=== PATIENT | female | born 1960 | race Caucasian/White ===

== ENCOUNTER 2017-08-12 00:26 | Inpatient (IN) ==
--- NOTE | 2017-08-12 01:15 | Emergency Department Note ---
Disposition Clinical Impression: ESRD (end stage renal disease) Altered mental status Qualifiers: Altered mental status type: unspecified Qualified Code(s): R41.82 - Altered mental status, unspecified Disposition: Admitted As Inpatient Condition: Good General Adult HPI - General Chief complaint: ED Urogenital-Female Stated complaint: uti Time Seen by Provider: 08/12/17 00:33 Source: EMS Mode of arrival: EMS Limitations: altered mental status Nursing Notes Reviewed: Yes Vital Signs Reviewed: Yes - History of Present Illness HPI Narrative: 56-year-old female history of end-stage renal disease dialysis dependent who presents to the ER as a transfer due to altered mental status. Patient is unable to give any history. Per documentation sheet been altered for roughly one day. No other history is obtainable. She had a workup there including a head CT, CT of the chest abdomen and pelvis as well as labs. She was given a dose of Rocephin and transferred here. She is alert to person and place. No other complaints. Pt Subjective Complaint: Altered mental status Onset (ago): day(s) Pain Scale: 0 Improves with: nothing Worsens with: nothing Associated symptoms: Reports: denies other symptoms Treatments Prior to Arrival: none - Related Data Home Medications Medication Instructions Recorded Confirmed Apixaban [Eliquis] 5 mg PO BID 03/24/17 03/24/17 Baclofen [Lioresal] 10 mg PO TID PRN 03/24/17 03/24/17 Carvedilol [Carvedilol] 12.5 mg PO BID 03/24/17 03/24/17 Citalopram Hydrobromide 20 mg PO DAILY 03/24/17 03/24/17 [Citalopram HBr] Docusate Sodium [Dok] 100 mg PO TID PRN 03/24/17 03/24/17 Folic Acid/Vit Bcomp,C [Renal-Diego 1 tab PO DAILY 03/24/17 03/24/17 Tablet] Insulin ASPART [Novolog Flexpen] 0 unit SQ TID PRN 03/24/17 03/24/17 Insulin Glargine,Hum.rec.anlog 0 unit SQ QPM PRN 03/24/17 03/24/17 [Lantus Solostar] Montelukast [Singulair] 10 mg PO DAILY 03/24/17 03/24/17 Omeprazole [PriLOSEC] 20 mg PO DAILY 03/24/17 03/24/17 OxyCODONE/APAP 10/325 [Percocet 0.5 tab PO Q3H PRN 03/24/17 03/24/17 10/325 MG] Sevelamer Carbonate [Renvela] 4.8 gm PO TID 03/24/17 03/24/17 Torsemide [Torsemide] 100 mg PO DAILY 03/24/17 03/24/17 amLODIPine [Norvasc] 5 mg PO BID 03/24/17 03/24/17 hydrALAZINE [HydrALAZINE] 10 mg PO TID 03/24/17 03/24/17 Oxycodone HCl/Acetaminophen 0.5 tab PO Q3H PRN 08/12/17 08/12/17 [Percocet 10-325 mg Tablet] Allergies Allergy/AdvReac Type Severity Reaction Status Date / Time pregabalin [From Lyrica] Allergy See Verified 03/24/17 14:02 Comments codeine AdvReac Nausea Verified 03/24/17 14:02 ivp dye Allergy See Uncoded 03/24/17 14:02 Comments Limitations: ROS unobtainable due to patients medical condition Past Medical History - Past Medical History Attestation: Yes The following information was validated with the patient. Source: old records reviewed Medical history: Reports: CVA, diabetes, dialysis, fibromyalgia, renal disease - Social History Smoking Status: Former smoker Alcohol use: Reports: none Drug use: Reports: none Physical Exam - General Limitations: altered mental status General appearance: alert, in no apparent distress - Head Head exam: atraumatic, normocephalic - Eye Eye exam: Present: normal appearance - ENT ENT exam: normal exam - Neck Neck exam: Present: normal inspection, full ROM - Chest Chest inspection: Present: normal inspection, symmetric chest wall rise - Respiratory Respiratory exam: Present: normal lung sounds bilaterally - Cardiovascular Cardiovascular exam: Present: regular rate, normal rhythm, normal heart sounds - Abdominal Exam Abdominal exam: Present: soft, Non-Tender. Absent: tenderness - Extremities Exam Extremities exam: Present: normal inspection, full ROM - Expanded Upper Extremity Exam Shoulder exam: Present: normal inspection, full ROM Arm exam: Present: normal inspection, full ROM Elbow exam: Present: normal inspection, full ROM Forearm/Wrist exam: Present: normal inspection, full ROM Hand exam: Present: normal inspection, full ROM - Expanded Lower Extremity Exam Hip/Pelvis exam: Present: normal inspection, full ROM Upper leg exam: Present: normal inspection, full ROM Knee exam: Present: normal inspection, full ROM Lower leg exam: Present: normal inspection, full ROM Ankle exam: Present: normal inspection, full ROM Foot/toe exam: Present: normal inspection, full ROM - Neurological Exam Neurological exam: Present: other (GCS 15. Nonfocal neurologic exam. Moves all extremities equally.) - Skin Skin exam: Present: warm, dry Course Course Narrative: Patient seen and examined. Vital signs reviewed. I reviewed her prior workup including a normal head CT as well as CT of the chest abdomen pelvis with a consolidation in the right middle and lower lobes likely atelectatic. There was also some bilateral perinephric stranding however her urinalysis did not demonstrate UTI. Electrolytic within normal limits. Creatinine of 2.7. Patient given Rocephin. Vital Signs Temperature 98 F 08/12/17 00:28 Pulse Rate 81 08/12/17 00:28 Respiratory Rate 20 08/12/17 00:28 Blood Pressure 179/82 08/12/17 00:28 O2 Sat by Pulse Oximetry 97 08/12/17 00:28 Temperature 98.5 F 08/12/17 04:01 Pulse Rate 75 08/12/17 04:01 Respiratory Rate 18 08/12/17 04:01 Blood Pressure 152/84 08/12/17 04:01 O2 Sat by Pulse Oximetry 96 08/12/17 04:01 Oxygen Delivery Oxygen Delivery Room Air Medical Decision Making - [facility] Narrative Medical decision making narrative: 56-year-old female presents to the ER due to altered mental status. She is a poor historian and unable to gather any history. History from documentation. She was imaged with a CT of her head as well as chest abdomen pelvis. Head with no acute abnormalities. Chest with atelectatic changes in the right middle and lower lobes versus pneumonia. Given the fact that she is dialysis dependent we will broaden antibiotic coverage with vancomycin and Zosyn for suspected healthcare associated pneumonia. Labs and urinalysis reviewed. She was given Rocephin prior to transfer. She is admitted to the hospitalist service for altered mental status. - Lab Data Lab results reviewed: Yes I reviewed the patient's lab results. Result diagrams: 08/12/17 04:54 08/12/17 04:54 - Radiology Data Radiology results reviewed: Yes I reviewed the patient's radiology results. Vasu - Vasu Situation: Demographics, MOA Background: Presenting Complaint, Relevant PMH, Meds, & Allergies Assessment: Course and respsone to treatment, Exam Concerns, Patient/Family Expectation, Pertinant Lab Results Recommendation: Barrier(s) to disposition, Recommendation based on pending studies, treatments, or consults SRed Report Given to: Dr. Gia Leone Repor Time: 01:42 Attestation Statement - Attestation Attestation: I, Cy Casiano MD, personally evaluated this patient and discussed their management with the resident physician. I reviewed the resident's note and agree with the documented findings, medical decision making, and plan of care. Patient is a 56-year-old female who was transferred from another facility after she presented there from an extended care facility with altered mental status. She had a complete workup at that facility and is being transferred here for admission with the hospitalist wanted her evaluated in the emergency department. Here in the department the patient is awake and alert and responds to verbal stimuli and answers questions appropriately. She is oriented 3. She has no specific complaints. On examination patient is a well-developed well-nourished female in no acute distress. She is alert and oriented. There is no cyanosis or diaphoresis. Breath sounds are equal bilaterally. Heart regular. Abdomen soft with normal bowel sounds. Records from transferring facility reviewed. The hospitalist, Dr. Nielsen, was consulted and accepted admission of the patient.
[2017-08-12] MEDS ORDERED: Piperacillin/Tazobactam 3.375 GM in 0.9 % Sodium Chloride Mini Bag 100 ML IVPB ONE (01:42)
--- NOTE | 2017-08-12 02:03 | Internal Med History&Physical ---
<Winston Contreras - Last Filed: 08/12/17 03:17> Date of Encounter: 08/12/17 Time of Encounter: 02:03 Assessment and Plan (1) Altered mental status Current visit: Yes Status: Acute Likely secondary to infection No focal neurologic defecits CT head normal Patient has elevated WBC Electrolytes within normal limits BUN normal Cr appears at baseline with her ESRD No evidence of extremes of glucose current 185 TSH wnl AST, ALT, Alk phos elevated but ammonia normal, no abd pain. Did not see urine drug screen in OSH records will check UDS, Acetomenophen, salicilates patient appears to be on perocet at home. BCX, UCx obtained at OSH results pending. Awaiting med rec and lab results before restarting all home meds, but will restart hydralazine which it appears she refilled recently and elipuis which was filled recently. Qualifiers: Altered mental status type: unspecified Qualified Code(s): R41.82 - Altered mental status, unspecified (2) HCAP (healthcare-associated pneumonia) Current visit: Yes Status: Suspected Dialysis Patient with possible PNA on CT chest. Broad spectrum abx (vanc and zosyn) started. Continue to monitor with plans to de-escalate abx as able. (3) ESRD (end stage renal disease) Current visit: Yes Status: Chronic Pt with ESRD on HD. Cr appears lower than prior admission to the facility, BUN normal. no urgent need for dialysis at this time. determine patient's HD schedule. (4) HTN (hypertension) Current visit: Yes Status: Acute Pt with Hx of HTN appears to be on hoem hydralazine based on records. SBPs 170s will restart home meds. continue to monitor. Qualifiers: Hypertension type: essential hypertension Qualified Code(s): I10 - Essential (primary) hypertension (5) Diabetes mellitus Current visit: Yes Status: Acute Hx of IDDM will start SSI, accuchecks Qualifiers: Diabetes mellitus type: type 2 Diabetes mellitus complication status: with neurologic complications Diabetes mellitus complication detail: with polyneuropathy Diabetes mellitus tank terminal gauger insulin use: with longterm use Qualified Code(s): E11.42 - Type 2 diabetes mellitus with diabetic polyneuropathy; Z79.4 - senior living (current) use of insulin; Z79.4 - ferry terminal supervisor ( current) use of insulin; Z79.4 - senior living (current) use of insulin; Z79.4 - senior living (current) use of insulin Internal Medicine - H&P: HPI Chief complaint: AMS Admitted From: Emergency Dept Plans for Post Hospital Care: Transfer Custodial Facility History of present illness: Ms. Simon is a 56 year old female c PMhx of DM, HTN, CVA, ESRD on dialysis, DVT reports tot [facility] ED as a transfer from [place] [facility] for AMS. Patient is altered not able to tell me why she was brought to the ED. Per records from OSH patient presented with gradual onset of AMS x 1 day of decreased alertness, change in behavior, and confusion. Patient denies current complaints. Patient was worked up at OSH with lab work, CT Head, CT chest, Abd, Pelvis. Patient's Labs showed: CBC: WBC 13.9, Hgb 13.8, Hct 43.2, plts 404, Seg % 87.8, lymph 8.2#neut 12.2; CMP:Na 136, K 4.3, Cl 97, Co2 30.8, BUN 18, Cr 2.72, Glucose, 185, Gap 8, Ca 8.2, albumin 3.4, total protein 7.3, total bili 0.21, Alk phos 371, AST 74, ALT 306; CPK 25; Influenza swab negative, Lactic Acid: 0.6 ; Lipase 113, PT 10.9, INR 0.99, PTT 33.3; Ammonia 11; Trop Negative; UA: pH 6.5, spec gravity 1.015, yellow, clear, glucose 250, ketone negative, bili negative, blood trace, urobili 0.2, nitrite negative, leuk est ngative, WBC 3-5 , RBC 3-5, epitelial 15-30, bacteria few, mucous few, no crystals, no casts; TSH 1.91; uric acid 2.4 CT head showed no acute intercranial abnormality; CT [id number] showed: "Focal collapse and consolidation within the right middle llobe, and right lower lobe. THis is probabl chronic atelectasis, but pna in that location could be present as well. Subacute fracture of the right 3rd through 7th ribs these are new when compared to previous exam from may 2017. Bilateral perinephric fat stranding. THis is probably age related, but correlate with any clinical evidence of pyelonephritis. Large amount of stool within the colon suggesting constipation. Main pulmonary arterial enlargement raising the possibility of pulmonary arterial hypertension. Patient was given 1 dose of ceftriaxone in the OSH ED and transferred to [facility] ED. Patient was started on broad spectrum abx in our ED. Past Med Surg Social Fam HX - Past Medical History Medical history: CVA, diabetes, dialysis, fibromyalgia, renal disease - Social History Smoking Status: Former smoker Alcohol use: none Drug use: none Internal Medicine - H&P: Meds Apixaban [Eliquis] 5 mg PO BID 03/24/17 [History] Baclofen [Lioresal] 10 mg PO TID PRN 03/24/17 [History] Carvedilol [Carvedilol] 12.5 mg PO BID 03/24/17 [History] Citalopram Hydrobromide [Citalopram HBr] 20 mg PO DAILY 03/24/17 [History] Docusate Sodium [Dok] 100 mg PO TID PRN 03/24/17 [History] Folic Acid/Vit Bcomp,C [Renal-Diego Tablet] 1 tab PO DAILY 03/24/17 [History] Insulin ASPART [Novolog Flexpen] 0 unit SQ TID PRN 03/24/17 [History] Insulin Glargine,Hum.rec.anlog [Lantus Solostar] 0 unit SQ QPM PRN 03/24/17 [ History] Montelukast [Singulair] 10 mg PO DAILY 03/24/17 [History] Omeprazole [PriLOSEC] 20 mg PO DAILY 03/24/17 [History] OxyCODONE/APAP 10/325 [Percocet 10/325 MG] 0.5 tab PO Q3H PRN 03/24/17 [History] Sevelamer Carbonate [Renvela] 4.8 gm PO TID 03/24/17 [History] Torsemide [Torsemide] 100 mg PO DAILY 03/24/17 [History] amLODIPine [Norvasc] 5 mg PO BID 03/24/17 [History] hydrALAZINE [HydrALAZINE] 10 mg PO TID 03/24/17 [History] Oxycodone HCl/Acetaminophen [Percocet 10-325 mg Tablet] 0.5 tab PO Q3H PRN 08/12 [History] 3 Allergy/AdvReac Type Severity Reaction Status Date / Time pregabalin [From Lyrica] Allergy See Verified 03/24/17 14:02 Comments codeine AdvReac Nausea Verified 03/24/17 14:02 ivp dye Allergy See Uncoded 03/24/17 14:02 Comments ROS unobtainable: due to mental status All Systems PM: A 10-system review of systems was performed and is negative for pertinent findings except as documented above in the HPI. - Constitutional Vitals: Temp Pulse Resp BP Pulse Ox 98 F 78 16 172/72 98 08/12/17 00:28 08/12/17 01:46 08/12/17 01:46 08/12/17 01:46 08/12/17 01:46 General appearance: Present: A&O X 2 (oriented to name and place(hospital), not oriented to year), no acute distress. Absent: answers questions appropriately ( answers most questions apporpriately but not all) - Head Head exam: Present: atraumatic, normocephalic - Eye Eye exam: Present: EOMI, PERRL, conjuntiva pink, sclera anicteric Pupils: Present: PERRL - Neck Neck exam general surgery: Present: supple, trachea midline. Absent: nuchal rigidity - Respiratory Respiratory exam: Present: CTAB. Absent: accessory muscle use, rales, rhonchi, wheezes - Cardiovascular Cardiovascular exam: Present: RRR, +S1, +S2. Absent: diastolic murmur, gallop, rubs, systolic murmur - GI/Abdominal GI/Abdominal exam: Present: normal bowel sounds, soft, no peritoneal signs. Absent: distended, tenderness - Extremities Exam Extremities exam: Present: warm, radial pulses palpable and symmetrical. Absent : calf tenderness, cyanotic, pedal edema - Neurological Exam Neurological exam: Present: alert, altered, CN II-XII intact, oriented X3, no focal deficits. Absent: facial droop, speech deficit - Skin Skin exam: Present: dry, intact <Gia,Sulaiman P - Last Filed: 08/12/17 04:31> Date of Encounter: 08/12/17 Internal Medicine - H&P: HPI History of present illness: Ms. Simon is a 56 year old female All Systems PM: A 10-system review of systems was performed and is negative for pertinent findings except as documented above in the HPI. - Constitutional Vitals: Temp Pulse Resp BP Pulse Ox 98.5 F 75 18 152/84 96 08/12/17 04:01 08/12/17 04:01 08/12/17 04:01 08/12/17 04:01 08/12/17 04:01 - Attending Attestation I examined this patient and my medical decision-making was reviewed with the Resident Physician. I agree with the documented findings, disposition and treatment plan as described except to the extent set forth below. I agree with assessment and plan drawn by resident.
[2017-08-12] MEDS ORDERED: Dextrose Gel 15 GM/37.5 ML TUBE PO PRN ×2 (03:10)
[2017-08-12] MEDS ORDERED: D5% in Water 1,000 ML IVC PRN (03:10)
[2017-08-12] MEDS ORDERED: *HR* Dextrose 50 % in Water (Syg) 50 ML SYRINGE IVP PRN (03:10)
[2017-08-12] MEDS: hydrALAZINE 10 MG TABLET PO SCH ×4 (04:47→22:07)
[2017-08-12 05:02] LABS: Basophils # 0.1 K/mcL (0.0-0.2); Eosinophils # 0.4 K/mcL (0.0-0.6); Eosinophils % 3.7 %; Hematocrit 42.6 % (35.3-44.9); Hemoglobin 12.5 g/dL (11.5-15.4); Immature Granulocytes % 0.6 % (0-4); Lymphocytes # 2.8 K/mcL (0.6-4.6); Lymphocytes % 28.5 %; Mean Corpuscular HGB Conc 29.3 g/dL (31.6-35.5); Mean Corpuscular Hemoglobin 26.4 pg (28.0-33.3); Mean Corpuscular Volume 90.1 fL (83.0-100.0); Mean Platelet Volume 9.9 fL (9.4-12.4); Monocytes # 0.9 K/mcL (0.0-1.3); Monocytes % 8.9 %; Neutrophils # 5.7 K/mcL (1.6-8.9); Platelet Count 352 K/mcL (140-400); Red Blood Count 4.73 M/mcL (3.82-4.97); Red Cell Distribution Width 16.6 % (11.5-14.5); Segmented Neutrophils % 57.3 %
[2017-08-12 05:22] LABS: Acetaminophen < 1.0 mcg/mL (10-30); Alanine Aminotransferase 191 Units/L (7-52); Albumin 3.4 g/dL (3.5-5.7); Albumin/Globulin Ratio 1.3 (1.1-2.2); Alkaline Phosphatase 270 Units/L (34-104); Aspartate Amino Transferase 114 Units/L (13-39); BUN/Creatinine Ratio 7 (6-26); Bilirubin,Total 0.3 mg/dL (0.3-1.0); Blood Urea Nitrogen 22 mg/dL (6-20); Calcium 8.5 mg/dL (8.6-10.3); Carbon Dioxide 27 mEq/L (23-29); Chloride 100 mEq/L (98-107); Globulin 2.6 g/dL (2.4-3.5); Glucose 144 mg/dL (70-105); Osmolality,Calculated 288 (280-300); Potassium 4.2 mEq/L (3.5-5.1); Salicylate < 5.0 mg/dL (15.0-30.0); Sodium 136 mEq/L (136-145); eGFR For African Americans 17 (> 60); eGFR For Non-African Americans 14 (> 60)
[2017-08-12] MEDS: Insulin LISPRO 300 UNITS/3 ML VIAL SQ SCH ×4 (08:15→22:07)
[2017-08-12] MEDS ORDERED: Apixaban 5 MG TABLET PO SCH (09:00)
--- NOTE | 2017-08-12 13:23 | Internal Med Progress Note ---
Date of Encounter: 08/12/17 Time of Encounter: 13:20 - Assessment and plan (1) Altered mental status Current Visit: Yes Status: Acute Assessment and plan: - Transferred from outside hospital because of acute onset confusion. Workup ruled out infection, metabolic derangement, or endocrine abnormalities. - Patient reported she was recently started on gabapentin, and the confusion started after the new medication. - Gabapentin on hold. Mental status improved. Pending urine drug screen. Qualifiers: Altered mental status type: unspecified Qualified Code(s): R41.82 - Altered mental status, unspecified (2) Acute pain of right lower extremity Current Visit: Yes Status: Acute Assessment and plan: - History of PVD and DVT. was on Eliquis. was held by PCP for week for suspected intra-abdominal bleeding. resume about a week ago. - started had right leg pain a week ago and right foot toe discoloration. - Vascular Doppler pending. Continue Eliquis and aspirin. - May consult vascular surgery if needed (3) Elevated liver function tests Current Visit: Yes Status: Acute Assessment and plan: -Labs revealed elevated AST/LT/ALP, suggests biliary obstruction. - Right upper quadrant ultrasound pending. Trend liver function test. (4) ESRD (end stage renal disease) Current Visit: No Status: Chronic (5) HTN (hypertension) Current Visit: No Status: Chronic Assessment and plan: Resume home medications, monitor blood pressure. Qualifiers: Hypertension type: essential hypertension Qualified Code(s): I10 - Essential (primary) hypertension (6) Diabetes mellitus Current Visit: No Status: Chronic Assessment and plan: Resume home insulin. insulin SS. Qualifiers: Diabetes mellitus type: type 2 Diabetes mellitus complication status: with neurologic complications Diabetes mellitus complication detail: with polyneuropathy Diabetes mellitus alf insulin use: with truck terminal manager use Qualified Code(s): E11.42 - Type 2 diabetes mellitus with diabetic polyneuropathy; Z79.4 - intermodal customer service (current) use of insulin; Z79.4 - intermodal customer service ( current) use of insulin; Z79.4 - intermodal customer service (current) use of insulin; Z79.4 - care home (current) use of insulin (7) CAD (coronary artery disease) Current Visit: No Status: Acute Assessment and plan: - no chest pain, continue home meds including asa, BB, ACEI/ ARB. Qualifiers: Coronary Disease-Associated Artery/Lesion type: [place] artery [place] vs. transplanted heart: [place] heart Associated angina: without angina Qualified Code(s): I25.10 - Atherosclerotic heart disease of [place] coronary artery without angina pectoris (8) PVD (peripheral vascular disease) Current Visit: No Status: Chronic Assessment and plan: - as above. pending lipid panel. pt not on statins currently. - Time Spent With Patient Greater than 35 minutes - Subjective Interval history: She resting in bed with family at bedside. She is in more coherent today. She denies fever, chills, or night sweats. She has no cough, shortness of breath, or chest pain. She denies abdominal pain, nausea/vomiting, or diarrhea. - Constitutional Vitals: Temp Pulse Resp BP Pulse Ox 97.5 F L 80 17 149/77 96 08/12/17 12:23 08/12/17 12:23 08/12/17 12:23 08/12/17 12:23 08/12/17 12:23 General appearance: Present: A&O X 2 (oriented to name and place(hospital), not oriented to year), no acute distress. Absent: answers questions appropriately ( answers most questions apporpriately but not all) Exam: PHYSICAL EXAMINATION: GENERAL APPEARANCE: The patient is alert, oriented and in no acute distress. HEENT: Head is normocephalic. The sinuses are nontender. Pupils are equal and reactive. The nares are patent. Oropharynx clear without lesions. NECK: Supple without lymphadenopathy. HEART: Regular rate and rhythm. LUNGS: No crackles or wheezes are heard. ABDOMEN: Soft, nontender, nondistended with good bowel sounds heard. Inguinal area is normal. EXTREMITIES: Without cyanosis, clubbing or edema. NEUROLOGICAL: Gross nonfocal. SKIN: Warm and dry without any rash. Internal Medicine: Result - Labs CBC & Chem 7: 08/12/17 04:54 08/12/17 04:54 Labs: Short CBC 08/12/17 Range/Units 04:54 WBC 10.0 (4.3-11.1) K/mcL Hgb 12.5 (11.5-15.4) g/dL Hct 42.6 (35.3-44.9) % Plt Count 352 (140-400) K/mcL Neutrophils # 5.7 (1.6-8.9) K/mcL BMP 08/12/17 04:54 Sodium 136 Potassium 4.2 Chloride 100 Carbon Dioxide 27 BUN 22 H Creatinine 3.30 H Glucose 144 H Calcium 8.5 L Liver Function 08/12/17 Range/Units 04:54 Total Bilirubin 0.3 (0.3-1.0) mg/dL AST 114 H (13-39) Units/L ALT 191 H (7-52) Units/L Alkaline Phosphatase 270 H (34-104) Units/L Albumin 3.4 L (3.5-5.7) g/dL Consult Discharge Plan - Plan Referrals: Juan J Pal, LAMAR [Primary Care Provider] - Servando Hewitt [Family Provider] -
[2017-08-12] MEDS: *HR* OxyCODONE/APAP 5/325 TABLET PO PRN ×3 (13:30→22:06)
[2017-08-12] MEDS: amLODIPine 5 MG TABLET PO SCH ×2 (13:30→22:07)
[2017-08-12] MEDS: Aspirin 81 MG TAB.CHEW PO SCH (13:30)
--- NOTE | 2017-08-12 14:07 | Nephrology Consult Note ---
Date of Encounter: 08/12/17 Time of Encounter: 14:00 Assessment and Plan (1) ESRD (end stage renal disease) Current Visit: No Status: Inactive Lytes WNL, no acute indication for SERVICE AIDE today Will plan next HD for monday if still hospitalized Renal diet advised Hgb stable above 10 [place] with meals only (2) Altered mental status Current Visit: Yes Status: Acute Per primary team Qualifiers: Altered mental status type: unspecified Qualified Code(s): R41.82 - Altered mental status, unspecified (3) HTN (hypertension) Current Visit: Yes Status: Chronic BP redaings elevated, resume home regimen and will adjust as needed Qualifiers: Hypertension type: essential hypertension Qualified Code(s): I10 - Essential (primary) hypertension History of Present Illness - Reason for Consult Consult date: 08/12/17 end stage renal disease Requesting physician: Karoline Vargas - History of Present Illness 56 y o female with PMH of ESRD on HD admitted overnight for altered mental status after starting gabapentin. Renal consulted for management of ESRD. Last HD was yesterday. She typically receives HD at [facility] in [place] with a different inspector firearms. She denies any other complaints at present and feels like she is back to her baseline mental status but worries about her painful feet which she attributes to diabetic neuropathy Past Med Surg Social Fam HX - Past Medical History Medical history: CVA, diabetes, dialysis, fibromyalgia, renal disease - Social History Smoking Status: Former smoker Alcohol use: none Drug use: none Medications and Allergies Apixaban [Eliquis] 2.5 mg PO BID 03/24/17 [History] Carvedilol [Carvedilol] 12.5 mg PO BID 03/24/17 [History] Citalopram Hydrobromide [Citalopram HBr] 20 mg PO DAILY 03/24/17 [History] Docusate Sodium [Dok] 100 mg PO BID PRN 03/24/17 [History] Folic Acid/Vit Bcomp,C [Renal-Diego Tablet] 1 tab PO DAILY 03/24/17 [History] Omeprazole [PriLOSEC] 20 mg PO DAILY 03/24/17 [History] Torsemide [Torsemide] 100 mg PO DAILY 03/24/17 [History] hydrALAZINE [HydrALAZINE] 10 mg PO TID 03/24/17 [History] Acetaminophen [Tylenol Arthritis] 650 mg PO Q4H PRN 08/12/17 [History] Aspirin Enteric Coated [Aspirin EC] 81 mg PO DAILY 08/12/17 [History] Calcium Acetate [Phos-LO] 1,334 cap PO QID 08/12/17 [History] Cetirizine HCl [24Hour Allergy] 10 mg PO DAILY 08/12/17 [History] Cyclopentolate HCl [Cyclogyl] 1 drop RIGHT EYE AD 08/12/17 [History] Doxycycline 100 mg PO BID 08/12/17 [History] Ergocalciferol (VITAMIN D2) [Vitamin D2] 50,000 unit PO GUERRA 08/12/17 [History] Gabapentin [Neurontin] 200 mg PO TID 08/12/17 [History] Insulin LISPRO [Humalog] 2 - 12 unit SQ TIDWM 08/12/17 [History] Ondansetron HCl [Zofran] 4 mg PO Q6H PRN 08/12/17 [History] OxyCODONE/APAP 5/325 [Percocet 5/325 MG] 1 tab PO Q4H PRN 08/12/17 [History] rOPINIRole [Requip] 1 mg PO HS 08/12/17 [History] 3 Allergy/AdvReac Type Severity Reaction Status Date / Time pregabalin [From Lyrica] Allergy See Verified 03/24/17 14:02 Comments codeine AdvReac Nausea Verified 03/24/17 14:02 ivp dye Allergy See Uncoded 03/24/17 14:02 Comments Review of Systems All Systems: reviewed and no additional remarkable complaints except as stated ( 10 systems reviewed and noted) Exam - Vital Signs Vital signs: Initial Vital Signs Temp Pulse Resp BP Pulse Ox 98 F 81 20 179/82 97 08/12/17 00:28 08/12/17 00:28 08/12/17 00:28 08/12/17 00:28 08/12/17 00:28 Vital Signs - Last 8 Hours Temp Pulse Resp BP Pulse Ox 08/12/17 12:23 97.5 F L 80 17 149/77 96 08/12/17 07:17 98.0 F 72 16 158/60 98 Intake and Output 08/11/17 08/12/17 08/12/17 23:59 07:59 15:59 Intake Total 500 / 500 0 / 0 Output Total 0 / 0 Balance 500 / 500 0 / 0 Intake: Oral 500 / 500 0 / 0 Output: Urine 0 / 0 Other: Meal Breakfast Percent of Meal Consumed 0% Blood Glucose* 127 147 - General Appearance General appearance: well-developed, well-nourished EENT: ATNC, mucous membranes moist Neck: no JVD, supple Respiratory: clear Cardiology: no edema, normal S1, normal S2 - Dialysis Access Dialysis Vascular Access: Arteriovenous Fistula thrill: Yes bruit: Yes Gastrointestinal: no tenderness, no guarding Integumentary: warm and dry Neurologic: no focal deficit Musculoskeletal: no deformities Psychiatric: mood/affect appropriate, cooperative Results - Lab Results 08/13/17 05:51 08/13/17 05:51 Most recent lab results Calcium 8.5 mg/dL (8.6-10.3) L 08/12/17 04:54 Consult Discharge Plan - Plan Referrals: Juan J Pal CNP [Primary Care Provider] - Servando Hewitt [Family Provider] -
[2017-08-12] MEDS ORDERED: Heparin 25,000 UNIT/500 ML D5W 25,000 UNIT/500 ML BAG IVC SCH (17:30)
[2017-08-12] MEDS: Calcium Acetate 667 MG CAPSULE PO SCH ×3 (18:16→22:06)
[2017-08-12] MEDS: rOPINIRole 1 MG TABLET PO SCH (18:16)
[2017-08-12] MEDS: Loratadine 10 MG TABLET PO SCH (18:17)
[2017-08-12] MEDS: Carbidopa/Levodopa 25/250 TABLET PO SCH ×2 (18:17→22:07)
[2017-08-12] MEDS: Insulin DETEMIR 100 UNIT/ML X5UNITS SQ SCH ×2 (18:18→22:07)
[2017-08-12] MEDS: Torsemide 20 MG TABLET PO SCH (18:19)
--- NOTE | 2017-08-12 18:38 | Event Note ---
<Karoline Vargas - Last Filed: 08/12/17 18:29> Date of Encounter: 08/12/17 Time of Encounter: 18:38 Vascular study report of right LE was noted. Vascular surgery was called. Per vascular surgery, peroneal artery is not a very vital vessel. Heparin gtt is not indicated. Asa and Eliquis should be continued. GENNY was also advised and ordered. <Krzysztof La - Last Filed: 08/12/17 19:28> Date of Encounter: 08/12/17 I have personally performed a face to face evaluation on this patient. I have reviewed and agree with the care plan. History and Exam by me shows: patient reports right foot pain. On exam the right foot is cyanotic and colder to touch compared to the left foot especially in the toes. Dorsalis pedis pulse is thready. Plan: Subacute ischemia of the right lower extremity secondary to occlusion of right peroneal artery. Vascular surgery was consulted. They recommended continuing with Eliquis. She will be formally evaluated tomorrow.
[2017-08-12] MEDS: Apixaban 2.5 MG TABLET PO SCH (22:06)
[2017-08-12] MEDS ORDERED: *HR* Promethazine 25 MG/ML VIAL IM PRN (22:13)
[2017-08-12] MEDS: *HR* Promethazine 25 MG/ML VIAL IVP PRN (22:42)
[2017-08-13] MEDS: *HR* OxyCODONE/APAP 5/325 TABLET PO PRN ×4 (05:38→21:27)
[2017-08-13 06:20] LABS: Basophils # 0.1 K/mcL (0.0-0.2); Eosinophils # 0.6 K/mcL (0.0-0.6); Eosinophils % 5.2 %; Hematocrit 42.3 % (35.3-44.9); Hemoglobin 12.5 g/dL (11.5-15.4); Immature Granulocytes % 0.5 % (0-4); Lymphocytes # 2.8 K/mcL (0.6-4.6); Lymphocytes % 25.8 %; Mean Corpuscular HGB Conc 29.6 g/dL (31.6-35.5); Mean Corpuscular Hemoglobin 26.7 pg (28.0-33.3); Mean Corpuscular Volume 90.4 fL (83.0-100.0); Mean Platelet Volume 10.2 fL (9.4-12.4); Monocytes % 9.1 %; Neutrophils # 6.3 K/mcL (1.6-8.9); Platelet Count 416 K/mcL (140-400); Red Blood Count 4.68 M/mcL (3.82-4.97); Red Cell Distribution Width 16.9 % (11.5-14.5); Segmented Neutrophils % 58.4 %
[2017-08-13 06:38] LABS: Albumin 3.5 g/dL (3.5-5.7); Albumin/Globulin Ratio 1.3 (1.1-2.2); Bilirubin,Total 0.2 mg/dL (0.3-1.0); Calcium 8.8 mg/dL (8.6-10.3); Chol/HDL Ratio 4.3 (0-4.9); Globulin 2.6 g/dL (2.4-3.5); Potassium 4.4 mEq/L (3.5-5.1); Total Protein 6.1 g/dL (6.4-8.9)
[2017-08-13] MEDS: Insulin LISPRO 300 UNITS/3 ML VIAL SQ SCH ×4 (08:26→21:28)
[2017-08-13] MEDS: Insulin DETEMIR 100 UNIT/ML X5UNITS SQ SCH ×2 (08:58→21:28)
[2017-08-13] MEDS: Calcium Acetate 667 MG CAPSULE PO SCH ×4 (08:58→21:27)
[2017-08-13] MEDS: amLODIPine 5 MG TABLET PO SCH ×2 (08:58→21:28)
[2017-08-13] MEDS: Carbidopa/Levodopa 25/250 TABLET PO SCH ×3 (08:58→21:27)
[2017-08-13] MEDS: rOPINIRole 1 MG TABLET PO SCH (08:59)
[2017-08-13] MEDS: Renal Vitamin 1 MG CAPSULE PO SCH (08:59)
[2017-08-13] MEDS: Aspirin 81 MG TAB.CHEW PO SCH (08:59)
[2017-08-13] MEDS: hydrALAZINE 10 MG TABLET PO SCH ×3 (08:59→21:28)
[2017-08-13] MEDS: Apixaban 2.5 MG TABLET PO SCH ×2 (08:59→21:27)
[2017-08-13] MEDS: Torsemide 20 MG TABLET PO SCH (08:59)
--- NOTE | 2017-08-13 09:58 | Vascular/Endovasc Consult Note ---
Date of Encounter: 08/13/17 Time of Encounter: 08:20 Assessment and Plan (1) PVD (peripheral vascular disease) Current Visit: Yes Status: Chronic The pathophysiology and natural history of peripheral vascular disease was discussed with the patient and all questions were answered. The patient denies disabling claudication, rest pain, ulceration or gangrene. She has polyphasic pedal signals bilaterally. Her duplex reveals patent anterior and posterior tibial arteries. Her mid peroneal artery is occluded. No indication for intervention is indicated at this time. Recommend atherosclerotic risk factor reduction. Continue with Eliquis. Consider Aspirin 81mg daily. Await ankle brachial index results. (2) Hypercoagulable state Current Visit: Yes Status: Chronic (3) HTN (hypertension) Current Visit: Yes Status: Chronic Qualifiers: Hypertension type: essential hypertension Qualified Code(s): I10 - Essential (primary) hypertension (4) Diabetes mellitus Current Visit: Yes Status: Chronic Qualifiers: Diabetes mellitus type: type 2 Diabetes mellitus complication status: with neurologic complications Diabetes mellitus complication detail: with polyneuropathy Diabetes mellitus snf insulin use: with intermediate designer use Qualified Code(s): E11.42 - Type 2 diabetes mellitus with diabetic polyneuropathy; Z79.4 - extermination inspector (current) use of insulin; Z79.4 - extermination inspector ( current) use of insulin; Z79.4 - skilled nursing (current) use of insulin; Z79.4 - extermination inspector (current) use of insulin (5) CAD (coronary artery disease) Current Visit: No Status: Chronic Qualifiers: Coronary Disease-Associated Artery/Lesion type: [place] artery [place] vs. transplanted heart: [place] heart Associated angina: without angina Qualified Code(s): I25.10 - Atherosclerotic heart disease of [place] coronary artery without angina pectoris (6) ESRD (end stage renal disease) on dialysis Current Visit: Yes Status: Chronic - History of Present Illness Consult date: 08/13/17 Requesting physician: Karoline Vargas Consult reason: Peripheral vscular disease Chief complaint: Peripheral vascular disease History of present illness: Ms. Simon is a 56 year old female with a history of hypertension, diabetes and end stage renal disease on hemodialysis who was admitted to [facility] for mental status changes. The patient recently began taking gabapentin. During her evaluation she reported right foot pain. An arterial duplex was ordered which revealed a right peroneal artery occlusion. Vascular surgery was consulted for further evaluation. She denies disabling claudication, rest pain, ulceration or gangrene. She reports that her pain has been chronic in nature and is not related to position of her foot. She describes the pain as burning in nature. She denies chest pain or shortness of breath. Past Med Surg Social Fam HX - Past Medical History Medical history: CVA, diabetes, dialysis, fibromyalgia, renal disease - Social History Smoking Status: Former smoker Alcohol use: none Drug use: none Medications and Allergies Apixaban [Eliquis] 2.5 mg PO BID 03/24/17 [History] Carvedilol [Carvedilol] 12.5 mg PO BID 03/24/17 [History] Citalopram Hydrobromide [Citalopram HBr] 20 mg PO DAILY 03/24/17 [History] Docusate Sodium [Dok] 100 mg PO BID PRN 03/24/17 [History] Folic Acid/Vit Bcomp,C [Renal-Diego Tablet] 1 tab PO DAILY 03/24/17 [History] Omeprazole [PriLOSEC] 20 mg PO DAILY 03/24/17 [History] Torsemide [Torsemide] 100 mg PO DAILY 03/24/17 [History] hydrALAZINE [HydrALAZINE] 10 mg PO TID 03/24/17 [History] Acetaminophen [Tylenol Arthritis] 650 mg PO Q4H PRN 08/12/17 [History] Aspirin Enteric Coated [Aspirin EC] 81 mg PO DAILY 08/12/17 [History] Calcium Acetate [Phos-LO] 1,334 cap PO QID 08/12/17 [History] Cetirizine HCl [24Hour Allergy] 10 mg PO DAILY 08/12/17 [History] Cyclopentolate HCl [Cyclogyl] 1 drop RIGHT EYE AD 08/12/17 [History] Doxycycline 100 mg PO BID 08/12/17 [History] Ergocalciferol (VITAMIN D2) [Vitamin D2] 50,000 unit PO GUERRA 08/12/17 [History] Gabapentin [Neurontin] 200 mg PO TID 08/12/17 [History] Insulin LISPRO [Humalog] 2 - 12 unit SQ TIDWM 08/12/17 [History] Ondansetron HCl [Zofran] 4 mg PO Q6H PRN 08/12/17 [History] OxyCODONE/APAP 5/325 [Percocet 5/325 MG] 1 tab PO Q4H PRN 08/12/17 [History] rOPINIRole [Requip] 1 mg PO HS 08/12/17 [History] 3 Allergy/AdvReac Type Severity Reaction Status Date / Time pregabalin [From Lyrica] Allergy See Verified 03/24/17 14:02 Comments codeine AdvReac Nausea Verified 03/24/17 14:02 ivp dye Allergy See Uncoded 03/24/17 14:02 Comments All Systems Review: A 10-system review of systems was performed and is negative for pertinent findings except as documented above in the HPI. - Cardiovascular Cardiovascular: no chest pain at rest, no chest pain with exertion, no dyspnea at rest, no dyspnea on exertion - Vascular Vascular: no leg pain with exertion, no lower extremity swelling - Gastrointestinal Gastrointestinal: no abdominal pain - Neurological Neurological: no focal weakness, no numbness Exam Vital Signs, Last 4 Hours Temp Pulse Resp BP Pulse Ox 08/13/17 07:05 98.2 F 70 16 133/76 95 General: Present: Conversant, No Apparent Distress HEENT: Present: Normocephaly, Trachea midline, Pupils equal Neck: Absent: JVD, Lymphadenopathy, Left Carotid bruit, Right Carotid bruit Cardiac: Present: Reg Rate and Rhythm, Normal S1 and S2 Lungs: Present: Normal Breath Sounds, No Wheeze, Rales, Rhonchi Neuro: Present: Alert and responsive, No focal deficits noted, Motor nerves grossly intact, Sensory nerves grossly intact Abdomen: Present: Soft, Non-tender. Absent: Masses Vascular: Present: Normal capillary refill, Pulse, normal. Absent: Cyanosis, Edema Skin: Present: No rashes noted on visualized skin. Absent: Wound/ulcer(s) Musculoskeletal: Present: No Chest Wall Tenderness Consult Discharge Plan - Plan Referrals: Juan J Pal CNP [Primary Care Provider] - Servando Hewitt [Family Provider] -
[2017-08-13] MEDS: *HR* Promethazine 25 MG/ML VIAL IVP PRN (10:51)
--- NOTE | 2017-08-13 11:20 | Internal Med Progress Note ---
Date of Encounter: 08/13/17 Time of Encounter: 11:18 - Assessment and plan (1) Acute encephalopathy Current Visit: Yes Status: Acute Assessment and plan: CT head was negative. Possibly metabolic versus infectious versus CVA. We will check an MRI brain. Continue treat other causes as below. Continue to monitor. (2) UTI (urinary tract infection) Current Visit: Yes Status: Acute Assessment and plan: Continue Zosyn for now. Follow up on cultures. Qualifiers: Urinary tract infection type: site unspecified Hematuria presence: without hematuria Qualified Code(s): N39.0 - Urinary tract infection, site not specified (3) Elevated liver function tests Current Visit: Yes Status: Acute Assessment and plan: -Labs revealed elevated AST/LT/ALP, suggests biliary obstruction. - Right upper quadrant ultrasound pending. Trend liver function test. (4) Diabetes mellitus Current Visit: Yes Status: Chronic Assessment and plan: Resume home insulin. insulin SS. Qualifiers: Diabetes mellitus type: type 2 Diabetes mellitus complication status: with neurologic complications Diabetes mellitus complication detail: with polyneuropathy Diabetes mellitus usp insulin use: with terminal makeup operator use Qualified Code(s): E11.42 - Type 2 diabetes mellitus with diabetic polyneuropathy; Z79.4 - adjunct faculty for medical terminology (current) use of insulin; Z79.4 - [facility] ( current) use of insulin; Z79.4 - adjunct faculty for medical terminology (current) use of insulin; Z79.4 - adjunct faculty for medical terminology (current) use of insulin (5) ESRD (end stage renal disease) on dialysis Current Visit: Yes Status: Chronic Assessment and plan: Nephrology is following. HD as scheduled. (6) HTN (hypertension) Current Visit: Yes Status: Chronic Assessment and plan: Resume home medications, monitor blood pressure. Qualifiers: Hypertension type: essential hypertension Qualified Code(s): I10 - Essential (primary) hypertension (7) PVD (peripheral vascular disease) Current Visit: Yes Status: Chronic Assessment and plan: Found to have an occluded right peroneal artery. Vascular is following. Continue aspirin and eliquis. (8) HCAP (healthcare-associated pneumonia) Current Visit: Yes Status: Suspected Assessment and plan: Not sure if she really has pneumonia. She does not have any signs of that. We will keep antibiotics of vancomycin and Zosyn going for today. Cultures are negative. (9) CAD (coronary artery disease) Current Visit: No Status: Chronic Assessment and plan: no chest pain, continue home meds including asa, BB, ACEI/ ARB. Qualifiers: Coronary Disease-Associated Artery/Lesion type: [place] artery [place] vs. transplanted heart: [place] heart Associated angina: without angina Qualified Code(s): I25.10 - Atherosclerotic heart disease of [place] coronary artery without angina pectoris - Subjective Interval history: Patient was seen and examined. Afebrile. No acute events. Family is at bedside. Patient was admitted with an acute encephalopathy suspected to be secondary to either gabapentin versus infectious etiology due to itch Versus UTI. Also found to have peripheral vascular disease with an occluded right peroneal artery for which vascular is consulted and they dont plan on doing an intervention. - Constitutional Vitals: Temp Pulse Resp BP Pulse Ox 98.2 F 70 17 139/77 95 08/13/17 11:03 08/13/17 11:03 08/13/17 11:03 08/13/17 11:03 08/13/17 11:03 General appearance: Present: A&O X 2 (oriented to name and place(hospital), not oriented to year), no acute distress, answers questions appropriately (answers most questions apporpriately but not all) Exam: GEN: NAD. Alert and oriented 2. Speech is slurred. CVS: RRR. S1, S2, No m/r/g RESP: CTAB ABD: Soft, NT, ND, +BS EXT: No edema. 2+ DP, No rashes NEURO: Slurred speech. She has no other focal deficits. No sensory deficits. Internal Medicine: Result - Labs CBC & Chem 7: 08/13/17 05:51 08/13/17 05:51 Labs: Short CBC 08/13/17 Range/Units 05:51 WBC 10.8 (4.3-11.1) K/mcL Hgb 12.5 (11.5-15.4) g/dL Hct 42.3 (35.3-44.9) % Plt Count 416 H (140-400) K/mcL Neutrophils # 6.3 (1.6-8.9) K/mcL BMP 08/13/17 05:51 Sodium 135 L Potassium 4.4 Chloride 99 Carbon Dioxide 28 BUN 36 H Creatinine 4.36 H Glucose 78 Calcium 8.8 Liver Function 02/18/18 Range/Units 05:51 Total Bilirubin 0.2 L (0.3-1.0) mg/dL AST 45 H (13-39) Units/L ALT 15 (7-52) Units/L Alkaline Phosphatase 249 H (34-104) Units/L Albumin 3.5 (3.5-5.7) g/dL Consult Discharge Plan - Plan Referrals: Juan J Pal CNP [Primary Care Provider] - Servando Hewitt [Family Provider] -
[2017-08-13] MEDS ORDERED: Cyclopentolate 2 ML BOTTLE RIGHT EYE SCH (11:45)
--- NOTE | 2017-08-13 13:36 | Nephrology Progress Note ---
Date of Encounter: 08/13/17 Time of Encounter: 13:00 - Assessment and Plan (1) ESRD (end stage renal disease) Current Visit: No Status: Inactive Next HD planned for tomorrow if still hospitalized (2) Altered mental status Current Visit: Yes Status: Acute Resolved Qualifiers: Altered mental status type: unspecified Qualified Code(s): R41.82 - Altered mental status, unspecified (3) HTN (hypertension) Current Visit: Yes Status: Chronic BP readings fluctuating from 130-150s systolic, stable Qualifiers: Hypertension type: essential hypertension Qualified Code(s): I10 - Essential (primary) hypertension Subjective Interval history: Interim events noted, pt seen and examined Objective - Vital Signs Vital signs: Vital Signs Temp Pulse Resp BP Pulse Ox 08/13/17 11:03 98.2 F 70 17 139/77 95 08/13/17 07:05 98.2 F 70 16 133/76 95 08/13/17 04:45 98.1 F 76 16 152/76 96 08/12/17 23:38 98.0 F 74 16 147/78 97 08/12/17 19:59 98.1 F 72 16 158/80 94 08/12/17 16:41 98.2 F 75 16 156/76 98 Intake and Output 08/12/17 08/13/17 08/13/17 23:59 07:59 15:59 Intake Total 0 / 0 480 / 480 Output Total 200 / 200 Balance -200 / -200 480 / 480 Intake: Oral 0 / 0 480 / 480 Output: Urine 200 / 200 Other: Meal Breakfast Percent of Meal Consumed 10% Weight 74.3 kg Blood Glucose* 178 62 138 Patient Weight 08/13/17 23:59 Weight 74.3 kg - General Appearance General appearance: Present: well-developed, well-nourished EENT: Present: ATNC, mucous membranes moist Neck: Present: no JVD, supple Respiratory: Present: clear Cardiology: Present: no edema, normal S1, normal S2 Dialysis Vascular Access: Arteriovenous Fistula thrill: Yes bruit: Yes Gastrointestinal: Present: no tenderness, no guarding Integumentary: Present: warm and dry Neurologic: Present: no focal deficit Musculoskeletal: Present: no deformities Psychiatric: Present: mood/affect appropriate, cooperative - Lab 08/13/17 05:51 08/13/17 05:51 Most recent lab results Calcium 8.8 mg/dL (8.6-10.3) 08/13/17 05:51 Consult Discharge Plan - Plan Referrals: Juan J Pal, LAMAR [Primary Care Provider] - Servando Hewitt [Family Provider] -
[2017-08-13] MEDS ORDERED: hydrALAZINE 10 MG TABLET PO SCH (15:00)
[2017-08-13] MEDS ORDERED: NON-FORMULARY MEDICATION 1 EACH EACH (Carvedilol [Carvedilol] 12.5 MG) PO SCH (21:00)
[2017-08-14] MEDS: *HR* OxyCODONE/APAP 5/325 TABLET PO PRN ×5 (01:02→20:25)
[2017-08-14 07:03] LABS: Basophils # 0.1 K/mcL (0.0-0.2); Eosinophils # 0.6 K/mcL (0.0-0.6); Eosinophils % 5.6 %; Hematocrit 41.8 % (35.3-44.9); Hemoglobin 12.7 g/dL (11.5-15.4); Immature Granulocytes % 0.6 % (0-4); Lymphocytes # 3.2 K/mcL (0.6-4.6); Lymphocytes % 30.2 %; Mean Corpuscular HGB Conc 30.4 g/dL (31.6-35.5); Mean Corpuscular Volume 88.9 fL (83.0-100.0); Mean Platelet Volume 10.6 fL (9.4-12.4); Neutrophils # 5.7 K/mcL (1.6-8.9); Nucleated Red Blood Cells 0.3 /100 WBC (0); Platelet Count 420 K/mcL (140-400); Red Cell Distribution Width 16.9 % (11.5-14.5); Segmented Neutrophils % 53.6 %
[2017-08-14 07:09] LABS: Hemoglobin A1C 6.4 %
[2017-08-14] MEDS: Insulin LISPRO 300 UNITS/3 ML VIAL SQ SCH ×4 (07:47→20:23)
[2017-08-14 07:51] LABS: Albumin 3.5 g/dL (3.5-5.7); Albumin/Globulin Ratio 1.4 (1.1-2.2); Bilirubin,Total 0.3 mg/dL (0.3-1.0); Calcium 8.7 mg/dL (8.6-10.3); Globulin 2.5 g/dL (2.4-3.5); Potassium 5.6 mEq/L (3.5-5.1)
[2017-08-14] MEDS ORDERED: 0.9 % Sodium Chloride 250 ML IVC PRN (08:23)
[2017-08-14] MEDS ORDERED: VIT BCOMP C PO SCH (09:00)
[2017-08-14] MEDS ORDERED: FOLIC ACID PO SCH (09:00)
[2017-08-14] MEDS ORDERED: TORSEMIDE 100 MG PO SCH (09:00)
--- NOTE | 2017-08-14 09:46 | Internal Med Progress Note ---
Date of Encounter: 08/14/17 Time of Encounter: 09:43 - Assessment and plan (1) Acute encephalopathy Current Visit: Yes Status: Acute Assessment and plan: CT head was negative. MRI brain shows subacute CVA in the right CMM INSPECTOR territory. I believe this explains her symptoms more than anything although other causes could be contributing. Her subacute stroke could have happen anywhere. The last couple weeks up to 48 hours ago prior to admission. Other contributing factors could be Possibly due to metabolic versus infectious. Was taking more than recommended dose of gabapentin for ESRD as well. Continue treat other causes as below. Continue to monitor. (2) CVA (cerebral vascular accident) Current Visit: Yes Status: Acute Assessment and plan: We will check an echocardiogram with bubble study, carotid ultrasound. The patient is already on an aspirin baby dose. would recommend switching to plavix once it is definitive that vascular is not planning any intervention. No use for statin given her end-stage renal disease and elevated LFTs. The patient is also on Eliquis renally dosed for vascular disease purposes. Continue neuro checks Qualifiers: CVA mechanism: unspecified Qualified Code(s): I63.9 - Cerebral infarction, unspecified (3) UTI (urinary tract infection) Current Visit: Yes Status: Acute Assessment and plan: Continue any biotics. Switched to ceftriaxone. Start Zosyn and vancomycin. Follow up on cultures. Qualifiers: Urinary tract infection type: site unspecified Hematuria presence: without hematuria Qualified Code(s): N39.0 - Urinary tract infection, site not specified (4) Elevated liver function tests Current Visit: Yes Status: Acute Assessment and plan: -Labs revealed elevated AST/LT/ALP, those are improving. Ultrasound unremarkable. Continue to monitor. (5) Diabetes mellitus Current Visit: Yes Status: Chronic Assessment and plan: Continue insulin sliding scale. Continue Levemir 10 units twice a day. Continue with Accu-Cheks.. Qualifiers: Diabetes mellitus type: type 2 Diabetes mellitus complication status: with neurologic complications Diabetes mellitus complication detail: with polyneuropathy Diabetes mellitus prison insulin use: with exterminator helper use Qualified Code(s): E11.42 - Type 2 diabetes mellitus with diabetic polyneuropathy; Z79.4 - marine oil terminal superintendent (current) use of insulin; Z79.4 - marine oil terminal superintendent ( current) use of insulin; Z79.4 - marine oil terminal superintendent (current) use of insulin; Z79.4 - assisted (current) use of insulin (6) ESRD (end stage renal disease) on dialysis Current Visit: Yes Status: Chronic Assessment and plan: Nephrology is following. HD as scheduled. (7) HTN (hypertension) Current Visit: Yes Status: Chronic Assessment and plan: Resume home medications, monitor blood pressure. Qualifiers: Hypertension type: essential hypertension Qualified Code(s): I10 - Essential (primary) hypertension (8) PVD (peripheral vascular disease) Current Visit: Yes Status: Chronic Assessment and plan: Found to have an occluded right peroneal artery. Vascular is following. Vascular workup is pending. Continue aspirin and eliquis. (9) HCAP (healthcare-associated pneumonia) Current Visit: Yes Status: Suspected Assessment and plan: Not convinced she has pneumonia. Stop vancomycin and Zosyn. We will just treat UTI. Cultures are negative. (10) CAD (coronary artery disease) Current Visit: No Status: Chronic Assessment and plan: no chest pain, continue home meds including asa, BB, ACEI/ ARB. Qualifiers: Coronary Disease-Associated Artery/Lesion type: [place] artery [place] vs. transplanted heart: [place] heart Associated angina: without angina Qualified Code(s): I25.10 - Atherosclerotic heart disease of [place] coronary artery without angina pectoris - Subjective Interval history: Patient was seen and examined. Afebrile. No acute events. Yesterday we found that she has had a subacute CVA. Patient was admitted with an acute encephalopathy suspected to be secondary to either gabapentin versus infectious etiology due to HCAP Versus UTI. Also found to have peripheral vascular disease with an occluded right peroneal artery for which vascular is consulted and they dont plan on doing an intervention. - Constitutional Vitals: Temp Pulse Resp BP Pulse Ox 97.8 F 65 16 126/72 96 08/14/17 07:33 08/14/17 07:33 08/14/17 07:33 08/14/17 07:33 08/14/17 07:33 General appearance: Present: A&O X 2 (oriented to name and place(hospital), not oriented to year), no acute distress, answers questions appropriately (answers most questions apporpriately but not all) Exam: EN: NAD. Alert and oriented 2. Speech is slurred. CVS: RRR. S1, S2, No m/r/g RESP: CTAB ABD: Soft, NT, ND, +BS EXT: No edema. 2+ DP, No rashes NEURO: Slurred speech. She has no other focal deficits. No sensory deficits. Internal Medicine: Result - Labs CBC & Chem 7: 08/14/17 06:27 08/14/17 10:57 Labs: Short CBC 08/14/17 Range/Units 06:27 WBC 10.7 (4.3-11.1) K/mcL Hgb 12.7 (11.5-15.4) g/dL Hct 41.8 (35.3-44.9) % Plt Count 420 H (140-400) K/mcL Neutrophils # 5.7 (1.6-8.9) K/mcL BMP 08/14/17 06:27 Sodium 133 L Potassium 5.6 H Chloride 98 Carbon Dioxide 25 BUN 50 H Creatinine 4.88 H Glucose 76 Calcium 8.7 Liver Function 08/14/17 Range/Units 06:27 Total Bilirubin 0.3 (0.3-1.0) mg/dL AST 28 (13-39) Units/L ALT 13 (7-52) Units/L Alkaline Phosphatase 229 H (34-104) Units/L Albumin 3.5 (3.5-5.7) g/dL - Impressions Impressions Brain MRI 08/13/17 11:46 IMPRESSION: 1.7 cm area of mildly restricted diffusion in the right occipital lobe, likely related to a subacute infarction in the right CMM INSPECTOR territory. Scattered tiny old lacunar infarcts. Mild parenchymal volume loss. Mild chronic microvascular disease. Moderate bilateral mastoid effusions. The results were called by Dr. James Smith MD to nurse Ms. Little on 08/13/2017 at 14:08. D/ / James Smith MD / James Smith MD Interpreting Provider: James Smith MD Abdomen Ultrasound 08/14/17 08:00 IMPRESSION: Essentially unremarkable right upper quadrant ultrasound. Incidental right renal cyst. D/ / Greg Bae MD / Greg Bae MD Interpreting Provider: Greg Bae MD Consult Discharge Plan - Plan Referrals: Juan J Pal CNP [Primary Care Provider] - Servando Hewitt [Family Provider] -
[2017-08-14] MEDS: Torsemide 20 MG TABLET PO SCH (10:56)
[2017-08-14] MEDS: Carbidopa/Levodopa 25/250 TABLET PO SCH ×3 (10:56→20:25)
[2017-08-14] MEDS: Renal Vitamin 1 MG CAPSULE PO SCH (10:56)
[2017-08-14] MEDS: Insulin DETEMIR 100 UNIT/ML X5UNITS SQ SCH ×2 (10:57→20:25)
[2017-08-14] MEDS: Aspirin 81 MG TAB.CHEW PO SCH (10:57)
[2017-08-14] MEDS: Calcium Acetate 667 MG CAPSULE PO SCH ×3 (11:26→17:59)
[2017-08-14] MEDS: rOPINIRole 1 MG TABLET PO SCH ×2 (11:27→20:25)
[2017-08-14 11:43] LABS: Albumin 3.3 g/dL (3.5-5.7); Albumin/Globulin Ratio 1.4 (1.1-2.2); Bilirubin,Total 0.3 mg/dL (0.3-1.0); Calcium 8.2 mg/dL (8.6-10.3); Globulin 2.3 g/dL (2.4-3.5); Potassium 4.5 mEq/L (3.5-5.1); Total Protein 5.6 g/dL (6.4-8.9)
[2017-08-14 12:13] LABS: Hepatitis B Surface Antibody 0.92 mIU/mL; Hepatitis B Surface Antigen Nonreactive (Nonreactive)
[2017-08-14] MEDS: Loratadine 10 MG TABLET PO SCH (16:37)
[2017-08-14] MEDS: cefTRIAXone 1,000 MG in Water for inj. (sterile) 20 ML 10 ML IVP SCH (16:38)
[2017-08-14] MEDS: hydrALAZINE 10 MG TABLET PO SCH ×3 (16:40→20:25)
[2017-08-14] MEDS: Apixaban 2.5 MG TABLET PO SCH ×2 (16:40→20:25)
[2017-08-14] MEDS: amLODIPine 5 MG TABLET PO SCH ×2 (16:41→20:25)
--- NOTE | 2017-08-14 17:24 | Nephrology Progress Note ---
Date of Encounter: 08/14/17 Time of Encounter: 11:30 - Assessment and Plan (1) ESRD (end stage renal disease) Status: Inactive Continue HD with UF as tolerated Potassium noted elevated at 5.6, should improve after HD today Continue renal diet (2) Altered mental status Status: Acute Resolved Qualifiers: Altered mental status type: unspecified Qualified Code(s): R41.82 - Altered mental status, unspecified (3) HTN (hypertension) Status: Chronic BP readings fluctuating from 130-150s systolic, stable Qualifiers: Hypertension type: essential hypertension Qualified Code(s): I10 - Essential (primary) hypertension Subjective Interval history: Pt seen and examined on HD with complaint of continued left foot pain Objective - Vital Signs Vital signs: Vital Signs Temp Pulse Resp BP Pulse Ox 08/14/17 16:02 98.1 F 85 16 140/70 96 08/14/17 14:27 97.7 F 18 127/51 08/14/17 14:15 124/59 08/14/17 14:00 138/55 08/14/17 13:45 155/78 08/14/17 13:30 139/78 08/14/17 13:15 144/62 08/14/17 13:00 141/62 08/14/17 12:45 140/78 08/14/17 12:30 123/69 08/14/17 12:15 142/75 08/14/17 12:00 165/76 08/14/17 11:45 143/74 08/14/17 11:30 161/75 08/14/17 11:15 152/87 08/14/17 11:00 190/77 08/14/17 10:45 97.7 F 18 196/73 08/14/17 09:15 97.8 F 65 16 126/72 08/14/17 07:33 97.8 F 65 16 126/72 96 08/14/17 05:48 97.2 F L 70 16 136/73 95 08/14/17 01:08 98.1 F 76 16 158/70 96 08/13/17 20:13 98.3 F 73 16 113/68 95 Intake and Output 08/14/17 08/14/17 08/14/17 07:59 15:59 23:59 Intake Total 600 / 600 Output Total 400 / 400 3600 / 3600 Balance -400 / -400 -3000 / -3000 Intake: Oral 0 / 0 Intake, Rinseback and Flushes 600 / 600 Output: Urine 400 / 400 0 / 0 Total Dialysis (HD) Output 3600 / 3600 Other: Meal Breakfast Percent of Meal Consumed 0% Blood Glucose* 71 88 147 Hemodialysis Net Fluid Removed 3000 (mL) - General Appearance General appearance: Present: well-developed, well-nourished EENT: Present: ATNC, mucous membranes moist Neck: Present: no JVD, supple Respiratory: Present: clear Cardiology: Present: no edema, normal S1, normal S2 Dialysis Vascular Access: Arteriovenous Fistula thrill: Yes bruit: Yes Gastrointestinal: Present: no tenderness, no guarding Integumentary: Present: warm and dry Neurologic: Present: no focal deficit Musculoskeletal: Present: no deformities Psychiatric: Present: mood/affect appropriate - Lab 08/16/17 03:51 08/16/17 03:51 Most recent lab results Calcium 8.2 mg/dL (8.6-10.3) L 08/14/17 10:57 Consult Discharge Plan - Plan Instructions: How to Stop Smoking (DC), Urinary Tract Infection in Women (DC), Heart Healthy Diet (GEN), Diabetes Mellitus Type 2 in Adults (DC), Peripheral Vascular Disorders (DC), Chronic Hypertension (DC) Additional Instructions: 1. Please follow up with your primary care physician within one week. 2. Continue all you home medications as prescribed, except for Asprin. Do not take your asprin until you follow up with your vascular surgeon and primary care physician and follow their recommendations. 3. Take the new medications as prescribed. Take 75mg Plavix by mouth once daily. 4. Please follow up with your vascular surgeon within one week. 5. Please return to the hospital for new or worsening symptoms. Referrals: Juan J Pal CNP [Primary Care Provider] - 08/24/17 4:00 pm (Follow up with PCP 08/24/17 at 4pm) Servando Hewitt [Family Provider] - Prescriptions: Clopidogrel Bisulfate [Plavix] 75 mg PO DAILY #30 tablet
--- NOTE | 2017-08-14 20:07 | Vascular/[facility] Progress Note ---
Date of Encounter: 08/14/17 Time of Encounter: 17:45 - Assessment and plan (1) PVD (peripheral vascular disease) Current Visit: Yes Status: Chronic The patient has a history of peripheral vascular disease. She denies disabling claudication, rest pain, ulceration or gangrene. Her dorsalis pedis signal remains present. Her duplex reveals patent anterior and posterior tibial arteries. Her mid peroneal artery is occluded by duplex. Her tibial vessels are noncompressible. Findings are consistent with vessel calcinosis. Her motor and senosry function are intact. She has no signs of acute limb ischemia. The patient will need angiography to further evaluate her tibial vessels. She declines further evaluation or intervention at this time. She states that she already has a vascular surgeon and will follow-up wih him upon discharge. At this time, continue with Richard and BRO. (2) Carotid stenosis, bilateral Current Visit: Yes Status: Chronic The patient has bilateral internal carotid artery velocities consistent with a 60-79% internal carotid artery stenosis. Her MRI reveals a 1.7cm right occipital lobe subacute infarct. She also has tiny old lacunar infarcts. Her left internal carotid artery velocities are at the upper end of the range. Recommend a CTA of the head and neck for further evaluation. (3) Hypercoagulable state Current Visit: Yes Status: Chronic (4) HTN (hypertension) Current Visit: Yes Status: Chronic Qualifiers: Hypertension type: essential hypertension Qualified Code(s): I10 - Essential (primary) hypertension (5) Diabetes mellitus Current Visit: Yes Status: Chronic Qualifiers: Diabetes mellitus type: type 2 Diabetes mellitus complication status: with neurologic complications Diabetes mellitus complication detail: with polyneuropathy Diabetes mellitus exterminator termite insulin use: with long-term use Qualified Code(s): E11.42 - Type 2 diabetes mellitus with diabetic polyneuropathy; Z79.4 - watermaster (current) use of insulin; Z79.4 - watermaster ( current) use of insulin; Z79.4 - skilled nursing (current) use of insulin; Z79.4 - watermaster (current) use of insulin (6) CAD (coronary artery disease) Current Visit: No Status: Chronic Qualifiers: Coronary Disease-Associated Artery/Lesion type: [place] artery [place] vs. transplanted heart: [place] heart Associated angina: without angina Qualified Code(s): I25.10 - Atherosclerotic heart disease of [place] coronary artery without angina pectoris (7) ESRD (end stage renal disease) on dialysis Current Visit: Yes Status: Chronic - Subjective Interval history: The patient states that she would like to go home. She reports intermittent right foot pain. She denies chest pain or shortness of breath. - Physical Examination General: Present: Conversant, No Apparent Distress Neck: Absent: JVD Cardiac: Present: Reg Rate and Rhythm Lungs: Present: Normal Breath Sounds Neuro: Present: Alert and responsive, No focal deficits noted, Motor nerves grossly intact, Sensory nerves grossly intact Vascular: Present: Normal capillary refill, Pulse, diminished. Absent: Edema Abdomen: Present: Soft, Non-tender Skin: Absent: Wound/ulcer(s) Results 08/14/17 06:27 08/14/17 10:57 Lab Results, Last 24 hours 08/14/17 08/14/17 08/14/17 06:27 06:27 10:57 WBC 10.7 Hgb 12.7 Hct 41.8 Plt Count 420 H Sodium 133 L 133 L Potassium 5.6 H 4.5 Chloride 98 98 Carbon Dioxide 25 27 BUN 50 H 45 H Creatinine 4.88 H 4.61 H Glucose 76 92 Calcium 8.7 8.2 L Total Bilirubin 0.3 0.3 AST 28 22 ALT 13 14 Alkaline Phosphatase 229 H 211 H - Imaging / Other Tests Echo: report reviewed (LVEF 60-65%. Mild left ventricular hypertrophy with moderate basal septal hypertrophy. Normal right ventricular structure and function. Mild mitral regurgitation. Mild tricuspid regurgitation. Mild- moderate pulmonic regurgitation. No pulmonary hypertension. No evidence of PFO with agitated saline contrast.) Non Invasive Vascular Testing: report reviewed, image reviewed (GENNY: Right ankle waveforms severely diminished and vesels are noncompressible. Left ankle waveforms are moderately diminished and the GENNY demonstrates moderate disease. Digital waveforms are flat. Carotid Duplex: The right internal carotid artery has a 60-79% stenosis. The left internal carotid artery has a 60- 79% stenosis.) Consult Discharge Plan - Plan Referrals: Juan J Pal CNP [Primary Care Provider] - Servando Hewitt [Family Provider] -
[2017-08-14] MEDS: *HR* Promethazine 25 MG/ML VIAL IVP PRN (22:34)
[2017-08-15] MEDS: *HR* OxyCODONE/APAP 5/325 TABLET PO PRN ×4 (04:37→20:41)
[2017-08-15 04:42] LABS: Basophils # 0.1 K/mcL (0.0-0.2); Basophils % 0.8 %; Eosinophils # 0.3 K/mcL (0.0-0.6); Eosinophils % 2.6 %; Hematocrit 44.5 % (35.3-44.9); Hemoglobin 13.3 g/dL (11.5-15.4); Lymphocytes # 2.8 K/mcL (0.6-4.6); Lymphocytes % 25.7 %; Mean Corpuscular HGB Conc 29.9 g/dL (31.6-35.5); Mean Corpuscular Hemoglobin 26.3 pg (28.0-33.3); Mean Corpuscular Volume 87.9 fL (83.0-100.0); Mean Platelet Volume 10.2 fL (9.4-12.4); Monocytes # 0.9 K/mcL (0.0-1.3); Monocytes % 8.5 %; Neutrophils # 6.6 K/mcL (1.6-8.9); Platelet Count 433 K/mcL (140-400); Red Blood Count 5.06 M/mcL (3.82-4.97); Red Cell Distribution Width 16.9 % (11.5-14.5); Segmented Neutrophils % 61.4 %
[2017-08-15] MEDS: Calcium Acetate 667 MG CAPSULE PO SCH ×3 (08:09→17:18)
[2017-08-15] MEDS: Aspirin 81 MG TAB.CHEW PO SCH (08:09)
[2017-08-15] MEDS: Torsemide 20 MG TABLET PO SCH (08:09)
[2017-08-15] MEDS: cefTRIAXone 1,000 MG in Water for inj. (sterile) 20 ML 10 ML IVP SCH (08:10)
[2017-08-15] MEDS: amLODIPine 5 MG TABLET PO SCH ×2 (08:10→20:41)
[2017-08-15] MEDS: Apixaban 2.5 MG TABLET PO SCH ×2 (08:10→20:41)
[2017-08-15] MEDS: hydrALAZINE 10 MG TABLET PO SCH ×3 (08:10→20:41)
[2017-08-15] MEDS: Insulin DETEMIR 100 UNIT/ML X5UNITS SQ SCH (08:11)
[2017-08-15] MEDS: Renal Vitamin 1 MG CAPSULE PO SCH (08:11)
[2017-08-15] MEDS: Carbidopa/Levodopa 25/250 TABLET PO SCH ×3 (08:13→20:41)
[2017-08-15] MEDS: Insulin LISPRO 300 UNITS/3 ML VIAL SQ SCH ×4 (08:13→20:43)
--- NOTE | 2017-08-15 12:17 | Nephrology Progress Note ---
<KenDestini A - Last Filed: 08/15/17 12:17> Date of Encounter: 08/15/17 Time of Encounter: 12:14 - Assessment and Plan (1) ESRD (end stage renal disease) on dialysis Status: Chronic Plan for HD tomorrow No swelling or redness seen over access area Offered ice pack for arm, patient declines States she has a stent in fistula and sometimes they have to move needle around to place it Continue renal diet Avoid nephrotoxins if possible (2) HTN (hypertension) Status: Chronic per primary team Qualifiers: Hypertension type: essential hypertension Qualified Code(s): I10 - Essential (primary) hypertension Subjective Principal diagnosis: ESRD on dialysis, HTN Interval history: Patient seen and examined. States her access arm is painful and swollen after HD yesterday. Objective - Vital Signs Vital signs: Vital Signs Temp Pulse Resp BP Pulse Ox 08/15/17 11:31 98.0 F 75 16 139/66 96 08/15/17 06:58 98.3 F 78 16 183/85 94 08/15/17 04:52 97.3 F L 78 19 124/89 97 08/15/17 00:42 98.2 F 81 18 144/73 98 08/14/17 20:01 98.3 F 75 18 164/74 98 08/14/17 16:02 98.1 F 85 16 140/70 96 08/14/17 14:27 97.7 F 18 127/51 08/14/17 14:15 124/59 08/14/17 14:00 138/55 08/14/17 13:45 155/78 08/14/17 13:30 139/78 08/14/17 13:15 144/62 08/14/17 13:00 141/62 08/14/17 12:45 140/78 08/14/17 12:30 123/69 08/14/17 12:15 142/75 Intake and Output 08/14/17 08/15/17 08/15/17 23:59 07:59 15:59 Intake Total 800 / 800 240 / 240 Balance 800 / 800 240 / 240 Intake: IV Fluids Rocephin 1,000 MG In Water for inj. (sterile) 10 ML @ 300 mls/ hr IVP DAILY [facility] Rx#:[id number] Oral 800 / 800 240 / 240 Other: Meal Breakfast Percent of Meal Consumed 50% Weight 73.539 kg Blood Glucose* 184 59 145 Patient Weight 08/15/17 23:59 Weight 73.539 kg - General Appearance General appearance: Present: obese EENT: Present: ATNC, mucous membranes moist, hearing intact, vision intact Neck: Present: supple Respiratory: Present: clear Cardiology: Present: no edema, normal S1, normal S2 Dialysis Vascular Access: Arteriovenous Fistula Gastrointestinal: Present: no tenderness, no guarding Integumentary: Present: warm and dry Neurologic: Present: alert and oriented x3 Psychiatric: Present: mood/affect appropriate, cooperative - Lab 08/15/17 04:28 08/14/17 10:57 Most recent lab results Calcium 8.2 mg/dL (8.6-10.3) L 08/14/17 10:57 Consult Discharge Plan - Plan Instructions: How to Stop Smoking (DC), Urinary Tract Infection in Women (DC), Heart Healthy Diet (GEN), Diabetes Mellitus Type 2 in Adults (DC), Peripheral Vascular Disorders (DC), Chronic Hypertension (DC) Additional Instructions: 1. Please follow up with your primary care physician within one week. 2. Continue all you home medications as prescribed, except for Asprin. Do not take your asprin until you follow up with your vascular surgeon and primary care physician and follow their recommendations. 3. Take the new medications as prescribed. Take 75mg Plavix by mouth once daily. 4. Please follow up with your vascular surgeon within one week. 5. Please return to the hospital for new or worsening symptoms. Referrals: Juan J Pal CNP [Primary Care Provider] - 08/24/17 4:00 pm (Follow up with PCP 08/24/17 at 4pm) Servando Hewitt [Family Provider] - Prescriptions: Clopidogrel Bisulfate [Plavix] 75 mg PO DAILY #30 tablet <Paul Carrillo - Last Filed: 08/28/17 16:17> Date of Encounter: 08/15/17 - Assessment and Plan (1) ESRD (end stage renal disease) Status: Inactive (2) Altered mental status Status: Acute Qualifiers: Altered mental status type: unspecified Qualified Code(s): R41.82 - Altered mental status, unspecified (3) HTN (hypertension) Status: Chronic Qualifiers: Hypertension type: essential hypertension Qualified Code(s): I10 - Essential (primary) hypertension Objective - Lab 08/16/17 03:51 08/16/17 03:51 Most recent lab results Calcium 8.6 mg/dL (8.6-10.3) 08/16/17 03:51 - Attending Attestation I examined this patient and my medical decision-making was reviewed with the Resident Physician/LIABILITY CLAIMS MANAGER. I agree with the documented findings, disposition and treatment plan as described except to the extent set forth below. Pt seen and examined with no new issues except for soreness on AVF site after HD yesterday. AVF access did not show any erythema, edema and with good thril and bruit. Lytes stable. Next HD tomorrow if still hospitalized.
--- NOTE | 2017-08-15 14:25 | Internal Med Progress Note ---
<Hola Lopez - Last Filed: 08/15/17 15:09> Date of Encounter: 08/15/17 Time of Encounter: 10:30 - Assessment and plan (1) CVA (cerebral vascular accident) Current Visit: Yes Status: Acute Assessment and plan: CT head was negative. MRI brain shows subacute CVA in the right LOSS PREVENTION SPECIALIST territory. Echocardiogram shows left ventricular ejection fraction at 60-65%. Carotid duplex shows bilateral stenosis at 60-79%. 1. MRA of the head and neck pending. 2. Continue neuro checks every 4 hours. 3. PT/OT is consulted. 4. Continue patient on baby aspirin. 5. No use for statin given her end-stage renal disease. The patient is also on Eliquis renally dosed for vascular disease purposes. Qualifiers: CVA mechanism: unspecified Qualified Code(s): I63.9 - Cerebral infarction, unspecified (2) Acute encephalopathy Current Visit: Yes Status: Acute Assessment and plan: Acute encephalopathy most likely secondary to possible CVA. CT head was negative. MRI brain shows subacute CVA in the right LOSS PREVENTION SPECIALIST territory. Per documentation, her subacute stroke could have happen anywhere. The last couple weeks up to 48 hours ago prior to admission. Other contributing factors could be possibly due to metabolic versus infectious. Per documentation, the patient was taking more than recommended dose of gabapentin for ESRD as well. Continue treat other causes as below. Continue to monitor. (3) Carotid stenosis, bilateral Current Visit: Yes Status: Chronic Assessment and plan: Carotid duplex shows bilateral internal carotid artery stenosis of 60-79%. MRI reveals a 1.7 cm right occipital lobe subacute infarct. She also has tiny old lacunar infarcts. Per documentation, vascular surgery recommend a CTA of the head and neck for further evaluation. Due to dye allergy, MRA of the head and neck is ordered. MRA of the head and neck is pending. (4) UTI (urinary tract infection) Current Visit: Yes Status: Acute Assessment and plan: Continue antibiotics. Day 2 of Rocephin. Follow up on cultures. Qualifiers: Urinary tract infection type: site unspecified Hematuria presence: without hematuria Qualified Code(s): N39.0 - Urinary tract infection, site not specified (5) Diabetes mellitus Current Visit: Yes Status: Chronic Assessment and plan: Continue insulin sliding scale. Discontinue Levemir 10 units twice a day. Will give Levemir 10units once daily. Continue with Accu-Cheks. Avoid hypoglycemia. Maintain patient's glucose level at 140-180. Qualifiers: Diabetes mellitus type: type 2 Diabetes mellitus complication status: with neurologic complications Diabetes mellitus complication detail: with polyneuropathy Diabetes mellitus termite exterminator insulin use: with detention use Qualified Code(s): E11.42 - Type 2 diabetes mellitus with diabetic polyneuropathy; Z79.4 - penitentiary (current) use of insulin; Z79.4 - superintendent terminal ( current) use of insulin; Z79.4 - penitentiary (current) use of insulin; Z79.4 - superintendent terminal (current) use of insulin (6) ESRD (end stage renal disease) on dialysis Current Visit: Yes Status: Chronic Assessment and plan: Nephrology is following. Hemodialysis (MWF) as scheduled. (7) Elevated liver function tests Current Visit: Yes Status: Acute Assessment and plan: Labs revealed elevated AST/LT/ALP admission. LFTs are trending down. Ultrasound unremarkable. Continue to monitor. (8) PVD (peripheral vascular disease) Current Visit: Yes Status: Chronic Assessment and plan: Found to have an occluded right peroneal artery. Vascular is following. Vascular workup is pending. Continue aspirin and eliquis. (9) HTN (hypertension) Current Visit: Yes Status: Chronic Assessment and plan: Resume home medications and monitor blood pressure. Qualifiers: Hypertension type: essential hypertension Qualified Code(s): I10 - Essential (primary) hypertension (10) CAD (coronary artery disease) Current Visit: No Status: Chronic Assessment and plan: She denies any chest pain at this time. Continue home meds including asa, BB, ACEI/ ARB. Qualifiers: Coronary Disease-Associated Artery/Lesion type: [place] artery [place] vs. transplanted heart: [place] heart Associated angina: without angina Qualified Code(s): I25.10 - Atherosclerotic heart disease of [place] coronary artery without angina pectoris - Time Spent With Patient Greater than 35 minutes - Subjective Interval history: The patient was seen and evaluated at bedside this morning. Patient is awake, alert, afebrile and appears in no acute distress. There is no overnight events. Patient states that she feels okay today and that she "seen better days ". She complains that her right upper arm where her fistula is located is mildly sore today from the hemodialysis she had yesterday. The patient denies any fever or active bleeding. Patient is oriented 3. Patient admits she had a stroke in the past before that left her left side of her body mildly weak. She denies any headaches, vision changes, dizziness, lightheadedness, nausea vomiting, chest pain, shortness of breath, difficulty breathing, abdominal pain , diarrhea, numbness and tingling, difficulty urinating, and any new weaknesses. He has no other concerns at this time. Patient states that her daughter should be coming in later today to visit her. - Constitutional Vitals: Temp Pulse Resp BP Pulse Ox 98.0 F 75 16 139/66 96 08/15/17 11:31 08/15/17 11:31 08/15/17 11:31 08/15/17 11:31 08/15/17 11:31 General appearance: Present: A&O X 2 (oriented to name and place(hospital), not oriented to year), no acute distress, answers questions appropriately (answers most questions apporpriately but not all) Exam: She appears to have a flat affect on exam. - Head Head exam: Present: atraumatic, normocephalic - Eye Eye exam: Present: EOMI, PERRL, conjuntiva pink, sclera anicteric - ENT ENT exam: Present: mucous membranes moist - Neck Neck exam general surgery: Present: supple, trachea midline. Absent: lymphadenopathy - Respiratory Respiratory exam: Present: CTAB. Absent: accessory muscle use, rales, respiratory distress, rhonchi, wheezes - Cardiovascular Cardiovascular exam: Present: RRR, +S1, +S2. Absent: diastolic murmur, gallop, rubs, systolic murmur - GI/Abdominal GI/Abdominal exam: Present: soft, no peritoneal signs. Absent: distended, firm , guarding, tenderness - Extremities Exam Extremities exam: Present: warm, radial pulses palpable and symmetrical. Absent : calf tenderness, cyanotic, pedal edema Additional comments: Right heel of her foot is tender to palpation. Right upper arm near her fistula does not appear erythematous, swollen, infectious, open. There is no drainage. It is intact and dry. - Neurological Exam Neurological exam: Present: CN II-XII intact, no focal deficits. Absent: oriented X3 (She is oriented to person and place.), pronater drift, facial droop , speech deficit - Expanded Neurological Exam Neurological exam expanded: Present: protecting the airway. Absent: ataxia, expressive aphasia, total aphasia, tremor Patient oriented to: Present: person, place. Absent: time Speech: Absent: slurred, stutter Neuro motor strength exam: LUE: 4, RUE: 4, LLE: 4, RLE: 4 Coma Scale Eye Opening: Spontaneous Coma Scale Motor Response: Obeys Commands Coma Scale Verbal Response: Oriented Coma Scale Total: 15 - Skin Skin exam: Present: dry, intact, warm Internal Medicine: Result - Labs CBC & Chem 7: 08/15/17 04:28 08/14/17 10:57 Labs: Short CBC 08/15/17 Range/Units 04:28 WBC 10.8 (4.3-11.1) K/mcL Hgb 13.3 (11.5-15.4) g/dL Hct 44.5 (35.3-44.9) % Plt Count 433 H (140-400) K/mcL Neutrophils # 6.6 (1.6-8.9) K/mcL Consult Discharge Plan - Plan Referrals: Juan J Pal CNP [Primary Care Provider] - 08/24/17 4:00 pm (Follow up with PCP 08/24/17 at 4pm) Servando Hewitt [Family Provider] - <Mehul Gonzalez - Last Filed: 08/15/17 18:15> Date of Encounter: 08/15/17 - Assessment and plan (1) CVA (cerebral vascular accident) Current Visit: Yes Status: Acute Qualifiers: CVA mechanism: thrombosis Precerebral and cerebral artery: posterior cerebral artery Laterality of affected vessel: right Qualified Code(s): I63.331 - 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 (2) Carotid stenosis, bilateral Current Visit: Yes Status: Chronic (3) Diabetes mellitus Current Visit: Yes Status: Chronic Qualifiers: Diabetes mellitus type: type 2 Diabetes mellitus complication status: with neurologic complications Diabetes mellitus complication detail: with polyneuropathy Diabetes mellitus termite exterminator insulin use: with termite exterminator use Qualified Code(s): E11.42 - Type 2 diabetes mellitus with diabetic polyneuropathy; Z79.4 - superintendent terminal (current) use of insulin; Z79.4 - superintendent terminal ( current) use of insulin; Z79.4 - superintendent terminal (current) use of insulin; Z79.4 - penitentiary (current) use of insulin (4) PVD (peripheral vascular disease) Current Visit: Yes Status: Chronic (5) CAD (coronary artery disease) Current Visit: No Status: Chronic Qualifiers: Coronary Disease-Associated Artery/Lesion type: [place] artery [place] vs. transplanted heart: [place] heart Associated angina: without angina Qualified Code(s): I25.10 - Atherosclerotic heart disease of [place] coronary artery without angina pectoris (6) HTN (hypertension) Current Visit: Yes Status: Chronic Qualifiers: Hypertension type: essential hypertension Qualified Code(s): I10 - Essential (primary) hypertension - Constitutional Vitals: Temp Pulse Resp BP Pulse Ox 98.2 F 80 16 170/72 97 08/15/17 16:10 08/15/17 16:10 08/15/17 16:10 08/15/17 16:10 08/15/17 16:10 Internal Medicine: Result - Labs CBC & Chem 7: 08/15/17 04:28 08/15/17 14:58 Labs: Short CBC 08/15/17 Range/Units 04:28 WBC 10.8 (4.3-11.1) K/mcL Hgb 13.3 (11.5-15.4) g/dL Hct 44.5 (35.3-44.9) % Plt Count 433 H (140-400) K/mcL Neutrophils # 6.6 (1.6-8.9) K/mcL BMP 08/15/17 14:58 Sodium 131 L Potassium 4.8 Chloride 95 L Carbon Dioxide 29 BUN 33 H Creatinine 4.14 H Glucose 193 H Calcium 8.7 - Attending Attestation I examined this patient and my medical decision-making was reviewed with the Resident Physician on 08/15/17. I agree with the documented findings, disposition and treatment plan as described except to the extent set forth below. Ms Simon is currently admitted for acute CVA and encephalopathy. She remains moderate to high risk due to potential for worsening clinical and neuro status. Ms Simon is feeling OK. She is to have MRA of her carotids. No new symptoms overnight. Feels her mental status is better. Exam alert. Comfortable Mucus membranes dry Heart reg Lungs clear at this time Abd soft I/P 1. CVA 2. Bilateral carotid stenosis - MRA pending Further diagnoses and plan as above
[2017-08-15 15:24] LABS: Calcium 8.7 mg/dL (8.6-10.3); Potassium 4.8 mEq/L (3.5-5.1)
[2017-08-16] MEDS: *HR* OxyCODONE/APAP 5/325 TABLET PO PRN ×4 (00:13→14:13)
[2017-08-16] MEDS: rOPINIRole 1 MG TABLET PO SCH (00:14)
[2017-08-16 04:10] LABS: Basophils # 0.1 K/mcL (0.0-0.2); Basophils % 0.9 %; Eosinophils # 0.4 K/mcL (0.0-0.6); Hematocrit 42.5 % (35.3-44.9); Hemoglobin 12.6 g/dL (11.5-15.4); Immature Granulocytes % 0.3 % (0-4); Lymphocytes # 3.1 K/mcL (0.6-4.6); Lymphocytes % 32.1 %; Mean Corpuscular HGB Conc 29.6 g/dL (31.6-35.5); Mean Corpuscular Hemoglobin 26.3 pg (28.0-33.3); Mean Corpuscular Volume 88.5 fL (83.0-100.0); Mean Platelet Volume 10.3 fL (9.4-12.4); Monocytes # 0.9 K/mcL (0.0-1.3); Neutrophils # 5.3 K/mcL (1.6-8.9); Nucleated Red Blood Cells 0.2 /100 WBC (0); Platelet Count 399 K/mcL (140-400); Red Cell Distribution Width 16.6 % (11.5-14.5); Segmented Neutrophils % 53.7 %
[2017-08-16 04:39] LABS: Albumin 3.4 g/dL (3.5-5.7); Albumin/Globulin Ratio 1.3 (1.1-2.2); Bilirubin,Total 0.3 mg/dL (0.3-1.0); Calcium 8.6 mg/dL (8.6-10.3); Globulin 2.6 g/dL (2.4-3.5); Potassium 4.8 mEq/L (3.5-5.1)
[2017-08-16] MEDS ORDERED: 0.9 % Sodium Chloride 1,000 ML ONE (07:37)
[2017-08-16] MEDS ORDERED: 0.9 % Sodium Chloride 250 ML IVC PRN (08:34)
[2017-08-16] MEDS: Aspirin 81 MG TAB.CHEW PO SCH (08:38)
[2017-08-16] MEDS: Renal Vitamin 1 MG CAPSULE PO SCH (08:39)
[2017-08-16] MEDS: Calcium Acetate 667 MG CAPSULE PO SCH ×2 (08:39→14:12)
[2017-08-16] MEDS: Apixaban 2.5 MG TABLET PO SCH (08:39)
[2017-08-16] MEDS: Carbidopa/Levodopa 25/250 TABLET PO SCH (08:39)
[2017-08-16] MEDS: Insulin LISPRO 300 UNITS/3 ML VIAL SQ SCH ×2 (08:39→14:13)
[2017-08-16] MEDS ORDERED: 0.9 % Sodium Chloride 1,000 ML PRIME SCH (08:45)
[2017-08-16] MEDS ORDERED: Insulin DETEMIR 100 UNIT/ML X5UNITS SQ SCH (09:00)
--- NOTE | 2017-08-16 10:15 | Nephrology Progress Note ---
Date of Encounter: 08/16/17 Time of Encounter: 10:14 - Assessment and Plan (1) Acute encephalopathy Current Visit: Yes Status: Acute (2) Carotid stenosis, bilateral Current Visit: Yes Status: Chronic (3) ESRD (end stage renal disease) on dialysis Current Visit: Yes Status: Chronic (4) HTN (hypertension) Current Visit: Yes Status: Chronic Qualifiers: Hypertension type: essential hypertension Qualified Code(s): I10 - Essential (primary) hypertension Subjective Principal diagnosis: ESRD on dialysis, HTN Interval history: Patient seen on dialysis. She has no new complaint. Objective - Vital Signs Vital signs: Vital Signs Temp Pulse Resp BP Pulse Ox 08/16/17 08:50 96 08/16/17 07:27 98 F 75 16 163/72 96 08/16/17 03:11 97.7 F 73 17 141/77 96 08/16/17 00:09 97.5 F L 75 18 167/76 97 08/15/17 20:30 98.3 F 74 18 142/76 98 08/15/17 16:10 98.2 F 80 16 170/72 97 08/15/17 11:31 98.0 F 75 16 139/66 96 Intake and Output 08/15/17 08/16/17 08/16/17 23:59 07:59 15:59 Intake Total 800 / 800 0 / 0 Output Total 0 / 0 Balance 800 / 800 0 / 0 Intake: Oral 800 / 800 0 / 0 Output: Urine 0 / 0 Other: Meal Dinner Percent of Meal Consumed 30% Weight 74.2 kg Blood Glucose* 121 118 Patient Weight 08/16/17 23:59 Weight 74.2 kg - General Appearance General appearance: Present: well-developed, well-nourished EENT: Present: ATNC Cardiology: Present: no edema, regular rate Integumentary: Present: warm and dry Neurologic: Present: alert and oriented x3 Psychiatric: Present: mood/affect appropriate - Lab 08/16/17 03:51 08/16/17 03:51 Most recent lab results Calcium 8.6 mg/dL (8.6-10.3) 08/16/17 03:51 Consult Discharge Plan - Plan Referrals: Juan J Pal WATER TRAINER [Primary Care Provider] - 08/24/17 4:00 pm (Follow up with PCP 03/01/18 at 4pm) Servando Hewitt [Family Provider] -
[2017-08-16] MEDS: *HR* Promethazine 25 MG/ML VIAL IVP PRN (10:25)
--- NOTE | 2017-08-16 10:35 | Discharge Summary ---
<Hola Lopez - Last Filed: 08/16/17 11:35> Date of Encounter: 08/16/17 Time of Encounter: 09:45 - Discharge Diagnosis (1) CVA (cerebral vascular accident) Priority: Primary Status: Acute Comments: CT head was negative. MRI brain shows subacute CVA in the right CLOTH MERCERIZER OPERATOR territory. Echocardiogram shows left ventricular ejection fraction at 60-65%. Carotid duplex shows bilateral stenosis at 60-79%. MRA of the neck report reads bilateral proximal internal carotid artery stenosis, severe on the left and mild on the right. Spoke with Dr. Perdomo at 9:48 AM this morning. He stated that the patient declines further evaluation or intervention at this time and that the patient states that she already has a vascular surgeon and will follow-up with him upon discharge. Dr. Perdomo recommended that she follows up with her vascular surgeon as soon as possible. Qualifiers: CVA mechanism: thrombosis Precerebral and cerebral artery: posterior cerebral artery Laterality of affected vessel: right Qualified Code(s): I63.331 - 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 (2) Acute encephalopathy Priority: Primary Status: Acute (3) Carotid stenosis, bilateral Priority: Secondary Status: Chronic (4) UTI (urinary tract infection) Priority: Secondary Status: Acute Qualifiers: Urinary tract infection type: site unspecified Hematuria presence: without hematuria Qualified Code(s): N39.0 - Urinary tract infection, site not specified (5) Diabetes mellitus Priority: Secondary Status: Chronic Qualifiers: Diabetes mellitus type: type 2 Diabetes mellitus complication status: with neurologic complications Diabetes mellitus complication detail: with polyneuropathy Diabetes mellitus intermediate project manager insulin use: with intermediate project manager use Qualified Code(s): E11.42 - Type 2 diabetes mellitus with diabetic polyneuropathy; Z79.4 - director long term care (current) use of insulin; Z79.4 - group home ( current) use of insulin; Z79.4 - group home (current) use of insulin; Z79.4 - group home (current) use of insulin (6) ESRD (end stage renal disease) on dialysis Priority: Secondary Status: Chronic (7) Elevated liver function tests Priority: Secondary Status: Acute (8) PVD (peripheral vascular disease) Priority: Secondary Status: Chronic (9) HTN (hypertension) Priority: Secondary Status: Chronic Qualifiers: Hypertension type: essential hypertension Qualified Code(s): I10 - Essential (primary) hypertension (10) CAD (coronary artery disease) Priority: Secondary Status: Chronic Qualifiers: Coronary Disease-Associated Artery/Lesion type: [place] artery [place] vs. transplanted heart: [place] heart Associated angina: without angina Qualified Code(s): I25.10 - Atherosclerotic heart disease of [place] coronary artery without angina pectoris Hospital course: Ms. Simon is a 56 year old female admitted on 08/12/17 for acute encephalopathy possibly secondary to CVA versus HCAP versus UTI. Patient has a past medical history of end-stage renal disease dialysis dependent, HTN, and diabtes who presented to the ER as a transfer due to altered mental status. Patient was unable to give any history. Per documentation, the patient been altered for roughly one day. No other history is obtainable. She had a workup there including a head CT, CT of the chest abdomen and pelvis as well as labs. She was given a dose of Rocephin and transferred here. She is alert and oriented to person and place. Per ER documentation, workup before transfer showed normal head CT as well as CT of the chest abdomen pelvis with a consolidation in the right middle and lower lobes likely atelectatic. There was also some bilateral perinephric stranding however her urinalysis did not demonstrate UTI. Electrolytic within normal limits. Creatinine of 2.7 prior to admission. Since the patient is dialysis dependent, broaden antibiotic coverage with vancomycin and Zosyn for suspected healthcare associated pneumonia was started in the ED. Echocardiogram shows left ventricle ejection fraction as 60 to 65%. Brain MRI reads subacute infarction in the right CLOTH MERCERIZER OPERATOR. Carotid duplex report reads bilateral internal carotid artery stenosis at 60 to 79%. Vascular surgery and nephrology were consulted. D2 IV dye allergy, mRNA at the neck was recommended. MR A of the neck report reads bilateral proximal internal carotid artery stenosis, severe on the left and mild on the right. Vascular surgery stated that the patient declines further evaluation or intervention at this time and that the patient states that she already has a vascular surgeon and will follow-up with him upon discharge. Dr. Perdomo recommended that she follows up with her vascular surgeon as soon as possible. Patient is clinically improving on admission. Plan to discharge patient on Plavix 75 mg once daily. Will discontinue to patient's aspirin. Recommended the patient to follow with primary care physician within one week and her vascular surgeon as well. The patient Has no other concerns at this time. - Time Spent with Patient Total time spent providing and/or coordinating discharge services: Greater than 30 minutes - Discharge Medications Prescriptions: Clopidogrel Bisulfate [Plavix] 75 mg PO DAILY #30 tablet Home Medications: Apixaban [Eliquis] 2.5 mg PO BID 03/24/17 [History] Carvedilol 12.5 mg PO BID 03/24/17 [History] Citalopram Hydrobromide [Citalopram HBr] 20 mg PO DAILY 03/24/17 [History] Docusate Sodium [Dok] 100 mg PO BID PRN 03/24/17 [History] Folic Acid/Vit Bcomp,C [Renal-Diego Tablet] 1 tab PO DAILY 03/24/17 [History] Omeprazole [PriLOSEC] 20 mg PO DAILY 03/24/17 [History] Torsemide 100 mg PO DAILY 03/24/17 [History] hydrALAZINE [HydrALAZINE] 10 mg PO TID 03/24/17 [History] Acetaminophen [Tylenol Arthritis] 650 mg PO Q4H PRN 08/12/17 [History] Calcium Acetate [Phos-LO] 1,334 cap PO QID 08/12/17 [History] Cetirizine HCl [24Hour Allergy] 10 mg PO DAILY 08/12/17 [History] Cyclopentolate HCl [Cyclogyl] 1 drop RIGHT EYE AD 08/12/17 [History] Doxycycline 100 mg PO BID 08/12/17 [History] Ergocalciferol (VITAMIN D2) [Vitamin D2] 50,000 unit PO GUERRA 08/12/17 [History] Gabapentin [Neurontin] 200 mg PO TID 08/12/17 [History] Insulin LISPRO [Humalog] 2 - 12 unit SQ TIDWM 08/12/17 [History] Ondansetron HCl [Zofran] 4 mg PO Q6H PRN 08/12/17 [History] OxyCODONE/APAP 5/325 [Percocet 5/325 MG] 1 tab PO Q4H PRN 08/12/17 [History] rOPINIRole [Requip] 1 mg PO HS 08/12/17 [History] Clopidogrel Bisulfate [Plavix] 75 mg PO DAILY #30 tablet 08/16/17 [Rx] Allergies/Adverse Reactions: 3 Allergy/AdvReac Type Severity Reaction Status Date / Time pregabalin [From Lyrica] Allergy See Verified 03/24/17 14:02 Comments codeine AdvReac Nausea Verified 03/24/17 14:02 ivp dye Allergy See Uncoded 03/24/17 14:02 Comments Date of admission: 08/12/17 04:29 Primary care physician: Juan J Pal CNP Consults: 08/12/17 13:08 Consult to Nephrology [CONS] Routine Consulting Provider: Kidney Maria E/FLAVIO/CHI/ANNA Reason for Consult: HD Call Completed: No 08/12/17 17:41 Consult to Vascular Surgery [CONS] Routine Consulting Provider: Vascular Surgery [place] Reason for Consult: occluded peroneal artery. Call Completed: Yes 08/14/17 08:30 Consult to Dialysis [CONS] ONCE 08/14/17 09:54 Consult to Occupational Therapy [CONS] Routine Comment: Evaluate, develop and implement POC Reason for Consult: therapy/placement needs Consult to Physical Therapy [CONS] Routine Comment: Evaluate, develop and implement POC Reason for Consult: PT eval 08/15/17 11:07 Consult to Lead Simulation Modeling Engineer [CONS] Routine Reason for SW Consult: discharge planning and family wants to discuss POA 08/16/17 08:45 Consult to Dialysis [CONS] ONCE Discharging clinician: Hola Lopez Anticipated date of discharge: 08/16/17 - Constitutional Vitals: Temp Pulse Resp BP Pulse Ox 98 F 75 16 163/72 96 08/16/17 07:27 08/16/17 07:27 08/16/17 07:27 08/16/17 07:27 08/16/17 08:50 General appearance: Present: A&O X 2 (oriented to name and place(hospital), not oriented to year), no acute distress, answers questions appropriately (answers most questions apporpriately but not all) - Head Head exam: Present: atraumatic, normocephalic - Eye Eye exam: Present: EOMI, PERRL, conjuntiva pink, sclera anicteric - ENT ENT exam: Present: mucous membranes moist - Neck Neck exam general surgery: Present: supple, trachea midline. Absent: lymphadenopathy - Respiratory Respiratory exam: Present: CTAB. Absent: accessory muscle use, rales, rhonchi, wheezes - Cardiovascular Cardiovascular exam: Present: RRR, +S1, +S2. Absent: diastolic murmur, gallop, rubs, systolic murmur - GI/Abdominal GI/Abdominal exam: Present: normal bowel sounds, soft, no peritoneal signs. Absent: distended, tenderness - Extremities Exam Extremities exam: Present: tenderness (Right upper arm near her fistula is tender to palpation. Right upper arm near her fistula does not appear erythematous, swollen, infectious, open. There is no drainage. It is intact and dry.), warm, radial pulses palpable and symmetrical. Absent: calf tenderness, cyanotic, pedal edema - Neurological Exam Neurological exam: Present: alert, CN II-XII intact, oriented X3, no focal deficits. Absent: altered, pronater drift, facial droop, speech deficit - Skin Skin exam: Present: dry, intact, rash (Rash present on the right buttock. Erythematous. No itching or drainage) - Patient Status Disposition: Home, Self-Care Condition: Good Functional capacity at discharge: uses cane/walker Overall status at discharge: patient is progressing back to baseline - Discharge Instructions Instructions: How to Stop Smoking (DC), Urinary Tract Infection in Women (DC), Heart Healthy Diet (GEN), Diabetes Mellitus Type 2 in Adults (DC), Peripheral Vascular Disorders (DC), Chronic Hypertension (DC) Follow Up With: Juan J Pal CNP [Primary Care Provider] - 08/24/17 4:00 pm (Follow up with PCP 08/24/17 at 4pm) Servando Hewitt [Family Provider] - Additional Instructions: 1. Please follow up with your primary care physician within one week. 2. Continue all you home medications as prescribed, except for Asprin. Do not take your asprin until you follow up with your vascular surgeon and primary care physician and follow their recommendations. 3. Take the new medications as prescribed. Take 75mg Plavix by mouth once daily. 4. Please follow up with your vascular surgeon within one week. 5. Please return to the hospital for new or worsening symptoms. - Diet and Activity Activity: increase activity as tolerated Diet: advance to your usual diet <Mehul Gonzalez - Last Filed: 08/16/17 14:35> - NOTES TO OUTPATIENT PROVIDER Notes to Outpatient Provider: Needs follow up with her vascular surgeon regarding L carotid stenosis and recent CVA. Date of Encounter: 08/16/17 - Discharge Diagnosis (1) CVA (cerebral vascular accident) Status: Acute Qualifiers: CVA mechanism: thrombosis Precerebral and cerebral artery: posterior cerebral artery Laterality of affected vessel: right Qualified Code(s): I63.331 - 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 (2) Carotid stenosis, bilateral Status: Chronic (3) Diabetes mellitus Status: Chronic Qualifiers: Diabetes mellitus type: type 2 Diabetes mellitus complication status: with neurologic complications Diabetes mellitus complication detail: with polyneuropathy Diabetes mellitus intermediate project manager insulin use: with retirement use Qualified Code(s): E11.42 - Type 2 diabetes mellitus with diabetic polyneuropathy; Z79.4 - director long term care (current) use of insulin; Z79.4 - director long term care ( current) use of insulin; Z79.4 - group home (current) use of insulin; Z79.4 - director long term care (current) use of insulin (4) PVD (peripheral vascular disease) Status: Chronic (5) CAD (coronary artery disease) Status: Chronic Qualifiers: Coronary Disease-Associated Artery/Lesion type: [place] artery [place] vs. transplanted heart: [place] heart Associated angina: without angina Qualified Code(s): I25.10 - Atherosclerotic heart disease of [place] coronary artery without angina pectoris (6) HTN (hypertension) Status: Chronic Qualifiers: Hypertension type: essential hypertension Qualified Code(s): I10 - Essential (primary) hypertension (7) ESRD (end stage renal disease) on dialysis Status: Chronic Hospital course: Ms. Simon is a 56 year old female - Time Spent with Patient Total time spent providing and/or coordinating discharge services: 40min Date of admission: 08/12/17 04:29 Primary care physician: Juan J Pal CNP Consults: 08/12/17 13:08 Consult to Nephrology [CONS] Routine Consulting Provider: Kidney Maria E/FLAVIO/CHI/ANNA Reason for Consult: HD Call Completed: No 08/12/17 17:41 Consult to Vascular Surgery [CONS] Routine Consulting Provider: Vascular Surgery Maria E Reason for Consult: occluded peroneal artery. Call Completed: Yes 08/14/17 08:30 Consult to Dialysis [CONS] ONCE 08/14/17 09:54 Consult to Occupational Therapy [CONS] Routine Comment: Evaluate, develop and implement POC Reason for Consult: therapy/placement needs Consult to Physical Therapy [CONS] Routine Comment: Evaluate, develop and implement POC Reason for Consult: PT eval 08/15/17 11:07 Consult to Lead Simulation Modeling Engineer [CONS] Routine Reason for SW Consult: discharge planning and family wants to discuss POA 08/16/17 08:45 Consult to Dialysis [CONS] ONCE - Constitutional Vitals: Temp Pulse Resp BP Pulse Ox 98.2 F 75 14 143/69 97 08/16/17 13:26 08/16/17 13:26 08/16/17 13:26 08/16/17 13:26 08/16/17 13:26 - Attending Attestation I examined this patient and my medical decision-making was reviewed with the Resident Physician on 08/16/17. I agree with the documented findings, disposition and treatment plan as described except to the extent set forth below. Ms Simon has been admitted for acute encephalopathy. She was found to have an acute R occipital CVA. There was also concern for too high dose of Neurontin especially with the hx ESRD. She also was found to have occluded R peroneal artery which was managed conservatively. She also was found to have severe L carotid stenosis. She will need further follow up with vascular surgeon (she relates that she has one). She is now afebrile and ready for discharge. She has been switched to Plavix. Exam alert. Comfortable Mucus membranes dry Heart reg No wheeze Plan D/C today Follow up with vascular surgeon.
--- NOTE | 2017-08-16 11:49 | Physician Discharge Referral ---
Home Health/Hosp Referral Info Provider in Charge Post Discharge: PCP - Diagnosis (1) CVA (cerebral vascular accident) Priority: Primary Status: Acute (2) Acute encephalopathy Priority: Primary Status: Acute (3) Carotid stenosis, bilateral Priority: Secondary Status: Chronic (4) UTI (urinary tract infection) Priority: Secondary Status: Acute (5) Diabetes mellitus Priority: Secondary Status: Chronic (6) ESRD (end stage renal disease) on dialysis Priority: Secondary Status: Chronic (7) Elevated liver function tests Priority: Secondary Status: Acute (8) PVD (peripheral vascular disease) Priority: Secondary Status: Chronic (9) HTN (hypertension) Priority: Secondary Status: Chronic (10) CAD (coronary artery disease) Priority: Secondary Status: Chronic - Respiratory Orders Smoking Cessation: Smoking cessation has been advised. For more information, call the [employer] Tobacco Quit Line at 3-602-BGNY-NOW. - Activity Activity Orders: Up ad christin - Services Needed Following services are medically necessary services: Home Health Aide, Physical Therapy, Occupational Therapy - Transfer Medications Prescriptions: Clopidogrel Bisulfate [Plavix] 75 mg PO DAILY #30 tablet Home Medications: Apixaban [Eliquis] 2.5 mg PO BID 03/24/17 [History] Carvedilol 12.5 mg PO BID 03/24/17 [History] Citalopram Hydrobromide [Citalopram HBr] 20 mg PO DAILY 03/24/17 [History] Docusate Sodium [Dok] 100 mg PO BID PRN 03/24/17 [History] Folic Acid/Vit Bcomp,C [Renal-Diego Tablet] 1 tab PO DAILY 03/24/17 [History] Omeprazole [PriLOSEC] 20 mg PO DAILY 03/24/17 [History] Torsemide 100 mg PO DAILY 03/24/17 [History] hydrALAZINE [HydrALAZINE] 10 mg PO TID 03/24/17 [History] Acetaminophen [Tylenol Arthritis] 650 mg PO Q4H PRN 08/12/17 [History] Calcium Acetate [Phos-LO] 1,334 cap PO QID 08/12/17 [History] Cetirizine HCl [24Hour Allergy] 10 mg PO DAILY 08/12/17 [History] Cyclopentolate HCl [Cyclogyl] 1 drop RIGHT EYE AD 08/12/17 [History] Doxycycline 100 mg PO BID 08/12/17 [History] Ergocalciferol (VITAMIN D2) [Vitamin D2] 50,000 unit PO GUERRA 08/12/17 [History] Gabapentin [Neurontin] 200 mg PO TID 08/12/17 [History] Insulin LISPRO [Humalog] 2 - 12 unit SQ TIDWM 08/12/17 [History] Ondansetron HCl [Zofran] 4 mg PO Q6H PRN 08/12/17 [History] OxyCODONE/APAP 5/325 [Percocet 5/325 MG] 1 tab PO Q4H PRN 08/12/17 [History] rOPINIRole [Requip] 1 mg PO HS 08/12/17 [History] Clopidogrel Bisulfate [Plavix] 75 mg PO DAILY #30 tablet 08/16/17 [Rx] Allergies/Adverse Reactions: 3 Allergy/AdvReac Type Severity Reaction Status Date / Time pregabalin [From Lyrica] Allergy See Verified 03/24/17 14:02 Comments codeine AdvReac Nausea Verified 03/24/17 14:02 ivp dye Allergy See Uncoded 03/24/17 14:02 Comments Certification: Further, I certify that my clinical findings support that this patient is homebound (i.e. absences from home require considerable and taxing effort and are for medical reasons or uatsdin services or infrequently or short duration when for other reasons) because: Homebound Reason: Patient requires assistance of a person or device to safely leave home Attestation: My signature below is to certify that this patient is under my care and that I, or nurse practitioner, or a physician's refinery operator assistant working with me, has a face-to -face encounter with this patient.
--- NOTE | 2017-08-16 13:26 | Physician Discharge Referral ---
ExtendedCare Referral Info Provider in Charge after Transfer: PCP Institutional Level of Care: Intermediate - Diagnosis (1) CVA (cerebral vascular accident) Priority: Primary Status: Acute (2) Carotid stenosis, bilateral Priority: Secondary Status: Chronic (3) Diabetes mellitus Priority: Secondary Status: Chronic (4) PVD (peripheral vascular disease) Priority: Secondary Status: Chronic (5) CAD (coronary artery disease) Priority: Secondary Status: Chronic (6) HTN (hypertension) Priority: Secondary Status: Chronic Prognosis: Fair Aware of Diagnosis: Patient Aware of Prognosis: Patient - Transfer Medications Prescriptions: Clopidogrel Bisulfate [Plavix] 75 mg PO DAILY #30 tablet Home Medications: Apixaban [Eliquis] 2.5 mg PO BID 03/24/17 [History] Carvedilol 12.5 mg PO BID 03/24/17 [History] Citalopram Hydrobromide [Citalopram HBr] 20 mg PO DAILY 03/24/17 [History] Docusate Sodium [Dok] 100 mg PO BID PRN 03/24/17 [History] Folic Acid/Vit Bcomp,C [Renal-Diego Tablet] 1 tab PO DAILY 03/24/17 [History] Omeprazole [PriLOSEC] 20 mg PO DAILY 03/24/17 [History] Torsemide 100 mg PO DAILY 03/24/17 [History] hydrALAZINE [HydrALAZINE] 10 mg PO TID 03/24/17 [History] Acetaminophen [Tylenol Arthritis] 650 mg PO Q4H PRN 08/12/17 [History] Calcium Acetate [Phos-LO] 1,334 cap PO QID 08/12/17 [History] Cetirizine HCl [24Hour Allergy] 10 mg PO DAILY 08/12/17 [History] Cyclopentolate HCl [Cyclogyl] 1 drop RIGHT EYE AD 08/12/17 [History] Doxycycline 100 mg PO BID 08/12/17 [History] Ergocalciferol (VITAMIN D2) [Vitamin D2] 50,000 unit PO GUERRA 08/12/17 [History] Gabapentin [Neurontin] 200 mg PO TID 08/12/17 [History] Insulin LISPRO [Humalog] 2 - 12 unit SQ TIDWM 08/12/17 [History] Ondansetron HCl [Zofran] 4 mg PO Q6H PRN 08/12/17 [History] OxyCODONE/APAP 5/325 [Percocet 5/325 MG] 1 tab PO Q4H PRN 08/12/17 [History] rOPINIRole [Requip] 1 mg PO HS 08/12/17 [History] Clopidogrel Bisulfate [Plavix] 75 mg PO DAILY #30 tablet 08/16/17 [Rx] Allergies/Adverse Reactions: 3 Allergy/AdvReac Type Severity Reaction Status Date / Time pregabalin [From Lyrica] Allergy See Verified 03/24/17 14:02 Comments codeine AdvReac Nausea Verified 03/24/17 14:02 ivp dye Allergy See Uncoded 03/24/17 14:02 Comments - Respiratory Orders Smoking Cessation: Smoking cessation has been advised. For more information, call the [employer] Tobacco Quit Line at 8-445-CMZK-NOW. - Ancillary Orders May use pressure relief devices daily prn, May consult with Dentist, Financial Manager, Oil Plant Operator PRN - Advance Directives Code Status: Full Code - Mobility Orders Ambulate - Rehabiliation Orders Rehab Potential: Fair - Treatments Skin tear care topically daily PRN per policy, May check for fecal impaction rectally daily PRN, Fleet enema rectally every other day PRN cleansing purposes - Diet Orders Renal CERTIFICATION: I certify that the transfer of the above named patient to an Extended Care Facility is necessary for the continuing treatment of the diagnosis listed. The above information is true and accurate reflection of patient's current condition. Confidential - Redisclosure prohibited without a patient's written consent.
[2017-08-16 13:27] VITALS: BP 143/69
[2017-08-16] MEDS: cefTRIAXone 1,000 MG in Water for inj. (sterile) 20 ML 10 ML IVP SCH (14:11)
[2017-08-16] MEDS: Torsemide 20 MG TABLET PO SCH (14:12)
[2017-08-16] MEDS: hydrALAZINE 10 MG TABLET PO SCH (14:12)
[2017-08-16] MEDS: amLODIPine 5 MG TABLET PO SCH (14:12)
[2017-08-16] MEDS: Loratadine 10 MG TABLET PO SCH (14:13)
== END 2017-08-16 15:49 | disposition home or self-care (01) | DRG 64 ==
LOC: EMEROO 00:26 → 2ANU 00:26 → SUATTDRO 04:29
PROVIDERS: ADMIT Internal Medicine; ATTEND Internal Medicine

== ENCOUNTER 2018-12-02 18:43 | Inpatient (IN) ==
[2018-12-02] MEDS ORDERED: Naloxone 0.4 MG/ML INJ IVP PRN (23:48)
[2018-12-02] MEDS ORDERED: D5% in Water 1,000 ML IVC PRN (23:49)
[2018-12-02] MEDS ORDERED: *HR* Dextrose 50 % in Water (Syg) 50 ML SYRINGE IVP PRN (23:49)
[2018-12-02] MEDS ORDERED: Dextrose Gel 15 GM/37.5 ML TUBE PO PRN ×2 (23:49)
--- NOTE | 2018-12-03 00:40 | Internal Med History&Physical ---
Date of Encounter: 12/03/18 Time of Encounter: 00:38 Internal Medicine - H&P: HPI Chief complaint: SOB History of present illness: Ms. Simon is a 58 year old female with history of COPD on 2 L nasal cannula at home, CHF, end-stage renal disease on hemodialysis (M,W,F) and recent hospitalization here at [facility], discharged on the , with pneumonia , COPD exacerbation and acute respiratory failure. She was treated with broad-spectrum antibiotics in addition to bronchodilators and steroids and discharged home on a course of antibiotics in stable condition. Patient states that Monday night began having difficulty breathing at rest, stating that she felt as though she could not get any air in. Over the past several days she has also noted difficulty breathing when she lays down flat on her back and has been having to sleep at an incline. Last night she continued to wake up in the middle the night because of difficulty breathing. She states she slept slumped forward many hours of the night. This progressed into Monday morning. At one point she checked her oxygen saturation which were at 82% on 2 L. She increased her oxygen to 3 L to no avail. No reports of fever, chills or chest pain. Patient states that she spent a lot of time outside on Monday and was concerned that may have developed dyspnea due to pollen as she noted her eyes were watering. She did note some wheezing. Also endorses approximately 5 pound weight gain. Patient currently on dialysis on Monday, Monday, Monday. She states she still does produce urine. Patient was discharged on the from [facility] with a steroid taper and to complete a short course of antibiotics with Omnicef and azithromycin. Patient states that she picked up her scripts yesterday and took the first doses then. She initially presented to [facility]. Patient was given a DuoNeb's and one-time dose of Zosyn. Blood work showed a white blood cell count of 25.4, hemoglobin 12.6 hematocrit 39.7, platelets 537, sodium 131 potassium 5.4, bicarbonate 26.8,. Chest x-ray was obtained which showed bilateral airspace disease which could represent pulmonary edema or multifocal pneumonia. EKG showed normal sinus rhythm. There was [address] elevations in V2 and V1. On my assessment, patient was sitting up in bed leaning forward. She was not dyspneic. Will be admitted for possible fluid overload. Patient wishes to be full code. Past Med Surg Social Fam HX - Past Medical History Medical history: CVA, diabetes, dialysis, fibromyalgia, renal disease Psychiatric history: anxiety - Past Surgical History Surgical History: , hysterectomy Additional surgical history: shoulder surgery, torn cuff. right hand carpel tunnel. abdominal hernia with mesh implant - Social History Smoking Status: Former smoker Smokeless Tobacco Status: No Alcohol use: none Drug use: none Internal Medicine - H&P: Meds Carvedilol 12.5 mg PO BID 03/24/17 [History] Citalopram Hydrobromide [Citalopram HBr] 20 mg PO DAILY 03/24/17 [History] Folic Acid/Vit Bcomp,C [Renal-Diego Tablet] 1 tab PO DAILY 03/24/17 [History] Calcium Acetate [Phos-LO] 2 cap PO TIDWM 08/12/17 [History] Cetirizine HCl [24Hour Allergy] 10 mg PO DAILY 08/12/17 [History] Ergocalciferol (VITAMIN D2) [Vitamin D2] 50,000 unit PO GUERRA 08/12/17 [History] Insulin LISPRO [Humalog] 0 - 12 unit SQ TIDWM 08/12/17 [History] Ondansetron HCl [Zofran] 4 mg PO Q6H PRN 08/12/17 [History] rOPINIRole [Requip] 1 mg PO HS 08/12/17 [History] Amitriptyline [Elavil] 50 mg PO HS 11/25/18 [History] Amlodipine Besylate 10 mg PO DAILY 11/25/18 [History] Apixaban [Eliquis] 2.5 mg PO BID 11/25/18 [History] Insulin Glargine [Lantus] 0 unit SQ HS 11/25/18 [History] Montelukast [Singulair] 10 mg PO DAILY 11/25/18 [History] NIFEdipine [Nifedipine ER] 90 mg PO DAILY 11/25/18 [History] Pantoprazole Sodium 40 mg PO DAILY 11/25/18 [History] Patiromer Calcium Sorbitex [Veltassa] 1 each PO DAILY 11/25/18 [History] Azithromycin [Zithromax] 500 mg PO DAILY #4 tablet 11/27/18 [Rx] Cefdinir [Omnicef] 300 mg PO BID #10 capsule 11/27/18 [Rx] predniSONE [PredniSONE] 10 mg PO DAILY 8 Days #20 tablet 11/27/18 [Rx] Allergy/AdvReac Type Severity Reaction Status Date / Time pregabalin [From Lyrica] Allergy See Verified 03/24/17 14:02 Comments codeine AdvReac Nausea Verified 03/24/17 14:02 ivp dye Allergy See Uncoded 03/24/17 14:02 Comments All Systems PM: A 10-system review of systems was performed and is negative for pertinent findings except as documented above in the HPI. - Constitutional Constitutional: no chills, no fever(s), no night sweats - EENT Eyes: no change in vision, no discharge, no pain, no photophobia Ears: no ear discharge, no ear pain, no tinnitus Nose, mouth and throat: no dysphagia, no nasal discharge, no neck pain, no sore throat - Cardiovascular Cardiovascular ROS IM: no chest pain, no diaphoresis, no dyspnea, no lightheadedness, no palpitations, no syncope - Respiratory Respiratory: no cough, no dyspnea, no wheezing, no excessive phlegm production - Gastrointestinal Gastrointestinal: no abdominal pain, no diarrhea, no hematemesis, no hematochezia, no melena, no nausea, no vomiting - Genitourinary Genitourinary: no change in urinary stream, no dysuria, no flank pain, no hematuria - Musculoskeletal Musculoskeletal ROS IM: no numbness, no tingling - Integumentary Integumentary IM: no rash, no unusual bruising - Neurological Neurological ROS: no confusion, no convulsions, no focal weakness, no numbness, no tingling, no tremor(s) - Hematologic/Lymphatic Hematologic/Lymphatic: no easy bruising - Constitutional Vitals: Temp Pulse Resp BP Pulse Ox 98.1 F 91 16 186/71 93 12/02/18 22:59 12/02/18 22:59 12/02/18 22:59 12/02/18 22:59 12/02/18 22:59 Exam: General: Alert and oriented 3 Skin:Normal color, no rash, no lesions. HEENT:EOM, pupils equal, round and reactive. Cardiovascular:Normal S1 & S2, no rubs, murmurs or gallops. No JVD. Pulse regular. Lungs: Rales noted up to the mid posterior thorax on the left. Bronchial breath sounds at the right mid posterior thorax Abdomen:Soft, non-tender, no rigidity. Extremities: Bilateral [id number] amputations. No evidence of edema in the lower extremities. Neurological:Normal cognition and motor skills. Pulses:Carotid and radial pulses normal +2. Rest of the physical exam is non contributory - Assessment and Plan (1) Acute respiratory failure with hypoxia Current Visit: No Status: Acute Assessment and plan: Patient presenting with acute hypoxic respiratory failure. Etiology may be multifactorial given recent history of pneumonia, COPD and failure to continue antibiotics course and steroid taper after discharge. She did have a bump in her white count as well. However strong suspicion of a fluid overload component, possible CHF, given patient's orthopnea and paroxysmal nocturnal dyspnea. Patient also noting 5 pound weight gain. Chest x-ray obtained at [facility] showed bilateral airspace disease which could represent pulmonary edema or multifocal pneumonia. Patient currently stable from a respiratory standpoint on 3 L nasal cannula. -We will continue O2 support. -We will obtain a CT of the chest to further evaluate etiology of patient's dyspnea -We will start patient on duo nebs -Strict I's and O's; daily weights. -We will consider diuresis and consult nephrology in the event patient needs fluid removed via dialysis. (2) ESRD (end stage renal disease) on dialysis Current Visit: No Status: Chronic Assessment and plan: History of end-stage renal disease on dialysis Monday, Monday, Monday. -We will consult nephrology in the event patient will need removal of fluid and further management of dialysis. (3) Heart failure with preserved ejection fraction Current Visit: Yes Status: Acute Assessment and plan: Patient presenting with symptoms orthopnea/PND suggestive of volume overload and weight gain concerning for possible CHF exacerbation. Last echocardiogram was obtained in July 2017: LVEF 60-65%. Mild left ventricular hypertrophy with moderate basal septal hypertrophy. Normal right ventricular structure and function. Mild mitral regurgitation. Mild tricuspid regurgitation. Mild-moderate pulmonic regurgitation. No pulmonary hypertension. -Continue strict I's and O's; daily weights -We will give patient one-time dose of Lasix 40 mg IV push -We will obtain echocardiogram in the morning -Consult to nephrology in the event patient will need diuresis. -Consider cardiology consult if patient does not improve. Qualifiers: Heart failure chronicity: unspecified Qualified Code(s): I50.30 - U nspecified diastolic (congestive) heart failure (4) COPD (chronic obstructive pulmonary disease) Current Visit: Yes Status: Acute Assessment and plan: History of COPD on 2 L nasal cannula. Recently treated for exacerbation. Patient reports she did not continue her steroid taper until yesterday at which time she obtain the prescription sent took her first dose. On examination the did not appreciate any wheezing. I suspect current presentation more likely secondary to volume overload though given her noncompliance, cannot fully discount a mild COPD flare. -We will start patient on duo nebs every 6 hours. -We will hold any further steroids for now due to concern that it may be exacerbating fluid retention and monitor. -Continue azithromycin as previously prescribed during last discharge. -Follow-up CT scan findings Qualifiers: Emphysema type: unspecified Qualified Code(s): J43.9 - Emphysema, unspecified (5) History of recent pneumonia Current Visit: Yes Status: Acute Assessment and plan: Recent history of healthcare associated pneumonia. Patient reporting mild nonproductive cough but no fever or chills. Last WBC upon discharge was 23.3. Currently 25 obtained at [facility]. Patient does not look septic. -We will obtain CT scan for further elucidation of any pneumonic process -We will give azithromycin for now and reevaluate antibiotic coverage after CAT scan. (6) Hypercoagulable state Current Visit: No Status: Chronic Assessment and plan: Continue Eliquis (7) DVT prophylaxis Current Visit: No Status: Acute Assessment and plan: On Eliquis - Time Spent With Patient Total time spent is greater than 50% in coordination of care (as documented) at patient's floor/unit and/or counseling patient:
[2018-12-03] MEDS: OXYCODONE Oral CONC 10 MG/0.5 ML ORAL.SYG SL PRN ×3 (00:58→15:26)
[2018-12-03] MEDS ORDERED: Furosemide 40 MG/4 ML VIAL IVP ONE (02:07)
[2018-12-03] MEDS: Insulin LISPRO 300 UNITS/3 ML VIAL SQ SCH ×6 (02:28→21:32)
[2018-12-03] MEDS: Insulin DETEMIR 100 UNIT/ML X5UNITS SQ SCH ×2 (02:28→21:32)
[2018-12-03] MEDS: Ipratropium/Albuterol Neb 3 ML IH SCH ×5 (03:29→22:29)
[2018-12-03 06:57] LABS: Hematocrit 35.2 % (35.3-44.9); Immature Granulocytes % 1.3 % (0-4); Lymphocytes % 4.7 %; Mean Corpuscular HGB Conc 31.3 g/dL (31.6-35.5); Mean Corpuscular Hemoglobin 28.7 pg (28.0-33.3); Mean Corpuscular Volume 91.9 fL (83.0-100.0); Mean Platelet Volume 11.1 fL (9.4-12.4); Monocytes % 2.5 %; Platelet Count 398 K/mcL (140-400); Red Blood Count 3.83 M/mcL (3.82-4.97); Red Cell Distribution Width 16.6 % (11.5-14.5); Segmented Neutrophils % 91.4 %; White Blood Count 15.2 K/mcL (4.3-11.1)
[2018-12-03 06:58] LABS: Basophils % 0.1 %; Lymphocytes # 0.7 K/mcL (0.6-4.6); Monocytes # 0.4 K/mcL (0.0-1.3); Neutrophils # 13.9 K/mcL (1.6-8.9)
[2018-12-03 07:17] LABS: Troponin I 0.03 ng/mL (< 0.04)
[2018-12-03 07:33] LABS: Albumin 3.7 g/dL (3.5-5.7); Albumin/Globulin Ratio 1.5 (1.1-2.2); Bilirubin,Total 0.3 mg/dL (0.3-1.0); Calcium 8.9 mg/dL (8.6-10.3); Globulin 2.5 g/dL (2.4-3.5); Magnesium 1.8 mg/dL (1.6-2.6); Potassium 5.9 mEq/L (3.5-5.1); Total Protein 6.2 g/dL (6.4-8.9)
[2018-12-03] MEDS ORDERED: Insulin LISPRO 300 UNITS/3 ML VIAL SQ SCH (07:47)
[2018-12-03 08:30] LABS: Prothrombin Time 11.5 Seconds (9.4-12.1)
[2018-12-03 08:32] LABS: Activated Partial Thrombo Time 30.9 Seconds (26.0-36.0)
[2018-12-03] MEDS ORDERED: *HR* Heparin 10,000 UNIT/10 ML VIAL IV PRN (08:40)
[2018-12-03] MEDS ORDERED: 0.9 % Sodium Chloride 250 ML IVC PRN (08:40)
[2018-12-03] MEDS ORDERED: 0.9 % Sodium Chloride 1,000 ML PRIME SCH (08:45)
[2018-12-03] MEDS ORDERED: Azithromycin 250 MG TABLET PO SCH (09:00)
[2018-12-03] MEDS ORDERED: 0.9 % Sodium Chloride 1,000 ML ONE (10:19)
--- NOTE | 2018-12-03 11:47 | Nephrology Consult Note ---
Date of Encounter: 12/03/18 Time of Encounter: 12:00 History of Present Illness - Reason for Consult Consult date: 12/03/18 end stage renal disease, hyperkalemia - History of Present Illness 58 y o female with PMH of DM, Bilat BKA, COPD s/p PNA on recently admission a week ago and ESRD on HD at [facility] admitted with SOB. Past Med Surg Social Fam HX - Past Medical History Medical history: CVA, diabetes, dialysis, fibromyalgia, renal disease Psychiatric history: anxiety - Past Surgical History Surgical History: , hysterectomy Additional surgical history: shoulder surgery, torn cuff. right hand carpel tunnel. abdominal hernia with mesh implant - Social History Smoking Status: Former smoker Smokeless Tobacco Status: No Alcohol use: none Drug use: none Medications and Allergies Carvedilol 12.5 mg PO BID 03/24/17 [History] Citalopram Hydrobromide [Citalopram HBr] 20 mg PO DAILY 03/24/17 [History] Folic Acid/Vit Bcomp,C [Renal-Diego Tablet] 1 tab PO DAILY 03/24/17 [History] Calcium Acetate [Phos-LO] 2 cap PO TIDWM 08/12/17 [History] Cetirizine HCl [24Hour Allergy] 10 mg PO DAILY 08/12/17 [History] Ergocalciferol (VITAMIN D2) [Vitamin D2] 50,000 unit PO GUERRA 08/12/17 [History] Insulin LISPRO [Humalog] 0 - 12 unit SQ TIDWM 08/12/17 [History] Ondansetron HCl [Zofran] 4 mg PO Q6H PRN 08/12/17 [History] rOPINIRole [Requip] 1 mg PO HS 08/12/17 [History] Amitriptyline [Elavil] 50 mg PO HS 11/25/18 [History] Amlodipine Besylate 10 mg PO DAILY 11/25/18 [History] Apixaban [Eliquis] 2.5 mg PO BID 11/25/18 [History] Insulin Glargine [Lantus] 0 unit SQ HS 11/25/18 [History] Montelukast [Singulair] 10 mg PO DAILY 11/25/18 [History] NIFEdipine [Nifedipine ER] 90 mg PO DAILY 11/25/18 [History] Pantoprazole Sodium 40 mg PO DAILY 11/25/18 [History] Patiromer Calcium Sorbitex [Veltassa] 1 each PO DAILY 11/25/18 [History] predniSONE [PredniSONE] 10 mg PO DAILY 8 Days #20 tablet 11/27/18 [Rx] Aspirin [Lo-Dose Aspirin EC] 81 mg PO DAILY 12/03/18 [History] Allergy/AdvReac Type Severity Reaction Status Date / Time pregabalin [From Lyrica] Allergy See Verified 03/24/17 14:02 Comments codeine AdvReac Nausea Verified 03/24/17 14:02 ivp dye Allergy See Uncoded 03/24/17 14:02 Comments Exam - Vital Signs Vital signs: Initial Vital Signs Temp Pulse Resp BP Pulse Ox 98.1 F 91 16 186/71 93 12/02/18 22:59 12/02/18 22:59 12/02/18 22:59 12/02/18 22:59 12/02/18 22:59 Vital Signs - Last 8 Hours Temp Pulse Resp BP Pulse Ox 12/03/18 07:57 98.5 F 97 18 169/77 96 12/03/18 04:18 97.5 F L 94 20 146/74 92 Intake and Output 12/02/18 12/03/18 12/03/18 23:59 07:59 15:59 Intake Total 0 / 0 Output Total 300 / 300 Balance -300 / -300 0 / -300 Intake: Oral 0 / 0 Output: Urine 300 / 300 Other: Meal NPO Percent of Meal Consumed 0% Stool Size Small Stool Consistency formed Stool Color Brown # Voids 1 # Bowel Movements 1 Weight 75.4 kg Blood Glucose* 409 265 Results - Lab Results 12/03/18 06:40 12/03/18 06:40 Most recent lab results 12/03/18 06:40 Calcium 8.9 Magnesium 1.8 Consult Discharge Plan - Plan Referrals: NONE,PCP [Primary Care Provider] -
[2018-12-03 11:50] LABS: Calcium 8.6 mg/dL (8.6-10.3); Potassium 3.4 mEq/L (3.5-5.1)
[2018-12-03] MEDS ORDERED: predniSONE 10 MG TABLET PO SCH (12:15)
[2018-12-03] MEDS ORDERED: Piperacillin/Tazobactam 3.375 GM in 0.9 % Sodium Chloride Mini Bag 100 ML IVPB SCH (14:00)
--- NOTE | 2018-12-03 14:04 | Internal Med Progress Note ---
Hospitalist Progress Note - Encounter Date of Encounter: 12/03/18 Time of Encounter: 14:01 - Subjective Interval History: Patient was seen and examined earlier today in dialysis. Patient resting in bed and saturating well on nasal cannula. States she feels better compared to previous day. Patient states she was discharged from the hospital on 11/27/18 with prescription for abx and prednisone, pt states these medications were not picked up from the pharmacy until 12/02/18 and yesterday she couldn't breath due to which she came to the hospital. She states she is breathing comfortably at this time (on 3L NC-home oxygen). Denies any cough, chest pain, fever, or chills. Ten point ROS is negative except as listed above - Exam Vitals: Temp Pulse Resp BP Pulse Ox 97.8 F 97 18 140/71 96 12/03/18 10:10 12/03/18 07:57 12/03/18 10:10 12/03/18 12:25 12/03/18 07:57 Exam: General: No acute distress, AAO x 3, morbidly obese HEENT: EOMI, PERRLA, NC/AT, no scleral icterus Respiratory: Decreased breath sounds, no wheezing Cardiovascular: Regular, Rate, Rhythm, No murmurs GI: Soft, Non tender, non distended, normal bowel sounds Ext: bilateral BKA Neuro: AAO x 3, no focal deficits Rest of the clinical exam is noncontributory - Assessment and Plan (1) Acute respiratory failure with hypoxia Current Visit: No Status: Acute Assessment and Plan: Acute on chronic respiratory failure likely secondary to Multifocal Pneumonia and volume overload CT chest noted will start Zosyn IV at this time continue ENVIRONMENTAL HEALTH TECHNOLOGIST as per nephrology continue fluid restriction diet continue home meds f/u blood cultures continue prednisone taper Pt educated about the need to be compliant with home meds bipap support at bedtime continue O2 support closely monitor respiratory status bronchodilator support as needed (2) Multifocal pneumonia Current Visit: Yes Status: Acute Assessment and Plan: as listed above (3) ESRD (end stage renal disease) on dialysis Current Visit: No Status: Chronic Assessment and Plan: nephrology input appreciated continue ENVIRONMENTAL HEALTH TECHNOLOGIST as per nephrology (4) Heart failure with preserved ejection fraction Current Visit: Yes Status: Acute Assessment and Plan: Patient presenting with symptoms orthopnea/PND suggestive of volume overload and weight gain concerning for possible CHF exacerbation. Last echocardiogram was obtained in July 2017: LVEF 60-65%. Mild left ventricular hypertrophy with moderate basal septal hypertrophy. Normal right ventricular structure and function. Mild mitral regurgitation. Mild tricuspid regurgitation. Mild-moderate pulmonic regurgitation. No pulmonary hypertension. -Continue strict I's and O's; daily weights -f/u 2D echo -Fluid restriction diet (5) DVT prophylaxis Current Visit: No Status: Acute (6) COPD (chronic obstructive pulmonary disease) Current Visit: Yes Status: Acute Assessment and Plan: continue Prednisone taper bronchodilator support (7) Hypercoagulable state Current Visit: No Status: Chronic Assessment and Plan: hx of clots, on Eliquis will continue home dose of Eliquis - Time Spent with Patient Total time spent is greater than 50% in coordination of care (as documented) at patient's floor/unit and/or counseling patient:40 minutes Greater than 35 minutes Plan of Care Discussed with: patient (patient/RN/family/pharmacist/consulting provider/case management) Internal Medicine: Result - Labs CBC & Chem 7: 12/03/18 06:40 12/03/18 11:05 Labs: Short CBC 12/03/18 Range/Units 06:40 WBC 15.2 H (4.3-11.1) K/mcL Hgb 11.0 L (11.5-15.4) g/dL Hct 35.2 L (35.3-44.9) % Plt Count 398 (140-400) K/mcL Neutrophils # 13.9 H (1.6-8.9) K/mcL BMP 12/03/18 12/03/18 06:40 11:05 Sodium 129 L 134 L Potassium 5.9 H 3.4 L D Chloride 93 L 97 L Carbon Dioxide 20 L 29 BUN 67 H 40 H Creatinine 6.37 H 3.96 H Glucose 568 H* 106 H Calcium 8.9 8.6 Cardiac Enzymes 12/03/18 Range/Units 06:40 Troponin I 0.03 (< 0.04) ng/mL Liver Function 12/03/18 Range/Units 06:40 Total Bilirubin 0.3 (0.3-1.0) mg/dL AST 12 L (13-39) Units/L ALT 23 (7-52) Units/L Alkaline Phosphatase 255 H (34-104) Units/L Albumin 3.7 (3.5-5.7) g/dL - ABG Interpretation ABG results: PT/INR, D-dimer PT 11.5 Seconds (9.4-12.1) 12/03/18 07:50 - Impressions Impressions Chest CT 12/03/18 01:33 IMPRESSION: 1. Complete atelectasis of the right middle lobe with dense consolidation in the lingula and bilateral lower lobes. The overall pattern is stable from recent prior CT. Findings suspected to represent multifocal pneumonia or developing ARDS. 2. Small bilateral pleural effusions. 3. Atherosclerotic changes of the heart and coronary arteries. D/ / Carlos Leroy MD / Carlos Leroy MD Interpreting Provider: Calros Leroy MD Consult Discharge Plan - Plan Referrals: NONE,PCP [Primary Care Provider] - (4) Heart failure with preserved ejection fraction Qualifiers: Heart failure chronicity: unspecified Qualified Code(s): I50.30 - Unspecified diastolic (congestive) heart failure (6) COPD (chronic obstructive pulmonary disease) Qualifiers: Emphysema type: unspecified Qualified Code(s): J43.9 - Emphysema, unspecified
[2018-12-03] MEDS: Aspirin Enteric Coated 81 MG Tablet PO SCH (15:08)
[2018-12-03] MEDS: Renal Vitamin 1 CAP CAPSULE PO SCH (15:08)
[2018-12-03] MEDS: predniSONE 20 MG TABLET PO SCH (15:08)
[2018-12-03] MEDS: Piperacillin/Tazobactam 3.375 GM in 0.9 % Sodium Chloride Mini Bag 100 ML IVPB SCH (15:09)
[2018-12-03] MEDS ORDERED: Calcium Acetate 667 MG CAPSULE PO SCH (17:00)
[2018-12-03] MEDS: Calcium Acetate 667 MG CAPSULE PO SCH (17:07)
[2018-12-03] MEDS: rOPINIRole 1 MG TABLET PO SCH (21:31)
[2018-12-03] MEDS: Apixaban 2.5 MG TABLET PO SCH (21:32)
[2018-12-03] MEDS: Budesonide/Formoterol 160/4.5 1 PUFF INH IH SCH (22:29)
[2018-12-04] MEDS: Insulin LISPRO 300 UNITS/3 ML VIAL SQ SCH ×5 (01:41→16:38)
[2018-12-04] MEDS: Ipratropium/Albuterol Neb 3 ML IH SCH ×4 (03:51→22:02)
[2018-12-04] MEDS: Piperacillin/Tazobactam 3.375 GM in 0.9 % Sodium Chloride Mini Bag 100 ML IVPB SCH ×2 (06:23→16:43)
[2018-12-04 07:43] LABS: Basophils % 0.1 %; Hematocrit 34.7 % (35.3-44.9); Hemoglobin 10.9 g/dL (11.5-15.4); Immature Granulocytes % 1.1 % (0-4); Lymphocytes # 1.4 K/mcL (0.6-4.6); Lymphocytes % 8.6 %; Mean Corpuscular HGB Conc 31.4 g/dL (31.6-35.5); Mean Corpuscular Hemoglobin 28.8 pg (28.0-33.3); Mean Corpuscular Volume 91.6 fL (83.0-100.0); Monocytes % 6.2 %; Neutrophils # 13.2 K/mcL (1.6-8.9); Platelet Count 356 K/mcL (140-400); Red Blood Count 3.79 M/mcL (3.82-4.97); Red Cell Distribution Width 16.8 % (11.5-14.5); White Blood Count 15.7 K/mcL (4.3-11.1)
[2018-12-04] MEDS ORDERED: NON-FORMULARY MEDICATION 1 EACH EACH (Nifedipine [Nifedipine Er] 90 MG) PO SCH (09:00)
[2018-12-04] MEDS: amLODIPine 5 MG TABLET PO SCH (09:29)
[2018-12-04] MEDS: Loratadine 10 MG TABLET PO SCH (09:30)
[2018-12-04] MEDS: predniSONE 20 MG TABLET PO SCH (09:30)
[2018-12-04] MEDS: Renal Vitamin 1 CAP CAPSULE PO SCH (09:30)
[2018-12-04] MEDS: OXYCODONE Oral CONC 10 MG/0.5 ML ORAL.SYG SL PRN ×3 (09:30→20:41)
[2018-12-04] MEDS: Apixaban 2.5 MG TABLET PO SCH ×2 (09:30→20:23)
[2018-12-04] MEDS: Aspirin Enteric Coated 81 MG Tablet PO SCH (09:30)
[2018-12-04] MEDS: Calcium Acetate 667 MG CAPSULE PO SCH ×3 (09:36→16:38)
[2018-12-04 09:37] LABS: Calcium 8.6 mg/dL (8.6-10.3); Magnesium 1.8 mg/dL (1.6-2.6); Phosphorous 4.5 mg/dL (2.7-4.5); Potassium 4.5 mEq/L (3.5-5.1)
[2018-12-04] MEDS: Budesonide/Formoterol 160/4.5 1 PUFF INH IH SCH ×2 (10:05→22:02)
[2018-12-04 10:37] LABS: Adenovirus Not Detected (Not Detect); Bordetella Pertussis Not Detected (Not Detect); Chlamydophila pneumoniae Not Detected (Not Detect); Coronavirus 229E Not Detected (Not Detect); Coronavirus HKU1 Not Detected (Not Detect); Coronavirus NL63 Not Detected (Not Detect); Coronavirus OC43 Not Detected (Not Detect); Human Metapneumovirus Not Detected (Not Detect); Human Rhinovirus/Enterovirus Not Detected (Not Detect); Influenza A Subtype 2009 H1 Not Detected (Not Detect); Influenza A Untypeable Not Detected (Not Detect); Influenza B Not Detected (Not Detect); Mycoplasma pneumoniae Not Detected (Not Detect); Parainfluenza Virus 1 Not Detected (Not Detect); Parainfluenza Virus 2 Not Detected (Not Detect); Parainfluenza Virus 3 Not Detected (Not Detect); Parainfluenza Virus 4 Not Detected (Not Detect); Respiratory Syncytial Virus Not Detected (Not Detect)
--- NOTE | 2018-12-04 12:04 | Internal Med Progress Note ---
Hospitalist Progress Note - Encounter Date of Encounter: 12/04/18 Time of Encounter: 12:02 - Subjective Interval History: Patient seen and examined at bedside. Resting in bed and saturating well on 2L NC. States at home she is on 2-3L of NC. Reports of significant improvement in her breathing since hospitalization. No fever or chills reported. She does report of left nipple tenderness to palpation and states she feels that she has sharp pain in her left nipple, no discharge or erythema noted on examination. Ten point ROS is negative except as listed above No overnight events reported. - Exam Vitals: Temp Pulse Resp BP Pulse Ox 98.7 F 86 18 173/81 96 12/04/18 11:31 12/04/18 11:31 12/04/18 11:31 12/04/18 11:31 12/04/18 11:31 Exam: General: No acute distress, AAO x 3, morbidly obese HEENT: EOMI, PERRLA, NC/AT, no scleral icterus Respiratory: Decreased breath sounds, no wheezing, no rales Breast: left nipple tenderness to palpation, no erythema, no discharge noted Cardiovascular: Regular, Rate, Rhythm, No murmurs GI: Soft, Non tender, non distended, normal bowel sounds Ext: bilateral BKA Neuro: AAO x 3, no focal deficits Rest of the clinical exam is noncontributory - Assessment and Plan (1) Acute respiratory failure with hypoxia Current Visit: No Status: Acute Assessment and Plan: Acute on chronic respiratory failure likely secondary to Multifocal Pneumonia and volume overload CT chest noted continue Zosyn IV at this time continue WINDOW SHADE RING SEWER as per nephrology continue fluid restriction diet continue home meds f/u blood cultures, prelim reporting no growth thus far continue prednisone taper bipap support at bedtime continue O2 support closely monitor respiratory status bronchodilator support as needed (2) Multifocal pneumonia Current Visit: Yes Status: Acute Assessment and Plan: as listed above (3) ESRD (end stage renal disease) on dialysis Current Visit: No Status: Chronic Assessment and Plan: nephrology input appreciated continue WINDOW SHADE RING SEWER as per nephrology (4) Heart failure with preserved ejection fraction Current Visit: Yes Status: Acute Assessment and Plan: Patient presenting with symptoms orthopnea/PND suggestive of volume overload and weight gain concerning for possible CHF exacerbation. 2D echo reviewed, cardiology evaluation requested Continue strict I's and O's; daily weights Fluid restriction diet (5) DVT prophylaxis Current Visit: No Status: Acute Assessment and Plan: On Eliquis (6) COPD (chronic obstructive pulmonary disease) Current Visit: Yes Status: Chronic Assessment and Plan: continue Prednisone taper bronchodilator support (7) Hypercoagulable state Current Visit: No Status: Chronic Assessment and Plan: hx of clots, on Eliquis will continue home dose of Eliquis (8) Breast pain, left Current Visit: Yes Status: Acute Assessment and Plan: of unclear etiology f/u left Breast US - Time Spent with Patient Total time spent is greater than 50% in coordination of care (as documented) at patient's floor/unit and/or counseling patient: Plan of Care Discussed with: patient (patient/RN/pharmacist/case management) Internal Medicine: Result - Labs CBC & Chem 7: 12/04/18 06:54 12/04/18 09:08 Labs: Short CBC 12/04/18 Range/Units 06:54 WBC 15.7 H (4.3-11.1) K/mcL Hgb 10.9 L (11.5-15.4) g/dL Hct 34.7 L (35.3-44.9) % Plt Count 356 (140-400) K/mcL Neutrophils # 13.2 H (1.6-8.9) K/mcL BMP 12/04/18 09:08 Sodium 140 Potassium 4.5 D Chloride 99 Carbon Dioxide 30 H BUN 46 H Creatinine 4.24 H Glucose 143 H Calcium 8.6 - ABG Interpretation ABG results: PT/INR, D-dimer PT 11.5 Seconds (9.4-12.1) 12/03/18 07:50 - Impressions Impressions Echocardiogram 12/03/18 02:22 Impressions: LVEF 60-65% Mild to moderate concentric left ventricular hypertrophy. LV diastolic dysfunction with elevated filling pressures. Normal right ventricular structure and function. Severely dilated left atrium. Mild-moderate mitral regurgitation. Mild tricuspid regurgitation. Mild pulmonic regurgitation. Severe pulmonary hypertension. There is a small pericardial effusion present. There is no echocardiographic evidence of tamponade. Left Ventricular Wall Motion: Rest Echo Findings All wall segments showed normal motion. Findings: Study Quality * Technically adequate exam. ECG Findings * Normal sinus rhythm. Left Ventricle * LVEF 60-65% * Mild to moderate concentric left ventricular hypertrophy. * LV diastolic dysfunction with elevated filling pressures. Right Ventricle * Normal right ventricular structure and function. Left Atrium * Severely dilated left atrium. Right Atrium * Normal right atrial size. Mitral Valve * Moderate mitral annular calcification * Mildly thickened mitral valve leaflets. * No mitral stenosis. * Mild-moderate mitral regurgitation. Tricuspid Valve * Normal tricuspid valve structure. * Mild tricuspid regurgitation. * Estimated RA pressure is 3 mmHg. * Estimated RVSP is 68 mmHg. * Severe pulmonary hypertension. Pulmonic Valve * Pulmonic valve is not well visualized. * No pulmonic stenosis. * Mild pulmonic regurgitation. Pulmonary Artery * Pulmonary artery not well visualized. Aorta * Normally sized aortic root. Pericardium * There is a small pericardial effusion present. * There is no echocardiographic evidence of tamponade. Aortic Valve * No aortic regurgitation. * Trileaflet aortic valve. * No aortic stenosis. Interatrial Septum * No evidence of PFO by color Doppler. IVC * Normal IVC dimensions and inspiratory collapse. Consult Discharge Plan - Plan Referrals: NONE,PCP [Primary Care Provider] - (4) Heart failure with preserved ejection fraction Qualifiers: Heart failure chronicity: unspecified Qualified Code(s): I50.30 - Unspecified diastolic (congestive) heart failure (6) COPD (chronic obstructive pulmonary disease) Qualifiers: Emphysema type: unspecified Qualified Code(s): J43.9 - Emphysema, unspecified
--- NOTE | 2018-12-04 13:33 | Cardiology Consult Note ---
<Uyen Ramsey N - Last Filed: 12/04/18 15:53> Date of Encounter: 12/04/18 Time of Encounter: 13:33 Assessment and Plan (1) Pulmonary hypertension Current Visit: Yes Status: Acute Unclear, and possibly multifactorial etiology; suspect WHO group 3 or group 4 Though previous studies did not demonstrate pulmonary hypertension, repeat ech ocardiogram performed on 12/04/2018 demonstrated severe pulmonary hypertension. Patient was ntoed to have LVEF 60-65% with the following abnormalities: [id number] concentric LVH, severely dilated left atrium, ypjs-[id number]-wtdjeipw mitral regurgitation, mild tricuspid and pulmonic regurgitation, and small pericardial effusion without evidence of tamponade. Patient has a history of COPD, as well as a history of hypercoagulability with multiple clots in the past. She is currently anticoagulated with Eliquis 2.5mg BID. Recommendations: - Increase Eliquis to 5mg BID in consideration of multiple clots and history of hypercoagulability. - Transfer to tertiary care center such as [facility] for pulmonary hypertension workup, as this is not available here at [facility]. She will require a follow-up echocardiogram in several weeks, and will need to be followed long-term for appropriate management of this condition, as treatment will depend on etiology as determined by extensive workup. (2) Acute respiratory failure with hypoxia Current Visit: Yes Status: Acute Secondary to COPD/CHF exacerbation in the setting of multifactorial pneumonia. Management per primary team. (3) Uncontrolled hypertension Current Visit: Yes Status: Acute History of uncontrolled hypertension, with home medications of amlodipine and carvedilol. Patient reports widely fluctuating blood pressure readings as high as 200 mmHg on a regular basis. Management per nephrology recommendations. (4) (HFpEF) heart failure with preserved ejection fraction Current Visit: Yes Status: Acute Qualifiers: Heart failure chronicity: unspecified Qualified Code(s): I50.30 - Unspecified diastolic (congestive) heart failure (5) CAD (coronary artery disease) Current Visit: Yes Status: Chronic Qualifiers: Coronary Disease-Associated Artery/Lesion type: [place] artery [place] vs. transplanted heart: [place] heart Associated angina: without angina Qualified Code(s): I25.10 - Atherosclerotic heart disease of [place] coronary artery without angina pectoris (6) PVD (peripheral vascular disease) Current Visit: Yes Status: Chronic (7) Hypercoagulable state Current Visit: Yes Status: Chronic Discussion w patient/family: The assessment and plan as outlined above was discussed with the patient and/or family members who expressed understanding and agreement. All questions were answered. Thank you for involving us in the care of your patient. Please call with any questions. History of Present Illness Consult date: 12/04/18 Requesting physician: Brandi Briones Consult reason: CHF, pulmonary hypertension Chief complaint: Dyspnea History of present illness: Ms. Simon is a 58 year old female with an extensive medical history including COPD on 2L NC, CHF, ESRD on dialysis (MWF), CVA, diabetes, uncontrolled hypertension, hyperlipidemia, peripheral vascular disease, hypercoagulable state with multiple prior clots, bilateral carotid stenosis, fibromyalgia and anxiety. Patient was discharged from [facility] on 11/29/2018 after admission for acute respiratory failure secondary to COPD exacerbation and pneumonia. Patient was discharged home with oral antibiotics and steroid taper; however, she was unable to get these medications for several days, resulting in return of symptoms. Patient reports that she became severely short of breath the night before last, which she described as feeling like she could not get enough air in. She endorses worsening in her symptoms when lying flat, as well as multiple overnight awakenings due to being unable to breathe. Patient initially presented to [facility]; CXR performed at that facility demonstrated bilateral airspace disease consistent with pulmonary edema or multifocal pneumonia. Laboratory studies were significant for leukocytosis of 15.7, procalcitonin of 1.31, and elevated BNP of 1706. Patient was started on broad-spectrum antibiotic therapy and steroids, as well as nebulized breathing treatments, which improved her symptoms. Prior echocardiogram on 08/12/2017 demonstrated LVEF 60-65%, with mild left ventricular hypertrophy and moderate basal septal hypertrophy. Mild mitral and tricuspid regurgitation was noted, as was [id number]-vs-[id number] pulmonic regurgitation. No pulmonary hypertension was found. Patient was admitted to the hospitalist service for management of acute respiratory failure, with symptomatic improvement after breathing treatments, antibiotics, systemic steroids, and fluid restriction. Repeat echocardiogram was obtained, which demonstrated elevated filling pressures and severe pulmonary hypertension. Cardiology consult was placed for recommendations regarding patient's CHF and new pulmonary hypertension. Past Med Surg Social Fam HX - Past Medical History Medical history: CHF, COPD, coronary artery disease, CVA, DVT, diabetes, dialysis, fibromyalgia, hyperlipidemia, hypertension, peripheral artery disease, renal disease Psychiatric history: anxiety - Past Surgical History Surgical History: , hysterectomy Additional surgical history: shoulder surgery, torn cuff. right hand carpel tunnel. abdominal hernia with mesh implant - Social History Smoking Status: Former smoker Smokeless Tobacco Status: No Alcohol use: none Drug use: none Medications and Allergies Carvedilol 12.5 mg PO BID 03/24/17 [History] Citalopram Hydrobromide [Citalopram HBr] 20 mg PO DAILY 03/24/17 [History] Folic Acid/Vit Bcomp,C [Renal-Diego Tablet] 1 tab PO DAILY 03/24/17 [History] Calcium Acetate [Phos-LO] 2 cap PO TIDWM 08/12/17 [History] Cetirizine HCl [24Hour Allergy] 10 mg PO DAILY 08/12/17 [History] Ergocalciferol (VITAMIN D2) [Vitamin D2] 50,000 unit PO GUERRA 08/12/17 [History] Insulin LISPRO [Humalog] 0 - 12 unit SQ TIDWM 08/12/17 [History] Ondansetron HCl [Zofran] 4 mg PO Q6H PRN 08/12/17 [History] rOPINIRole [Requip] 1 mg PO HS 08/12/17 [History] Amitriptyline [Elavil] 50 mg PO HS 11/25/18 [History] Amlodipine Besylate 10 mg PO DAILY 11/25/18 [History] Apixaban [Eliquis] 2.5 mg PO BID 11/25/18 [History] Insulin Glargine [Lantus] 0 unit SQ HS 11/25/18 [History] Montelukast [Singulair] 10 mg PO DAILY 11/25/18 [History] Pantoprazole Sodium 40 mg PO DAILY 11/25/18 [History] Patiromer Calcium Sorbitex [Veltassa] 1 each PO DAILY 11/25/18 [History] predniSONE [PredniSONE] 10 mg PO DAILY 8 Days #20 tablet 11/27/18 [Rx] Aspirin [Lo-Dose Aspirin EC] 81 mg PO DAILY 12/03/18 [History] Allergy/AdvReac Type Severity Reaction Status Date / Time pregabalin [From Lyrica] Allergy See Verified 03/24/17 14:02 Comments codeine AdvReac Nausea Verified 03/24/17 14:02 ivp dye Allergy See Uncoded 03/24/17 14:02 Comments All Systems Review: The remainder of the systems were reviewed and are negative - Constitutional Constitutional: fatigue, snoring, weakness, no headache(s) - EENT Eyes: blurred vision - Cardiovascular Cardiovascular: dyspnea on exertion, leg edema, orthopnea, paroxysmal nocturnal dyspnea, no chest pain with exertion, no dyspnea at rest, no irregular heart rhythm, no palpitations, no syncope - Respiratory Respiratory: dyspnea, wheezing - Gastrointestinal Gastrointestinal: no abdominal pain - Musculoskeletal Musculoskeletal: muscle cramps Physical Examination Vital Signs, Last 4 Hours Temp Pulse Resp BP Pulse Ox 12/04/18 11:31 98.7 F 86 18 173/81 96 12/04/18 10:08 18 97 Other: GENERAL: Well-developed, well-nourished, ill-appearing adult female in no acute distress. She appears uncomfortable when reclined in bed secondary to worsening shortness of breath. HEENT: Atraumatic and normocephalic. Nasal canula in place. CARDIOVASCULAR: Regular rate and rhythm. S1 and S2 present. 3/6 systolic murmur present. RESPIRATORY: Diffusely decreased breath sounds bilaterally, with greater decrease on left. Wheezes present along left posterior lung eaton. GASTROINTESTINAL: Abdomen is soft, nontender, nondistended. EXTREMITIES: No clubbing, cyanosis, or edema. Patient has bilateral avzna-tff-rwwy amputations. SKIN: Warm, dry, and intact. No rashes or discoloration visualized. NEUROLOGIC: Alert and oriented x3. Patient is cooperative with exam and answers questions appropriately. No apparent focal deficits present. Results 12/04/18 06:54 12/04/18 09:08 Lab Results 12/04/18 12/04/18 06:54 09:08 WBC 15.7 H Hgb 10.9 L Hct 34.7 L Plt Count 356 Sodium 140 Potassium 4.5 D Chloride 99 Carbon Dioxide 30 H BUN 46 H Creatinine 4.24 H Glucose 143 H Calcium 8.6 Magnesium 1.8 Consult Discharge Plan - Plan Referrals: NONE,PCP [Primary Care Provider] - <Srikanth Gar - Last Filed: 12/04/18 17:22> Date of Encounter: 12/04/18 - Attending Attestation Patient was seen and evaluated independently by me. Findings, assessment and plan were discussed at length with patient, questions answered. Agree with nurse practitioner's/resident's documentation. Addition as follows, 58 yoCF ho ESRD on HD, CVA, PAD s/p B/L BKA, B/L carotid stenosis, multiple recurrent LE/UE thrombosis on eliquis 2.5 bid (f/u [place]), COPD on O2, IDDM, HTN. P/w recurrent dyspnea with interrupted treatment of recent HCAP due to logistic issues. Consulted for severe pul HTN on echo. No prior pulmonary hypertension workup ( V/Q scan, RHC etc) in tertiary center. last ECG 2017 NSR, tele SR no events, TTE EF 60-65%, mod cLVH, diastolic dysfunction, RV nl, severe LAE, mild-mod MR, mild TR, mild W[place], severe pul HTN RVSP 68 (c/w normal RVSP on 07/2017 TTE), trace- small pericardial effusion w/o tamponade. Trop negative, BNP 1.7k, leukocytosis BP fluctuating, RR, CTA B/L, B/L BKA mild knee edema, RUE AVF thrills+. 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 All questions were answered. Thank you for involving us in the care of your patient. Please call with any questions. History of Present Illness History of present illness: Ms. Simon is a 58 year old female All Systems Review: The remainder of the systems were reviewed and are negative Physical Examination Vital Signs, Last 4 Hours Temp Pulse Resp BP Pulse Ox 12/04/18 16:31 98.3 F 92 18 185/83 97 12/04/18 15:51 18 99 12/04/18 13:57 158/77 Results 12/04/18 06:54 12/04/18 09:08 Lab Results 12/04/18 12/04/18 06:54 09:08 WBC 15.7 H Hgb 10.9 L Hct 34.7 L Plt Count 356 Sodium 140 Potassium 4.5 D Chloride 99 Carbon Dioxide 30 H BUN 46 H Creatinine 4.24 H Glucose 143 H Calcium 8.6 Magnesium 1.8
[2018-12-04] MEDS: rOPINIRole 1 MG TABLET PO SCH (20:23)
[2018-12-04] MEDS: Insulin DETEMIR 100 UNIT/ML X5UNITS SQ SCH (20:23)
[2018-12-04] MEDS ORDERED: Insulin LISPRO 300 UNITS/3 ML VIAL SQ SCH (21:00)
--- NOTE | 2018-12-05 00:48 | Nephrology Progress Note ---
Date of Encounter: 12/04/18 Time of Encounter: 12:00 - Assessment and Plan (1) ESRD (end stage renal disease) on dialysis Current Visit: No Status: Chronic s/p HD yesterday with 3kg UF, next HD planned tomorrow Lytes stable Pt does not appaar visibly fluid overloaded at this time and HD is not really help with pericardial effusion (2) Acute respiratory failure Current Visit: Yes Status: Acute Improved after HD, abx and steroids Per primary team (3) (HFpEF) heart failure with preserved ejection fraction Current Visit: Yes Status: Acute Qualifiers: Heart failure chronicity: unspecified Qualified Code(s): I50.30 - Unspecified diastolic (congestive) heart failure (4) Multifocal pneumonia Current Visit: Yes Status: Acute Subjective Interval history: Pt seen and examined feels better overall with less SO. s/p HD yesterday with 3kg UF. Pt is worried about "fluid in heart" that she might need "more fluid removed in dialysis". Objective - Vital Signs Vital signs: Vital Signs Temp Pulse Resp BP Pulse Ox 12/04/18 23:25 97.8 F 90 16 103/59 96 12/04/18 22:02 16 92 12/04/18 19:20 98.7 F 98 17 153/74 91 12/04/18 18:53 102 167/78 12/04/18 16:31 98.3 F 92 18 185/83 97 12/04/18 15:51 18 99 12/04/18 13:57 158/77 12/04/18 11:31 98.7 F 86 18 173/81 96 12/04/18 10:08 18 97 12/04/18 07:37 98.2 F 99 16 164/75 95 12/04/18 03:53 17 98 12/04/18 03:34 98.3 F 98 16 163/75 98 Intake and Output 12/04/18 12/04/18 12/05/18 15:59 23:59 07:59 Intake Total 460 / 650 190 / 650 Output Total 250 / 250 0 / 250 Balance 210 / 400 190 / 400 Intake: IV Fluids 100 / 100 Zosyn 3.375 GM In 0.9 % Sodium 100 / 100 Chloride (Mini-Bag +) 100 ML @ 25 mls/hr IVPB Q12HR [facility] Rx#: [id number] Oral 360 / 550 190 / 550 Output: Urine 250 / 250 0 / 250 Other: Meal Lunch Percent of Meal Consumed 95% Blood Glucose* 161 367 - Lab 12/04/18 06:54 12/04/18 09:08 Consult Discharge Plan - Plan Referrals: NONE,PCP [Primary Care Provider] -
[2018-12-05] MEDS: OXYCODONE Oral CONC 10 MG/0.5 ML ORAL.SYG SL PRN ×3 (01:01→13:35)
[2018-12-05] MEDS: Ipratropium/Albuterol Neb 3 ML IH SCH ×3 (03:27→15:21)
[2018-12-05 04:33] LABS: Basophils % 0.1 %; Eosinophils % 0.1 %; Hematocrit 34.3 % (35.3-44.9); Hemoglobin 10.5 g/dL (11.5-15.4); Immature Granulocytes % 0.7 % (0-4); Lymphocytes # 2.1 K/mcL (0.6-4.6); Lymphocytes % 11.7 %; Mean Corpuscular HGB Conc 30.6 g/dL (31.6-35.5); Mean Corpuscular Hemoglobin 29.1 pg (28.0-33.3); Mean Platelet Volume 10.4 fL (9.4-12.4); Monocytes # 1.2 K/mcL (0.0-1.3); Monocytes % 6.6 %; Neutrophils # 14.6 K/mcL (1.6-8.9); Platelet Count 369 K/mcL (140-400); Red Blood Count 3.61 M/mcL (3.82-4.97); Red Cell Distribution Width 16.8 % (11.5-14.5); Segmented Neutrophils % 80.8 %; White Blood Count 18.1 K/mcL (4.3-11.1)
[2018-12-05 04:53] LABS: Calcium 8.3 mg/dL (8.6-10.3); Magnesium 1.9 mg/dL (1.6-2.6); Phosphorous 4.7 mg/dL (2.7-4.5); Potassium 4.7 mEq/L (3.5-5.1)
[2018-12-05] MEDS: Piperacillin/Tazobactam 3.375 GM in 0.9 % Sodium Chloride Mini Bag 100 ML IVPB SCH ×2 (06:33→17:01)
[2018-12-05] MEDS ORDERED: 0.9 % Sodium Chloride 250 ML IVC PRN (07:33)
[2018-12-05] MEDS ORDERED: *HR* Heparin 10,000 UNIT/10 ML VIAL IV PRN (07:33)
[2018-12-05] MEDS ORDERED: 0.9 % Sodium Chloride 1,000 ML PRIME SCH (07:45)
[2018-12-05] MEDS: Insulin LISPRO 300 UNITS/3 ML VIAL SQ SCH ×3 (08:00→17:01)
[2018-12-05] MEDS: Aspirin Enteric Coated 81 MG Tablet PO SCH (08:07)
[2018-12-05] MEDS: Renal Vitamin 1 CAP CAPSULE PO SCH (08:07)
[2018-12-05] MEDS: Apixaban 2.5 MG TABLET PO SCH (08:07)
[2018-12-05] MEDS: amLODIPine 5 MG TABLET PO SCH (08:07)
[2018-12-05] MEDS: Calcium Acetate 667 MG CAPSULE PO SCH ×3 (08:07→17:01)
[2018-12-05] MEDS: Loratadine 10 MG TABLET PO SCH (08:07)
[2018-12-05] MEDS: predniSONE 20 MG TABLET PO SCH (08:07)
[2018-12-05] MEDS: Budesonide/Formoterol 160/4.5 1 PUFF INH IH SCH (11:14)
[2018-12-05] MEDS ORDERED: 0.9 % Sodium Chloride 1,000 ML ONE (11:36)
[2018-12-05] MEDS ORDERED: Apixaban 5 MG TABLET PO ONE (13:26)
--- NOTE | 2018-12-05 13:31 | Discharge Summary ---
- NOTES TO OUTPATIENT PROVIDER Notes to Outpatient Provider: Admitted for acute on chronic respiratory failure with hypoxia secondary to volume overload and PNA. Found to have severe pulmonary hypertension on 2D echo, transfer to [facility] recommended by Cardiology. Pt also reported of left nipple pain and breast US was done, which was negative for acute abscess or infection, outpatient mamogram is recommended. Orders not resulted at time of discharge: Pending orders 12/03/18 07:40 Culture,Blood [BC] Stat Date of Encounter: 12/05/18 Time of Encounter: 13:27 - Discharge Diagnosis (1) Acute respiratory failure with hypoxia Priority: Primary Status: Acute (2) Multifocal pneumonia Priority: Primary Status: Acute (3) ESRD (end stage renal disease) on dialysis Priority: Secondary Status: Chronic (4) Heart failure with preserved ejection fraction Priority: Secondary Status: Acute Qualifiers: Heart failure chronicity: unspecified Qualified Code(s): I50.30 - Unspecified diastolic (congestive) heart failure (5) DVT prophylaxis Priority: Secondary Status: Acute (6) COPD (chronic obstructive pulmonary disease) Priority: Secondary Status: Chronic Qualifiers: Emphysema type: unspecified Qualified Code(s): J43.9 - Emphysema, unspecified (7) Hypercoagulable state Priority: Secondary Status: Chronic (8) Breast pain, left Priority: Secondary Status: Acute (9) Pulmonary hypertension Priority: Secondary Status: Acute Hospital course: Ms. Simon is a 58 year old female with PMH of COPD on home oxygen, ESRD on HD, CHF, DM, on anticoagulation admitted for acute on chronic respiratory failure with hypoxia secondary to volume overload and PNA. Pt was recently discharged fr om the hospital after being treated for COPD exacerbation and PNA, however patient did not pick her prescription medications after discharge and was noted to have worsening of shortness of breath due to which she returned to the hospital. Patient was continued on home dose of prednisone taper, started on IV abx, and underwent HD for volume overload. Pt responded well to therapy. 2D echo was done to further evaluate CHF status and patient was found to have severe pulmonary hypertension. Patient was evaluated by cardiology and transfer to a tertiary center was recommended for higher level of care. Patient was seen and examined earlier today in dialysis. She is in agreement with the transfer plan. [facility] and [facility] were contacted, patient has been accepted at both facilities, pending bed availability. Transfer pending bed availability Discharge discussed with: patient, nurse, social work, case management, garden consultant - Time Spent with Patient Total time spent providing and/or coordinating discharge services: 40 minutes Time spent: Greater than 30 minutes - Discharge Medications Prescriptions: Continued Folic Acid/Vit Bcomp,C [Renal-Diego Tablet] 1 tab PO DAILY Citalopram Hydrobromide [Citalopram HBr] 20 mg PO DAILY Carvedilol 12.5 mg PO BID rOPINIRole [Requip] 1 mg PO HS Calcium Acetate [Phos-LO] 2 cap PO TIDWM Ondansetron HCl [Zofran] 4 mg PO Q6H PRN PRN Reason: Nausea Insulin LISPRO [Humalog] 0 - 12 unit SQ TIDWM Ergocalciferol (VITAMIN D2) [Vitamin D2] 50,000 unit PO GUERRA Cetirizine HCl [24Hour Allergy] 10 mg PO DAILY Patiromer Calcium Sorbitex [Veltassa] 1 each PO DAILY Montelukast [Singulair] 10 mg PO DAILY Amitriptyline [Elavil] 50 mg PO HS Amlodipine Besylate 10 mg PO DAILY Apixaban [Eliquis] 2.5 mg PO BID Pantoprazole Sodium 40 mg PO DAILY Insulin Glargine [Lantus] 0 unit SQ HS Aspirin [Lo-Dose Aspirin EC] 81 mg PO DAILY Home Medications: Carvedilol 12.5 mg PO BID 03/24/17 [History] Citalopram Hydrobromide [Citalopram HBr] 20 mg PO DAILY 03/24/17 [History] Folic Acid/Vit Bcomp,C [Renal-Diego Tablet] 1 tab PO DAILY 03/24/17 [History] Calcium Acetate [Phos-LO] 2 cap PO TIDWM 08/12/17 [History] Cetirizine HCl [24Hour Allergy] 10 mg PO DAILY 08/12/17 [History] Ergocalciferol (VITAMIN D2) [Vitamin D2] 50,000 unit PO GUERRA 08/12/17 [History] Insulin LISPRO [Humalog] 0 - 12 unit SQ TIDWM 08/12/17 [History] Ondansetron HCl [Zofran] 4 mg PO Q6H PRN 08/12/17 [History] rOPINIRole [Requip] 1 mg PO HS 08/12/17 [History] Amitriptyline [Elavil] 50 mg PO HS 11/25/18 [History] Amlodipine Besylate 10 mg PO DAILY 11/25/18 [History] Apixaban [Eliquis] 2.5 mg PO BID 11/25/18 [History] Insulin Glargine [Lantus] 0 unit SQ HS 11/25/18 [History] Montelukast [Singulair] 10 mg PO DAILY 11/25/18 [History] Pantoprazole Sodium 40 mg PO DAILY 11/25/18 [History] Patiromer Calcium Sorbitex [Veltassa] 1 each PO DAILY 11/25/18 [History] Aspirin [Lo-Dose Aspirin EC] 81 mg PO DAILY 12/03/18 [History] Allergies/Adverse Reactions: Allergy/AdvReac Type Severity Reaction Status Date / Time pregabalin [From Lyrica] Allergy See Verified 03/24/17 14:02 Comments codeine AdvReac Nausea Verified 03/24/17 14:02 ivp dye Allergy See Uncoded 03/24/17 14:02 Comments Date of admission: 12/04/18 13:52 Primary care physician: PCP NONE Consults: 12/02/18 23:45 Consult to Nurse Navigator [CONS] Routine Comment: 12/03/18 00:55 Consult to Nephrology [CONS] Routine Consulting Provider: Kidney Maria E/FLAVIO/CHI/ANNA Reason for Consult: End-stage renal disease; suspect volume overload. Call Completed: No 12/03/18 05:16 Consult to Nurse Navigator [CONS] Routine Comment: 12/03/18 08:45 Consult to Dialysis [CONS] ONCE 12/04/18 12:05 Consult to Cardiology [CONS] Routine Comment: Consulting Provider: Cardiology Maria E Reason for Consult: CHF, pulm hypertension Call Completed: Yes 12/04/18 12:16 Consult to Invasive Line Access Team [CONS] Routine Reason for Consult: need EPIV Line Type: EPIV 12/04/18 14:42 Consult to Physical Therapy [CONS] Routine Comment: Evaluate, develop and implement POC Reason for Consult: pt bilateral BKA, weakness with transfers Does patient have active BEDREST order?: No Is patient medically & hemodynamically stable?: Yes Patient assessed for mobility or mobilized this visit?: Yes 12/05/18 07:45 Consult to Dialysis [CONS] ONCE Discharging clinician: Brandi Briones Anticipated date of discharge: 12/05/18 - Constitutional Vitals: Temp Pulse Resp BP Pulse Ox 97.6 F 83 18 177/76 95 12/05/18 07:43 12/05/18 07:43 12/05/18 07:43 12/05/18 07:43 12/05/18 07:43 Exam: General: No acute distress, AAO x 3, morbidly obese HEENT: EOMI, PERRLA, NC/AT, no scleral icterus Respiratory: Decreased breath sounds, no wheezing, no rales Breast: no left nipple tenderness, no erythema, no discharge noted Cardiovascular: Regular, Rate, Rhythm, No murmurs GI: Soft, Non tender, non distended, normal bowel sounds Ext: bilateral BKA Neuro: AAO x 3, no focal deficits Rest of the clinical exam is noncontributory - Patient Status Disposition: Transfer Critical Access Hosp - Discharge Instructions Follow Up With: NONE,PCP [Primary Care Provider] - - Diet and Activity Activity: wear oxygen at all times, wear oxygen at night
[2018-12-05 16:28] VITALS: BP 172/88
[2018-12-05] MEDS ORDERED: Apixaban 5 MG TABLET PO SCH (22:00)
--- NOTE | 2018-12-05 23:59 | Nephrology Progress Note ---
Date of Encounter: 12/05/18 - Assessment and Plan (1) ESRD (end stage renal disease) on dialysis Status: Chronic (2) Acute respiratory failure Status: Acute (3) (HFpEF) heart failure with preserved ejection fraction Status: Acute Qualifiers: Heart failure chronicity: unspecified Qualified Code(s): I50.30 - Unspecified diastolic (congestive) heart failure (4) Multifocal pneumonia Status: Acute Subjective Interval history: Pt seen and examined feels better overall with less SO. s/p HD yesterday with 3kg UF. Pt is worried about "fluid in heart" that she might need "more fluid r emoved in dialysis". Objective - Vital Signs Vital signs: Vital Signs Temp Pulse Resp BP Pulse Ox 12/05/18 16:27 98.6 F 90 18 172/88 97 12/05/18 15:21 18 96 12/05/18 13:18 98.1 F 18 187/89 12/05/18 13:00 155/93 12/05/18 12:45 159/79 12/05/18 12:30 158/89 12/05/18 12:15 160/80 12/05/18 12:00 162/82 12/05/18 11:45 154/75 12/05/18 11:30 161/63 12/05/18 11:15 151/86 12/05/18 11:00 156/83 12/05/18 10:45 163/80 12/05/18 10:30 151/86 12/05/18 10:15 152/92 12/05/18 10:00 160/86 12/05/18 09:45 173/91 12/05/18 09:30 98 F 18 167/98 12/05/18 07:43 97.6 F 83 18 177/76 95 12/05/18 04:33 97.9 F 85 18 185/80 95 12/05/18 03:28 16 95 Intake and Output 12/05/18 12/05/18 12/05/18 07:59 15:59 23:59 Intake Total 100 / 1315 1180 / 1315 35 / 1315 Output Total 4750 / 4750 Balance 100 / -3435 -3570 / -3435 35 / -3435 Intake: IV Fluids 100 / 235 100 / 235 35 / 235 Zosyn 3.375 GM In 0.9 % Sodium 100 / 235 100 / 235 35 / 235 Chloride (Mini-Bag +) 100 ML @ 25 mls/hr IVPB Q12HR [facility] Rx#: [id number] Oral 480 / 480 Intake, Rinseback and Flushes 600 / 600 Output: Urine 150 / 150 Total Dialysis (HD) Output 4600 / 4600 Other: Meal Lunch Percent of Meal Consumed 95% Weight 74.5 kg Blood Glucose* 140 188 320 Hemodialysis Net Fluid Removed 4000 (mL) Patient Weight 12/05/18 23:59 Weight 74.5 kg - Lab 12/05/18 04:02 12/05/18 04:02 Consult Discharge Plan - Plan Referrals: NONE,PCP [Primary Care Provider] -
== END 2018-12-05 18:35 | disposition critical access hospital (66) | DRG 291 ==
LOC: 2ANU → SUATTDRO 22:44
PROVIDERS: ADMIT Internal Medicine Nephrology; ATTEND Internal Medicine

== ENCOUNTER 2018-12-17 12:35 | Inpatient (IN) ==
[2018-12-17] MEDS ORDERED: Aminoglycoside Consult 1 EACH MC ONE (16:34)
[2018-12-17] MEDS ORDERED: Naloxone 0.4 MG/ML INJ IVP PRN (17:22)
[2018-12-17 17:51] LABS: Hematocrit 32.8 % (35.3-44.9); Hemoglobin 10.2 g/dL (11.5-15.4); Mean Corpuscular HGB Conc 31.1 g/dL (31.6-35.5); Mean Corpuscular Hemoglobin 28.1 pg (28.0-33.3); Mean Corpuscular Volume 90.4 fL (83.0-100.0); Mean Platelet Volume 10.4 fL (9.4-12.4); Platelet Count 369 K/mcL (140-400); Red Blood Count 3.63 M/mcL (3.82-4.97); Red Cell Distribution Width 15.3 % (11.5-14.5)
[2018-12-17] MEDS ORDERED: Vancomycin 1 EACH in 0.9 % Sodium Chloride 250 ML IVPB SCH (18:00)
[2018-12-17] MEDS ORDERED: D5% in Water 1,000 ML IVC PRN (18:03)
[2018-12-17] MEDS ORDERED: *HR* Dextrose 50 % in Water (Syg) 50 ML SYRINGE IVP PRN (18:03)
[2018-12-17] MEDS ORDERED: Dextrose Gel 15 GM/37.5 ML TUBE PO PRN ×2 (18:03)
[2018-12-17 18:04] LABS: Prothrombin Time 11.8 Seconds (9.4-12.1)
[2018-12-17 18:07] LABS: Activated Partial Thrombo Time 34.6 Seconds (26.0-36.0)
[2018-12-17 18:17] LABS: ABG Base Excess -2 mEq/L (-2 to 3); ABG HCO3 24 mEq/L (21-27); ABG Oxygen Saturation 95 % (95-98); ABG PCO2 45 mmHg (35-45); ABG PH 7.34 pH Units (7.32-7.45); ABG PO2 81 mmHg (85-104); ABG TCO2 25 mEq/L (20-26)
--- NOTE | 2018-12-17 18:17 | Internal Med History&Physical ---
Date of Encounter: 12/17/18 Time of Encounter: 17:00 Internal Medicine - H&P: HPI Chief complaint: SOB Admitted From: Hospital to Hospital Transfer Plans for Post Hospital Care: Home History of present illness: Ms. Simon is a 58 year old female with history of severe pulmonary HTN recently admitted and transferred to tertiary center for further work up, COPD on home oxygen never intubated, ESRD on HD MWF recently treated for COPD exacerbation and multifocal PNA presented to the ED from other hospital with chief complaint of SOB. as per patient her SOB started suddenly yesterday and she tried to use her nebulizers and initially had some relief so she went to bed. she woke up on the day of admission with worsening SOB, she again tried her nebulizers and she could not find relief so she decided to go to the ED for further management. in addition to above she complains of minimal productive cough with white sputum denies hemoptysis. she reports that she was [place] [facility] the name of the hospital and reports that she was hospitalized for a week and was discharged home. she reports that she has been compliant with her medications. reports that she is on eliquis for hypercoagulable state nd as her family has history of blood clots. she does report chest tightness in the middle of her chest adn is unable to fully take a deep breath secondary to chest tightness. she does have PND and orthopnea since yesterday. she denies fever or chills, palpitations, N/v/D, recent falls, LOC, chest trauma, swelling of her extremities, abdominal pain, N/v/D. her symptoms are alleviated with bipap and oxygen. she cannot specify if she is compliant with fluid restriction. she is complaining of hunger andd requesting food Past Med Surg Social Fam HX - Past Medical History Medical history: CHF, COPD, coronary artery disease, CVA, DVT, diabetes, dialysis, fibromyalgia, hyperlipidemia, hypertension, peripheral artery disease, renal disease Psychiatric history: anxiety - Past Surgical History Surgical History: , hysterectomy Additional surgical history: shoulder surgery, torn cuff. right hand carpel tunnel. abdominal hernia with mesh implant - Social History Smoking Status: Former smoker Smokeless Tobacco Status: No Alcohol use: none Drug use: none Internal Medicine - H&P: Meds Carvedilol 12.5 mg PO BID 03/24/17 [History] Citalopram Hydrobromide [Citalopram HBr] 20 mg PO DAILY 03/24/17 [History] Folic Acid/Vit Bcomp,C [Renal-Diego Tablet] 1 tab PO DAILY 03/24/17 [History] Calcium Acetate [Phos-LO] 2 cap PO TIDWM 08/12/17 [History] Cetirizine HCl [24Hour Allergy] 10 mg PO DAILY 08/12/17 [History] Ergocalciferol (VITAMIN D2) [Vitamin D2] 50,000 unit PO GUERRA 08/12/17 [History] Insulin LISPRO [Humalog] 0 - 12 unit SQ TIDWM 08/12/17 [History] Ondansetron HCl [Zofran] 4 mg PO Q6H PRN 08/12/17 [History] rOPINIRole [Requip] 1 mg PO HS 08/12/17 [History] Amitriptyline [Elavil] 50 mg PO HS 11/25/18 [History] Amlodipine Besylate 10 mg PO DAILY 11/25/18 [History] Apixaban [Eliquis] 2.5 mg PO BID 11/25/18 [History] Insulin Glargine [Lantus] 0 unit SQ HS 11/25/18 [History] Montelukast [Singulair] 10 mg PO DAILY 11/25/18 [History] Pantoprazole Sodium 40 mg PO DAILY 11/25/18 [History] Patiromer Calcium Sorbitex [Veltassa] 1 each PO DAILY 11/25/18 [History] Aspirin [Lo-Dose Aspirin EC] 81 mg PO DAILY 12/03/18 [History] Allergy/AdvReac Type Severity Reaction Status Date / Time pregabalin [From Lyrica] Allergy See Verified 03/24/17 14:02 Comments codeine AdvReac Nausea Verified 03/24/17 14:02 ivp dye Allergy See Uncoded 03/24/17 14:02 Comments All Systems PM: A 10-system review of systems was performed and is negative for pertinent findings except as documented above in the HPI. - Constitutional Vitals: Temp Pulse Resp BP Pulse Ox 97.9 F 81 16 154/65 95 12/17/18 16:47 12/17/18 16:47 12/17/18 16:47 12/17/18 16:47 12/17/18 16:47 Exam: General: Patient is alert, oriented, no acute distress, speaks in full sentences Head: atraumatic, normocephalic, Eye: normal appearance, PERRL, no scleral icterus, no conjunctival injection ENT: mucous membranes moist, normal external ear exam Neck: normal inspection, trachea midline, full ROM, Chest: normal inspection, symmetric chest rise Respiratory: Decreased breath sounds bilaterally, crackles in the posterior lung field right greater than left, wheezing in the anterior chest. Cardiovascular: Regular rate and rhythm. s1 and s2 No clicks, rubs, gallops, or murmors. Abdomen: Bowel sounds present normoactive x-4 quadrants. Abdomen is soft, nondistended. no Epigastric tenderness. No guarding or rebound. No organomegaly noted, obese musculoskeletal: Spontaneously moving all extremities.bilateral AKA, could not appreciate significant edema. Skin: warm, dry, intact. Neuro: Alert and oriented x 3 , moves all extremities Psych: Patient's affect is normal Internal Med - H&P Results - Labs CBC & Chem 7: 12/17/18 17:37 12/17/18 17:37 Labs: Short CBC 12/17/18 Range/Units 17:37 WBC 14.0 H (4.3-11.1) K/mcL Hgb 10.2 L (11.5-15.4) g/dL Hct 32.8 L (35.3-44.9) % Plt Count 369 (140-400) K/mcL - EKG Data -: EKG Interpreted by Myself (admission EKG pending ) - Impressions ITS Impressions Chest X-Ray 12/17/18 17:26 IMPRESSION: 1. Congestive heart failure 2. Possible atelectasis or pneumonia in the right lower lobe D/ / Elmer Holly MD / Elmer Holly MD Interpreting Provider: Elmer Holly MD - Assessment and Plan (1) (HFpEF) heart failure with preserved ejection fraction Current Visit: No Status: Acute Assessment and plan: acute on chronic HFpEF most likely secondary to volume overload from not being compliant with fluid restriction received lasix 80 mg once at other facility still makes urine follow urine out put nephrology consulted for dialysis continue home medications if not CI admission EKG stat TTE: Impressions: LVEF 60-65% Mild to moderate concentric left ventricular hypertrophy. LV diastolic dysfunction with elevated filling pressures. Normal right ventricular structure and function. Severely dilated left atrium. Mild-moderate mitral regurgitation. Mild tricuspid regurgitation. Mild pulmonic regurgitation. Severe pulmonary hypertension. There is a small pericardial effusion present. There is no echocardiographic evidence of tamponade. Qualifiers: Heart failure chronicity: acute on chronic Qualified Code(s): I50.33 - Acute on chronic diastolic (congestive) heart failure (2) ESRD on dialysis Current Visit: Yes Status: Acute Assessment and plan: CMP, phosphorus pending nephrology consulted ( discussed with Dr. Red- waiting for labs) will follow recommendations as she has missed HD today. EKG stat (3) Pulmonary edema Current Visit: Yes Status: Acute Assessment and plan: most likely secondary to fluid over load needs dialysis- nephrology on board received lasix at other facility strict i/O daily weight fluid restriction Qualifiers: Chronicity: acute Qualified Code(s): J81.0 - Acute pulmonary edema (4) Acute respiratory failure with hypoxia Current Visit: No Status: Acute Assessment and plan: secondary to above management as above low threshold for intubation (5) COPD exacerbation Current Visit: Yes Status: Acute Assessment and plan: started on solumedrol continue with vancomycin, zosyn, and doxycyline makes urine- urine antigens ordered sputum cx MRSA swab ABG stat Bipap for respiratory distress pulmonology consulted will follow recommendations continues pulse ox symbicort Duo-nebs Q4H (6) Pulmonary hypertension Current Visit: No Status: Acute Assessment and plan: was transferred to [facility] on last admission as cause of pulm. HTN is unknown all admission labs are pending TTE as below nursing staff aware to request records from [facility] that she was transferred to continue with oxygen supplementation and bipap continue with inhalers pulmonology consulted (7) HCAP (healthcare-associated pneumonia) Current Visit: No Status: Suspected Assessment and plan: continue with Abx as above follow cx and procalcitonin (8) DVT prophylaxis Current Visit: No Status: Acute Assessment and plan: on eliquis - Time Spent With Patient Total time spent is greater than 50% in coordination of care (as documented) at patient's floor/unit and/or counseling patient:
[2018-12-17] MEDS ORDERED: Insulin Regular, Human 100 UNIT/ML IV ONE ×2 (18:34→20:30)
[2018-12-17] MEDS ORDERED: Calcium Gluconate 1gm/50mL 1 GM/50 ML BAG IVPB ONE (18:35)
[2018-12-17 18:39] LABS: Albumin 4.2 g/dL (3.5-5.7); Albumin/Globulin Ratio 1.6 (1.1-2.2); Bilirubin,Total 0.4 mg/dL (0.3-1.0); Calcium 9.4 mg/dL (8.6-10.3); Globulin 2.7 g/dL (2.4-3.5); Magnesium 2.8 mg/dL (1.6-2.6); Phosphorous 7.5 mg/dL (2.7-4.5); Total Protein 6.9 g/dL (6.4-8.9); Troponin I 0.03 ng/mL (< 0.04)
[2018-12-17] MEDS: Doxycycline 100 MG in 0.9 % Sodium Chloride Mini Bag 100 ML IVPB SCH (19:15)
[2018-12-17] MEDS: Ipratropium/Albuterol Neb 3 ML IH SCH (20:17)
[2018-12-17] MEDS: Budesonide/Formoterol 80/4.5 MDI IH SCH (20:17)
[2018-12-17] MEDS ORDERED: 0.9 % Sodium Chloride 2,000 ML ONE (20:17)
[2018-12-17] MEDS ORDERED: Acetaminophen 325 MG TABLET PO PRN (20:21)
--- NOTE | 2018-12-17 20:26 | Event Note ---
Date of Encounter: 12/17/18 Time of Encounter: 20:23 I was called to the patient's room by the nurse because family wanted to know plan of care and had other concerns. I did describe to the patient and her daughter that the patient was admitted for COPD and CHF exacerbations with concurrent hyperkalemia and that the plan of care was to proceed to dialysis shortly. I told them we will also be doing breathing treatments and steroids. The daughter has several concerns regarding patient's home care and logistics. Apparently the patient lives with her 90-year-old mother and has short-term memory loss and has difficulty taking care of herself. The daughter is requesting that prior to discharge a plan of care for home is established in conjunction with her so that she can help manage the patient's well-being at home. She also stated that in the last several hospitalizations the patient has not been sent home with breathing treatments and is requesting that she not leave the hospital again without breathing treatments this admission. I informed her that I would place an event note so that the day team is aware of these concerns.
[2018-12-17] MEDS: rOPINIRole 1 MG TABLET PO SCH (20:47)
[2018-12-17] MEDS: Apixaban 2.5 MG TABLET PO SCH (20:47)
[2018-12-17] MEDS ORDERED: 0.9 % Sodium Chloride 250 ML IVC PRN (20:56)
[2018-12-17] MEDS ORDERED: *HR* Heparin 10,000 UNIT/10 ML VIAL IV PRN (20:56)
[2018-12-17] MEDS ORDERED: 0.9 % Sodium Chloride 1,000 ML PRIME SCH (21:00)
[2018-12-17] MEDS: Piperacillin/Tazobactam 3.375 GM in 0.9 % Sodium Chloride Mini Bag 100 ML IVPB SCH (22:44)
[2018-12-17] MEDS: Insulin LISPRO 300 UNITS/3 ML VIAL SQ SCH (22:45)
[2018-12-18] MEDS: traMADol 50 MG TABLET PO PRN ×2 (02:33→12:53)
[2018-12-18] MEDS: MethylPREDNISolone 40 MG/ML VIAL IVP SCH ×2 (02:36→08:20)
[2018-12-18] MEDS: Ipratropium/Albuterol Neb 3 ML IH SCH ×7 (03:10→23:18)
[2018-12-18] MEDS ORDERED: *HR* OxyCODONE/APAP 7.5/325 TABLET PO ONE (03:17)
[2018-12-18] MEDS: Doxycycline 100 MG in 0.9 % Sodium Chloride Mini Bag 100 ML IVPB SCH (05:06)
[2018-12-18 06:24] LABS: Basophils % 0.1 %; Hematocrit 30.1 % (35.3-44.9); Hemoglobin 9.6 g/dL (11.5-15.4); Immature Granulocytes % 0.7 % (0-4); Lymphocytes # 0.4 K/mcL (0.6-4.6); Lymphocytes % 3.1 %; Mean Corpuscular HGB Conc 31.9 g/dL (31.6-35.5); Mean Corpuscular Hemoglobin 28.7 pg (28.0-33.3); Mean Corpuscular Volume 89.9 fL (83.0-100.0); Mean Platelet Volume 10.6 fL (9.4-12.4); Monocytes # 0.3 K/mcL (0.0-1.3); Monocytes % 2.4 %; Neutrophils # 12.9 K/mcL (1.6-8.9); Platelet Count 367 K/mcL (140-400); Red Blood Count 3.35 M/mcL (3.82-4.97); Red Cell Distribution Width 15.4 % (11.5-14.5); Segmented Neutrophils % 93.7 %; White Blood Count 13.7 K/mcL (4.3-11.1)
[2018-12-18 06:45] LABS: Calcium 8.9 mg/dL (8.6-10.3)
[2018-12-18] MEDS: Budesonide/Formoterol 80/4.5 MDI IH SCH ×2 (07:40→19:29)
[2018-12-18] MEDS: Calcium Acetate 667 MG CAPSULE PO SCH ×3 (08:19→17:16)
[2018-12-18] MEDS: Renal Vitamin 1 CAP CAPSULE PO SCH (08:19)
[2018-12-18] MEDS: Apixaban 2.5 MG TABLET PO SCH ×2 (08:19→21:07)
[2018-12-18] MEDS: Aspirin Enteric Coated 81 MG Tablet PO SCH (08:19)
[2018-12-18] MEDS: Insulin LISPRO 300 UNITS/3 ML VIAL SQ SCH ×4 (08:19→21:09)
[2018-12-18] MEDS: Piperacillin/Tazobactam 3.375 GM in 0.9 % Sodium Chloride Mini Bag 100 ML IVPB SCH ×2 (08:20→21:07)
[2018-12-18] MEDS ORDERED: Insulin DETEMIR 100 UNIT/ML X5UNITS SQ SCH (09:30)
--- NOTE | 2018-12-18 10:09 | Internal Med Progress Note ---
Hospitalist Progress Note - Encounter Date of Encounter: 12/18/18 Time of Encounter: 08:07 - Subjective Interval History: Patient was seen and examined at bedside. Reports that her breathing has improved significantly since admission. Chest tightness has nearly resolved. Continues to have minimal productive cough denies hemoptysis. No fever or chills. Received dialysis last night without any acute events. Denies chest pain or palpitations and is tolerating by mouth diet. - Exam Vitals: Temp Pulse Resp BP Pulse Ox 98.6 F 106 18 182/80 94 12/18/18 07:51 12/18/18 08:39 12/18/18 07:51 12/18/18 07:51 12/18/18 08:33 Exam: General: Patient is alert, oriented, no acute distress, speaks in full sentences, obese Head: atraumatic, normocephalic, Eye: normal appearance, PERRL, no scleral icterus, no conjunctival injection ENT: mucous membranes moist, normal external ear exam Neck: normal inspection, trachea midline, full ROM, Chest: normal inspection, symmetric chest rise Respiratory: Decreased breath sounds bilaterally, crackles in the posterior lung field right greater than left 9 improved) ,wheezing has resolved in the anterior chest Cardiovascular:tachycardic, s1 and s2 No clicks, rubs, gallops, or murmors. Abdomen: Bowel sounds present normoactive x-4 quadrants. Abdomen is soft, nondistended. no Epigastric tenderness. No guarding or rebound. No organomegaly noted, obese musculoskeletal: Spontaneously moving all extremities.bilateral AKA, could not appreciate significant edema of the stump . Skin: warm, dry, intact. Neuro: Alert and oriented x 3 , moves all extremities Psych: Patient's affect is normal - Assessment and Plan (1) (HFpEF) heart failure with preserved ejection fraction Current Visit: No Status: Acute Assessment and Plan: acute on chronic HFpEF most likely secondary to volume overload from not being compliant with fluid restriction received lasix 80 mg once at other facility still makes urine follow urine out put S/p dialysis with improvement in her respiratory status continue home medications if not CI admission EKG stat fluid restriction to 1200 ml- discussed with patient at length TTE: Impressions: LVEF 60-65% Mild to moderate concentric left ventricular hypertrophy. LV diastolic dysfunction with elevated filling pressures. Normal right ventricular structure and function. Severely dilated left atrium. Mild-moderate mitral regurgitation. Mild tricuspid regurgitation. Mild pulmonic regurgitation. Severe pulmonary hypertension. There is a small pericardial effusion present. There is no echocardiographic evidence of tamponade. (2) ESRD on dialysis Current Visit: Yes Status: Acute Assessment and Plan: nephrology on board recieved dialysis on 12/17 continue with dialysis MWF Po4- 7.5 (3) Pulmonary edema Current Visit: Yes Status: Acute Assessment and Plan: most likely secondary to fluid over load and fluid non-compliance along with acute on chronci HFPEF s/p dialysis with improvement received lasix at other facility strict i/O daily weight fluid restriction rest of tenzin management as above (4) Acute respiratory failure with hypoxia Current Visit: No Status: Acute Assessment and Plan: secondary to above management as above bipap at nights and PRN for respiratory distress (5) COPD exacerbation Current Visit: Yes Status: Acute Assessment and Plan: started on solumedrol Q8H will taper off vancomycina dn doxycyclien discontinued ( negative urine antigens and MRSA swab) continue with zosyn sputum cx - pending Bipap for respiratory distress pulmonology consulted will follow recommendations continues pulse ox symbicort Duo-nebs Q4H (6) Pulmonary hypertension Current Visit: No Status: Acute Assessment and Plan: was transferred to tertiary center on last admission as etiology isunknown ( likely multifactorial from COPD, CHF, fluid overload ) TTE as below nursing staff aware to request records from tertiary center that she was transferred to continue with oxygen supplementation and bipap continue with inhalers pulmonology consulted will consider starting her on lasix since she still makes some urine TTE: Impressions: LVEF 60-65% Mild to moderate concentric left ventricular hypertrophy. LV diastolic dysfunction with elevated filling pressures. Normal right ventricular structure and function. Severely dilated left atrium. Mild-moderate mitral regurgitation. Mild tricuspid regurgitation. Mild pulmonic regurgitation. Severe pulmonary hypertension. There is a small pericardial effusion present. There is no echocardiographic evidence of tamponade. (7) HCAP (healthcare-associated pneumonia) Current Visit: No Status: Suspected Assessment and Plan: continue with Abx as above cx in process procalcitonin is 1.16 (8) Morbidly obese Current Visit: Yes Status: Acute Assessment and Plan: was counseled on det and nutrition BMI 40.4 most likely has BRANDY Bipap at nights needs sleep study as OP (9) Hyperkalemia Current Visit: Yes Status: Resolved Assessment and Plan: resolved - post stat dialysis (10) Hyponatremia Current Visit: Yes Status: Resolved Assessment and Plan: hypervolemic hyponatremia resolved post dialysis continue fluid restriction (11) DVT prophylaxis Current Visit: No Status: Acute Assessment and Plan: on eliquis - Time Spent with Patient Total time spent is greater than 50% in coordination of care (as documented) at patient's floor/unit and/or counseling patient: Internal Medicine: Result - Labs CBC & Chem 7: 12/18/18 05:18 12/18/18 05:18 Labs: Short CBC 12/17/18 12/18/18 Range/Units 17:37 05:18 WBC 14.0 H 13.7 H (4.3-11.1) K/mcL Hgb 10.2 L 9.6 L (11.5-15.4) g/dL Hct 32.8 L 30.1 L (35.3-44.9) % Plt Count 369 367 (140-400) K/mcL Neutrophils # 12.9 H (1.6-8.9) K/mcL BMP 12/17/18 12/18/18 17:37 05:18 Sodium 127 L 136 D Potassium 7.0 H* 4.0 D Chloride 87 L 89 L Carbon Dioxide 24 32 H BUN 78 H 33 H Creatinine 6.82 H 3.68 H Glucose 301 H 451 H Calcium 9.4 8.9 Cardiac Enzymes 12/17/18 Range/Units 17:37 Troponin I 0.03 (< 0.04) ng/mL Liver Function 12/17/18 Range/Units 17:37 Total Bilirubin 0.4 (0.3-1.0) mg/dL AST 18 (13-39) Units/L ALT 100 H (7-52) Units/L Alkaline Phosphatase 235 H (34-104) Units/L Albumin 4.2 (3.5-5.7) g/dL - ABG Interpretation ABG results: ABG ABG pH 7.34 pH Units (7.32-7.45) 12/17/18 18:10 ABG pCO2 45 mmHg (35-45) 12/17/18 18:10 ABG pO2 81 mmHg (85-104) L 12/17/18 18:10 ABG O2 Saturation 95 % (95-98) 12/17/18 18:10 PT/INR, D-dimer PT 11.8 Seconds (9.4-12.1) 12/17/18 17:37 - Impressions Impressions Chest X-Ray 12/17/18 17:26 IMPRESSION: 1. Congestive heart failure 2. Possible atelectasis or pneumonia in the right lower lobe D/ / Elmer Holly MD / Elmer Holly MD Interpreting Provider: Elmer Holly MD Consult Discharge Plan - Plan Referrals: Juan J Pal, [facility] [Primary Care Provider] - (1) (HFpEF) heart failure with preserved ejection fraction Qualifiers: Heart failure chronicity: acute on chronic Qualified Code(s): I50.33 - Acute on chronic diastolic (congestive) heart failure (3) Pulmonary edema Qualifiers: Chronicity: acute Qualified Code(s): J81.0 - Acute pulmonary edema
--- NOTE | 2018-12-18 14:51 | Pulmonology Consult Note ---
Date of Encounter: 12/18/18 Time of Encounter: 15:00 Assessment and Plan (1) Acute and chronic respiratory failure Current Visit: Yes Status: Acute Multifactorial complicated by CHF, end-stage renal disease complicated by class to class III pulmonary hypertension COPD. Possible complication by pneumonia Qualifiers: Respiratory failure complication: hypoxia Qualified Code(s): J96.21 - Acute and chronic respiratory failure with hypoxia (2) Multifocal pneumonia Current Visit: No Status: Acute Patient had a previous pneumonia and COPD exacerbation subtle changes from previous imaging will get a pro calcitonin if it is negative below will de- escalate antibiotics quickly and if it is high will need prolonged therapy based on clinical response. (3) (HFpEF) heart failure with preserved ejection fraction Current Visit: No Status: Acute Patient with acute on chronic diastolic heart failure complicated by fluid overload due to end-stage renal disease.. Fluid management with the fluid restriction and salt restriction and also dialysis Qualifiers: Heart failure chronicity: acute on chronic Qualified Code(s): I50.33 - Acute on chronic diastolic (congestive) heart failure (4) ESRD on dialysis Current Visit: Yes Status: Acute Continue with Monday dialysis according to nephrology (5) Pulmonary edema Current Visit: Yes Status: Acute Complicated by CHF and end-stage renal disease and also severe pulmonary hypertension Qualifiers: Chronicity: acute Qualified Code(s): J81.0 - Acute pulmonary edema (6) Morbidly obese Current Visit: Yes Status: Acute Counseled about the importance of weight loss in the long-term management of her comorbid medical disorders. History of Present Illness Consult date: 12/18/18 Requesting physician: Nani Vincent Chief complaint: Shortness of breath History of present illness: 58-year-old female with severe peripheral vascular disease, severe COPD on ch ronic oxygen therapy, recently treated for COPD exacerbation and pneumonia, end- stage renal disease on Monday dialysis patient has severe pulmonary hypertension class II and class III patient has significant diastolic heart failure complicating with fluid overload causing this worsening acute on chronic hypoxic respiratory failure pulmonary was consult that for evaluation of this pulmonary hypertension. Patient has previous history of blood clots patient is on Apixaban. Patient currently denies any chest pain chest tightness patient says her shortness of breath is lot better when compared before her hospital stay. Dialysis metabolically patient is stable pulmonary was consulted for this evaluation of pulmonary hypertension. Past Med Surg Social Fam HX - Past Medical History Medical history: CHF, COPD, coronary artery disease, CVA, DVT, diabetes, dialysis, fibromyalgia, hyperlipidemia, hypertension, peripheral artery disease, renal disease Psychiatric history: anxiety - Past Surgical History Surgical History: , hysterectomy Additional surgical history: shoulder surgery, torn cuff. right hand carpel tunnel. abdominal hernia with mesh implant - Social History Smoking Status: Former smoker Smokeless Tobacco Status: No Alcohol use: none Drug use: none Medications and Allergies Carvedilol 12.5 mg PO BID 03/24/17 [History] Citalopram Hydrobromide [Citalopram HBr] 20 mg PO DAILY 03/24/17 [History] Folic Acid/Vit Bcomp,C [Renal-Diego Tablet] 1 tab PO DAILY 03/24/17 [History] Calcium Acetate [Phos-LO] 2 cap PO TIDWM 08/12/17 [History] Cetirizine HCl [24Hour Allergy] 10 mg PO DAILY 08/12/17 [History] Ergocalciferol (VITAMIN D2) [Vitamin D2] 50,000 unit PO GUERRA 08/12/17 [History] Insulin LISPRO [Humalog] 0 - 12 unit SQ TIDWM 08/12/17 [History] Ondansetron HCl [Zofran] 4 mg PO Q6H PRN 08/12/17 [History] rOPINIRole [Requip] 1 mg PO HS 08/12/17 [History] Amitriptyline [Elavil] 50 mg PO HS 11/25/18 [History] Amlodipine Besylate 10 mg PO DAILY 11/25/18 [History] Apixaban [Eliquis] 2.5 mg PO BID 11/25/18 [History] Insulin Glargine [Lantus] 0 unit SQ HS 11/25/18 [History] Montelukast [Singulair] 10 mg PO DAILY 11/25/18 [History] Pantoprazole Sodium 40 mg PO DAILY 11/25/18 [History] Patiromer Calcium Sorbitex [Veltassa] 1 each PO DAILY 11/25/18 [History] Aspirin [Lo-Dose Aspirin EC] 81 mg PO DAILY 12/03/18 [History] Allergy/AdvReac Type Severity Reaction Status Date / Time pregabalin [From Lyrica] Allergy See Verified 03/24/17 14:02 Comments codeine AdvReac Nausea Verified 03/24/17 14:02 ivp dye Allergy See Uncoded 03/24/17 14:02 Comments All Systems: The remainder of the systems were reviewed and are negative Physical Examination Vital Signs: Vital Signs, Last 4 Hours Pulse Resp BP Pulse Ox 12/18/18 12:18 100 12/18/18 11:27 16 96 12/18/18 11:11 104 18 160/87 100 General appearance: no acute distress Eyes: nonicteric ENT: oropharynx moist Effort: mildly labored Auscultation: bilateral: diminished breath sounds (basilar diminished breadth sounds) Cardiovascular: regular rate and rhythm Gastrointestinal: normoactive bowel sounds Extremities: no edema, other ( Bilateral stump after BKA ) normal mental status, non-focal exam mood appropriate Results - Laboratory Findings CBC and BMP: 12/18/18 05:18 12/18/18 05:18 ABG ABG pH 7.34 pH Units (7.32-7.45) 12/17/18 18:10 ABG pCO2 45 mmHg (35-45) 12/17/18 18:10 ABG pO2 81 mmHg (85-104) L 12/17/18 18:10 ABG O2 Saturation 95 % (95-98) 12/17/18 18:10 PT/INR, D-dimer PT 11.8 Seconds (9.4-12.1) 12/17/18 17:37 Abnormal lab findings: Abnormal lab results WBC 13.7 K/mcL (4.3-11.1) H 12/18/18 05:18 RBC 3.35 M/mcL (3.82-4.97) L 12/18/18 05:18 Hgb 9.6 g/dL (11.5-15.4) L 12/18/18 05:18 Hct 30.1 % (35.3-44.9) L 12/18/18 05:18 MCHC 31.1 g/dL (31.6-35.5) L 12/17/18 17:37 RDW 15.4 % (11.5-14.5) H 12/18/18 05:18 12.9 K/mcL (1.6-8.9) H 12/18/18 05:18 0.4 K/mcL (0.6-4.6) L 12/18/18 05:18 ABG pO2 81 mmHg (85-104) L 12/17/18 18:10 Sodium 127 mEq/L (136-145) L 12/17/18 17:37 Potassium 7.0 mEq/L (3.5-5.1) H* 12/17/18 17:37 Chloride 89 mEq/L (98-107) L 12/18/18 05:18 Carbon Dioxide 32 mEq/L (23-29) H 12/18/18 05:18 BUN 33 mg/dL (8-23) H 12/18/18 05:18 3.68 mg/dL (0.60-1.20) H 12/18/18 05:18 Est GFR ( Amer) 15 (> 60) L 12/18/18 05:18 Est GFR (Non-Af Amer) 13 (> 60) L 12/18/18 05:18 Glucose 451 mg/dL (70-105) H 12/18/18 05:18 POC Glucose 423 mg/dL (70-99) H* 12/18/18 11:07 309 (280-300) H 12/18/18 05:18 Phosphorus 7.5 mg/dL (2.7-4.5) H 12/17/18 17:37 Magnesium 2.8 mg/dL (1.6-2.6) H 12/17/18 17:37 ALT 100 Units/L (7-52) H 12/17/18 17:37 235 Units/L (34-104) H 12/17/18 17:37 1.16 ng/mL (0.00-0.15) H 12/17/18 17:37 Vancomycin Trough < 2 mcg/mL (5-10) L 12/18/18 05:18 - Microbiology Findings Microbiology Findings: Microbiology, Last 48 Hours 12/17/18 23:10 Legionella Antigen - Final Urine,Clean Catch Streptococcus pneumoniae Antigen (M - Final 12/17/18 18:28 Blood Culture - Preliminary Peripheral Venipuncture Culture is incubating and being continuously monitored for growth. Final report to follow. - Clinical Findings Intake & Output: Intake & Output 12/17/18 12/18/18 12/18/18 23:59 07:59 15:59 Intake Total 700 / 700 600 / 1180 580 / 1180 Output Total 150 / 150 3600 / 3600 Balance 550 / 550 -3000 / -2420 580 / -2420 Weight 73.2 kg Consult Discharge Plan - Plan Referrals: Juan J Pal, SE[facility]IE[facility] [Primary Care Provider] -
--- NOTE | 2018-12-18 15:51 | Nephrology Consult Note ---
Date of Encounter: 12/18/18 Time of Encounter: 15:00 Assessment and Plan (1) Hyperkalemia Current Visit: Yes Status: Resolved s/p urgent HD last night with potassium now down to 4 renal diet advised if and when able to eat (2) Acute and chronic respiratory failure Current Visit: Yes Status: Acute s/p 3liter UF, plan for more tomorrow Per primary, pulm consulted (3) ESRD on dialysis Current Visit: Yes Status: Acute s/p urgent HD last night Lytes stabilized HD planned again tomorrow Fluid restriction advised Past Med Surg Social Fam HX - Past Medical History Medical history: CHF, COPD, coronary artery disease, CVA, DVT, diabetes, dialysis, fibromyalgia, hyperlipidemia, hypertension, peripheral artery disease, renal disease Psychiatric history: anxiety - Past Surgical History Surgical History: , hysterectomy Additional surgical history: shoulder surgery, torn cuff. right hand carpel tunnel. abdominal hernia with mesh implant - Social History Smoking Status: Former smoker Smokeless Tobacco Status: No Alcohol use: none Drug use: none Medications and Allergies Carvedilol 12.5 mg PO BID 03/24/17 [History] Citalopram Hydrobromide [Citalopram HBr] 20 mg PO DAILY 03/24/17 [History] Folic Acid/Vit Bcomp,C [Renal-Diego Tablet] 1 tab PO DAILY 03/24/17 [History] Calcium Acetate [Phos-LO] 2 cap PO TIDWM 08/12/17 [History] Cetirizine HCl [24Hour Allergy] 10 mg PO DAILY 08/12/17 [History] Ergocalciferol (VITAMIN D2) [Vitamin D2] 50,000 unit PO GUERRA 08/12/17 [History] Insulin LISPRO [Humalog] 0 - 12 unit SQ TIDWM 08/12/17 [History] Ondansetron HCl [Zofran] 4 mg PO Q6H PRN 08/12/17 [History] rOPINIRole [Requip] 1 mg PO HS 08/12/17 [History] Amitriptyline [Elavil] 50 mg PO HS 11/25/18 [History] Amlodipine Besylate 10 mg PO DAILY 11/25/18 [History] Apixaban [Eliquis] 2.5 mg PO BID 11/25/18 [History] Insulin Glargine [Lantus] 0 unit SQ HS 11/25/18 [History] Montelukast [Singulair] 10 mg PO DAILY 11/25/18 [History] Pantoprazole Sodium 40 mg PO DAILY 11/25/18 [History] Patiromer Calcium Sorbitex [Veltassa] 1 each PO DAILY 11/25/18 [History] Aspirin [Lo-Dose Aspirin EC] 81 mg PO DAILY 12/03/18 [History] Allergy/AdvReac Type Severity Reaction Status Date / Time pregabalin [From Lyrica] Allergy See Verified 03/24/17 14:02 Comments codeine AdvReac Nausea Verified 03/24/17 14:02 ivp dye Allergy See Uncoded 03/24/17 14:02 Comments Exam - Vital Signs Vital signs: Initial Vital Signs Resp Pulse Ox 23 92 12/17/18 16:40 12/17/18 16:40 Vital Signs - Last 8 Hours Temp Pulse Resp BP Pulse Ox 12/18/18 15:20 95 12/18/18 12:18 100 12/18/18 11:27 16 96 12/18/18 11:11 104 18 160/87 100 12/18/18 08:39 106 12/18/18 08:33 94 12/18/18 07:51 98.6 F 107 18 182/80 94 Intake and Output 12/17/18 12/18/18 12/18/18 23:59 07:59 15:59 Intake Total 700 / 700 600 / 1180 580 / 1180 Output Total 150 / 150 3600 / 3600 Balance 550 / 550 -3000 / -2420 580 / -2420 Intake: IV Fluids 100 / 100 100 / 200 100 / 200 Doxycycline 100 MG In 0.9 % 100 / 100 100 / 100 Sodium Chloride (Mini-Bag +) 100 ML @ 100 mls/hr IVPB Q12HR [facility] Rx#:[id number] Zosyn 3.375 GM In 0.9 % Sodium 100 / 100 Chloride (Mini-Bag +) 100 ML @ 25 mls/hr IVPB Q12H [facility] Rx#: [id number] Oral 0 / 0 500 / 980 480 / 980 Intake, Rinseback and Flushes 600 / 600 Output: Urine 150 / 150 0 / 0 Total Dialysis (HD) Output 3600 / 3600 Other: Meal Lunch Percent of Meal Consumed 100% Weight 73.2 kg Blood Glucose* 297 451 411 Hemodialysis Net Fluid Removed 2705 3000 (mL) Results - Lab Results 12/18/18 05:18 12/18/18 05:18 Most recent lab results 12/18/18 05:18 Calcium 8.9 Consult Discharge Plan - Plan Referrals: Juan J Pal, B[facility]STER [Primary Care Provider] -
[2018-12-18] MEDS ORDERED: MethylPREDNISolone 40 MG/ML VIAL IVP SCH (21:00)
[2018-12-18] MEDS ORDERED: NIFEdipine 10 MG CAPSULE PO SCH (21:00)
[2018-12-18] MEDS: Insulin DETEMIR 100 UNIT/ML X5UNITS SQ SCH (21:05)
[2018-12-18] MEDS: *HR* OxyCODONE Immed Rel 5 MG TABLET PO PRN (21:06)
[2018-12-18] MEDS: *HR* Metoprolol 5 MG/5 ML VIAL IVP PRN (21:06)
[2018-12-18] MEDS: rOPINIRole 1 MG TABLET PO SCH (21:07)
[2018-12-19] MEDS: Ipratropium/Albuterol Neb 3 ML IH SCH ×6 (03:26→23:58)
[2018-12-19] MEDS: *HR* OxyCODONE Immed Rel 5 MG TABLET PO PRN ×2 (06:23→16:51)
[2018-12-19 07:10] LABS: Hematocrit 32.2 % (35.3-44.9); Mean Corpuscular HGB Conc 31.1 g/dL (31.6-35.5); Mean Corpuscular Hemoglobin 28.8 pg (28.0-33.3); Mean Corpuscular Volume 92.8 fL (83.0-100.0); Mean Platelet Volume 10.1 fL (9.4-12.4); Platelet Count 374 K/mcL (140-400); Red Blood Count 3.47 M/mcL (3.82-4.97); Red Cell Distribution Width 15.8 % (11.5-14.5); White Blood Count 16.4 K/mcL (4.3-11.1)
[2018-12-19 07:31] LABS: Calcium 9.3 mg/dL (8.6-10.3); Potassium 4.9 mEq/L (3.5-5.1)
[2018-12-19] MEDS: Budesonide/Formoterol 80/4.5 MDI IH SCH ×2 (07:47→20:12)
[2018-12-19] MEDS ORDERED: Nitroglycerin 0.4 MG TAB.SUBL SL PRN (08:06)
[2018-12-19] MEDS ORDERED: 0.9 % Sodium Chloride 250 ML IVC PRN (08:11)
[2018-12-19] MEDS ORDERED: *HR* Heparin 10,000 UNIT/10 ML VIAL IV PRN (08:11)
[2018-12-19] MEDS: Renal Vitamin 1 CAP CAPSULE PO SCH (08:44)
[2018-12-19] MEDS: Calcium Acetate 667 MG CAPSULE PO SCH ×3 (08:44→16:46)
[2018-12-19] MEDS: Insulin LISPRO 300 UNITS/3 ML VIAL SQ SCH ×4 (08:44→20:39)
[2018-12-19] MEDS: Apixaban 2.5 MG TABLET PO SCH ×2 (08:45→20:38)
[2018-12-19] MEDS: Insulin DETEMIR 100 UNIT/ML X5UNITS SQ SCH ×2 (08:45→20:39)
[2018-12-19] MEDS: Piperacillin/Tazobactam 3.375 GM in 0.9 % Sodium Chloride Mini Bag 100 ML IVPB SCH ×2 (08:45→20:38)
[2018-12-19] MEDS: Loratadine 10 MG TABLET PO SCH (08:45)
[2018-12-19] MEDS: Aspirin Enteric Coated 81 MG Tablet PO SCH (08:45)
[2018-12-19] MEDS: Furosemide 20 MG TABLET PO SCH (10:23)
[2018-12-19] MEDS: NIFEdipine XL (24 HR) 30 MG TAB.ER.24 PO SCH (10:23)
[2018-12-19] MEDS: Vitamin B Complex/Vit C/Vit E 1 EACH TABLET PO SCH (10:23)
[2018-12-19] MEDS: predniSONE 20 MG TABLET PO SCH (10:23)
--- NOTE | 2018-12-19 11:36 | Internal Med Progress Note ---
Hospitalist Progress Note - Encounter Date of Encounter: 12/19/18 Time of Encounter: 08:33 - Subjective Interval History: She was seen and examined at bedside. Reports that her breathing has improved significantly since admission. Denies nausea, vomiting or diarrhea. Tolerating by mouth diet. No difficulties with dialysis. - Exam Vitals: Temp Pulse Resp BP Pulse Ox 98.1 F 91 19 158/76 86 12/19/18 11:12 12/19/18 11:12 12/19/18 11:12 12/19/18 11:12 12/19/18 11:12 Exam: General: Patient is alert, oriented, no acute distress, speaks in full sentence s, obese Head: atraumatic, normocephalic, Eye: normal appearance, PERRL, no scleral icterus, no conjunctival injection ENT: mucous membranes moist, normal external ear exam Neck: normal inspection, trachea midline, full ROM, Chest: normal inspection, symmetric chest rise Respiratory: Decreased breath sounds bilaterally, crackles in the posterior lung field right greater than left ( improved) ,wheezing has resolved in the anterior chest Cardiovascular:tachycardic, s1 and s2 No clicks, rubs, gallops, or murmors. Abdomen: Bowel sounds present normoactive x-4 quadrants. Abdomen is soft, nondistended. no Epigastric tenderness. No guarding or rebound. No organomegaly noted, obese musculoskeletal: Spontaneously moving all extremities.bilateral AKA, could not appreciate significant edema of the stump . Skin: warm, dry, intact. Neuro: Alert and oriented x 3 , moves all extremities Psych: Patient's affect is normal - Assessment and Plan (1) (HFpEF) heart failure with preserved ejection fraction Current Visit: No Status: Acute Assessment and Plan: acute on chronic HFpEF most likely secondary to volume overload from not being compliant with fluid restriction received lasix 80 mg once at other facility still makes urine follow urine out put S/p dialysis with improvement in her respiratory status continue home medications if not CI fluid restriction to 1200 ml- discussed with patient at length continue BB, lasix 4KG weight loss since admission. TTE: Impressions: LVEF 60-65% Mild to moderate concentric left ventricular hypertrophy. LV diastolic dysfunction with elevated filling pressures. Normal right ventricular structure and function. Severely dilated left atrium. Mild-moderate mitral regurgitation. Mild tricuspid regurgitation. Mild pulmonic regurgitation. Severe pulmonary hypertension. There is a small pericardial effusion present. There is no echocardiographic evidence of tamponade. (2) ESRD on dialysis Current Visit: Yes Status: Acute Assessment and Plan: nephrology on board recieved dialysis on 12/17 continue with dialysis MWF Po4- 7.5 (3) Pulmonary edema Current Visit: Yes Status: Acute Assessment and Plan: most likely secondary to fluid over load and fluid non-compliance along with acute on chronci HFPEF s/p dialysis with improvement received lasix at other facility- will continue with 20 mg daily strict i/O daily weight fluid restriction rest of the management as above (4) Acute respiratory failure with hypoxia Current Visit: No Status: Acute Assessment and Plan: secondary to above management as above bipap at nights and PRN for respiratory distress (5) COPD exacerbation Current Visit: Yes Status: Acute Assessment and Plan: solumedrol tapered of to prednisone ( total steroids for 5 days) vancomycin and doxycyclien discontinued ( negative urine antigens and MRSA swab) continue with zosyn sputum cx - pending Bipap for respiratory distress pulmonology recs appreciated continues pulse ox symbicort Duo-nebs Q4H (6) Pulmonary hypertension Current Visit: No Status: Acute Assessment and Plan: was transferred to tertiary center on last admission as etiology isunknown ( likely multifactorial from COPD, CHF, fluid overload ) TTE as below nursing staff aware to request records from [facility] that she was transferred to continue with oxygen supplementation and bipap continue with inhalers pulmonology on board as per new medication list she was started on aldactone 100 mg and lasix 20 mg- will discuss with nephrology if O.k to resume aldactone ( was hyperkalemic on arrival) TTE: Impressions: LVEF 60-65% Mild to moderate concentric left ventricular hypertrophy. LV diastolic dysfunction with elevated filling pressures. Normal right ventricular structure and function. Severely dilated left atrium. Mild-moderate mitral regurgitation. Mild tricuspid regurgitation. Mild pulmonic regurgitation. Severe pulmonary hypertension. There is a small pericardial effusion present. There is no echocardiographic evidence of tamponade. (7) HCAP (healthcare-associated pneumonia) Current Visit: No Status: Suspected Assessment and Plan: continue with Abx as above cx in process procalcitonin is 1.16 urine antigens negative (8) Morbidly obese Current Visit: Yes Status: Acute Assessment and Plan: was counseled on diet and nutrition BMI 40.4 most likely has BRANDY Bipap at nights needs sleep study as OP (9) Hyperkalemia Current Visit: Yes Status: Resolved Assessment and Plan: resolved - post stat dialysis (10) Hyponatremia Current Visit: Yes Status: Resolved Assessment and Plan: hypervolemic hyponatremia resolved post dialysis continue fluid restriction (11) DVT prophylaxis Current Visit: No Status: Acute Assessment and Plan: on eliquis - Time Spent with Patient Total time spent is greater than 50% in coordination of care (as documented) at patient's floor/unit and/or counseling patient: Internal Medicine: Result - Labs CBC & Chem 7: 12/19/18 06:46 12/19/18 06:46 Labs: Short CBC 12/19/18 Range/Units 06:46 WBC 16.4 H (4.3-11.1) K/mcL Hgb 10.0 L (11.5-15.4) g/dL Hct 32.2 L (35.3-44.9) % Plt Count 374 (140-400) K/mcL BMP 12/19/18 06:46 Sodium 138 Potassium 4.9 Chloride 94 L Carbon Dioxide 28 BUN 72 H Creatinine 5.62 H Glucose 272 H Calcium 9.3 - ABG Interpretation ABG results: ABG ABG pH 7.34 pH Units (7.32-7.45) 12/17/18 18:10 ABG pCO2 45 mmHg (35-45) 12/17/18 18:10 ABG pO2 81 mmHg (85-104) L 12/17/18 18:10 ABG O2 Saturation 95 % (95-98) 12/17/18 18:10 PT/INR, D-dimer PT 11.8 Seconds (9.4-12.1) 12/17/18 17:37 Consult Discharge Plan - Plan Referrals: Juan J Pal, [employer] [Primary Care Provider] - (1) (HFpEF) heart failure with preserved ejection fraction Qualifiers: Heart failure chronicity: acute on chronic Qualified Code(s): I50.33 - Acute on chronic diastolic (congestive) heart failure (3) Pulmonary edema Qualifiers: Chronicity: acute Qualified Code(s): J81.0 - Acute pulmonary edema
[2018-12-19] MEDS: rOPINIRole 1 MG TABLET PO SCH (20:38)
[2018-12-19] MEDS: *HR* LORazepam 0.5 MG TABLET PO PRN (21:49)
[2018-12-19] MEDS ORDERED: Insulin LISPRO 300 UNITS/3 ML VIAL SQ SCH (22:10)
--- NOTE | 2018-12-19 23:36 | Nephrology Progress Note ---
Date of Encounter: 12/19/18 Time of Encounter: 12:00 - Assessment and Plan (1) ESRD on dialysis Current Visit: Yes Status: Acute Continue HD with UF as tolerated Lytes stabilized Continue fluid restriction Continue binder with meals (2) Hyperkalemia Current Visit: Yes Status: Resolved Resolved at 4.9, off aldactone and lisinopril Continue renal diet Can continue veltessa outpatient for prevention (3) Acute and chronic respiratory failure Current Visit: Yes Status: Acute Resolving, per primary Qualifiers: Respiratory failure complication: hypoxia Qualified Code(s): J96.21 - Acute and chronic respiratory failure with hypoxia Subjective Interval history: Pt seen and examined on HD doing well with no new complaints. No SOB, feels back to baseline Objective - Vital Signs Vital signs: Vital Signs Temp Pulse Resp BP Pulse Ox 12/19/18 23:10 98.4 F 93 17 172/73 96 12/19/18 20:16 16 100 12/19/18 19:21 98.7 F 95 17 158/69 94 12/19/18 16:17 97.7 F 91 17 151/60 95 12/19/18 15:35 98.6 F 17 141/61 12/19/18 15:10 135/63 12/19/18 14:55 138/61 12/19/18 14:40 130/55 12/19/18 14:25 134/59 12/19/18 14:10 133/62 12/19/18 13:55 128/62 12/19/18 13:40 133/70 12/19/18 13:25 135/74 12/19/18 13:10 142/70 12/19/18 12:55 141/65 12/19/18 12:40 135/58 12/19/18 12:25 119/52 12/19/18 12:10 132/60 12/19/18 11:55 124/62 12/19/18 11:40 97.6 F 18 133/60 12/19/18 11:12 98.1 F 91 19 158/76 86 12/19/18 07:47 18 89 12/19/18 07:29 97.9 F 93 20 192/107 93 12/19/18 03:47 98.1 F 96 16 179/98 94 12/19/18 03:26 16 96 12/19/18 00:03 98.6 F 95 18 180/75 99 Intake and Output 12/19/18 12/19/18 12/19/18 07:59 15:59 23:59 Intake Total 840 / 1330 490 / 1330 Output Total 3500 / 3500 Balance -2660 / -2170 490 / -2170 Intake: IV Fluids 100 / 100 Zosyn 3.375 GM In 0.9 % Sodium 100 / 100 Chloride (Mini-Bag +) 100 ML @ 25 mls/hr IVPB Q12H [facility] Rx#: [id number] Oral 240 / 730 490 / 730 Intake, Rinseback and Flushes 500 / 500 Output: Urine 0 / 0 Total Dialysis (HD) Output 3500 / 3500 Other: Meal Breakfast Dinner Percent of Meal Consumed 95% 95% # Voids 1 Weight 69.7 kg Blood Glucose* 260 335 509 Hemodialysis Net Fluid Removed 3000 (mL) Patient Weight 12/19/18 23:59 Weight 69.7 kg - General Appearance General appearance: Present: chronically ill (NAD) EENT: Present: ATNC, mucous membranes moist Neck: Present: no JVD, supple Additional Comments: good areation ant bilat Cardiology: Present: no edema (B BKA), normal S1, normal S2 Dialysis Vascular Access: Arteriovenous Fistula thrill: Yes bruit: Yes Gastrointestinal: Present: no tenderness, no guarding, obese Integumentary: Present: warm and dry Neurologic: Present: no focal deficit Musculoskeletal: Present: no deformities Psychiatric: Present: mood/affect appropriate - Lab 12/19/18 06:46 12/19/18 06:46 Consult Discharge Plan - Plan Referrals: Juan J Pal, [employer] [Primary Care Provider] - (Per the office we can not make a follow up appointment until we have a discharge order)
[2018-12-20] MEDS: *HR* Metoprolol 5 MG/5 ML VIAL IVP PRN (00:22)
[2018-12-20 01:50] LABS: Hematocrit 29.8 % (35.3-44.9); Hemoglobin 9.2 g/dL (11.5-15.4); Mean Corpuscular HGB Conc 30.9 g/dL (31.6-35.5); Mean Corpuscular Hemoglobin 28.8 pg (28.0-33.3); Mean Corpuscular Volume 93.4 fL (83.0-100.0); Mean Platelet Volume 10.1 fL (9.4-12.4); Platelet Count 358 K/mcL (140-400); Red Blood Count 3.19 M/mcL (3.82-4.97); Red Cell Distribution Width 15.7 % (11.5-14.5); White Blood Count 16.5 K/mcL (4.3-11.1)
[2018-12-20 02:09] LABS: Calcium 8.4 mg/dL (8.6-10.3); Potassium 4.1 mEq/L (3.5-5.1)
[2018-12-20] MEDS: Ipratropium/Albuterol Neb 3 ML IH SCH ×4 (04:38→15:40)
[2018-12-20] MEDS ORDERED: amLODIPine 5 MG TABLET PO ONE (04:47)
[2018-12-20] MEDS: Budesonide/Formoterol 80/4.5 MDI IH SCH (07:34)
[2018-12-20] MEDS: *HR* OxyCODONE Immed Rel 5 MG TABLET PO PRN (08:42)
[2018-12-20] MEDS: Vitamin B Complex/Vit C/Vit E 1 EACH TABLET PO SCH (08:42)
[2018-12-20] MEDS: predniSONE 20 MG TABLET PO SCH (08:42)
[2018-12-20] MEDS: NIFEdipine XL (24 HR) 30 MG TAB.ER.24 PO SCH (08:42)
[2018-12-20] MEDS: Calcium Acetate 667 MG CAPSULE PO SCH ×2 (08:42→12:37)
[2018-12-20] MEDS: Aspirin Enteric Coated 81 MG Tablet PO SCH (08:42)
[2018-12-20] MEDS: *HR* LORazepam 0.5 MG TABLET PO PRN (08:42)
[2018-12-20] MEDS: Apixaban 2.5 MG TABLET PO SCH (08:42)
[2018-12-20] MEDS: Renal Vitamin 1 CAP CAPSULE PO SCH (08:42)
[2018-12-20] MEDS: Loratadine 10 MG TABLET PO SCH (08:42)
[2018-12-20] MEDS: Furosemide 20 MG TABLET PO SCH (08:43)
[2018-12-20] MEDS: Piperacillin/Tazobactam 3.375 GM in 0.9 % Sodium Chloride Mini Bag 100 ML IVPB SCH (08:44)
[2018-12-20] MEDS: Insulin LISPRO 300 UNITS/3 ML VIAL SQ SCH ×2 (08:45→11:45)
[2018-12-20] MEDS ORDERED: Insulin DETEMIR 100 UNIT/ML X5UNITS SQ SCH (09:00)
--- NOTE | 2018-12-20 09:08 | Consult Note ---
Date of Encounter: 12/20/18 Time of Encounter: 09:00 Assessment & Recommendation (1) Depression Current visit: Yes Status: Acute Assessment & Recommendation: Patient is endorsing some symptoms of depression and is willing to try being back on an antidepressant. She felt Celexa was helpful in the past however this is contraindicated with dialysis. A good choice with her renal dysfunction and dialysis would be fluoxetine. I would recommend starting 20 mg by mouth every morning. We did discuss this and she was open to this. We also discussed the possibility of getting palliative care involved in her treatment depending on where she is at this point prognostically. We also discussed the possibility of some home health and if this would be helpful both with managing her medications, bathing, as well as just having some social contact. She said she felt this would be very hopeful however her mother, whose house she lives in an who is 90, has always been reluctant to having people in the home. Qualifiers: Depression Type: major depressive disorder Major depression recurrence: recurrent Active/Remission status: currently active Major depression episode severity: moderate Qualified Code(s): F33.1 - Major depressive disorder, recurrent, moderate History of Present Illness Requesting Physician: Dani Arevalo Reason for consult: depression History of present illness: Ms. Simon is a 58 year old female Ms. Simon is a 58 year old female with history of severe pulmonary HTN recently admitted and transferred to tertiary center for further work up, COPD on home oxygen never intubated, ESRD on HD MWF recently treated for COPD exacerbation and multifocal PNA presented to the ED from other hospital with chief complaint of SOB. She told a nurse that she was feeling depressed and "it is not easy no near dying". She had previously been on antidepressants and psychiatry was consulted to consider restarting an antidepressant. This morning she reports sad mood, decreased interest, feelings of hopelessness. She said these feelings are not like her and even though she has had numerous medical problems she is usually able to keep a positive attitude and enjoy the day she has left. She denies any suicidal thoughts, ideations, or plans. She has no manic symptoms or psychosis. CC: Dani Arevalo Past Med Surg Social Fam HX - Past Medical History Medical history: CHF, COPD, coronary artery disease, CVA, DVT, diabetes, dialysis, fibromyalgia, hyperlipidemia, hypertension, peripheral artery disease, renal disease - Past Psychiatric History Psychiatric history: Reports: depression Past psychiatric history details: She has previously been treated with Celexa for depression. She has no prior psychiatric admissions. She has no prior suicide attempts. Family psychiatric history: No Family History of Suicide: None - Past Surgical History Surgical History: , hysterectomy - Social History Smoking Status: Former smoker Smokeless Tobacco Status: No Alcohol use: none Drug use: none Occupational status: retired Current living situation: With Family Activity Level: Wheelchair bound Recent Out of Country Travel Within the Last 8 Weeks: No Exposure or Possible Exposure to Illness During Travel: No Additional social history: She lives with her 90-year-old mother. Medications & Allergies Carvedilol 12.5 mg PO BID 03/24/17 [History] Folic Acid/Vit Bcomp,C [Renal-Diego Tablet] 0.8 mg PO DAILY 03/24/17 [History] Calcium Acetate [Phos-LO] 2 cap PO TIDWM 08/12/17 [History] Cetirizine HCl [24Hour Allergy] 10 mg PO DAILY 08/12/17 [History] Ergocalciferol (VITAMIN D2) [Vitamin D2] 50,000 unit PO GUERRA 08/12/17 [History] Insulin LISPRO [Humalog] 36 unit SQ DAILY PRN 08/12/17 [History] Ondansetron HCl [Zofran] 4 mg PO Q6H PRN 08/12/17 [History] rOPINIRole [Requip] 1 mg PO HS 08/12/17 [History] Amitriptyline [Elavil] 50 mg PO HS 11/25/18 [History] Apixaban [Eliquis] 2.5 mg PO BID 11/25/18 [History] Insulin Glargine [Lantus] 12 unit SQ Q12H MDD PLUS SLIDING SCALE 11/25/18 [History] Montelukast [Singulair] 10 mg PO DAILY 11/25/18 [History] Pantoprazole Sodium 40 mg PO DAILY 11/25/18 [History] Patiromer Calcium Sorbitex [Veltassa] 8.4 gm PO DAILY 11/25/18 [History] Aspirin [Lo-Dose Aspirin EC] 81 mg PO DAILY 12/03/18 [History] Albuterol Sulfate [Ventolin Hfa] 2 puff PO Q6H PRN 12/18/18 [History] Amlodipine Besylate 10 mg PO DAILY 12/18/18 [History] B-Complex with Vitamin C [Vitamin B-Complex with Vit C] 1 tab PO DAILY 12/18/18 [History] Cetirizine HCl [Allergy Relief] 10 mg PO DAILY 12/18/18 [History] Furosemide [Lasix] 20 mg PO DAILY PRN 12/18/18 [History] HYDROcodone/Acet 7.5/325 mg [[place] 7.5-325 mg] 1 tab PO Q6H PRN 12/18/18 [History] LORazepam [Ativan] 0.5 mg PO Q6H PRN 12/18/18 [History] Lisinopril [Zestril] 40 mg PO DAILY 12/18/18 [History] Metoprolol [Lopressor] 25 mg PO Q12H 12/18/18 [History] NIFEdipine [Nifedipine ER] 90 mg PO DAILY 12/18/18 [History] Nitroglycerin [Nitrostat] 0.4 mg SL Q5MIN PRN MDD X3 DOSES CALL 911 12/18/18 [History] Spironolactone 100 mg PO DAILY 12/18/18 [History] Tiotropium [Spiriva] 18 mcg IH DAILY 12/18/18 [History] Allergy/AdvReac Type Severity Reaction Status Date / Time pregabalin [From Lyrica] Allergy See Verified 03/24/17 14:02 Comments codeine AdvReac Nausea Verified 03/24/17 14:02 ivp dye Allergy See Uncoded 03/24/17 14:02 Comments Review of Systems Constitutional: Reports: weakness. Denies: fever Eyes: Denies: eye pain Ears, Nose, Throat: Denies: ear pain Cardiovascular: Reports: dyspnea on exertion Respiratory: Reports: dyspnea Gastrointestinal: Denies: abdominal pain Genitourinary female: Denies: urgency Musculoskeletal: Reports: joint pain, myalgia Integumentary: Denies: rash Neurological: Reports: weakness Psychiatric: Reports: depression, anhedonia. Denies: suicidal ideation, change in appetite, homicidal ideation, auditory hallucinations Endocrine: Reports: fatigue Hematologic/Lymphatic: Denies: easy bleeding Allergic/Immunologic: Denies: facial swelling Psychiatry Exam - Constitutional Vitals: Temp Pulse Resp BP Pulse Ox 98.4 F 84 16 172/76 96 12/20/18 07:25 12/20/18 07:25 12/20/18 07:41 12/20/18 07:25 12/20/18 07:41 General appearance: age & developmentally appropriate, disheveled - Musculoskeletal Gait: other (Bed) Station: relaxed Strength & Tone: mild weakness - Psychiatric Patient Orientation: Yes Person, Yes Time, Yes Place, Yes Circumstance Behavior: calm, cooperative Psychomotor activity: Slowed Eye Contact: Maintains Eye Contact Mood Description: Depressed Patient description of mood: Sad Affect description: dysphoric Speech Volume: Normal Speech pattern: normal rate, normal rhythm, normal tone, fluent, spontaneous Language & Vocabulary: consistent with education Thought Process: Linear, Goal Oriented Thought Content: No Suicidal ideation, No Homicidal ideation, No Overt delusions Perceptual Disturbances: No Auditory hallucinations, No Visual hallucinations Attention Span Ability: Capable of Focused Attention Memory Description: Grossly Intact Patient Reliability: Reliable Historian Fund of knowledge: Yes abstraction ability, Yes aware of current events Intelligence Estimate: Average Judgment: Good Insight: Full Results - Labs Labs: Laboratory Last Values WBC 16.5 K/mcL (4.3-11.1) H 12/20/18 01:11 RBC 3.19 M/mcL (3.82-4.97) L 12/20/18 01:11 Hgb 9.2 g/dL (11.5-15.4) L 12/20/18 01:11 Hct 29.8 % (35.3-44.9) L 12/20/18 01:11 MCV 93.4 fL (83.0-100.0) 12/20/18 01:11 MCH 28.8 pg (28.0-33.3) 12/20/18 01:11 MCHC 30.9 g/dL (31.6-35.5) L 12/20/18 01:11 RDW 15.7 % (11.5-14.5) H 12/20/18 01:11 Plt Count 358 K/mcL (140-400) 12/20/18 01:11 MPV 10.1 fL (9.4-12.4) 12/20/18 01:11 Immature Gran % 0.7 % (0-4) 12/18/18 05:18 Seg Neutrophils % 93.7 % 12/18/18 05:18 3.1 % 12/18/18 05:18 2.4 % 12/18/18 05:18 0.0 % 12/18/18 05:18 0.1 % 12/18/18 05:18 12.9 K/mcL (1.6-8.9) H 12/18/18 05:18 0.4 K/mcL (0.6-4.6) L 12/18/18 05:18 0.3 K/mcL (0.0-1.3) 12/18/18 05:18 0.0 K/mcL (0.0-0.6) 12/18/18 05:18 0.0 K/mcL (0.0-0.2) 12/18/18 05:18 PT 11.8 Seconds (9.4-12.1) 12/17/18 17:37 INR 1.0 12/17/18 17:37 APTT 34.6 Seconds (26.0-36.0) 12/17/18 17:37 Sample Site L Radial 12/17/18 18:10 ABG pH 7.34 pH Units (7.32-7.45) 12/17/18 18:10 ABG pCO2 45 mmHg (35-45) 12/17/18 18:10 ABG pO2 81 mmHg (85-104) L 12/17/18 18:10 ABG HCO3 24 mEq/L (21-27) 12/17/18 18:10 ABG Total CO2 25 mEq/L (20-26) 12/17/18 18:10 ABG O2 Saturation 95 % (95-98) 12/17/18 18:10 ABG Base Excess -2 mEq/L (-2 to 3) 12/17/18 18:10 O2 Delivery Device BiPAP 12/17/18 18:10 Inspired O2 45.0 (1-15=lpm [id number]=%) 12/17/18 18:10 Sodium 135 mEq/L (136-145) L 12/20/18 01:11 Potassium 4.1 mEq/L (3.5-5.1) 12/20/18 01:11 Chloride 96 mEq/L (98-107) L 12/20/18 01:11 Carbon Dioxide 27 mEq/L (23-29) 12/20/18 01:11 BUN 43 mg/dL (8-23) H 12/20/18 01:11 3.34 mg/dL (0.60-1.20) H 12/20/18 01:11 Est GFR ( Amer) 17 (> 60) L 12/20/18 01:11 Est GFR (Non-Af Amer) 14 (> 60) L 12/20/18 01:11 13 (6-26) 12/20/18 01:11 Glucose 435 mg/dL (70-105) H 12/20/18 01:11 POC Glucose 145 mg/dL (70-99) H 12/20/18 07:27 310 (280-300) H 12/20/18 01:11 Calcium 8.4 mg/dL (8.6-10.3) L 12/20/18 01:11 Phosphorus 7.5 mg/dL (2.7-4.5) H 12/17/18 17:37 Magnesium 2.8 mg/dL (1.6-2.6) H 12/17/18 17:37 0.4 mg/dL (0.3-1.0) 12/17/18 17:37 AST 18 Units/L (13-39) 12/17/18 17:37 ALT 100 Units/L (7-52) H 12/17/18 17:37 235 Units/L (34-104) H 12/17/18 17:37 0.03 ng/mL (< 0.04) 12/17/18 17:37 6.9 g/dL (6.4-8.9) 12/17/18 17:37 4.2 g/dL (3.5-5.7) 12/17/18 17:37 2.7 g/dL (2.4-3.5) 12/17/18 17:37 1.6 (1.1-2.2) 12/17/18 17:37 1.70 ng/mL (0.00-0.15) H 12/19/18 06:46 Negative (Negative) 12/18/18 07:08 Vancomycin Trough < 2 mcg/mL (5-10) L 12/18/18 05:18 Consult Discharge Plan - Plan Referrals: Juan J Pal, [employer]PECT[employer] [Primary Care Provider] - (Per the office we can not make a follow up appointment until we have a discharge order)
[2018-12-20 11:38] VITALS: BP 134/55
[2018-12-20] MEDS ORDERED: FLUoxetine 20 MG CAPSULE PO SCH (12:00)
[2018-12-20] MEDS ORDERED: levoFLOXacin 500 MG TABLET PO SCH (12:00)
--- NOTE | 2018-12-20 12:04 | Discharge Summary ---
- NOTES TO OUTPATIENT PROVIDER Notes to Outpatient Provider: follow up with pulmonology as OP. take glucose log to PCP for further adjustment of medications. folow up CBC and CMP in 5 days. follow CXR in one week Orders not resulted at time of discharge: Pending orders 12/17/18 18:28 Culture,Blood [BC] Stat 12/17/18 18:35 EKG [ECG 12 lead ECG] [ECG] Stat 12/21/18 04:00 Basic Metabolic Panel AM 0400 CBC no Diff [Complete Blood Count w/o Diff] [HEME] AM 04012/22/18 04:00 Basic Metabolic Panel AM 0400 CBC no Diff [Complete Blood Count w/o Diff] [HEME] AM 04012/23/18 04:00 Basic Metabolic Panel AM 0400 CBC no Diff [Complete Blood Count w/o Diff] [HEME] AM 04012/24/18 04:00 Basic Metabolic Panel AM 0400 CBC no Diff [Complete Blood Count w/o Diff] [HEME] AM 040 Date of Encounter: 12/20/18 Time of Encounter: 11:51 - Discharge Diagnosis (1) (HFpEF) heart failure with preserved ejection fraction Priority: Primary Status: Acute Qualifiers: Heart failure chronicity: acute on chronic Qualified Code(s): I50.33 - Acute on chronic diastolic (congestive) heart failure (2) ESRD on dialysis Priority: Secondary Status: Acute (3) Pulmonary edema Priority: Secondary Status: Acute Qualifiers: Chronicity: acute Qualified Code(s): J81.0 - Acute pulmonary edema (4) Acute respiratory failure with hypoxia Priority: Secondary Status: Acute (5) COPD exacerbation Priority: Secondary Status: Acute (6) Pulmonary hypertension Priority: Secondary Status: Acute (7) HCAP (healthcare-associated pneumonia) Priority: Secondary Status: Suspected (8) Morbidly obese Priority: Secondary Status: Acute (9) Hyperkalemia Priority: Secondary Status: Resolved (10) Hyponatremia Priority: Secondary Status: Resolved (11) DVT prophylaxis Priority: Secondary Status: Acute Hospital course: "Ms. Simon is a 58 year old female with history of severe pulmonary HTN recently admitted and transferred to tertiary center for further work up, COPD on home oxygen never intubated, ESRD on HD MWF recently treated for COPD exacerbation and multifocal PNA presented to the ED from other hospital with chief complaint of SOB. as per patient her SOB started suddenly yesterday and she tried to use her nebulizers and initially had some relief so she went to bed. she woke up on the day of admission with worsening SOB, she again tried her nebulizers and she could not find relief so she decided to go to the ED for further management. in addition to above she complains of minimal productive cough with white sputum denies hemoptysis. she reports that she was transferred to [facility] [facility] cannot recall the name of the hospital and reports that she was hospitalized for a week and was discharged home. she reports that she has been compliant with her medications. reports that she is on eliquis for hypercoagulable state nd as her family has history of blood clots. she does report chest tightness in the middle of her chest adn is unable to fully take a deep breath secondary to chest tightness. she does have PND and orthopnea since yesterday. she denies fever or chills, palpitations, N/v/D, recent falls, LOC, chest trauma, swelling of her extremities, abdominal pain, N/v/D. her symptoms are alleviated with bipap and oxygen. she cannot specify if she is compliant with fluid restriction. she is complaining of hunger andd requesting food " Patient presented with above presentation. She was placed on BiPAP and nephrology was consulted and she had an emergent dialysis performed ( pulmonary edema and hyperkalemia) . Post dialysis her respiratory status improved. She was also started on steroids and broad-spectrum IV antibiotics to cover hospital-acquired pneumonia. Pulmonology was consulted and recommendations followed. She was transitioned to by mouth steroids and is to finish a five-day course. Antibiotics were transitioned to oral and per renally adjusted by the pharmacist. To continue a 7 day course. She is to follow-up with pulmonology as outpatient for pulmonary hypertension and COPD. She was tapered down to her home oxygen of 2 L. Pressure medications were adjusted with control of her blood pressure. Lisinopril and spironolactone was discontinued due to hyperkalemia. 4 pulmonology and PCP to follow BMP closely if these medications were to be restarted- i discussed this with our network infrastructure architect who is in agreement as she was severely hyperkalemic on admission. Blood glucose remained elevated at times during admission which is most likely secondary to steroids. She is to continue with her long-acting insulin and her sliding scale was adjusted. Diabetic teaching was performed by the nursing staff. Social work and case management were consulted as daughter was concerned with her needing help at home. She was counseled extensively on importance of fluid restriction and compliance to medications she understands. follow up CMP and CBC in 5 days and follow with CXR in 7 days to ensure resolution of ? RLL PNA she hadendosrsed symptoms of depression and psych was consuletd and she was started on fluoxetine. CXR:IMPRESSION: 1. Congestive heart failure 2. Possible atelectasis or pneumonia in the right lower lobe Discharge discussed with: patient, nurse, social work, case management, data communications software consultant - Time Spent with Patient Total time spent providing and/or coordinating discharge services: Time spent: Greater than 30 minutes (45) - Discharge Medications Prescriptions: New Ipratropium/Albuterol Neb [Duoneb] 3 ml IH Q6H PRN #30 inhsol PRN Reason: Dyspnea levoFLOXacin [Levaquin] 500 mg PO Q48H #1 tablet predniSONE [PredniSONE] 40 mg PO DAILY 1 Days #2 tablet FLUoxetine HCl [Prozac] 20 mg PO DAILY #30 udc Budesonide/Formoterol 80/4.5 [Symbicort 80/4.5] 1 puff IH BIDR #1 inhaler Syringe and Needle,Insulin,1Ml [Advocate Syringes] 1 each [facility] ACHS #100 disp.syrin Pen Needle, Diabetic, Safety [Assure Id Pen Needle] 1 each [facility] BID #100 dis.needle Insulin LISPRO [Humalog] 0 unit SQ ACHS #1 cartridge Nebulizer and Compressor [Ombra Compressor System] 1 each MC Q6H PRN #1 each PRN Reason: Dyspnea Continued Folic Acid/Vit Bcomp,C [Renal-Diego Tablet] 0.8 mg PO DAILY rOPINIRole [Requip] 1 mg PO HS Calcium Acetate [Phos-LO] 2 cap PO TIDWM Ergocalciferol (VITAMIN D2) [Vitamin D2] 50,000 unit PO GUERRA Cetirizine HCl [24Hour Allergy] 10 mg PO DAILY Patiromer Calcium Sorbitex [Veltassa] 8.4 gm PO DAILY Montelukast [Singulair] 10 mg PO DAILY Amitriptyline [Elavil] 50 mg PO HS Apixaban [Eliquis] 2.5 mg PO BID Pantoprazole Sodium 40 mg PO DAILY Insulin Glargine [Lantus] 12 unit SQ Q12H MDD PLUS SLIDING SCALE Aspirin [Lo-Dose Aspirin EC] 81 mg PO DAILY B-Complex with Vitamin C [Vitamin B-Complex with Vit C] 1 tab PO DAILY Furosemide [Lasix] 20 mg PO DAILY PRN PRN Reason: SWELLING HYDROcodone/Acet 7.5/325 mg [Reader 7.5-325 mg] 1 tab PO Q6H PRN PRN Reason: Pain LORazepam [Ativan] 0.5 mg PO Q6H PRN PRN Reason: Anxiety NIFEdipine [Nifedipine ER] 90 mg PO DAILY Nitroglycerin [Nitrostat] 0.4 mg SL Q5MIN PRN MDD X3 DOSES CALL 911 PRN Reason: Chest Pain Tiotropium [Spiriva] 18 mcg IH DAILY Carvedilol 12.5 mg PO BID #60 tablet Discontinued Ondansetron HCl [Zofran] 4 mg PO Q6H PRN PRN Reason: Nausea Insulin LISPRO [Humalog] 36 unit SQ DAILY PRN PRN Reason: Blood Sugar - High Albuterol Sulfate [Ventolin Hfa] 2 puff PO Q6H PRN PRN Reason: Shortness Of Breath Amlodipine Besylate 10 mg PO DAILY Cetirizine HCl [Allergy Relief] 10 mg PO DAILY Lisinopril [Zestril] 40 mg PO DAILY Metoprolol [Lopressor] 25 mg PO Q12H Spironolactone 100 mg PO DAILY Home Medications: Folic Acid/Vit Bcomp,C [Renal-Diego Tablet] 0.8 mg PO DAILY 03/24/17 [History] Calcium Acetate [Phos-LO] 2 cap PO TIDWM 08/12/17 [History] Cetirizine HCl [24Hour Allergy] 10 mg PO DAILY 08/12/17 [History] Ergocalciferol (VITAMIN D2) [Vitamin D2] 50,000 unit PO GUERRA 08/12/17 [History] rOPINIRole [Requip] 1 mg PO HS 08/12/17 [History] Amitriptyline [Elavil] 50 mg PO HS 11/25/18 [History] Apixaban [Eliquis] 2.5 mg PO BID 11/25/18 [History] Insulin Glargine [Lantus] 12 unit SQ Q12H MDD PLUS SLIDING SCALE 11/25/18 [History] Montelukast [Singulair] 10 mg PO DAILY 11/25/18 [History] Pantoprazole Sodium 40 mg PO DAILY 11/25/18 [History] Patiromer Calcium Sorbitex [Veltassa] 8.4 gm PO DAILY 11/25/18 [History] Aspirin [Lo-Dose Aspirin EC] 81 mg PO DAILY 12/03/18 [History] B-Complex with Vitamin C [Vitamin B-Complex with Vit C] 1 tab PO DAILY 12/18/18 [History] Furosemide [Lasix] 20 mg PO DAILY PRN 12/18/18 [History] HYDROcodone/Acet 7.5/325 mg [Reader 7.5-325 mg] 1 tab PO Q6H PRN 12/18/18 [History] LORazepam [Ativan] 0.5 mg PO Q6H PRN 12/18/18 [History] NIFEdipine [Nifedipine ER] 90 mg PO DAILY 12/18/18 [History] Nitroglycerin [Nitrostat] 0.4 mg SL Q5MIN PRN MDD X3 DOSES CALL 911 12/18/18 [History] Tiotropium [Spiriva] 18 mcg IH DAILY 12/18/18 [History] Budesonide/Formoterol 80/4.5 [Symbicort 80/4.5] 1 puff IH BIDR #1 inhaler 12/20/18 [Rx] Carvedilol 12.5 mg PO BID #60 tablet 12/20/18 [Rx] FLUoxetine HCl [Prozac] 20 mg PO DAILY #30 udc 12/20/18 [Rx] Insulin LISPRO [Humalog] 0 unit SQ ACHS #1 cartridge 12/20/18 [Rx] Ipratropium/Albuterol Neb [Duoneb] 3 ml IH Q6H PRN #30 inhsol 12/20/18 [Rx] Nebulizer and Compressor [Ombra Compressor System] 1 each MC Q6H PRN #1 each 12/20/18 [Rx] Pen Needle, Diabetic, Safety [Assure Id Pen Needle] 1 each MC BID #100 dis.needle 12/20/18 [Rx] Syringe and Needle,Insulin,1Ml [Advocate Syringes] 1 each [facility] #100 disp.syrin 12/20/18 [Rx] levoFLOXacin [Levaquin] 500 mg PO Q48H #1 tablet 12/20/18 [Rx] predniSONE [PredniSONE] 40 mg PO DAILY 1 Days #2 tablet 12/20/18 [Rx] Allergies/Adverse Reactions: Allergy/AdvReac Type Severity Reaction Status Date / Time pregabalin [From Lyrica] Allergy See Verified 03/24/17 14:02 Comments codeine AdvReac Nausea Verified 03/24/17 14:02 ivp dye Allergy See Uncoded 03/24/17 14:02 Comments Date of admission: 12/19/18 18:06 Primary care physician: Juan J Pal CNP Consults: 12/17/18 17:29 Consult to Nephrology [CONS] Routine Consulting Provider: Kidney Maria E/FLAVIO/CHI/ANNA Reason for Consult: ESRd on HD missed dialysis in hypoxic respiratory failure Call Completed: Yes 12/17/18 17:31 Consult to Pulmonology [CONS] Routine Consulting Provider: Pulm Crit Care & Sleep Maria E Reason for Consult: acute hypoxic respiratory failure Call Completed: No 12/17/18 21:00 Consult to Dialysis [CONS] ONCE 12/18/18 12:55 Consult to Nurse Navigator [CONS] Routine Comment: ESRD, CHF, COPD 12/19/18 08:15 Consult to Dialysis [CONS] ONCE 12/19/18 17:00 Consult to Psychiatry [CONS] Routine Consulting Provider: Psychiatry [place] Reason consult: Other Other reason and/or additional details: depression, for medication reconciliation used to be on SSRI but was discontinued - Constitutional Vitals: Temp Pulse Resp BP Pulse Ox 98.4 F 78 18 134/55 91 12/20/18 11:36 12/20/18 11:36 12/20/18 11:36 12/20/18 11:36 12/20/18 11:36 Exam: General: Patient is alert, oriented, no acute distress, speaks in full sentences, obese Head: atraumatic, normocephalic, Eye: normal appearance, PERRL, no scleral icterus, no conjunctival injection ENT: mucous membranes moist, normal external ear exam Neck: normal inspection, trachea midline, full ROM, Chest: normal inspection, symmetric chest rise Respiratory: Decreased breath sounds bilaterally, crackles in the posterior lung field right greater than left ( improved) ,wheezing has resolved in the anterior chest Cardiovascular:tachycardic, s1 and s2 No clicks, rubs, gallops, or murmors. Abdomen: Bowel sounds present normoactive x-4 quadrants. Abdomen is soft, nondistended. no Epigastric tenderness. No guarding or rebound. No organomegaly noted, obese musculoskeletal: Spontaneously moving all extremities.bilateral AKA, could not appreciate significant edema of the stump . Skin: warm, dry, intact. Neuro: Alert and oriented x 3 , moves all extremities Psych: Patient's affect is normal - Patient Status Disposition: Home Health Service Condition: Fair Functional capacity at discharge: wheelchair bound Overall status at discharge: patient is progressing back to baseline - Discharge Instructions Instructions: Fluoxetine (By mouth), Prednisone (By mouth), Carvedilol (By mouth), Ipratropium/Albuterol (By breathing), Budesonide/Formoterol (By breathing), Insulin Lispro (Injection), Hemodialysis (DC), Hypertension (DC), COPD Exacerbation, Graphic Design Manager (GEN) Follow Up With: Job Salinas MD [Partnered Physician] - 01/09/19 9:30 am (This appointment is in [place]) Juan J Pal CNP [Primary Care Provider] - 12/31/18 1:20 pm () - Diet and Activity Activity: increase activity as tolerated Diet: diabetic diet (low salt, renal, fluid restricted )
--- NOTE | 2018-12-20 14:20 | Physician Discharge Referral ---
Home Health/Hosp Referral Info Transfer to: Home Health Provider in Charge Post Discharge: PCP - Diagnosis (1) (HFpEF) heart failure with preserved ejection fraction Status: Acute (2) ESRD on dialysis Status: Acute (3) Pulmonary edema Status: Acute (4) Acute respiratory failure with hypoxia Status: Acute (5) COPD exacerbation Status: Acute (6) Pulmonary hypertension Status: Acute (7) HCAP (healthcare-associated pneumonia) Status: Suspected (8) Morbidly obese Status: Acute (9) Hyperkalemia Status: Resolved (10) Hyponatremia Status: Resolved (11) DVT prophylaxis Status: Acute - Respiratory Orders Oxygen / L per min (2) Smoking Cessation: Smoking cessation has been advised. For more information, call the [place] Tobacco Quit Line at 6-167-HQYO-NOW. - Services Needed Following services are medically necessary services: Nursing - Transfer Medications Prescriptions: Syringe and Needle,Insulin,1Ml [Advocate Syringes] 1 each [facility] ACHS #100 disp.syrin Pen Needle, Diabetic, Safety [Assure Id Pen Needle] 1 each MC BID #100 dis.needle Carvedilol 12.5 mg PO BID #60 tablet Ipratropium/Albuterol Neb [Duoneb] 3 ml IH Q6H PRN #30 inhsol PRN Reason: Dyspnea Insulin LISPRO [Humalog] 0 unit SQ ACHS #1 cartridge levoFLOXacin [Levaquin] 500 mg PO Q48H #1 tablet Nebulizer and Compressor [Ombra Compressor System] 1 each MC Q6H PRN #1 each PRN Reason: Dyspnea predniSONE [PredniSONE] 40 mg PO DAILY 1 Days #2 tablet FLUoxetine HCl [Prozac] 20 mg PO DAILY #30 udc Budesonide/Formoterol 80/4.5 [Symbicort 80/4.5] 1 puff IH BIDR #1 inhaler Home Medications: Folic Acid/Vit Bcomp,C [Renal-Diego Tablet] 0.8 mg PO DAILY 03/24/17 [History] Calcium Acetate [Phos-LO] 2 cap PO TIDWM 08/12/17 [History] Cetirizine HCl [24Hour Allergy] 10 mg PO DAILY 08/12/17 [History] Ergocalciferol (VITAMIN D2) [Vitamin D2] 50,000 unit PO GUERRA 08/12/17 [History] rOPINIRole [Requip] 1 mg PO HS 08/12/17 [History] Amitriptyline [Elavil] 50 mg PO HS 11/25/18 [History] Apixaban [Eliquis] 2.5 mg PO BID 11/25/18 [History] Insulin Glargine [Lantus] 12 unit SQ Q12H MDD PLUS SLIDING SCALE 11/25/18 [History] Montelukast [Singulair] 10 mg PO DAILY 11/25/18 [History] Pantoprazole Sodium 40 mg PO DAILY 11/25/18 [History] Patiromer Calcium Sorbitex [Veltassa] 8.4 gm PO DAILY 11/25/18 [History] Aspirin [Lo-Dose Aspirin EC] 81 mg PO DAILY 12/03/18 [History] B-Complex with Vitamin C [Vitamin B-Complex with Vit C] 1 tab PO DAILY 12/18/18 [History] Furosemide [Lasix] 20 mg PO DAILY PRN 12/18/18 [History] HYDROcodone/Acet 7.5/325 mg [[place] 7.5-325 mg] 1 tab PO Q6H PRN 12/18/18 [History] LORazepam [Ativan] 0.5 mg PO Q6H PRN 12/18/18 [History] NIFEdipine [Nifedipine ER] 90 mg PO DAILY 12/18/18 [History] Nitroglycerin [Nitrostat] 0.4 mg SL Q5MIN PRN MDD X3 DOSES CALL 911 12/18/18 [History] Tiotropium [Spiriva] 18 mcg IH DAILY 12/18/18 [History] Budesonide/Formoterol 80/4.5 [Symbicort 80/4.5] 1 puff IH BIDR #1 inhaler 0 12/20/18 [Rx] Carvedilol 12.5 mg PO BID #60 tablet 12/20/18 [Rx] FLUoxetine HCl [Prozac] 20 mg PO DAILY #30 udc 12/20/18 [Rx] Insulin LISPRO [Humalog] 0 unit SQ ACHS #1 cartridge 12/20/18 [Rx] Ipratropium/Albuterol Neb [Duoneb] 3 ml IH Q6H PRN #30 inhsol 12/20/18 [Rx] Nebulizer and Compressor [Ombra Compressor System] 1 each MC Q6H PRN #1 each 12/20/18 [Rx] Pen Needle, Diabetic, Safety [Assure Id Pen Needle] 1 each MC BID #100 dis.needle 12/20/18 [Rx] Syringe and Needle,Insulin,1Ml [Advocate Syringes] 1 each MC ACHS #100 disp.syrin 12/20/18 [Rx] levoFLOXacin [Levaquin] 500 mg PO Q48H #1 tablet 12/20/18 [Rx] predniSONE [PredniSONE] 40 mg PO DAILY 1 Days #2 tablet 12/20/18 [Rx] Allergies/Adverse Reactions: Allergy/AdvReac Type Severity Reaction Status Date / Time pregabalin [From Lyrica] Allergy See Verified 03/24/17 14:02 Comments codeine AdvReac Nausea Verified 03/24/17 14:02 ivp dye Allergy See Uncoded 03/24/17 14:02 Comments Certification: Further, I certify that my clinical findings support that this patient is homebound (i.e. absences from home require considerable and taxing effort and are for medical reasons or voodoo services or infrequently or short duration when for other reasons) because: Homebound Reason: Patient requires assistance of a person or device to safely leave home Attestation: My signature below is to certify that this patient is under my care and that I, or nurse practitioner, or a physician's pediatric physical therapy assistant working with me, has a [id number] encounter with this patient.
[2018-12-20] MEDS ORDERED: Insulin LISPRO 300 UNITS/3 ML VIAL SQ ONE (22:24)
[2018-12-21] MEDS ORDERED: amLODIPine 5 MG TABLET PO SCH (09:00)
== END 2018-12-20 15:56 | disposition home health service (06) | DRG 291 ==
LOC: 2NNU
PROVIDERS: ADMIT Internal Medicine; ATTEND Internal Medicine

== ENCOUNTER 2019-01-03 23:15 | Observation (INO) ==
[2019-01-04] MEDS ORDERED: Naloxone 0.4 MG/ML INJ IVP PRN (07:36)
[2019-01-04] MEDS ORDERED: *HR* Dextrose 50 % in Water (Syg) 50 ML SYRINGE IVP PRN (07:41)
[2019-01-04] MEDS ORDERED: Dextrose Gel 15 GM/37.5 ML TUBE PO PRN ×2 (07:41)
[2019-01-04] MEDS ORDERED: D5% in Water 1,000 ML IVC PRN (07:41)
[2019-01-04] MEDS: Insulin LISPRO 300 UNITS/3 ML VIAL SQ SCH ×3 (08:44→17:17)
[2019-01-04] MEDS: Apixaban 5 MG TABLET PO SCH ×2 (08:45→20:52)
[2019-01-04] MEDS: Aspirin Enteric Coated 81 MG Tablet PO SCH (08:45)
[2019-01-04] MEDS: FLUoxetine 20 MG CAPSULE PO SCH (08:56)
[2019-01-04] MEDS: Torsemide 20 MG TABLET PO SCH (08:56)
--- NOTE | 2019-01-04 09:11 | Internal Med History&Physical ---
Date of Encounter: 01/04/19 Time of Encounter: 09:02 Internal Medicine - H&P: HPI Chief complaint: shortness of breath Admitted From: Home Plans for Post Hospital Care: Home History of present illness: Ms. Simon is a 58 year old female PMH of HFpEF, chronic respiratory failure on 2 litters of home O2, DM, b/l BKA, HTN and hypercoagulable state, HLD and depression. Patient presented to the hospital due to 1 day history of shortness of breath. Patient with recent admission for similar complain. Patient reported for about 1 day she has been feeling short of breath, stated yesterday morning while she was in bed she felt short of breath and used her inhalers and nebs treatment but she did not have much improvement of her symptoms and decided to call the EMS and was taken to the hospital. Reports she has not been able to sleep flat for the past couple of days due to shortness of breath. Denies chest pain, productive cough or fever, but reports chill. Reports being compliant with her diet and HD but reports on Monday she could not complete he HD session due to neck pain, but reports completing he session on Monday. Stated that yesterday she had very little urinary output. Patient was admitted to the hospitalist service as patient was found to have signs of pulmonary edema on chest x-rays. and increased O2 requirement. Past Med Surg Social Fam HX - Past Medical History Medical history: CHF, COPD, coronary artery disease, CVA, DVT, diabetes, dialysis, fibromyalgia, hyperlipidemia, hypertension, peripheral artery disease, renal disease Psychiatric history: anxiety, depression - Past Surgical History Surgical History: , hysterectomy Additional surgical history: shoulder surgery, torn cuff. right hand carpel tunnel. abdominal hernia with mesh implant. Bilateral below the knee amp - Social History Smoking Status: Former smoker Smokeless Tobacco Status: No Alcohol use: none Drug use: none - Family History Sister Hx Family Cardiac Disorders: Yes (Cardiac bypass) Father Family Member Ethnicity: Non- Hx Family Cancer: Yes (Colon cancer) Mother Family Member Ethnicity: Non- Internal Medicine - H&P: Meds Folic Acid/Vit Bcomp,C [Renal-Diego Tablet] 0.8 mg PO DAILY 03/24/17 [History] Calcium Acetate [Phos-LO] 2 cap PO TIDWM 08/12/17 [History] Cetirizine HCl [24Hour Allergy] 10 mg PO DAILY 08/12/17 [History] Ergocalciferol (VITAMIN D2) [Vitamin D2] 50,000 unit PO GUERRA 08/12/17 [History] rOPINIRole [Requip] 1 mg PO HS 08/12/17 [History] Amitriptyline [Elavil] 50 mg PO HS 11/25/18 [History] Apixaban [Eliquis] 2.5 mg PO BID 11/25/18 [History] Insulin Glargine [Lantus] 12 unit SQ Q12H MDD PLUS SLIDING SCALE 11/25/18 [History] Montelukast [Singulair] 10 mg PO DAILY 11/25/18 [History] Pantoprazole Sodium 40 mg PO DAILY 11/25/18 [History] Patiromer Calcium Sorbitex [Veltassa] 8.4 gm PO DAILY 11/25/18 [History] Aspirin [Lo-Dose Aspirin EC] 81 mg PO DAILY 12/03/18 [History] B-Complex with Vitamin C [Vitamin B-Complex with Vit C] 1 tab PO DAILY 12/18/18 [History] HYDROcodone/Acet 7.5/325 mg [[place] 7.5-325 mg] 1 tab PO Q6H PRN 12/18/18 [History] LORazepam [Ativan] 0.5 mg PO Q6H PRN 12/18/18 [History] NIFEdipine [Nifedipine ER] 90 mg PO DAILY 12/18/18 [History] Nitroglycerin [Nitrostat] 0.4 mg SL Q5MIN PRN MDD X3 DOSES CALL 911 12/18/18 [History] Tiotropium [Spiriva] 18 mcg IH DAILY 12/18/18 [History] Budesonide/Formoterol 80/4.5 [Symbicort 80/4.5] 1 puff IH BIDR #1 inhaler 12/20/18 [Rx] Insulin LISPRO [Humalog] 0 unit SQ ACHS #1 cartridge 12/20/18 [Rx] Ipratropium/Albuterol Neb [Duoneb] 3 ml IH Q6H PRN #30 inhsol 12/20/18 [Rx] FLUoxetine HCl [Prozac] 20 mg PO DAILY 12/24/18 [History] Amoxicillin/Clavulanate [Augmentin] 500 mg PO Q24H #14 tablet 12/29/18 [Rx] Carvedilol 37.5 mg PO BID #60 tablet 12/29/18 [Rx] Losartan [Cozaar] 50 mg PO DAILY #30 tablet 12/29/18 [Rx] Torsemide [Demadex] 60 mg PO BIDDIURETIC #60 tablet 12/29/18 [Rx] Allergy/AdvReac Type Severity Reaction Status Date / Time pregabalin [From Lyrica] Allergy See Verified 12/24/18 17:22 Comments codeine AdvReac Nausea Verified 12/24/18 17:22 ivp dye Allergy See Uncoded 12/24/18 17:22 Comments All Systems PM: A 10-system review of systems was performed and is negative for pertinent findings except as documented above in the HPI. - Constitutional Constitutional: chills, weakness, no fever(s) - EENT Eyes: no photophobia Nose, mouth and throat: no dysphagia - Cardiovascular Cardiovascular ROS IM: no chest pain, no edema, no lightheadedness, no palpitations, no paroxysmal nocturnal dyspnea - Respiratory Respiratory: dyspnea, no cough, no dyspnea on exertion - Gastrointestinal Gastrointestinal: no abdominal pain, no nausea, no tenesmus - Genitourinary Genitourinary: no dysuria, no urinary frequency, no urinary incontinence, no urinary urgency - Musculoskeletal Musculoskeletal ROS IM: no arthralgias, no muscle weakness - Integumentary Integumentary IM: no erythema - Neurological Neurological ROS: no frequent falls, no lack of coordination - Psychiatric Psychiatric: no anxiety, no hopelessness, no irritability - Endocrine Endocrine IM: no cold intolerance, no excessive sweating - Hematologic/Lymphatic Hematologic/Lymphatic: no lymphadenopathy - Allergic/Immunologic Allergic/Immunologic: no wheezing, no GI upset with certain foods - Constitutional Vitals: Temp Pulse Resp BP Pulse Ox 97.6 F 84 16 159/75 95 01/04/19 08:01 01/04/19 08:01 01/04/19 08:01 01/04/19 08:01 01/04/19 08:01 Exam: Vitals: Reviewed General: Alert and oriented x4. In mild distress due to shortness of breath Cardiovascular: RRR, normal S1 & S2, no rubs, murmurs or gallops. Lungs: CTA b/l, no wheezes or crackles. Abdomen:Obese, soft, non-tender, no rigidity. Extremities: B/L BKA Neurological: Normal cognition Rest of the physical exam is non contributory Internal Med - H&P Results - Impressions ITS Impressions Chest X-Ray 01/04/19 07:39 IMPRESSION: Findings are suggestive of new pulmonary edema with increasing small to moderate bilateral pleural effusions with adjacent airspace opacities. D/ / 01/04/2019 08:39:14 Karen Ladd MD / Tessa Mills Interpreting Provider: Karen Ladd MD - Diagnostic Studies Chest x-ray Status: image reviewed by me (Pulmonary vascular congestion ) - Assessment and Plan (1) (HFpEF) heart failure with preserved ejection fraction Current Visit: No Status: Acute Assessment and plan: Patient presenting with shortness of breath, orthopnea. and x-ray findings of pulmonary vascular congestion. and decrease urinary output for the past 24 hours. Plan strict intake and out put. Plus fluids restriction to 1.5 litters a day will resume tosemide 60mg/PO daily Nephrology consulted for assistance with volume management. patient on HD M,W,F. daily weight Qualifiers: Heart failure chronicity: acute on chronic Qualified Code(s): I50.33 - Acute on chronic diastolic (congestive) heart failure (2) Acute and chronic respiratory failure Current Visit: No Status: Acute Assessment and plan: Possible due to acute HFpEF exacerbation. chest is clear on auscultation. patient with increase O2 requirement. On 2 litters of O2 at home and requiring 5 litters of O2 on this admission. Plan started on bronchodilators Q4RT scheduled incentive spirometry will resume singular and symbicort continue O2 by nasal cannula, titrate for O2sat >90% ABG ordered Qualifiers: Respiratory failure complication: hypoxia Qualified Code(s): J96.21 - Acute and chronic respiratory failure with hypoxia (3) DVT prophylaxis Current Visit: No Status: Chronic Assessment and plan: patient with b/l BKA. on Apixaban (4) Depression Current Visit: No Status: Chronic Assessment and plan: Patient is on fluoxetine 20 mg by mouth daily. Qualifiers: Depression Type: major depressive disorder Major depression recurrence: recurrent Active/Remission status: currently active Major depression episode severity: moderate Qualified Code(s): F33.1 - Major depressive disorder, recurrent, moderate (5) CAD (coronary artery disease) Current Visit: No Status: Chronic Assessment and plan: Continue aspirin 81 mg by mouth daily. Qualifiers: Coronary Disease-Associated Artery/Lesion type: [place] artery [place] vs. transplanted heart: [place] heart Associated angina: without angina Qualified Code(s): I25.10 - Atherosclerotic heart disease of [place] coronary artery without angina pectoris (6) Diabetes mellitus Current Visit: No Status: Chronic Assessment and plan: Cardiac controlled diet. started on short and long acting insulin coverage. Qualifiers: Diabetes mellitus type: type 2 Diabetes mellitus long term care phlebotomist insulin use: with long term care phlebotomist use Diabetes mellitus complication status: with neurologic complications Diabetes mellitus complication detail: with polyneuropathy Qualified Code(s): E11.42 - Type 2 diabetes mellitus with diabetic polyneuropathy; Z79.4 - detention (current) use of insulin; Z79.4 - detention (current) use of insulin; Z79.4 - detention (current) use of insulin; Z79.4 - oil heaterman (current) use of insulin (7) ESRD (end stage renal disease) on dialysis Current Visit: No Status: Chronic Assessment and plan: Patient on HD M,W,F. reported not completing HD on Monday due to neck pain. avoid nephrotoxic medications renal replacement therapy as scheduled nephrology recommendations appreciated (8) HTN (hypertension) Current Visit: No Status: Chronic Assessment and plan: will resume patient's home medications. Qualifiers: Hypertension type: essential hypertension Qualified Code(s): I10 - Essential (primary) hypertension (9) Hypercoagulable state Current Visit: No Status: Chronic Assessment and plan: On apixaban 2.5mg/PO BID. (10) Pulmonary hypertension Current Visit: No Status: Chronic (11) Multifocal pneumonia Current Visit: No Status: Resolved Assessment and plan: Patient recently discharged on Augmentin to complete a 10 days treatment course. will resume medication. - Time Spent With Patient Total time spent is greater than 50% in coordination of care (as documented) at patient's floor/unit and/or counseling patient: Greater than 35 minutes (40)
[2019-01-04 09:41] LABS: Hematocrit 27.9 % (35.3-44.9); Hemoglobin 8.7 g/dL (11.5-15.4); Mean Corpuscular HGB Conc 31.2 g/dL (31.6-35.5); Mean Corpuscular Hemoglobin 28.7 pg (28.0-33.3); Mean Corpuscular Volume 92.1 fL (83.0-100.0); Mean Platelet Volume 10.1 fL (9.4-12.4); Platelet Count 325 K/mcL (140-400); Red Blood Count 3.03 M/mcL (3.82-4.97); Red Cell Distribution Width 15.8 % (11.5-14.5); White Blood Count 9.3 K/mcL (4.3-11.1)
[2019-01-04 09:46] LABS: INR 1.1; Prothrombin Time 12.4 Seconds (9.4-12.1)
[2019-01-04 09:48] LABS: Activated Partial Thrombo Time 34.5 Seconds (26.0-36.0); Potassium 5.7 mEq/L (3.5-5.1)
[2019-01-04 09:49] LABS: Albumin 3.5 g/dL (3.5-5.7); Albumin/Globulin Ratio 1.2 (1.1-2.2); Bilirubin,Total 0.4 mg/dL (0.3-1.0); Calcium 9.1 mg/dL (8.6-10.3); Magnesium 2.1 mg/dL (1.6-2.6); Total Protein 6.5 g/dL (6.4-8.9)
[2019-01-04] MEDS ORDERED: 0.9 % Sodium Chloride 250 ML IVC PRN (10:08)
[2019-01-04] MEDS ORDERED: 0.9 % Sodium Chloride 1,000 ML PRIME SCH (10:15)
[2019-01-04 10:22] LABS: Lymphocytes # 0.8 K/mcL (0.6-4.6); Neutrophils # 8.5 K/mcL (1.6-8.9); Platelet Estimate Normal (Normal)
--- NOTE | 2019-01-04 10:24 | Nephrology Consult Note ---
Date of Encounter: 01/04/19 Time of Encounter: 10:21 Assessment and Plan (1) ESRD (end stage renal disease) on dialysis Current Visit: Yes Status: Acute Current regimen is MW in [place]. Plan for HD today. Renal diet Renal vitamins Strict I/O Avoid nephrotoxins and renal dose all medications. (2) (HFpEF) heart failure with preserved ejection fraction Current Visit: No Status: Acute Per primary. Qualifiers: Heart failure chronicity: acute on chronic Qualified Code(s): I50.33 - Acute on chronic diastolic (congestive) heart failure (3) Acute respiratory failure with hypoxia Current Visit: No Status: Acute Per primary. History of Present Illness - Reason for Consult Consult date: 01/04/19 end stage renal disease Requesting physician: Napoleon Edwards - Chief Complaint difficulty in breathing - History of Present Illness Ms. Simon is a 58 year old female who presented with shortness of breath that started yesterday. Denies fever, chills, sputum production. Denies nausea, vomi ting, diarrhea. PMH: CHF, COPD, coronary artery disease, CVA, DVT, diabetes. ESRD current regimen MWF in [place]. She does not know the name of her behavioral health aide. Her last HD treatment was Monday, she did sign off an hour early due to neck cramping. Unsure if this is accurate primary team reports last HD tx as Monday. Plan for HD today. She lives at home alone.She is a former smoker, denies ETOH or illicit drug use. Denies FH of CKD of HD. Past Med Surg Social Fam HX - Past Medical History Medical history: CHF, COPD, coronary artery disease, CVA, DVT, diabetes, dialysis, fibromyalgia, hyperlipidemia, hypertension, peripheral artery disease, renal disease Psychiatric history: anxiety, depression - Past Surgical History Surgical History: , hysterectomy Additional surgical history: shoulder surgery, torn cuff. right hand carpel tunnel. abdominal hernia with mesh implant. Bilateral below the knee amp - Social History Smoking Status: Former smoker Smokeless Tobacco Status: No Alcohol use: none Drug use: none - Family History Sister Hx Family Cardiac Disorders: Yes (Cardiac bypass) Father Family Member Ethnicity: Non- Hx Family Cancer: Yes (Colon cancer) Mother Family Member Ethnicity: Non- Medications and Allergies Folic Acid/Vit Bcomp,C [Renal-Diego Tablet] 0.8 mg PO DAILY 03/24/17 [History] Calcium Acetate [Phos-LO] 2 cap PO TIDWM 08/12/17 [History] Cetirizine HCl [24Hour Allergy] 10 mg PO DAILY 08/12/17 [History] Ergocalciferol (VITAMIN D2) [Vitamin D2] 50,000 unit PO GUERRA 08/12/17 [History] rOPINIRole [Requip] 1 mg PO HS 08/12/17 [History] Amitriptyline [Elavil] 50 mg PO HS 11/25/18 [History] Apixaban [Eliquis] 2.5 mg PO BID 11/25/18 [History] Insulin Glargine [Lantus] 12 unit SQ Q12H MDD PLUS SLIDING SCALE 11/25/18 [History] Montelukast [Singulair] 10 mg PO DAILY 11/25/18 [History] Pantoprazole Sodium 40 mg PO DAILY 11/25/18 [History] Patiromer Calcium Sorbitex [Veltassa] 8.4 gm PO DAILY 11/25/18 [History] Aspirin [Lo-Dose Aspirin EC] 81 mg PO DAILY 12/03/18 [History] B-Complex with Vitamin C [Vitamin B-Complex with Vit C] 1 tab PO DAILY 12/18/18 [History] HYDROcodone/Acet 7.5/325 mg [[place] 7.5-325 mg] 1 tab PO Q6H PRN 12/18/18 [History] LORazepam [Ativan] 0.5 mg PO Q6H PRN 12/18/18 [History] NIFEdipine [Nifedipine ER] 90 mg PO DAILY 12/18/18 [History] Nitroglycerin [Nitrostat] 0.4 mg SL Q5MIN PRN MDD X3 DOSES CALL 911 12/18/18 [History] Tiotropium [Spiriva] 18 mcg IH DAILY 12/18/18 [History] Budesonide/Formoterol 80/4.5 [Symbicort 80/4.5] 1 puff IH BIDR #1 inhaler 12/20/18 [Rx] Insulin LISPRO [Humalog] 0 unit SQ ACHS #1 cartridge 12/20/18 [Rx] Ipratropium/Albuterol Neb [Duoneb] 3 ml IH Q6H PRN #30 inhsol 12/20/18 [Rx] FLUoxetine HCl [Prozac] 20 mg PO DAILY 12/24/18 [History] Amoxicillin/Clavulanate [Augmentin] 500 mg PO Q24H #14 tablet 12/29/18 [Rx] Carvedilol 37.5 mg PO BID #60 tablet 12/29/18 [Rx] Losartan [Cozaar] 50 mg PO DAILY #30 tablet 12/29/18 [Rx] Torsemide [Demadex] 60 mg PO BIDDIURETIC #60 tablet 12/29/18 [Rx] Allergy/AdvReac Type Severity Reaction Status Date / Time pregabalin [From Lyrica] Allergy See Verified 12/24/18 17:22 Comments codeine AdvReac Nausea Verified 12/24/18 17:22 ivp dye Allergy See Uncoded 12/24/18 17:22 Comments Review of Systems All Systems review (narrative): The remainder of the systems are negative. Constitutional: fatigue, no chills, no fever(s) Cardiovascular: dyspnea, dyspnea on exertion, no chest pain, no edema Gastrointestinal: no change in bowel habits, no diarrhea, no nausea, no vomiting Exam - Vital Signs Vital signs: Initial Vital Signs Temp Pulse Resp BP Pulse Ox 98.0 F 84 17 88/59 92 01/04/19 04:16 01/04/19 04:16 01/04/19 04:16 01/04/19 04:16 01/04/19 04:16 Vital Signs - Last 8 Hours Temp Pulse Resp BP Pulse Ox 01/04/19 09:25 93 01/04/19 08:01 97.6 F 84 16 159/75 95 01/04/19 04:24 139/71 01/04/19 04:16 98.0 F 84 17 88/59 92 Intake and Output 01/03/19 01/04/19 01/04/19 23:59 07:59 15:59 Intake Total 360 / 360 Balance 360 / 360 Intake: Oral 360 / 360 Other: Meal Breakfast Percent of Meal Consumed 70% Weight 77.9 kg Blood Glucose* 360 Patient Weight 01/04/19 23:59 Weight 77.9 kg - General Appearance General appearance: chronically ill EENT: ATNC Neck: supple Respiratory: clear Cardiology: no edema, normal S1, normal S2 - Dialysis Access Dialysis Vascular Access: Arteriovenous Fistula thrill: Yes bruit: Yes Gastrointestinal: normoactive bowel sounds, no tenderness, no guarding Integumentary: no rash, warm and dry Neurologic: alert and oriented x3 Musculoskeletal: no deformities, no erythema Psychiatric: mood/affect appropriate, cooperative Results - Lab Results 01/04/19 09:18 01/04/19 09:18 Most recent lab results 01/04/19 09:18 Calcium 9.1 Phosphorus 6.0 H Magnesium 2.1 Consult Discharge Plan - Plan Referrals: NONE,PCP [Primary Care Provider] -
[2019-01-04] MEDS: Budesonide/Formoterol 160/4.5 1 PUFF INH IH SCH ×2 (10:33→19:58)
[2019-01-04 11:03] LABS: ABG Base Excess 1 mEq/L (-2 to 3); ABG HCO3 27 mEq/L (21-27); ABG Oxygen Saturation 92 % (95-98); ABG PCO2 51 mmHg (35-45); ABG PH 7.34 pH Units (7.32-7.45); ABG PO2 70 mmHg (85-104); ABG TCO2 29 mEq/L (20-26)
[2019-01-04] MEDS ORDERED: Insulin LISPRO 300 UNITS/3 ML VIAL SQ SCH (11:30)
[2019-01-04] MEDS: NIFEdipine XL (24 HR) 60 MG TAB.ER.24 PO SCH (15:17)
[2019-01-04] MEDS: rOPINIRole 1 MG TABLET PO SCH (20:52)
[2019-01-04] MEDS: Insulin DETEMIR 100 UNIT/ML X5UNITS SQ SCH (20:53)
[2019-01-05] MEDS: traMADol 50 MG TABLET PO PRN ×3 (00:37→21:39)
[2019-01-05] MEDS: Budesonide/Formoterol 160/4.5 1 PUFF INH IH SCH ×2 (07:56→19:13)
[2019-01-05] MEDS: Insulin LISPRO 300 UNITS/3 ML VIAL SQ SCH ×3 (08:17→17:22)
[2019-01-05] MEDS: NIFEdipine XL (24 HR) 60 MG TAB.ER.24 PO SCH (08:26)
[2019-01-05] MEDS: Ondansetron ODT 4 MG TAB.RAPDIS SL PRN (08:26)
[2019-01-05] MEDS: FLUoxetine 20 MG CAPSULE PO SCH (08:26)
[2019-01-05] MEDS: Apixaban 5 MG TABLET PO SCH ×2 (08:27→21:33)
[2019-01-05] MEDS: Aspirin Enteric Coated 81 MG Tablet PO SCH (08:27)
[2019-01-05] MEDS: Torsemide 20 MG TABLET PO SCH ×2 (08:27→21:33)
--- NOTE | 2019-01-05 09:43 | Nephrology Progress Note ---
Date of Encounter: 01/05/19 Time of Encounter: 09:42 - Assessment and Plan (1) ESRD (end stage renal disease) on dialysis Current Visit: Yes Status: Acute Current regimen is MW in [place]. Plan for HDMonday Renal diet Renal vitamins Strict I/O Avoid nephrotoxins and renal dose all medications. (2) Acute respiratory failure with hypoxia Current Visit: No Status: Acute Subjective Principal diagnosis: esrd Interval history: Patient seen. She has no new complaint. Objective - Vital Signs Vital signs: Vital Signs Temp Pulse Resp BP Pulse Ox 01/05/19 08:11 97.5 F L 84 16 167/82 91 01/05/19 04:58 98.5 F 90 16 162/79 93 01/04/19 23:19 98.6 F 92 16 147/63 95 01/04/19 20:00 18 95 01/04/19 19:44 98.4 F 98 16 158/68 96 01/04/19 16:52 98.1 F 93 18 160/70 94 01/04/19 14:30 128/68 01/04/19 14:15 127/66 01/04/19 14:00 146/69 01/04/19 13:45 136/60 01/04/19 13:30 148/69 01/04/19 13:15 143/74 01/04/19 13:00 145/68 01/04/19 12:45 151/79 01/04/19 12:30 150/78 01/04/19 12:15 157/78 01/04/19 12:00 156/72 01/04/19 11:45 148/76 01/04/19 11:30 153/68 01/04/19 11:15 157/82 01/04/19 11:00 97.9 F 18 144/75 01/04/19 10:33 18 93 Intake and Output 01/04/19 01/05/19 01/05/19 23:59 07:59 15:59 Intake Total 240 / 1440 0 / 240 240 / 240 Output Total 0 / 0 Balance 240 / 1440 0 / 240 240 / 240 Intake: Oral 240 / 840 0 / 240 240 / 240 Output: Urine 0 / 0 Other: Meal Dinner Breakfast Percent of Meal Consumed 5% 40% Stool Size Moderate Stool Consistency soft formed Stool Color Brown Blood Glucose* 313 60 - General Appearance General appearance: Present: well-developed, well-nourished EENT: Present: ATNC Neck: Present: supple Cardiology: Present: regular rate Neurologic: Present: alert and oriented x3 Psychiatric: Present: mood/affect appropriate - Lab 01/06/19 04:34 01/06/19 04:34 Consult Discharge Plan - Plan Referrals: NONE,PCP [Primary Care Provider] -
[2019-01-05 10:14] LABS: Calcium 8.7 mg/dL (8.6-10.3); Potassium 3.7 mEq/L (3.5-5.1)
--- NOTE | 2019-01-05 13:59 | Internal Med Progress Note ---
Hospitalist Progress Note - Encounter Date of Encounter: 01/05/19 Time of Encounter: 13:59 - Subjective Interval History: I have seen and evaluated the patient at bedside. patient reports feeling well today, reports her shortness of breath has resolved. denies chest pain, nausea or vomiting. denies abdominal pain. - Exam Vitals: Temp Pulse Resp BP Pulse Ox 98.0 F 90 19 159/80 93 01/05/19 12:04 01/05/19 12:04 01/05/19 12:04 01/05/19 12:04 01/05/19 12:04 Exam: Vitals: Reviewed General: Alert and oriented x4. In no distress Cardiovascular: RRR, normal S1 & S2, no rubs, murmurs or gallops. Lungs: CTA b/l, no wheezes or crackles. Abdomen:Obese, soft, non-tender, no rigidity. NABS in all 4 quadrants Extremities: B/L BKA Neurological: Normal cognition Rest of the physical exam is non contributory - Assessment and Plan (1) (HFpEF) heart failure with preserved ejection fraction Current Visit: No Status: Acute Assessment and Plan: significant improvement after HD. on fluids restriction to 1.6 litters a [place] will increase torsemide to 60mg/PO BID nephrology assistance in volume removal appreciated (2) Acute and chronic respiratory failure Current Visit: No Status: Resolved Assessment and Plan: Plan continue bronchodilators Q4RT scheduled incentive spirometry on singular and symbicort 2 by nasal cannula, titrate for O2sat >90% (3) Depression Current Visit: No Status: Chronic Assessment and Plan: Patient is on fluoxetine 20 mg by mouth daily. (4) CAD (coronary artery disease) Current Visit: No Status: Chronic Assessment and Plan: On aspirin 81 mg by mouth daily. (5) Diabetes mellitus Current Visit: No Status: Chronic Assessment and Plan: Blood sugar is well controlled. Continue short and long acting insulin coverage. Carb controlled diet. (6) ESRD (end stage renal disease) on dialysis Current Visit: No Status: Chronic Assessment and Plan: Patient on HD M,W,F. avoid nephrotoxic medications Renal replacement therapy per nephrology recommendations (7) HTN (hypertension) Current Visit: No Status: Chronic Assessment and Plan: Blood pressures well controlled on her home medication. Continue current management. (8) Hypercoagulable state Current Visit: No Status: Chronic Assessment and Plan: On apixaban 2.5mg/PO BID. (9) Pulmonary hypertension Current Visit: No Status: Chronic (10) Multifocal pneumonia Current Visit: No Status: Resolved Assessment and Plan: Continue Augmentin to complete a 10 days treatment course. DVT Prophylaxis: patient on an oral anticoagulant - Summary of Assessment and Plan Summary of Assessment and Plan: patient to remain in the hospital due to acute HFpEF exacerbation. potential di scharge in 1-2 days - Time Spent with Patient Total time spent is greater than 50% in coordination of care (as documented) at patient's floor/unit and/or counseling patient: Greater than 35 minutes (40) Plan of Care Discussed with: patient (and the nurse) Internal Medicine: Result - Labs CBC & Chem 7: 01/04/19 09:18 01/05/19 09:23 Labs: BMP 01/05/19 09:23 Sodium 137 Potassium 3.7 Chloride 93 L Carbon Dioxide 32 H BUN 29 H Creatinine 3.68 H Glucose 167 H Calcium 8.7 Cardiac Enzymes 01/04/19 01/04/19 Range/Units 13:36 19:31 Troponin I < 0.03 < 0.03 (< 0.04) ng/mL - ABG Interpretation ABG results: ABG ABG pH 7.34 pH Units (7.32-7.45) 01/04/19 10:59 ABG pCO2 51 mmHg (35-45) H 01/04/19 10:59 ABG pO2 70 mmHg (85-104) L 01/04/19 10:59 ABG O2 Saturation 92 % (95-98) L 01/04/19 10:59 PT/INR, D-dimer PT 12.4 Seconds (9.4-12.1) H 01/04/19 09:18 - Impressions Impressions Chest X-Ray 01/04/19 07:39 IMPRESSION: Findings are suggestive of new pulmonary edema with increasing small to moderate bilateral pleural effusions with adjacent airspace opacities. D/ / 01/04/2019 08:39:14 Karen Ladd MD / Tessa Mills Interpreting Provider: Karen Ladd MD Consult Discharge Plan - Plan Referrals: NONE,PCP [Primary Care Provider] - (1) (HFpEF) heart failure with preserved ejection fraction Qualifiers: Heart failure chronicity: acute on chronic Qualified Code(s): I50.33 - Acute on chronic diastolic (congestive) heart failure (2) Acute and chronic respiratory failure Qualifiers: Respiratory failure complication: hypoxia Qualified Code(s): J96.21 - Acute and chronic respiratory failure with hypoxia (3) Depression Qualifiers: Depression Type: major depressive disorder Major depression recurrence: recurrent Active/Remission status: currently active Major depression episode severity: moderate Qualified Code(s): F33.1 - Major depressive disorder, recurrent, moderate (4) CAD (coronary artery disease) Qualifiers: Coronary Disease-Associated Artery/Lesion type: [place] artery [place] vs. transplanted heart: [place] heart Associated angina: without angina Qualified Code(s): I25.10 - Atherosclerotic heart disease of [place] coronary artery without angina pectoris (5) Diabetes mellitus Qualifiers: Diabetes mellitus type: type 2 Diabetes mellitus jail insulin use: with superintendent container terminal use Diabetes mellitus complication status: with neurologic complica tions Diabetes mellitus complication detail: with polyneuropathy Qualified Code(s): E11.42 - Type 2 diabetes mellitus with diabetic polyneuropathy; Z79.4 - adjunct faculty for medical terminology (current) use of insulin; Z79.4 - detention (current) use of insulin; Z79.4 - adjunct faculty for medical terminology (current) use of insulin; Z79.4 - detention (current) use of insulin (7) HTN (hypertension) Qualifiers: Hypertension type: essential hypertension Qualified Code(s): I10 - Essential (primary) hypertension
[2019-01-05] MEDS: rOPINIRole 1 MG TABLET PO SCH (21:33)
[2019-01-05] MEDS: Insulin DETEMIR 100 UNIT/ML X5UNITS SQ SCH (21:33)
[2019-01-05] MEDS ORDERED: Melatonin 3 MG TABLET PO PRN (23:36)
[2019-01-06 05:00] LABS: Eosinophils % 5.2 %; Hematocrit 26.8 % (35.3-44.9); Hemoglobin 8.1 g/dL (11.5-15.4); Immature Granulocytes % 1.1 % (0-4); Lymphocytes % 22.7 %; Mean Corpuscular HGB Conc 30.2 g/dL (31.6-35.5); Mean Corpuscular Hemoglobin 28.3 pg (28.0-33.3); Mean Corpuscular Volume 93.7 fL (83.0-100.0); Mean Platelet Volume 9.7 fL (9.4-12.4); Monocytes % 7.1 %; Platelet Count 370 K/mcL (140-400); Red Blood Count 2.86 M/mcL (3.82-4.97); Red Cell Distribution Width 16.1 % (11.5-14.5); Segmented Neutrophils % 63.6 %; White Blood Count 10.5 K/mcL (4.3-11.1)
[2019-01-06 05:01] LABS: Basophils % 0.3 %; Eosinophils # 0.6 K/mcL (0.0-0.6); Lymphocytes # 2.4 K/mcL (0.6-4.6); Monocytes # 0.8 K/mcL (0.0-1.3); Neutrophils # 6.7 K/mcL (1.6-8.9)
[2019-01-06 05:17] LABS: Calcium 8.2 mg/dL (8.6-10.3); Magnesium 2.1 mg/dL (1.6-2.6); Phosphorous 4.6 mg/dL (2.7-4.5); Potassium 4.7 mEq/L (3.5-5.1)
[2019-01-06] MEDS: Insulin LISPRO 300 UNITS/3 ML VIAL SQ SCH ×2 (08:26→11:57)
[2019-01-06] MEDS: Apixaban 5 MG TABLET PO SCH (08:35)
[2019-01-06] MEDS: Torsemide 20 MG TABLET PO SCH (08:35)
[2019-01-06] MEDS: FLUoxetine 20 MG CAPSULE PO SCH (08:35)
[2019-01-06] MEDS: Aspirin Enteric Coated 81 MG Tablet PO SCH (08:35)
[2019-01-06] MEDS: NIFEdipine XL (24 HR) 60 MG TAB.ER.24 PO SCH (08:35)
[2019-01-06] MEDS: Ondansetron ODT 4 MG TAB.RAPDIS SL PRN (08:36)
[2019-01-06] MEDS: traMADol 50 MG TABLET PO PRN (08:36)
[2019-01-06] MEDS: Budesonide/Formoterol 160/4.5 1 PUFF INH IH SCH (10:56)
[2019-01-06 11:57] VITALS: BP 164/77
--- NOTE | 2019-01-06 12:34 | Discharge Summary ---
Date of Encounter: 01/06/19 Time of Encounter: 12:32 - Discharge Diagnosis (1) (HFpEF) heart failure with preserved ejection fraction Priority: Primary Status: Resolved Qualifiers: Heart failure chronicity: acute on chronic Qualified Code(s): I50.33 - Acute on chronic diastolic (congestive) heart failure (2) Acute and chronic respiratory failure Priority: Secondary Status: Resolved Qualifiers: Respiratory failure complication: hypoxia Qualified Code(s): J96.21 - Acute and chronic respiratory failure with hypoxia (3) Depression Priority: Secondary Status: Chronic Qualifiers: Depression Type: major depressive disorder Major depression recurrence: recurrent Active/Remission status: currently active Major depression episode severity: moderate Qualified Code(s): F33.1 - Major depressive disorder, recurrent, moderate (4) CAD (coronary artery disease) Priority: Secondary Status: Chronic Qualifiers: Coronary Disease-Associated Artery/Lesion type: [place] artery [place] vs. transplanted heart: [place] heart Associated angina: without angina Qualified Code(s): I25.10 - Atherosclerotic heart disease of [place] coronary artery without angina pectoris (5) Diabetes mellitus Priority: Secondary Status: Chronic Qualifiers: Diabetes mellitus type: type 2 Diabetes mellitus predatory animal exterminator insulin use: with custodial use Diabetes mellitus complication status: with neurologic complications Diabetes mellitus complication detail: with polyneuropathy Qualified Code(s): E11.42 - Type 2 diabetes mellitus with diabetic polyneuropathy; Z79.4 - superintendent marine oil terminal (current) use of insulin; Z79.4 - longterm (current) use of insulin; Z79.4 - superintendent marine oil terminal (current) use of insulin; Z79.4 - L l[place] term (current) use of insulin (6) ESRD (end stage renal disease) on dialysis Priority: Secondary Status: Chronic (7) HTN (hypertension) Priority: Secondary Status: Chronic Qualifiers: Hypertension type: essential hypertension Qualified Code(s): I10 - Essential (primary) hypertension (8) Hypercoagulable state Priority: Secondary Status: Chronic (9) Pulmonary hypertension Priority: Secondary Status: Chronic (10) Multifocal pneumonia Priority: Secondary Status: Resolved Hospital course: Ms. Simon is a 58 year old female PMH of HFpEF, chronic respiratory failure on 2 litters of home O2, DM, b/l BKA, HTN and hypercoagulable state, HLD and depression. Patient presented to the hospital due to 1 day history of shortness of breath. Patient with recent admission for similar complain. Patient admitted to the hospital due to acute HfpEF exacerbation, patient managed with HD, and diuretics with resolution of her care symptoms. Patient completed a 10 days c ourse of oral antibiotics. Recommended to follow up with her HD as scheduled M,W,F. Patient is a potential readmission because patient lacks insight about her medical condition. - Time Spent with Patient Total time spent providing and/or coordinating discharge services: Time spent: Greater than 30 minutes (35) - Discharge Medications Prescriptions: Continued Folic Acid/Vit Bcomp,C [Renal-Diego Tablet] 0.8 mg PO DAILY rOPINIRole [Requip] 1 mg PO HS Calcium Acetate [Phos-LO] 2 cap PO TIDWM Ergocalciferol (VITAMIN D2) [Vitamin D2] 50,000 unit PO GUERRA Cetirizine HCl [24Hour Allergy] 10 mg PO DAILY Patiromer Calcium Sorbitex [Veltassa] 8.4 gm PO DAILY Montelukast [Singulair] 10 mg PO DAILY Amitriptyline [Elavil] 50 mg PO HS Apixaban [Eliquis] 2.5 mg PO BID Pantoprazole Sodium 40 mg PO DAILY Insulin Glargine [Lantus] 12 unit SQ Q12H MDD PLUS SLIDING SCALE Aspirin [Lo-Dose Aspirin EC] 81 mg PO DAILY B-Complex with Vitamin C [Vitamin B-Complex with Vit C] 1 tab PO DAILY HYDROcodone/Acet 7.5/325 mg [[place] 7.5-325 mg] 1 tab PO Q6H PRN PRN Reason: Pain LORazepam [Ativan] 0.5 mg PO Q6H PRN PRN Reason: Anxiety NIFEdipine [Nifedipine ER] 90 mg PO DAILY Nitroglycerin [Nitrostat] 0.4 mg SL Q5MIN PRN MDD X3 DOSES CALL 911 PRN Reason: Chest Pain Tiotropium [Spiriva] 18 mcg IH DAILY Ipratropium/Albuterol Neb [Duoneb] 3 ml IH Q6H PRN #30 inhsol PRN Reason: Dyspnea Budesonide/Formoterol 80/4.5 [Symbicort 80/4.5] 1 puff IH BIDR #1 inhaler Insulin LISPRO [Humalog] 0 unit SQ ACHS #1 cartridge FLUoxetine HCl [Prozac] 20 mg PO DAILY Losartan [Cozaar] 50 mg PO DAILY #30 tablet Torsemide [Demadex] 60 mg PO BIDDIURETIC #60 tablet Carvedilol 25 mg PO BID Discontinued Amoxicillin/Clavulanate [Augmentin] 500 mg PO Q24H #14 tablet Home Medications: Folic Acid/Vit Bcomp,C [Renal-Diego Tablet] 0.8 mg PO DAILY 03/24/17 [History] Calcium Acetate [Phos-LO] 2 cap PO TIDWM 08/12/17 [History] Cetirizine HCl [24Hour Allergy] 10 mg PO DAILY 08/12/17 [History] Ergocalciferol (VITAMIN D2) [Vitamin D2] 50,000 unit PO GUERRA 08/12/17 [History] rOPINIRole [Requip] 1 mg PO HS 08/12/17 [History] Amitriptyline [Elavil] 50 mg PO HS 11/25/18 [History] Apixaban [Eliquis] 2.5 mg PO BID 11/25/18 [History] Insulin Glargine [Lantus] 12 unit SQ Q12H MDD PLUS SLIDING SCALE 11/25/18 [History] Montelukast [Singulair] 10 mg PO DAILY 11/25/18 [History] Pantoprazole Sodium 40 mg PO DAILY 11/25/18 [History] Patiromer Calcium Sorbitex [Veltassa] 8.4 gm PO DAILY 11/25/18 [History] Aspirin [Lo-Dose Aspirin EC] 81 mg PO DAILY 12/03/18 [History] B-Complex with Vitamin C [Vitamin B-Complex with Vit C] 1 tab PO DAILY 12/18/18 [History] HYDROcodone/Acet 7.5/325 mg [[place] 7.5-325 mg] 1 tab PO Q6H PRN 12/18/18 [History] LORazepam [Ativan] 0.5 mg PO Q6H PRN 12/18/18 [History] NIFEdipine [Nifedipine ER] 90 mg PO DAILY 12/18/18 [History] Nitroglycerin [Nitrostat] 0.4 mg SL Q5MIN PRN MDD X3 DOSES CALL 911 12/18/18 [History] Tiotropium [Spiriva] 18 mcg IH DAILY 12/18/18 [History] Budesonide/Formoterol 80/4.5 [Symbicort 80/4.5] 1 puff IH BIDR #1 inhaler 12/20/18 [Rx] Insulin LISPRO [Humalog] 0 unit SQ ACHS #1 cartridge 12/20/18 [Rx] Ipratropium/Albuterol Neb [Duoneb] 3 ml IH Q6H PRN #30 inhsol 12/20/18 [Rx] FLUoxetine HCl [Prozac] 20 mg PO DAILY 12/24/18 [History] Losartan [Cozaar] 50 mg PO DAILY #30 tablet 12/29/18 [Rx] Torsemide [Demadex] 60 mg PO BIDDIURETIC #60 tablet 12/29/18 [Rx] Carvedilol 25 mg PO BID 01/04/19 [History] Allergies/Adverse Reactions: Allergy/AdvReac Type Severity Reaction Status Date / Time pregabalin [From Lyrica] Allergy See Verified 01/04/19 14:12 Comments codeine AdvReac Nausea Verified 01/04/19 14:12 ivp dye Allergy See Uncoded 01/04/19 14:12 Comments Date of admission: 01/04/19 03:39 Primary care physician: PCP NONE Consults: 01/04/19 07:40 Consult to Control System Computer Scientist [CONS] Routine Reason for SW Consult: discharge planning 01/04/19 07:44 Consult to Nephrology [CONS] Routine Consulting Provider: Kidney Maria E/FLAVIO/CHI/ANNA Reason for Consult: ESRD vol overloaded Call Completed: No 01/04/19 10:15 Consult to Dialysis [CONS] ONCE - Constitutional Vitals: Temp Pulse Resp BP Pulse Ox 98.3 F 85 17 164/77 95 01/06/19 11:54 01/06/19 11:54 01/06/19 11:54 01/06/19 11:54 01/06/19 11:54 Exam: Vitals: Reviewed General: Alert and oriented x4. In no distress Cardiovascular: RRR, normal S1 & S2, no rubs, murmurs or gallops. Lungs: CTA b/l, no wheezes or crackles. Abdomen:Obese, soft, non-tender, no rigidity. NABS in all 4 quadrants Extremities: B/L BKA Neurological: Normal cognition Rest of the physical exam is non contributory - Patient Status Disposition: Home Health Service Condition: Fair Functional capacity at discharge: wheelchair bound Overall status at discharge: patient is back to baseline - Discharge Instructions Follow Up With: NONE,PCP [Primary Care Provider] - - Diet and Activity Activity: as per physical therapy Diet: diabetic diet, low salt diet
--- NOTE | 2019-01-06 12:39 | Physician Discharge Referral ---
Home Health/Hosp Referral Info Transfer to: Home Health - Diagnosis (1) (HFpEF) heart failure with preserved ejection fraction Priority: Primary Status: Resolved (2) Acute and chronic respiratory failure Priority: Secondary Status: Resolved (3) Depression Priority: Secondary Status: Chronic (4) CAD (coronary artery disease) Priority: Secondary Status: Chronic (5) Diabetes mellitus Priority: Secondary Status: Chronic (6) ESRD (end stage renal disease) on dialysis Priority: Secondary Status: Chronic (7) HTN (hypertension) Priority: Secondary Status: Chronic (8) Hypercoagulable state Priority: Secondary Status: Chronic (9) Pulmonary hypertension Priority: Secondary Status: Chronic (10) Multifocal pneumonia Priority: Secondary Status: Resolved - Respiratory Orders Oxygen / L per min (2 litters) Smoking Cessation: Smoking cessation has been advised. For more information, call the [place] Tobacco Quit Line at 0-292-IQXY-NOW. - Diet/Nutrition Diet/Nutrition Orders: Regular - Activity Activity Orders: Chair - Services Needed Following services are medically necessary services: Home Health Aide, Physical Therapy, Occupational Therapy - Transfer Medications Home Medications: Folic Acid/Vit Bcomp,C [Renal-Diego Tablet] 0.8 mg PO DAILY 03/24/17 [History] Calcium Acetate [Phos-LO] 2 cap PO TIDWM 08/12/17 [History] Cetirizine HCl [24Hour Allergy] 10 mg PO DAILY 08/12/17 [History] Ergocalciferol (VITAMIN D2) [Vitamin D2] 50,000 unit PO GUERRA 08/12/17 [History] rOPINIRole [Requip] 1 mg PO HS 08/12/17 [History] Amitriptyline [Elavil] 50 mg PO HS 11/25/18 [History] Apixaban [Eliquis] 2.5 mg PO BID 11/25/18 [History] Insulin Glargine [Lantus] 12 unit SQ Q12H MDD PLUS SLIDING SCALE 11/25/18 [History] Montelukast [Singulair] 10 mg PO DAILY 11/25/18 [History] Pantoprazole Sodium 40 mg PO DAILY 11/25/18 [History] Patiromer Calcium Sorbitex [Veltassa] 8.4 gm PO DAILY 11/25/18 [History] Aspirin [Lo-Dose Aspirin EC] 81 mg PO DAILY 12/03/18 [History] B-Complex with Vitamin C [Vitamin B-Complex with Vit C] 1 tab PO DAILY 12/18/18 [History] HYDROcodone/Acet 7.5/325 mg [[place] 7.5-325 mg] 1 tab PO Q6H PRN 12/18/18 [History] LORazepam [Ativan] 0.5 mg PO Q6H PRN 12/18/18 [History] NIFEdipine [Nifedipine ER] 90 mg PO DAILY 12/18/18 [History] Nitroglycerin [Nitrostat] 0.4 mg SL Q5MIN PRN MDD X3 DOSES CALL 911 12/18/18 [History] Tiotropium [Spiriva] 18 mcg IH DAILY 12/18/18 [History] Budesonide/Formoterol 80/4.5 [Symbicort 80/4.5] 1 puff IH BIDR #1 inhaler 12/20/18 [Rx] Insulin LISPRO [Humalog] 0 unit SQ ACHS #1 cartridge 12/20/18 [Rx] Ipratropium/Albuterol Neb [Duoneb] 3 ml IH Q6H PRN #30 inhsol 12/20/18 [Rx] FLUoxetine HCl [Prozac] 20 mg PO DAILY 12/24/18 [History] Losartan [Cozaar] 50 mg PO DAILY #30 tablet 12/29/18 [Rx] Torsemide [Demadex] 60 mg PO BIDDIURETIC #60 tablet 12/29/18 [Rx] Carvedilol 25 mg PO BID 01/04/19 [History] Allergies/Adverse Reactions: Allergy/AdvReac Type Severity Reaction Status Date / Time pregabalin [From Lyrica] Allergy See Verified 01/04/19 14:12 Comments codeine AdvReac Nausea Verified 01/04/19 14:12 ivp dye Allergy See Uncoded 01/04/19 14:12 Comments Certification: Further, I certify that my clinical findings support that this patient is homebound (i.e. absences from home require considerable and taxing effort and are for medical reasons or caodaism services or infrequently or short duration when for other reasons) because: Homebound Reason: Patient requires assistance of a person or device to safely leave home Attestation: My signature below is to certify that this patient is under my care and that I, or nurse practitioner, or a physician's actuarial assistant working with me, has a [id number] encounter with this patient.
--- NOTE | 2019-01-06 12:43 | Nephrology Progress Note ---
Date of Encounter: 01/06/19 Time of Encounter: 12:40 - Assessment and Plan (1) ESRD (end stage renal disease) on dialysis Current Visit: Yes Status: Acute Current regimen is MWF in [place]. Plan for HDMonday Renal diet Renal vitamins Strict I/O Avoid nephrotoxins and renal dose all medications. (2) Acute respiratory failure with hypoxia Current Visit: No Status: Acute (3) COPD (chronic obstructive pulmonary disease) Current Visit: Yes Status: Acute Patient had questions about her copd management. I advised her to ask her PCC and if she has more questions she should be referred to a shuttle car operator for evaluation. Qualifiers: Qualified Code(s): J44.9 - Chronic obstructive pulmonary disease, unspecified Subjective Principal diagnosis: esrd Interval history: Patient seen. She has no new complaint. She had questions about her COPD management. Objective - Vital Signs Vital signs: Vital Signs Temp Pulse Resp BP Pulse Ox 01/06/19 11:54 98.3 F 85 17 164/77 95 01/06/19 10:57 18 94 01/06/19 08:02 97.8 F 92 18 173/83 94 01/06/19 04:22 97.6 F 86 20 171/80 94 01/06/19 00:15 90 149/80 93 01/05/19 21:00 98.2 F 98 20 159/79 93 01/05/19 19:14 18 93 01/05/19 17:12 98.1 F 93 18 176/81 92 Intake and Output 01/05/19 01/06/19 01/06/19 23:59 07:59 15:59 Intake Total 300 / 1060 0 / 240 240 / 240 Output Total 0 / 200 200 / 200 Balance 300 / 1060 0 / 40 40 / 40 Intake: Oral 300 / 1060 0 / 240 240 / 240 Output: Urine 0 / 200 200 / 200 Other: Meal Breakfast Percent of Meal Consumed 100% # Voids 1 Weight 72.5 kg Blood Glucose* 313 198 Patient Weight 01/06/19 23:59 Weight 72.5 kg - General Appearance General appearance: Present: well-developed, well-nourished EENT: Present: ATNC Neck: Present: supple Cardiology: Present: regular rate - Lab 01/06/19 04:34 01/06/19 04:34 Most recent lab results 01/06/19 04:34 Calcium 8.2 L Phosphorus 4.6 H Magnesium 2.1 Consult Discharge Plan - Plan Referrals: NONE,PCP [Primary Care Provider] -
== END 2019-01-06 14:36 | disposition home health service (06) ==
LOC: 2ANU → SUATTDRO 01-04 03:39
PROVIDERS: ADMIT Family Medicine; ATTEND Internal Medicine

== ENCOUNTER 2019-01-21 21:30 | Inpatient (IN) ==
--- NOTE | 2019-01-22 02:04 | Internal Med History&Physical ---
<Darrell Bergman - Last Filed: 01/22/19 06:20> Date of Encounter: 01/22/19 Time of Encounter: 02:32 Internal Medicine - H&P: HPI Chief complaint: Dyspnea History of present illness: Ms. Simon is a 58 year old female with a PMH of CAD, CHF, COPD on 2 L of home O2, CVA, previous DVT on Eliquis, DM, HLD, HTN, PAD, ESRD on HD MWF who presented to [facility] as a transfer from [facility] with a chief complaint of shortness of breath of 3-4 weeks duration. She also complained of a nonproductive cough. She states that she was scheduled to undergo dialysis today, but she missed her dialysis session. She also reported left-sided pain associated with nausea and vomiting. Her initial vital signs were significant for an elevated BP 161/71, respiratory rate 20, O2 saturation 91% on 2.5 L of oxygen via nasal cannula. Labs demonstrated an elevated white blood cell count 15.2 with left shift. She also had a low sodium at 131, an elevated glucose at 281. Urinalysis was unremarkable. CXR demonstrated the presence of bilateral pleural effusions and pulmonary vascular congestion. She reported that she had lateral rib pain pain associated with nausea and vomiting. Reported no radiation of pain. Symptoms were not worse with exertion, food, movement, or position. Denies recent travel or sick contacts. EKG demonstrated normal sinus rhythm at 86 bpm. She was then transferred to [facility] for further management. Vitals on arrival were significant for an elevated blood pressure 164/86, an elevated heart rate at 91 bpm, and an O2 saturation of 90% on 3 L of oxygen via nasal cannula. This was later increased to 6 L via Oxymizer mask. Labs on transfer to [place] demonstrated an elevated white count of 13.2 with left shift, and elevated potassium of 5.2, sodium 131, and a creatinine of 6.39. Hemoglobin was low at 8.7, which is around baseline. She was treated for hospital-acquired pneumonia with vancomycin and Zosyn during her last admission. She was discharged with a course of Augmentin. During my interview with her, patient appears to be very short of breath. I had seen this patient during her previous admission, and she appears to be in similar respiratory distress. She has difficulty lying flat, she has a shortened inspi ratory phase, and she is tachypneic. She is conversant, but is only able to speak in short sentences before becoming short of breath. Her condition is likely due to volume overload due to missing a dialysis session. On physical exam, she does have signs of volume overload including abdominal swelling and bibasilar crackles. Plan is to consult nephrology for dialysis, Lasix 20 mg IV, and order oxygen/BiPAP as needed. Past Med Surg Social Fam HX - Past Medical History Medical history: CHF, COPD, coronary artery disease, CVA, DVT, diabetes, dialysis, fibromyalgia, hyperlipidemia, hypertension, peripheral artery disease, renal disease Psychiatric history: anxiety, depression - Past Surgical History Surgical History: , hysterectomy Additional surgical history: shoulder surgery, torn cuff. right hand carpel tunnel. abdominal hernia with mesh implant. Bilateral below the knee amp - Social History Smoking Status: Former smoker Smokeless Tobacco Status: No Alcohol use: none Drug use: none - Family History Sister Hx Family Cardiac Disorders: Yes (Cardiac bypass) Father Family Member Ethnicity: Non- Hx Family Cancer: Yes (colon) Mother Family Member Ethnicity: Non- Hx Family Cardiac Disorders: Yes Internal Medicine - H&P: Meds Calcium Acetate [Phos-LO] 2 cap PO ACHS 08/12/17 [History] Cetirizine HCl [24Hour Allergy] 10 mg PO DAILY 08/12/17 [History] rOPINIRole [Requip] 1 mg PO HS 08/12/17 [History] Amitriptyline [Elavil] 50 mg PO HS 11/25/18 [History] Apixaban [Eliquis] 2.5 mg PO BID 11/25/18 [History] Insulin Glargine [Lantus] 12 unit SQ Q12H 11/25/18 [History] Montelukast [Singulair] 10 mg PO DAILY 11/25/18 [History] Pantoprazole Sodium 40 mg PO DAILY 11/25/18 [History] Patiromer Calcium Sorbitex [Veltassa] 8.4 gm PO DAILY 11/25/18 [History] Aspirin [Lo-Dose Aspirin EC] 81 mg PO DAILY 12/03/18 [History] B-Complex with Vitamin C [Vitamin B-Complex with Vit C] 1 tab PO DAILY 12/18/18 [History] HYDROcodone/Acet 7.5/325 mg [[place] 7.5-325 mg] 1 tab PO Q4H PRN 12/18/18 [History] LORazepam [Ativan] 0.5 mg PO Q6H PRN 12/18/18 [History] NIFEdipine [Nifedipine ER] 90 mg PO DAILY 12/18/18 [History] Nitroglycerin [Nitrostat] 0.4 mg SL Q5MIN PRN MDD X3 DOSES CALL 911 12/18/18 [History] Tiotropium [Spiriva] 18 mcg IH DAILY 12/18/18 [History] Budesonide/Formoterol 80/4.5 [Symbicort 80/4.5] 1 puff IH BIDR #1 inhaler 12/20/18 [Rx] Insulin LISPRO [Humalog] 0 unit SQ ACHS #1 cartridge 12/20/18 [Rx] FLUoxetine HCl [Prozac] 20 mg PO DAILY 12/24/18 [History] Losartan [Cozaar] 50 mg PO DAILY #30 tablet 12/29/18 [Rx] Torsemide [Demadex] 60 mg PO BIDDIURETIC #60 tablet 12/29/18 [Rx] Carvedilol 25 mg PO BID 01/04/19 [History] Cholecalciferol (Vitamin D3) [Optimal D3] 50,000 units PO GUERRA 01/15/19 [History] Morphine Oral CONC [Roxanol] 5 mg PO Q4H PRN 01/15/19 [History] Ondansetron HCl [Zofran] 4 mg PO Q4H PRN 01/15/19 [History] Sennosides [Senna] 8.6 mg PO BID PRN 01/15/19 [History] Amoxicillin/Clavulanate [Augmentin] 500 mg PO DAILY 7 Days #7 tablet 01/17/19 [Rx] Acetaminophen [Tylenol 650mg SUPP] 650 mg RC Q4H PRN 01/22/19 [History] Albuterol Sulfate [Ventolin Hfa] 2 puff IH Q6H PRN 01/22/19 [History] Haloperidol [Haldol] 1 mg PO Q2H PRN 01/22/19 [History] Hyoscyamine SL [Levsin Sl] 0.125 mg SL Q2H PRN 01/22/19 [History] Ipratropium/Albuterol Neb [Duoneb] 3 ml IH Q6H 01/22/19 [History] Allergy/AdvReac Type Severity Reaction Status Date / Time pregabalin [From Lyrica] Allergy See Verified 01/21/19 23:50 Comments codeine AdvReac Nausea Verified 01/21/19 23:50 ivp dye Allergy See Uncoded 01/15/19 21:36 Comments All Systems PM: A 10-system review of systems was performed and is negative for pertinent findings except as documented above in the HPI. - Constitutional Constitutional: no chills, no fatigue - Cardiovascular Cardiovascular ROS IM: dyspnea, dyspnea on exertion, orthopnea, no chest pain, no palpitations - Respiratory Respiratory: dyspnea, dyspnea on exertion, no cough, no wheezing - Constitutional Vitals: Temp Pulse Resp BP Pulse Ox 98.9 F 91 17 164/86 90 01/21/19 23:59 01/21/19 23:59 01/21/19 23:59 01/21/19 23:59 01/22/19 00:09 Exam: General: Anxious appearing, Significant respiratory distress; currently on oxygen mask Head: atraumatic, normocephalic Eye: PERRL, EOMI, conjuntiva pink, sclera anicteric Neck: Supple, trachea midline Respiratory: Diminished breath sounds, tachypnea, shortened inspiratory phase, bibasilar crackles Cardiovascular: Tachycardic, +S1, +S2; no murmurs, rubs, gallops Abdomen: +1 pitting edema in the abdomen Extremities: Bilateral lower extremity amputations; no signs of edema present Psychiatric: Normal affect, normal mood Skin: Dry, intact Internal Med - H&P Results - Labs CBC & Chem 7: 01/22/19 02:36 01/22/19 02:36 - Assessment and Plan (1) Acute and chronic respiratory failure with hypoxia Current Visit: No Status: Acute Assessment and plan: - Presented with shortness of breath of 3-4 weeks duration; acutely worsened today on the way to dialysis - Etiology is likely multifactorial due to CHF exacerbation, volume overload from missing dialysis, and pneumonia - Per chart review, patient had been treated for hospital-acquired pneumonia during her previous admission on 01/14; was treated with vancomycin and Zosyn in the inpatient setting, and was discharged with 10 more days of antibiotics Plan - Blood cultures ordered and currently pending - Supplemental oxygen/BiPAP as needed - Nephrology has been consulted for dialysis - DuoNebs every 4 hours as needed - Lasix 20 mg IV daily - Procalcitonin ordered and currently pending; will hold off on antibiotics for the time being, as my suspicion for pneumonia is low at this time; patient does not have fever, cough, or increased sputum production; CXR appears consistent with pulmonary vascular congestion. If patient develops signs of infection, initiate antibiotic therapy (2) Acute exacerbation of CHF (congestive heart failure) Current Visit: No Status: Acute Assessment and plan: - Known history of HFpEF - TTE 12/03/18: EF 60-65%, mild-moderate concentric LVH, LV diastolic dysfunction with elevated filling pressures, severely dilated LA, mild to moderate MR, mild TR, mild OH, severe pulmonary HTN - TTE 01/15: LVEF 60%, severe pulm HTN - Reported worsening orthopnea and dysnpea at rest for the last several months - Reports continued shortness of breath during todays interview - Diminished breath sounds bilaterally, bibasilar crackles on physical exam Plan - Fluid restriction, strict I/Os - Diuresis with Lasix 20 mg IV daily - Nephrology consulted for dialysis Qualifiers: Qualified Code(s): I50.9 - Heart failure, unspecified (3) ESRD on dialysis Current Visit: No Status: Chronic Assessment and plan: - Patient has a known history of end-stage renal disease on Monday and Monday - Patient missed her last dialysis session due to shortness of breath - Nephrology consulted for dialysis (4) Diabetes mellitus Current Visit: No Status: Chronic Assessment and plan: - Resume home medications once reconciled Qualifiers: Diabetes mellitus type: type 2 Diabetes mellitus local company intermodal truck driver insulin use: unspecified correction insulin use status Diabetes mellitus complication status: with other specified complication Qualified Code(s): E11.69 - Type 2 diabetes mellitus with other specified complication; N18.6 - End stage renal disease; Z79.4 - residential (current) use of insulin; Z99.2 - Dependence on renal dialysis (5) HTN (hypertension) Current Visit: No Status: Chronic Assessment and plan: - Resume home medications once reconciled Qualifiers: Hypertension type: essential hypertension Qualified Code(s): I10 - Essential (primary) hypertension - Time Spent With Patient Total time spent is greater than 50% in coordination of care (as documented) at patient's floor/unit and/or counseling patient: <Lisa Dunn - Last Filed: 01/24/19 04:55> Date of Encounter: 01/22/19 Internal Medicine - H&P: HPI History of present illness: Ms. Simon is a 58 year old female All Systems PM: A 10-system review of systems was performed and is negative for pertinent findings except as documented above in the HPI. - Constitutional Vitals: Temp Pulse Resp BP Pulse Ox 97.6 F 94 33 181/82 96 01/22/19 06:49 01/22/19 06:49 01/22/19 07:32 01/22/19 06:49 01/22/19 07:32 Internal Med - H&P Results - Labs CBC & Chem 7: 01/23/19 03:50 01/23/19 03:50 Labs: Short CBC 01/22/19 Range/Units 02:36 WBC 13.2 H (4.3-11.1) K/mcL Hgb 8.7 L (11.5-15.4) g/dL Hct 27.9 L (35.3-44.9) % Plt Count 379 (140-400) K/mcL Neutrophils # 9.6 H (1.6-8.9) K/mcL BMP 01/22/19 02:36 Sodium 131 L Potassium 5.2 H Chloride 93 L Carbon Dioxide 24 BUN 77 H Creatinine 6.39 H Glucose 155 H Calcium 9.2 Cardiac Enzymes 01/22/19 Range/Units 02:57 Troponin I 0.04 H* (< 0.04) ng/mL - Impressions ITS Impressions Chest X-Ray 01/22/19 02:19 IMPRESSION: Pulmonary edema with left effusion. Shallow inspiration with elevated right hemidiaphragm. D/ / Lai Mortensen / Lai Mortensen Interpreting Provider: Lai Mortensen - Time Spent With Patient Total time spent is greater than 50% in coordination of care (as documented) at patient's floor/unit and/or counseling patient: - Attending Attestation I performed a history and physical examination of the patient and discussed his management with the resident. I reviewed the residents note and agree with the documented findings and plan of care.
[2019-01-22] MEDS ORDERED: Furosemide 20 MG/2 ML VIAL IVP ONE (02:14)
[2019-01-22] MEDS ORDERED: *HR* LORazepam 2 MG/ML VIAL IVP PRN (02:15)
[2019-01-22] MEDS ORDERED: Naloxone 0.4 MG/ML INJ IVP PRN (02:44)
[2019-01-22 02:47] LABS: Basophils # 0.1 K/mcL (0.0-0.2); Basophils % 0.5 %; Eosinophils # 0.2 K/mcL (0.0-0.6); Eosinophils % 1.4 %; Hematocrit 27.9 % (35.3-44.9); Hemoglobin 8.7 g/dL (11.5-15.4); Immature Granulocytes % 1.8 % (0-4); Lymphocytes # 1.5 K/mcL (0.6-4.6); Lymphocytes % 11.2 %; Mean Corpuscular HGB Conc 31.2 g/dL (31.6-35.5); Mean Corpuscular Hemoglobin 28.2 pg (28.0-33.3); Mean Corpuscular Volume 90.6 fL (83.0-100.0); Mean Platelet Volume 10.6 fL (9.4-12.4); Monocytes # 1.7 K/mcL (0.0-1.3); Monocytes % 12.6 %; Neutrophils # 9.6 K/mcL (1.6-8.9); Platelet Count 379 K/mcL (140-400); Red Blood Count 3.08 M/mcL (3.82-4.97); Red Cell Distribution Width 15.3 % (11.5-14.5); Segmented Neutrophils % 72.5 %; White Blood Count 13.2 K/mcL (4.3-11.1)
[2019-01-22 03:04] LABS: Calcium 9.2 mg/dL (8.6-10.3); Potassium 5.2 mEq/L (3.5-5.1)
[2019-01-22] MEDS ORDERED: Albuterol 2.5 MG/3 ML NEBULIZER IH PRN (03:18)
[2019-01-22] MEDS ORDERED: *HR* Metoprolol 5 MG/5 ML VIAL IVP ONE (04:35)
[2019-01-22] MEDS ORDERED: *HR* LORazepam 2 MG/ML VIAL IVP ONE (04:48)
[2019-01-22] MEDS ORDERED: 0.9 % Sodium Chloride 250 ML IVC PRN (07:48)
[2019-01-22] MEDS ORDERED: *HR* Heparin 10,000 UNIT/10 ML VIAL IV PRN (07:48)
[2019-01-22] MEDS ORDERED: 0.9 % Sodium Chloride 1,000 ML PRIME SCH (08:00)
[2019-01-22 08:48] LABS: Hepatitis B Surface Antibody < 3.10 mIU/mL
[2019-01-22 08:58] LABS: Hepatitis B Surface Antigen Nonreactive (Nonreactive)
[2019-01-22] MEDS ORDERED: Amoxicillin/Clavulanate 500 MG TABLET PO SCH (09:00)
[2019-01-22] MEDS: Furosemide 20 MG/2 ML VIAL IVP SCH (09:14)
--- NOTE | 2019-01-22 12:34 | Event Note ---
Date of Encounter: 01/22/19 Time of Encounter: 12:32 Patient seen during dialysis. Somnolent. BiPAP mask in place. Getting dialyzed. Poor compliance with outpatient dialysis. Continue O2 supplementation. ProCalcitonin levels are elevated. Patient will continue taking Augmentin to complete treatment course from recently diagnosed pneumonia.
--- NOTE | 2019-01-22 13:24 | Nephrology Consult Note ---
<FloydshelleySteff guthrieDara B - Last Filed: 01/22/19 13:19> Date of Encounter: 01/22/19 Time of Encounter: 13:19 Assessment and Plan (1) Anemia Current Visit: No Status: Acute Goal Hgb is 10-11. Hgb is 8.7, fairly stable. Qualifiers: Anemia type: due to chronic kidney disease Chronic kidney disease stage: on chronic dialysis Qualified Code(s): N18.6 - End stage renal disease; D63.1 - Anemia in chronic kidney disease; Z99.2 - Dependence on renal dialysis (2) Acute and chronic respiratory failure with hypoxia Current Visit: No Status: Acute Continue supplemental oxygen. Per primary. (3) ESRD (end stage renal disease) on dialysis Current Visit: Yes Status: Acute Current regimen is monday in [facility]. Hemodialysis in progress for today. Will Offer additional UF or HD as needed. Renal diet Renal vitamins Strict I/O Avoid nephrotoxins and renal dose all medications. (4) Acute encephalopathy Current Visit: No Status: Acute Patient is still showing signs of encephalopathy. History of Present Illness - Reason for Consult Consult date: 01/22/19 end stage renal disease Requesting physician: Darrell Bergman - Chief Complaint shortness of breath - History of Present Illness Ms. Simon is a 58-year-old female who presented from [facility] with a chief complaint of shortness of breath. Per EMR states it has been going on for 3 or 4 weeks, patient has been inpatient for similar complaints a total of 6 times since July of this year. Patient is grossly noncompliant with outpatient hemodialysis. She is a poor historian and is on BiPAP at this time. Most information was gathered from previous records and personal knowledge of the patient from previous admissions. ROS unobtainable due to BiPAP and mentation. PMH: CHF, COPD, CAD, CVA, DVT, diabetes and ESRD. Current regimen for ESRD is Monday and [facility]. She is unsure of her last treatment, and I cannot obtain his records from the outpatient facility. 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 She lives at home with her mother. She is a current every day smoker denies EtOH or illicit drug use. No known family history of chronic kidney disease or dialysis. [facility] were consulted to manage inpatient hemodialysis, will continue current regiment. Hemodialysis in progress for today due to recent miss treatments. Will offer additional UF or HD as needed. Past Med Surg Social Fam HX - Past Medical History Medical history: CHF, COPD, coronary artery disease, CVA, DVT, diabetes, dialysis, fibromyalgia, hyperlipidemia, hypertension, peripheral artery disease, renal disease Psychiatric history: anxiety, depression - Past Surgical History Surgical History: , hysterectomy Additional surgical history: shoulder surgery, torn cuff. right hand carpel tunnel. abdominal hernia with mesh implant. Bilateral below the knee amp - Social History Smoking Status: Former smoker Smokeless Tobacco Status: No Alcohol use: none Drug use: none - Family History Sister Hx Family Cardiac Disorders: Yes (Cardiac bypass) Father Family Member Ethnicity: Non- Hx Family Cancer: Yes (colon) Mother Family Member Ethnicity: Non- Hx Family Cardiac Disorders: Yes Medications and Allergies Calcium Acetate [Phos-LO] 2 cap PO ACHS 08/12/17 [History] Cetirizine HCl [24Hour Allergy] 10 mg PO DAILY 08/12/17 [History] rOPINIRole [Requip] 1 mg PO HS 08/12/17 [History] Amitriptyline [Elavil] 50 mg PO HS 11/25/18 [History] Apixaban [Eliquis] 2.5 mg PO BID 11/25/18 [History] Insulin Glargine [Lantus] 12 unit SQ Q12H 11/25/18 [History] Montelukast [Singulair] 10 mg PO DAILY 11/25/18 [History] Pantoprazole Sodium 40 mg PO DAILY 11/25/18 [History] Patiromer Calcium Sorbitex [Veltassa] 8.4 gm PO DAILY 11/25/18 [History] Aspirin [Lo-Dose Aspirin EC] 81 mg PO DAILY 12/03/18 [History] B-Complex with Vitamin C [Vitamin B-Complex with Vit C] 1 tab PO DAILY 12/18/18 [History] HYDROcodone/Acet 7.5/325 mg [[place] 7.5-325 mg] 1 tab PO Q4H PRN 12/18/18 [History] LORazepam [Ativan] 0.5 mg PO Q6H PRN 12/18/18 [History] NIFEdipine [Nifedipine ER] 90 mg PO DAILY 12/18/18 [History] Nitroglycerin [Nitrostat] 0.4 mg SL Q5MIN PRN MDD X3 DOSES CALL 911 12/18/18 [History] Tiotropium [Spiriva] 18 mcg IH DAILY 12/18/18 [History] Budesonide/Formoterol 80/4.5 [Symbicort 80/4.5] 1 puff IH BIDR #1 inhaler 12/20/18 [Rx] Insulin LISPRO [Humalog] 0 unit SQ ACHS #1 cartridge 12/20/18 [Rx] FLUoxetine HCl [Prozac] 20 mg PO DAILY 12/24/18 [History] Losartan [Cozaar] 50 mg PO DAILY #30 tablet 12/29/18 [Rx] Torsemide [Demadex] 60 mg PO BIDDIURETIC #60 tablet 12/29/18 [Rx] Carvedilol 25 mg PO BID 01/04/19 [History] Cholecalciferol (Vitamin D3) [Optimal D3] 50,000 units PO GUERRA 01/15/19 [History] Morphine Oral CONC [Roxanol] 5 mg PO Q4H PRN 01/15/19 [History] Ondansetron HCl [Zofran] 4 mg PO Q4H PRN 01/15/19 [History] Sennosides [Senna] 8.6 mg PO BID PRN 01/15/19 [History] Amoxicillin/Clavulanate [Augmentin] 500 mg PO DAILY 7 Days #7 tablet 01/17/19 [Rx] Acetaminophen [Tylenol 650mg SUPP] 650 mg RC Q4H PRN 01/22/19 [History] Albuterol Sulfate [Ventolin Hfa] 2 puff IH Q6H PRN 01/22/19 [History] Haloperidol [Haldol] 1 mg PO Q2H PRN 01/22/19 [History] Hyoscyamine SL [Levsin Sl] 0.125 mg SL Q2H PRN 01/22/19 [History] Ipratropium/Albuterol Neb [Duoneb] 3 ml IH Q6H 01/22/19 [History] Allergy/AdvReac Type Severity Reaction Status Date / Time pregabalin [From Lyrica] Allergy See Verified 01/21/19 23:50 Comments codeine AdvReac Nausea Verified 01/21/19 23:50 ivp dye Allergy See Uncoded 01/15/19 21:36 Comments Review of Systems All Systems review (narrative): The Remainder the systems are negative. Exam - Vital Signs Vital signs: Initial Vital Signs Temp Pulse Resp BP Pulse Ox 98.9 F 91 17 164/86 90 01/21/19 23:59 01/21/19 23:59 01/21/19 23:59 01/21/19 23:59 01/21/19 23:59 Vital Signs - Last 8 Hours Temp Pulse Resp BP Pulse Ox 01/22/19 12:10 186/84 01/22/19 11:55 188/82 01/22/19 11:40 185/90 01/22/19 11:25 186/95 01/22/19 11:10 207/87 01/22/19 10:55 198/98 01/22/19 10:40 208/90 01/22/19 10:25 200/96 01/22/19 10:10 198/93 01/22/19 09:55 200/99 01/22/19 09:40 99.5 F 22 198/82 01/22/19 08:00 92 01/22/19 07:32 33 96 01/22/19 06:49 97.6 F 94 26 181/82 96 Intake and Output 01/21/19 01/22/19 01/22/19 23:59 07:59 15:59 Intake Total 30 / 630 600 / 630 Output Total 100 / 100 Balance -70 / 530 600 / 530 Intake: Oral 30 / 30 0 / 30 Intake, Rinseback and Flushes 600 / 600 Output: Urine 100 / 100 Other: Weight 64 kg 74.8 kg Blood Glucose* 216 127 Hemodialysis Net Fluid Removed 3269 (mL) Patient Weight 01/22/19 23:59 Weight 74.8 kg - General Appearance General appearance: chronically ill, frail EENT: ATNC, hearing intact, vision intact Neck: supple Respiratory: clear Additional Comments: Diminished in the bases. Cardiology: edema (Trace edema noted to abdomen.), normal S1, normal S2 - Dialysis Access Dialysis Vascular Access: Arteriovenous Fistula thrill: Yes bruit: Yes Gastrointestinal: normoactive bowel sounds, no tenderness, no guarding Integumentary: no rash, warm and dry Additional Comments: Unsure of mentation due to BiPAP. She will not her head occasionally to yes and no questions Musculoskeletal: no deformities, no erythema Psychiatric: mood/affect appropriate, cooperative Results - Lab Results 01/22/19 02:36 01/22/19 02:36 Most recent lab results 01/22/19 02:36 Calcium 9.2 Consult Discharge Plan - Plan Referrals: Juan J Pal, EXECUTIVE LEGAL SECRETARY [Primary Care Provider] - <Milagro Carrillopb Red - Last Filed: 01/29/19 22:15> Date of Encounter: 01/22/19 Assessment and Plan (1) Anemia Current Visit: No Status: Acute (2) Acute and chronic respiratory failure with hypoxia Current Visit: Yes Status: Resolved (3) ESRD (end stage renal disease) on dialysis Current Visit: Yes Status: Chronic Exam - Vital Signs Vital signs: Initial Vital Signs Temp Pulse Resp BP Pulse Ox 98.9 F 91 17 164/86 90 01/21/19 23:59 01/21/19 23:59 01/21/19 23:59 01/21/19 23:59 01/21/19 23:59 Vital Signs - Last 8 Hours Temp Pulse Resp BP Pulse Ox 01/29/19 22:00 73 29 97/53 97 01/29/19 21:00 77 29 91/53 97 01/29/19 20:06 26 90 01/29/19 20:00 76 31 115/67 89 01/29/19 19:00 100.2 F H 78 27 117/69 98 01/29/19 18:00 68 28 99/58 99 01/29/19 17:00 73 23 96/52 97 01/29/19 16:47 30 95/51 98 01/29/19 16:00 99.2 F 73 28 95/51 97 01/29/19 15:00 78 28 93/66 96 Intake and Output 01/29/19 01/29/19 01/29/19 07:59 15:59 23:59 Intake Total 450 / 550 100 / 550 Output Total 0 / 0 0 / 0 Balance 0 / 550 450 / 550 100 / 550 Intake: IV Fluids 450 / 550 100 / 550 Zosyn 3.375 GM In 0.9 % Sodium 200 / 300 100 / 300 Chloride (Mini-Bag +) 100 ML @ 25 mls/hr IVPB Q12HR [facility] Rx#: [id number] Vancocin 1,250 MG In 0.9 % 250 / 250 Sodium Chloride 250 ML @ 166.67 mls/hr IVPB ONCE ONE Rx#: [id number] Output: Urine 0 / 0 0 / 0 Other: Weight 65 kg Blood Glucose* 140 211 119 Patient Weight 01/29/19 23:59 Weight 65 kg Results - Lab Results 01/29/19 05:40 01/29/19 05:40 - Attending Attestation I examined this patient and my medical decision-making was reviewed with the Resident Physician/EXECUTIVE LEGAL SECRETARY. I agree with the documented findings, disposition and treatment plan as described except to the extent set forth below. In brief; 58 y o female with PMH of DM, HTN, CAD, CHF, COPD and ESRD on HD admitted with SOB requiring biPAP, this would make the 6th hospital stays for similar in the past 2 months. Renal consulted for ESRD management. Pt seen and examined on HD. On exam: Gen: chronic ill appearing NAD, lungs with decreased BS bases bilat, heart S1S2, Abd soft NT/ND, Ext B BKA with edema and neuro: confused. Continue HD with UF as tolerated. Will reassess tomorrow if additional UF needed with HD. Fluid restriction advised.
--- NOTE | 2019-01-22 15:59 | Electrocardiograph Report ---
[address] [place], [place] [address] Test Date: 2019-01-22 Pat Name: Sharifa Simon Department: 112 Room: 2A13 Gender: F Investor Relations Manager: : [id number] Requested By: Darrell Bergman Order Number: [id number] Reading MD: Tiffany Fam Measurements Intervals [place] Rate: 107 P: 15 NM: 167 QRS: 43 QRSD: 92 T: -8 QT: 333 QTc: 396 Interpretive Statements SINUS TACHYCARDIA POSSIBLE LEFT ATRIAL ENLARGEMENT ABNORMAL RHYTHM ECG Electronically Signed On 01-22-2019 15:58:26 EDT by Tiffany Fam
[2019-01-22] MEDS ORDERED: Acetaminophen IV 500 MG/50 ML INFUS..BTL IVPB ONE (16:26)
[2019-01-22] MEDS ORDERED: Calcium Acetate 667 MG CAPSULE PO SCH (16:30)
[2019-01-22] MEDS ORDERED: Azithromycin 500 MG in D5% in Water 250 ML IVPB SCH (17:00)
[2019-01-22] MEDS ORDERED: Vancomycin 1 EACH in 0.9 % Sodium Chloride 250 ML IVPB SCH (17:00)
[2019-01-22] MEDS ORDERED: Piperacillin/Tazobactam 3.375 GM in 0.9 % Sodium Chloride Mini Bag 100 ML IVPB SCH ×2 (17:00→21:00)
[2019-01-22] MEDS: Calcium Acetate 667 MG CAPSULE PO SCH (18:05)
[2019-01-22 18:25] LABS: ABG Base Excess 7 mEq/L (-2 to 3); ABG HCO3 31 mEq/L (21-27); ABG Oxygen Saturation 95 % (95-98); ABG PCO2 41 mmHg (35-45); ABG PH 7.48 pH Units (7.32-7.45); ABG PO2 69 mmHg (85-104); ABG TCO2 32 mEq/L (20-26)
[2019-01-22] MEDS: Budesonide/Formoterol 80/4.5 1 PUFF INH IH SCH (19:36)
[2019-01-22] MEDS ORDERED: CARVEDILOL 25 MG PO SCH (21:00)
[2019-01-22] MEDS: Apixaban 2.5 MG TABLET PO SCH ×2 (21:55→22:05)
[2019-01-22] MEDS: rOPINIRole 1 MG TABLET PO SCH ×2 (21:55→22:08)
[2019-01-22 23:09] LABS: ABG Base Excess 6 mEq/L (-2 to 3); ABG HCO3 31 mEq/L (21-27); ABG Oxygen Saturation 91 % (95-98); ABG PCO2 48 mmHg (35-45); ABG PH 7.42 pH Units (7.32-7.45); ABG PO2 61 mmHg (85-104); ABG TCO2 33 mEq/L (20-26)
[2019-01-23] MEDS ORDERED: Piperacillin/Tazobactam 3.375 GM in 0.9 % Sodium Chloride Mini Bag 100 ML IVPB SCH
[2019-01-23 04:04] LABS: Hematocrit 28.5 % (35.3-44.9); Hemoglobin 8.8 g/dL (11.5-15.4); Mean Corpuscular HGB Conc 30.9 g/dL (31.6-35.5); Mean Corpuscular Hemoglobin 28.2 pg (28.0-33.3); Mean Corpuscular Volume 91.3 fL (83.0-100.0); Mean Platelet Volume 10.4 fL (9.4-12.4); Platelet Count 389 K/mcL (140-400); Red Blood Count 3.12 M/mcL (3.82-4.97); Red Cell Distribution Width 15.5 % (11.5-14.5); White Blood Count 11.3 K/mcL (4.3-11.1)
--- NOTE | 2019-01-23 04:18 | Event Note ---
Date of Encounter: 01/22/19 Time of Encounter: 21:[address] Maier that the pts. family was reporting she was more confused than usual. Dr. Maier reported that when he saw the pt. she was sleeping. He requested a CT of the head/brain be done if pts. sx continued/worsened. Pt. presented as lethargic and somnolent. Stat CT of the head/brain ordered which showed no acute intracranial abnormality and chronic microvascular ischemic changes. Nurse reported that the pt. was more alert and oriented when returning from the CT. Nurse instructed to continue monitoring the pt. very closely and alert me immediately of any new or adverse neurological or behavioral changes.
[2019-01-23 04:30] LABS: Calcium 8.5 mg/dL (8.6-10.3); Potassium 3.6 mEq/L (3.5-5.1)
[2019-01-23] MEDS: Budesonide/Formoterol 80/4.5 1 PUFF INH IH SCH ×2 (07:21→19:55)
[2019-01-23] MEDS: Tiotropium 18 MCG inhalation IH SCH (07:22)
[2019-01-23] MEDS: Piperacillin/Tazobactam 3.375 GM in 0.9 % Sodium Chloride Mini Bag 100 ML IVPB SCH ×2 (08:01→17:44)
[2019-01-23] MEDS: Apixaban 2.5 MG TABLET PO SCH ×2 (08:02→19:56)
[2019-01-23] MEDS: NIFEdipine XL (24 HR) 30 MG TAB.ER.24 PO SCH (08:02)
[2019-01-23] MEDS: FLUoxetine 20 MG CAPSULE PO SCH (08:02)
[2019-01-23] MEDS: *HR* HYDROcodone/Acet 7.5/325 mg TABLET PO PRN ×3 (08:02→22:36)
[2019-01-23] MEDS: Furosemide 20 MG/2 ML VIAL IVP SCH (08:02)
[2019-01-23] MEDS: Aspirin Enteric Coated 81 MG Tablet PO SCH (08:02)
[2019-01-23] MEDS: Calcium Acetate 667 MG CAPSULE PO SCH ×3 (08:03→17:44)
[2019-01-23] MEDS ORDERED: Tiotropium 18 MCG inhalation IH SCH (09:00)
[2019-01-23] MEDS ORDERED: Aminoglycoside Consult 1 EACH MC ONE (09:02)
[2019-01-23] MEDS ORDERED: 0.9 % Sodium Chloride 250 ML IVC PRN (09:16)
[2019-01-23] MEDS ORDERED: *HR* Heparin 10,000 UNIT/10 ML VIAL IV PRN (09:16)
[2019-01-23] MEDS ORDERED: 0.9 % Sodium Chloride 1,000 ML PRIME SCH (09:30)
--- NOTE | 2019-01-23 12:00 | Internal Med Progress Note ---
Hospitalist Progress Note - Encounter Date of Encounter: 01/23/19 Time of Encounter: 10:30 - Subjective Interval History: Patient evaluated during dialysis today. Complains of back pain. Is awake and alert. Answers questions appropriately. Was asking for food earlier this morning. - Exam Vitals: Temp Pulse Resp BP Pulse Ox 98.0 F 96 17 204/73 98 01/23/19 06:52 01/23/19 06:52 01/23/19 06:52 01/23/19 06:52 01/23/19 06:52 Exam: General: Patient is alert, mild distress ENT: Mucous membranes moist Respiratory: Diminished breath sounds at both bases Cardiovascular: Regular rate and rhythm. s1 and s2 normal No clicks, rubs, gallops, or murmurs. Abdomen: Abdomen is soft, nontender. Bowel sounds are present Musculoskeletal: Spontaneously moving all extremities , Right BKA Skin: warm, dry, intact. Neuro: Alert oriented x 3 normal cranial nerves, no focal deficits - Assessment and Plan (1) Acute exacerbation of CHF (congestive heart failure) Current Visit: Yes Status: Acute (2) Acute respiratory failure with hypoxia Current Visit: Yes Status: Acute (3) Diabetes mellitus Current Visit: Yes Status: Chronic (4) ESRD (end stage renal disease) on dialysis Current Visit: Yes Status: Chronic (5) HTN (hypertension) Current Visit: Yes Status: Chronic (6) Multifocal pneumonia Current Visit: Yes Status: Chronic DVT Prophylaxis: patient is on Eliquis - Summary of Assessment and Plan Summary of Assessment and Plan: Acute respiratory failure with hypoxia: Due to fluid overload/CHF and underlying COPD. Continue treating underlying conditions. Wean FiO2 as tolerated. Use BiPAP as needed. End-stage renal disease on hemodialysis: Patient being dialyzed again today. Discussed with nephrology. Recommend strict fluid restriction to 1 L per day including all sources. Acute on chronic diastolic congestive heart failure: Patient on IV Lasix in addition to volume management with dialysis. COPD: Continue bronchodilators , , O2 supplementation, Symbicort, Spiriva. Essential hypertension: Blood pressure is uncontrolled today. Continue home medications. Will use intravenous medications if needed. Previous DVT: Patient is on Eliquis. Altered mental status: Appears to be improving. Most likely due to uremia with underlying comorbidities. CT of the head was negative. Diabetes mellitus type 2: Monitor blood sugars. Sliding scale insulin. Evy betic diet. Multifocal pneumonia: Patient was recently diagnosed with multifocal pneumonia and has been on antibiotics. She did have one episode of fever last night. Chest x-ray done here showed pulmonary edema with left effusion and old fractures. Patient received IV antibiotics yesterday because she was somnolent and was unable to take her oral medications. MRSA screen is negative. Continue Zosyn and azithromycin for now. Transition to Augmentin when patient is able to tolerate oral medications. No further episodes of fever noted. - Time Spent with Patient Total time spent is greater than 50% in coordination of care (as documented) at patient's floor/unit and/or counseling patient: Internal Medicine: Result - Labs CBC & Chem 7: 01/23/19 03:50 01/23/19 03:50 Labs: Short CBC 01/23/19 Range/Units 03:50 WBC 11.3 H (4.3-11.1) K/mcL Hgb 8.8 L (11.5-15.4) g/dL Hct 28.5 L (35.3-44.9) % Plt Count 389 (140-400) K/mcL BMP 01/23/19 03:50 Sodium 136 Potassium 3.6 Chloride 95 L Carbon Dioxide 28 BUN 29 H Creatinine 3.88 H Glucose 156 H Calcium 8.5 L Cardiac Enzymes 01/22/19 Range/Units 20:33 Troponin I 0.05 H* (< 0.04) ng/mL - ABG Interpretation ABG results: ABG ABG pH 7.42 pH Units (7.32-7.45) 01/22/19 23:04 ABG pCO2 48 mmHg (35-45) H 01/22/19 23:04 ABG pO2 61 mmHg (85-104) L 01/22/19 23:04 ABG O2 Saturation 91 % (95-98) L 01/22/19 23:04 - Impressions Impressions Head CT 01/23/19 00:28 IMPRESSION: No acute intracranial abnormality. Chronic microvascular ischemic changes. D/ / Lai Mortensen / Lai Mortensen Interpreting Provider: Lai Mortensen Consult Discharge Plan - Plan Referrals: Juan J Pal, BOX SPRING MAKER [Primary Care Provider] - (1) Acute exacerbation of CHF (congestive heart failure) Qualifiers: Heart failure type: diastolic Qualified Code(s): I50.33 - Acute on chronic diastolic (congestive) heart failure (3) Diabetes mellitus Qualifiers: Diabetes mellitus type: type 2 Diabetes mellitus line up worker insulin use: with correction use Diabetes mellitus complication status: with kidney complications Diabetes mellitus complication detail: with chronic kidney disease Chronic kidney disease stage: on chronic dialysis Qualified Code(s): E11.22 - Type 2 diabetes mellitus with diabetic chronic kidney disease; N18.6 - End stage renal disease; Z79.4 - contract design agent (current) use of insulin; Z99.2 - Dependence on renal dialysis (5) HTN (hypertension) Qualifiers: Hypertension type: essential hypertension Qualified Code(s): I10 - Essential (primary) hypertension
[2019-01-23] MEDS: Acetaminophen 325 MG TABLET PO PRN ×2 (12:29→19:56)
[2019-01-23] MEDS: Azithromycin 500 MG in D5% in Water 250 ML IVPB SCH (13:34)
--- NOTE | 2019-01-23 14:59 | Nephrology Progress Note ---
<Dara López - Last Filed: 01/23/19 14:57> Date of Encounter: 01/23/19 Time of Encounter: 14:57 - Assessment and Plan (1) ESRD (end stage renal disease) on dialysis Status: Chronic Current regimen is Monday in [facility]. Hemodialysis later today without complication. Will Offer additional UF or HD as needed. Renal diet Renal vitamins Strict I/O Avoid nephrotoxins and renal dose all medications. (2) Anemia Status: Acute Goal Hgb is 10-11. Hgb is 8.8, fairly stable. Qualifiers: Anemia type: due to chronic kidney disease Chronic kidney disease stage: on chronic dialysis Qualified Code(s): N18.6 - End stage renal disease; D63.1 - Anemia in chronic kidney disease; Z99.2 - Dependence on renal dialysis (3) Acute and chronic respiratory failure with hypoxia Status: Acute Continue supplemental oxygen. Per primary. (4) Acute encephalopathy Status: Acute Patient is still showing signs of encephalopathy. Subjective Principal diagnosis: COPD Interval history: Agent seen and examined. Tolerated HD well today. Denies any chest pain or shortness of breath. Denies nausea, vomiting or diarrhea. Objective - Vital Signs Vital signs: Vital Signs Temp Pulse Resp BP Pulse Ox 01/23/19 06:52 98.0 F 96 17 204/73 98 01/23/19 04:24 26 97 01/23/19 03:52 98.3 F 104 17 156/78 89 01/23/19 00:03 97.9 F 88 17 185/80 92 01/22/19 19:36 26 93 01/22/19 19:32 98.4 F 88 17 148/83 98 01/22/19 16:04 101.9 F H 111 31 161/67 100 Intake and Output 01/22/19 01/23/19 01/23/19 23:59 07:59 15:59 Intake Total 110 / 740 130 / 130 Balance 110 / -3960 130 / 130 Intake: IV Fluids 50 / 50 100 / 100 Ofirmev 1,000 mg/100 ml 500 mg 50 / 50 In 50 ml @ 200 mls/hr IVPB ONCE ONE Rx#:[id number] Zosyn 3.375 GM In 0.9 % Sodium 100 / 100 Chloride (Mini-Bag +) 100 ML @ 25 mls/hr IVPB Q12H SHAMEKA Rx#: [id number] Oral 60 / 90 30 / 30 Other: Stool Size Copious Moderate Stool Consistency formed soft formed Stool Color Brown # Voids 1 # Bowel Movements 1 1 Weight 75 kg Blood Glucose* 158 Patient Weight 01/23/19 23:59 Weight 75 kg - General Appearance General appearance: Present: chronically ill, frail EENT: Present: ATNC, hearing intact, vision intact Neck: Present: supple Respiratory: Present: clear Cardiology: Present: normal S1, normal S2 Dialysis Vascular Access: Arteriovenous Fistula thrill: Yes bruit: Yes Gastrointestinal: Present: normoactive bowel sounds, no tenderness, no guarding Integumentary: Present: no rash, warm and dry Neurologic: Present: alert and oriented x3 Musculoskeletal: Present: no deformities, no erythema Psychiatric: Present: mood/affect appropriate, cooperative - Lab 01/23/19 03:50 01/23/19 03:50 Most recent lab results 01/23/19 03:50 Calcium 8.5 L Consult Discharge Plan - Plan Referrals: Juan J Pal CNP [Primary Care Provider] - <Paul Carrillo - Last Filed: 02/10/19 11:32> Date of Encounter: 01/23/19 - Assessment and Plan (1) Anemia Status: Acute (2) Acute and chronic respiratory failure with hypoxia Status: Acute (3) ESRD (end stage renal disease) on dialysis Status: Chronic Objective - Lab 02/01/19 03:55 02/01/19 03:55 - Attending Attestation I examined this patient and my medical decision-making was reviewed with the Resident Physician/UTILITY DRIVER. I agree with the documented findings, disposition and treatment plan as described except to the extent set forth below. Pt seen and examined on HD. On exam: Gen: chronic ill appearing NAD, lungs with decreased BS bases bilat, heart S1S2, Abd soft NT/ND, Ext B BKA with edema and neuro: confused. Continue HD with UF as tolerated, second consecutive days of treatment. Will reassess tomorrow if additional UF needed with HD. Continue fluid restriction. Renal diet advised
[2019-01-23] MEDS ORDERED: Preparation H Ointment 30 GM TUBE RC PRN (16:16)
[2019-01-23] MEDS ORDERED: Sennosides 8.6 MG TABLET PO PRN (17:22)
[2019-01-23] MEDS ORDERED: Nitroglycerin 0.4 MG TAB.SUBL SL PRN (17:22)
[2019-01-23] MEDS: rOPINIRole 1 MG TABLET PO SCH (19:56)
[2019-01-24] MEDS: Piperacillin/Tazobactam 3.375 GM in 0.9 % Sodium Chloride Mini Bag 100 ML IVPB SCH ×2 (04:20→17:28)
[2019-01-24] MEDS: Acetaminophen 325 MG TABLET PO PRN ×2 (04:20→17:28)
[2019-01-24 07:26] LABS: Hemoglobin 8.2 g/dL (11.5-15.4); Mean Corpuscular HGB Conc 30.4 g/dL (31.6-35.5); Mean Corpuscular Hemoglobin 27.9 pg (28.0-33.3); Mean Corpuscular Volume 91.8 fL (83.0-100.0); Mean Platelet Volume 10.5 fL (9.4-12.4); Platelet Count 401 K/mcL (140-400); Red Blood Count 2.94 M/mcL (3.82-4.97); Red Cell Distribution Width 15.3 % (11.5-14.5); White Blood Count 13.4 K/mcL (4.3-11.1)
[2019-01-24] MEDS: Tiotropium 18 MCG inhalation IH SCH (07:42)
[2019-01-24] MEDS: Budesonide/Formoterol 80/4.5 1 PUFF INH IH SCH ×2 (07:42→20:11)
[2019-01-24 07:43] LABS: Potassium 3.4 mEq/L (3.5-5.1)
[2019-01-24] MEDS: *HR* HYDROcodone/Acet 7.5/325 mg TABLET PO PRN ×3 (08:40→20:56)
--- NOTE | 2019-01-24 09:56 | Nephrology Progress Note ---
<aDra López - Last Filed: 01/24/19 09:51> Date of Encounter: 01/24/19 Time of Encounter: 09:51 - Assessment and Plan (1) ESRD (end stage renal disease) on dialysis Status: Chronic Current regimen is Monday in [facility]. Hemodialysis later today without complication. Will Offer additional UF or HD as needed. Renal diet Renal vitamins Strict I/O Avoid nephrotoxins and renal dose all medications. (2) Anemia Status: Acute Goal Hgb is 10-11. Hgb is 8.2, fairly stable. Qualifiers: Anemia type: due to chronic kidney disease Chronic kidney disease stage: on chronic dialysis Qualified Code(s): N18.6 - End stage renal disease; D63.1 - Anemia in chronic kidney disease; Z99.2 - Dependence on renal dialysis (3) Acute and chronic respiratory failure with hypoxia Status: Acute Continue supplemental oxygen. Per primary. (4) Acute encephalopathy Status: Acute Patient is still showing signs of encephalopathy. Subjective Principal diagnosis: COPD Interval history: Patient seen and examined. Overall doing well. Denies any chest pain or shortness of breath. Denies nausea, vomiting or diarrhea. Objective - Vital Signs Vital signs: Vital Signs Temp Pulse Resp BP Pulse Ox 01/24/19 07:42 16 96 01/24/19 07:13 98.5 F 87 16 172/73 96 01/24/19 03:52 81 17 182/83 99 01/23/19 23:35 97.8 F 64 17 111/65 95 01/23/19 19:55 22 91 01/23/19 19:02 98.7 F 81 105/59 88 01/23/19 15:55 98.7 F 85 16 117/65 93 01/23/19 13:14 98.1 F 16 116/61 01/23/19 12:55 108/59 01/23/19 12:40 119/60 01/23/19 12:25 110/71 01/23/19 12:10 108/58 01/23/19 11:55 99/58 01/23/19 11:40 105/59 01/23/19 11:25 99/55 01/23/19 11:10 92/56 01/23/19 10:55 99/56 01/23/19 10:40 94/54 01/23/19 10:25 90/58 01/23/19 10:10 93/57 01/23/19 09:55 91/55 Intake and Output 01/23/19 01/24/19 01/24/19 23:59 07:59 15:59 Intake Total 440 / 1170 100 / 100 Balance 440 / -2430 100 / 100 Intake: IV Fluids 200 / 300 100 / 100 Zosyn 3.375 GM In 0.9 % Sodium 200 / 200 100 / 100 Chloride (Mini-Bag +) 100 ML @ 25 mls/hr IVPB Q12HR SH[facility]KA Rx#: [id number] Oral 240 / 270 Other: Weight 74.2 kg Blood Glucose* 202 - General Appearance General appearance: Present: well-developed, well-nourished EENT: Present: ATNC, hearing intact, vision intact Neck: Present: supple Respiratory: Present: clear Cardiology: Present: no edema, normal S1, normal S2 Dialysis Vascular Access: Arteriovenous Fistula thrill: Yes bruit: Yes Gastrointestinal: Present: normoactive bowel sounds, no tenderness, no guarding Integumentary: Present: no rash, warm and dry Neurologic: Present: alert and oriented x3 Musculoskeletal: Present: no deformities, no erythema Psychiatric: Present: mood/affect appropriate, cooperative - Lab 01/24/19 06:21 01/24/19 06:21 Most recent lab results 01/24/19 06:21 Calcium 9.0 Consult Discharge Plan - Plan Referrals: Juan J Pal DOG RACES MANAGER [Primary Care Provider] - <Paul Carrillo - Last Filed: 02/10/19 23:08> Date of Encounter: 01/24/19 - Assessment and Plan (1) Anemia Status: Acute (2) Acute and chronic respiratory failure with hypoxia Status: Acute (3) ESRD (end stage renal disease) on dialysis Status: Chronic Objective - Lab 02/01/19 03:55 02/01/19 03:55 - Attending Attestation I examined this patient and my medical decision-making was reviewed with the Resident Physician/DOG RACES MANAGER. I agree with the documented findings, disposition and treatment plan as described except to the extent set forth below. Pt seen and examined s/p HD more awake but still disoriented. On exam: Gen: cephalometric tracer mckenzie ill appearing NAD, lungs with decreased BS bases bilat, heart S1S2, Abd soft NT/ND, Ext B BKA with edema and neuro: disoriented. s/p HD with UF yesterday making 2 consecutive days of treatment, next HD planned tomorrow. Continue fluid restriction. Continue renal diet.
[2019-01-24] MEDS: Apixaban 2.5 MG TABLET PO SCH ×2 (10:12→20:55)
[2019-01-24] MEDS: Calcium Acetate 667 MG CAPSULE PO SCH ×3 (10:12→17:27)
[2019-01-24] MEDS: Aspirin Enteric Coated 81 MG Tablet PO SCH (10:12)
[2019-01-24] MEDS: FLUoxetine 20 MG CAPSULE PO SCH (10:13)
[2019-01-24] MEDS: Loratadine 10 MG TABLET PO SCH (10:13)
[2019-01-24] MEDS: NIFEdipine XL (24 HR) 30 MG TAB.ER.24 PO SCH (10:13)
[2019-01-24] MEDS: Azithromycin 500 MG in D5% in Water 250 ML IVPB SCH (10:14)
[2019-01-24] MEDS: Furosemide 20 MG/2 ML VIAL IVP SCH (10:17)
[2019-01-24] MEDS: Albuterol 2.5 MG/3 ML NEBULIZER IH SCH ×3 (11:52→20:12)
[2019-01-24] MEDS ORDERED: Dextrose Gel 15 GM/37.5 ML TUBE PO PRN ×2 (12:17)
[2019-01-24] MEDS ORDERED: D5% in Water 1,000 ML IVC PRN (12:17)
[2019-01-24] MEDS: Insulin LISPRO 300 UNITS/3 ML VIAL SQ SCH ×3 (13:18→20:56)
--- NOTE | 2019-01-24 14:11 | Internal Med Progress Note ---
Hospitalist Progress Note - Encounter Date of Encounter: 01/24/19 Time of Encounter: 14:11 - Subjective Interval History: Evaluated patient earlier today. Appears to be improving. Remains on high flow O2 supplementation but more awake and alert and able to carry on conversation. Denies any chest pain at this time. Does have left lateral pain due to rib fractures. - Exam Vitals: Temp Pulse Resp BP Pulse Ox 97.9 F 79 18 103/62 93 01/24/19 11:06 01/24/19 11:06 01/24/19 11:06 01/24/19 11:06 01/24/19 11:06 Exam: General: Patient is alert, mild distress ENT: Mucous membranes moist Respiratory: Diminished breath sounds at both bases, and expiratory wheezing Cardiovascular: Regular rate and rhythm. s1 and s2 normal No clicks, rubs, gallops, or murmurs. Abdomen: Abdomen is soft, nontender. Bowel sounds are present Musculoskeletal: Spontaneously moving all extremities , Right BKA Skin: warm, dry, intact. Neuro: Alert oriented x 3 normal cranial nerves, no focal deficits - Assessment and Plan (1) Acute and chronic respiratory failure with hypoxia Current Visit: Yes Status: Acute (2) Acute exacerbation of CHF (congestive heart failure) Current Visit: Yes Status: Acute (3) Diabetes mellitus Current Visit: Yes Status: Chronic (4) ESRD (end stage renal disease) on dialysis Current Visit: Yes Status: Chronic (5) HTN (hypertension) Current Visit: Yes Status: Chronic (6) Acute encephalopathy Current Visit: Yes Status: Acute (7) ESRD (end stage renal disease) on dialysis Current Visit: Yes Status: Acute (8) Multifocal pneumonia Current Visit: Yes Status: Chronic DVT Prophylaxis: On Eliquis - Summary of Assessment and Plan Summary of Assessment and Plan: Acute on chronic respiratory failure with hypoxia: Due to fluid overload/CHF and underlying COPD. Patient continues to require increased O2 supplementation. Currently on 15 L with oxymask. Will wean FiO2 as tolerated. Patient is on hospice but remains on dialysis. End-stage renal disease on hemodialysis: Nephrology following. Continue fluid restriction. Dialysis per her usual schedule. Acute on chronic diastolic congestive heart failure: Patient on IV Lasix in addition to volume management with dialysis. COPD: End-stage COPD. Continue bronchodilators , O2 supplementation, Symbicort, Spiriva. Essential hypertension: Improved blood pressure control. Continue current medications. Previous DVT: Patient is on Eliquis. Altered mental status: Now resolved. Patient is awake and alert and following current physicians appropriately. Diabetes mellitus type 2: Uncontrolled. Increase insulin regimen. Add long- acting insulin insulin. Diabetic diet. Multifocal pneumonia: On Zosyn and azithromycin. Will obtain repeat chest x-ray and if improving, de-escalate antibiotics. - Time Spent with Patient Total time spent is greater than 50% in coordination of care (as documented) at patient's floor/unit and/or counseling patient: Internal Medicine: Result - Labs CBC & Chem 7: 01/24/19 06:21 01/24/19 06:21 Labs: Short CBC 01/24/19 Range/Units 06:21 WBC 13.4 H (4.3-11.1) K/mcL Hgb 8.2 L (11.5-15.4) g/dL Hct 27.0 L (35.3-44.9) % Plt Count 401 H (140-400) K/mcL BMP 01/24/19 06:21 Sodium 137 Potassium 3.4 L Chloride 91 L Carbon Dioxide 31 H BUN 28 H Creatinine 3.32 H Glucose 211 H Calcium 9.0 - ABG Interpretation ABG results: ABG ABG pH 7.42 pH Units (7.32-7.45) 01/22/19 23:04 ABG pCO2 48 mmHg (35-45) H 01/22/19 23:04 ABG pO2 61 mmHg (85-104) L 01/22/19 23:04 ABG O2 Saturation 91 % (95-98) L 01/22/19 23:04 Consult Discharge Plan - Plan Referrals: Juan J Pal, HITTING COACH [Primary Care Provider] - (2) Acute exacerbation of CHF (congestive heart failure) Qualifiers: Heart failure type: diastolic Qualified Code(s): I50.33 - Acute on chronic diastolic (congestive) heart failure (3) Diabetes mellitus Qualifiers: Diabetes mellitus type: type 2 Diabetes mellitus termite control technician insulin use: with termite control technician use Diabetes mellitus complication status: with kidney complications Diabetes mellitus complication detail: with chronic kidney disease Chronic kidney disease stage: on chronic dialysis Qualified Code(s): E11.22 - Type 2 diabetes mellitus with diabetic chronic kidney disease; N18.6 - End stage renal disease; Z79.4 - shelter (current) use of insulin; Z99.2 - Dependence on renal dialysis (5) HTN (hypertension) Qualifiers: Hypertension type: essential hypertension Qualified Code(s): I10 - Essential (primary) hypertension
[2019-01-24] MEDS: rOPINIRole 1 MG TABLET PO SCH (20:55)
[2019-01-24] MEDS: Insulin DETEMIR 100 UNIT/ML X5UNITS SQ SCH (20:56)
[2019-01-25] MEDS: Albuterol 2.5 MG/3 ML NEBULIZER IH SCH ×7 (00:12→23:01)
[2019-01-25] MEDS: Acetaminophen 325 MG TABLET PO PRN ×2 (01:36→18:56)
[2019-01-25] MEDS ORDERED: 0.9 % Sodium Chloride Mini Bag 100 ML ONE (04:49)
[2019-01-25] MEDS: *HR* HYDROcodone/Acet 7.5/325 mg TABLET PO PRN ×3 (05:07→20:58)
[2019-01-25 05:38] LABS: Hematocrit 27.2 % (35.3-44.9); Hemoglobin 8.2 g/dL (11.5-15.4); Mean Corpuscular HGB Conc 30.1 g/dL (31.6-35.5); Mean Corpuscular Volume 92.8 fL (83.0-100.0); Mean Platelet Volume 10.3 fL (9.4-12.4); Platelet Count 466 K/mcL (140-400); Red Blood Count 2.93 M/mcL (3.82-4.97); Red Cell Distribution Width 15.2 % (11.5-14.5); White Blood Count 16.9 K/mcL (4.3-11.1)
[2019-01-25 05:54] LABS: Calcium 9.2 mg/dL (8.6-10.3); Potassium 3.8 mEq/L (3.5-5.1)
[2019-01-25] MEDS: Piperacillin/Tazobactam 3.375 GM in 0.9 % Sodium Chloride Mini Bag 100 ML IVPB SCH ×2 (05:58→18:56)
[2019-01-25] MEDS: Tiotropium 18 MCG inhalation IH SCH (07:15)
[2019-01-25] MEDS: Budesonide/Formoterol 80/4.5 1 PUFF INH IH SCH ×2 (07:15→19:42)
[2019-01-25] MEDS: Insulin LISPRO 300 UNITS/3 ML VIAL SQ SCH ×4 (08:10→21:34)
[2019-01-25] MEDS: NIFEdipine XL (24 HR) 30 MG TAB.ER.24 PO SCH (08:11)
[2019-01-25] MEDS: Calcium Acetate 667 MG CAPSULE PO SCH ×3 (08:11→16:32)
[2019-01-25] MEDS: Furosemide 20 MG/2 ML VIAL IVP SCH (08:11)
[2019-01-25] MEDS: Loratadine 10 MG TABLET PO SCH (08:11)
[2019-01-25] MEDS: Aspirin Enteric Coated 81 MG Tablet PO SCH (08:11)
[2019-01-25] MEDS: FLUoxetine 20 MG CAPSULE PO SCH (08:11)
[2019-01-25] MEDS: Apixaban 2.5 MG TABLET PO SCH ×2 (08:11→20:20)
[2019-01-25] MEDS: Azithromycin 500 MG in D5% in Water 250 ML IVPB SCH (08:12)
[2019-01-25] MEDS ORDERED: *HR* Heparin 10,000 UNIT/10 ML VIAL IV PRN (08:56)
[2019-01-25] MEDS ORDERED: 0.9 % Sodium Chloride 250 ML IVC PRN (08:56)
--- NOTE | 2019-01-25 10:33 | Nephrology Progress Note ---
Date of Encounter: 01/25/19 Time of Encounter: 10:31 - Assessment and Plan (1) ESRD (end stage renal disease) on dialysis Current Visit: Yes Status: Chronic Current regimen is Monday in [facility]. HD in progress for today. Will Offer additional UF or HD as needed. Renal diet Renal vitamins Strict I/O Avoid nephrotoxins and renal dose all medications. (2) Acute and chronic respiratory failure with hypoxia Current Visit: Yes Status: Acute Continue supplemental oxygen. Per primary. (3) Acute encephalopathy Current Visit: Yes Status: Acute Improved. (4) Anemia Current Visit: No Status: Acute Goal Hgb is 10-11. Hgb is 8.2 fairly stable. Qualifiers: Anemia type: due to chronic kidney disease Chronic kidney disease stage: on chronic dialysis Qualified Code(s): N18.6 - End stage renal disease; D63.1 - Anemia in chronic kidney disease; Z99.2 - Dependence on renal dialysis Subjective Principal diagnosis: COPD Interval history: Patient seen and examined during HD, tolerating well. Denies any chest pain or shortness of breath. Denies nausea, vomiting or diarrhea. Objective - Vital Signs Vital signs: Vital Signs Temp Pulse Resp BP Pulse Ox 01/25/19 07:15 16 98 01/25/19 06:50 98.3 F 97 18 168/68 96 01/25/19 04:15 16 100 01/25/19 03:53 97.6 F 90 19 142/70 94 01/25/19 00:59 97.4 F L 84 19 158/74 97 01/24/19 22:07 16 97 01/24/19 21:03 96 01/24/19 20:15 18 95 01/24/19 19:51 97.4 F L 68 18 107/63 94 01/24/19 15:50 98.1 F 73 19 103/62 96 01/24/19 15:25 16 94 01/24/19 14:39 22 103/62 99 01/24/19 11:06 97.9 F 79 18 103/62 93 Intake and Output 01/24/19 01/25/19 01/25/19 23:59 07:59 15:59 Intake Total 100 / 800 Balance 100 / 800 Intake: IV Fluids 100 / 700 Zosyn 3.375 GM In 0.9 % Sodium 100 / 200 Chloride (Mini-Bag +) 100 ML @ 25 mls/hr IVPB Q12HR SHAMEKA Rx#: [id number] Other: Blood Glucose* 81 180 - General Appearance General appearance: Present: well-developed, well-nourished EENT: Present: ATNC, hearing intact, vision intact Neck: Present: supple Respiratory: Present: clear Cardiology: Present: no edema, normal S1, normal S2 Dialysis Vascular Access: Arteriovenous Fistula thrill: Yes bruit: Yes Gastrointestinal: Present: normoactive bowel sounds, no tenderness, no guarding Integumentary: Present: no rash, warm and dry Neurologic: Present: alert and oriented x3 Musculoskeletal: Present: no deformities, no erythema Psychiatric: Present: mood/affect appropriate, cooperative - Lab 01/25/19 05:18 01/25/19 05:18 Most recent lab results 01/25/19 05:18 Calcium 9.2 Consult Discharge Plan - Plan Referrals: Juan J Pal, REGULATOR TESTER [Primary Care Provider] -
--- NOTE | 2019-01-25 14:54 | Internal Med Progress Note ---
Hospitalist Progress Note - Encounter Date of Encounter: 01/25/19 Time of Encounter: 12:30 - Subjective Interval History: Patient was seen at bedside. Improved than yesterday. Denies any chest pain, shortness of breath. Denies fever, chills. No overnight events. Patient is getting hemodialysis today.. - Exam Vitals: Temp Pulse Resp BP Pulse Ox 98.7 F 97 18 157/81 98 01/25/19 10:00 01/25/19 06:50 01/25/19 10:00 01/25/19 13:15 01/25/19 07:15 Exam: General: Alert and oriented, no physical distress, able to follow commands. HEENT: No thyromegaly, no lymphadenopathy, no discharge. Eyes: No discharge. Respiratory: Normal vesicular breathing, no added sounds, breathing equal in both sides. CVS: Normal heart sounds, no murmurs, regualr HR Extremities: No peripheral edema, bilateral BKA Lymph nodes: No lymphadenopathy Gastrointestinal: Soft, nontender abdomen, normal abdominal sounds. No distention noted. Genitourinary: No paravertebral tenderness. Neurological: Alert and oriented. No focal deficits. Cranial nerves II-XII intact. - Assessment and Plan (1) Acute and chronic respiratory failure with hypoxia Current Visit: Yes Status: Acute Assessment and Plan: -Due to fluid overload/CHF and underlying COPD. Suspicion of PNA -Oxygen requiremtn decreasing -Getting the HDS -WUll continue to monitor (2) HTN (hypertension) Current Visit: Yes Status: Chronic Assessment and Plan: -COnt home meds (3) Diabetes mellitus Current Visit: Yes Status: Chronic Assessment and Plan: -BG leves in control -Cont current regimen (4) Acute encephalopathy Current Visit: Yes Status: Acute Assessment and Plan: -Resolved, was likely metabolic in etiology (5) Multifocal pneumonia Current Visit: Yes Status: Chronic Assessment and Plan: -COntinue antibiotics -Await culture results (6) Acute exacerbation of CHF (congestive heart failure) Current Visit: Yes Status: Acute Assessment and Plan: -Getting the dialyisis today -Continue lasix (7) ESRD (end stage renal disease) on dialysis Current Visit: Yes Status: Acute (8) History of DVT (deep vein thrombosis) Current Visit: No Status: Acute Assessment and Plan: -Continue eliquis - Time Spent with Patient Total time spent is greater than 50% in coordination of care (as documented) at patient's floor/unit and/or counseling patient: Internal Medicine: Result - Labs CBC & Chem 7: 01/25/19 05:18 01/25/19 05:18 Labs: Short CBC 01/25/19 Range/Units 05:18 WBC 16.9 H (4.3-11.1) K/mcL Hgb 8.2 L (11.5-15.4) g/dL Hct 27.2 L (35.3-44.9) % Plt Count 466 H (140-400) K/mcL BMP 01/25/19 05:18 Sodium 132 L Potassium 3.8 Chloride 94 L Carbon Dioxide 30 H BUN 41 H Creatinine 5.15 H Glucose 209 H Calcium 9.2 - ABG Interpretation ABG results: ABG ABG pH 7.42 pH Units (7.32-7.45) 01/22/19 23:04 ABG pCO2 48 mmHg (35-45) H 01/22/19 23:04 ABG pO2 61 mmHg (85-104) L 01/22/19 23:04 ABG O2 Saturation 91 % (95-98) L 01/22/19 23:04 Consult Discharge Plan - Plan Referrals: Juan J Pal, EXPERIMENTAL PREFLIGHT MECHANIC [Primary Care Provider] - (2) HTN (hypertension) Qualifiers: Hypertension type: essential hypertension Qualified Code(s): I10 - Essential (primary) hypertension (3) Diabetes mellitus Qualifiers: Diabetes mellitus type: type 2 Diabetes mellitus terminal gauger supervisor insulin use: with terminal gauger supervisor use Diabetes mellitus complication status: with kidney complications Diabetes mellitus complication detail: with chronic kidney disease Chronic kidney disease stage: on chronic dialysis Qualified Code(s): E11.22 - Type 2 diabetes mellitus with diabetic chronic kidney disease; N18.6 - End stage renal disease; Z79.4 - continuous churn buttermaker (current) use of insulin; Z99.2 - Dependence on renal dialysis (6) Acute exacerbation of CHF (congestive heart failure) Qualifiers: Heart failure type: diastolic Qualified Code(s): I50.33 - Acute on chronic diastolic (congestive) heart failure
[2019-01-25] MEDS: *HR* LORazepam 0.5 MG TABLET PO PRN (16:32)
[2019-01-25] MEDS: rOPINIRole 1 MG TABLET PO SCH (20:20)
[2019-01-25] MEDS: Insulin DETEMIR 100 UNIT/ML X5UNITS SQ SCH (21:37)
[2019-01-26] MEDS: Albuterol 2.5 MG/3 ML NEBULIZER IH SCH ×6 (04:38→23:26)
[2019-01-26] MEDS: *HR* HYDROcodone/Acet 7.5/325 mg TABLET PO PRN ×3 (05:10→17:47)
[2019-01-26] MEDS: Piperacillin/Tazobactam 3.375 GM in 0.9 % Sodium Chloride Mini Bag 100 ML IVPB SCH (05:10)
[2019-01-26] MEDS: Budesonide/Formoterol 80/4.5 1 PUFF INH IH SCH ×2 (07:49→19:39)
[2019-01-26] MEDS: Tiotropium 18 MCG inhalation IH SCH (07:49)
[2019-01-26] MEDS: Furosemide 20 MG/2 ML VIAL IVP SCH (08:49)
[2019-01-26] MEDS: NIFEdipine XL (24 HR) 30 MG TAB.ER.24 PO SCH (08:49)
[2019-01-26] MEDS: Insulin LISPRO 300 UNITS/3 ML VIAL SQ SCH ×4 (08:49→20:02)
[2019-01-26] MEDS: FLUoxetine 20 MG CAPSULE PO SCH (08:49)
[2019-01-26] MEDS: Acetaminophen 325 MG TABLET PO PRN ×3 (08:49→21:46)
[2019-01-26] MEDS: Loratadine 10 MG TABLET PO SCH (08:50)
[2019-01-26] MEDS: Apixaban 2.5 MG TABLET PO SCH ×2 (08:50→20:05)
[2019-01-26] MEDS: Azithromycin 500 MG in D5% in Water 250 ML IVPB SCH (08:50)
[2019-01-26] MEDS: Calcium Acetate 667 MG CAPSULE PO SCH ×3 (08:50→17:47)
[2019-01-26] MEDS: Aspirin Enteric Coated 81 MG Tablet PO SCH (08:50)
[2019-01-26 09:19] LABS: Hematocrit 29.2 % (35.3-44.9); Hemoglobin 8.8 g/dL (11.5-15.4); Mean Corpuscular HGB Conc 30.1 g/dL (31.6-35.5); Mean Platelet Volume 9.6 fL (9.4-12.4); Platelet Count 490 K/mcL (140-400); Red Blood Count 3.14 M/mcL (3.82-4.97); Red Cell Distribution Width 15.1 % (11.5-14.5); White Blood Count 15.6 K/mcL (4.3-11.1)
[2019-01-26 09:33] LABS: Potassium 4.2 mEq/L (3.5-5.1)
--- NOTE | 2019-01-26 12:20 | Internal Med Progress Note ---
Hospitalist Progress Note - Encounter Date of Encounter: 01/26/19 Time of Encounter: 11:00 - Subjective Interval History: Patient lying down in bed. Comfortable. Remains on 10 L O2 supplementation with Oxymask. No fever or chills reported overnight. No nausea or vomiting. Tolerating diet well. Denies any pain at this time - Exam Vitals: Temp Pulse Resp BP Pulse Ox 98.5 F 91 17 147/76 99 01/26/19 10:57 01/26/19 10:57 01/26/19 11:32 01/26/19 10:57 01/26/19 11:32 Exam: General: Patient is alert, mild distress, oriented x 3 ENT: Mucous membranes moist Respiratory: Prolonged expiratory phase, diminished breath sounds at both bases Cardiovascular: Regular rate and rhythm. s1 and s2 normal No clicks, rubs, gallops, or murmurs. No pedal edema Abdomen: Abdomen is soft, nontender. Bowel sounds are present Musculoskeletal: Spontaneously moving all extremities , status post right BKA Neuro: Alert oriented x 3 normal cranial nerves, no focal deficits - Assessment and Plan (1) Acute encephalopathy Current Visit: Yes Status: Acute (2) HTN (hypertension) Current Visit: Yes Status: Chronic (3) Diabetes mellitus Current Visit: Yes Status: Chronic (4) Multifocal pneumonia Current Visit: Yes Status: Chronic (5) Acute and chronic respiratory failure with hypoxia Current Visit: Yes Status: Acute (6) History of DVT (deep vein thrombosis) Current Visit: No Status: Acute (7) Acute exacerbation of CHF (congestive heart failure) Current Visit: Yes Status: Acute (8) ESRD (end stage renal disease) on dialysis Current Visit: Yes Status: Acute DVT Prophylaxis: On Eliquis - Summary of Assessment and Plan Summary of Assessment and Plan: Acute on chronic respiratory failure with hypoxia: Due to fluid overload/CHF and underlying COPD. Patient continues to require increased O2 supplementation. On 10 L O2 supplementation at this time. Will wean FiO2 as tolerated. Patient is on hospice but remains on dialysis. Multifocal pneumonia: No organism identified. Blood cultures have been negative. On Zosyn and azithromycin. Chest x-ray ordered for today. Will follow results. If improving, we will de-escalate antibiotics. End-stage renal disease on hemodialysis: Nephrology following. Continue dialysis per nephrology recommendation.. Acute on chronic diastolic congestive heart failure: Continue Lasix. COPD: End-stage COPD. Continue bronchodilators , O2 supplementation, Symbicort, Spiriva. Essential hypertension: Fairly controlled. Continue current medications. Intermittently elevated but blood pressure improves after she receives oral medications. Previous DVT: Patient is on Eliquis. Altered mental status: Now resolved. Await discharged to hospice on Monday. Diabetes mellitus type 2: Blood sugars were better controlled overnight but increased to 419 this afternoon. Continue current insulin regimen. We will increase long-acting insulin dose. Continue diabetic diet. - Time Spent with Patient Total time spent is greater than 50% in coordination of care (as documented) at patient's floor/unit and/or counseling patient: Internal Medicine: Result - Labs CBC & Chem 7: 01/26/19 09:01 01/26/19 09:01 Labs: Short CBC 01/26/19 Range/Units 09:01 WBC 15.6 H (4.3-11.1) K/mcL Hgb 8.8 L (11.5-15.4) g/dL Hct 29.2 L (35.3-44.9) % Plt Count 490 H (140-400) K/mcL BMP 01/26/19 09:01 Sodium 136 Potassium 4.2 Chloride 94 L Carbon Dioxide 31 H BUN 28 H Creatinine 3.87 H Glucose 165 H Calcium 9.0 - ABG Interpretation ABG results: ABG ABG pH 7.42 pH Units (7.32-7.45) 01/22/19 23:04 ABG pCO2 48 mmHg (35-45) H 01/22/19 23:04 ABG pO2 61 mmHg (85-104) L 01/22/19 23:04 ABG O2 Saturation 91 % (95-98) L 01/22/19 23:04 Consult Discharge Plan - Plan Referrals: Juan J Pal, ACCOUNT CLASSIFICATION CLERK [Primary Care Provider] - (2) HTN (hypertension) Qualifiers: Hypertension type: essential hypertension Qualified Code(s): I10 - Essential (primary) hypertension (3) Diabetes mellitus Qualifiers: Diabetes mellitus type: type 2 Diabetes mellitus fpc insulin use: with fpc use Diabetes mellitus complication status: with kidney complications Diabetes mellitus complication detail: with chronic kidney disease Chronic kidney disease stage: on chronic dialysis Qualified Code(s): E11.22 - Type 2 diabetes mellitus with diabetic chronic kidney disease; N18.6 - End stage renal disease; Z79.4 - exterminator (current) use of insulin; Z99.2 - Dependence on renal dialysis (7) Acute exacerbation of CHF (congestive heart failure) Qualifiers: Heart failure type: diastolic Qualified Code(s): I50.33 - Acute on chronic diastolic (congestive) heart failure
--- NOTE | 2019-01-26 13:05 | Nephrology Progress Note ---
Date of Encounter: 01/26/19 Time of Encounter: 13:05 - Assessment and Plan (1) ESRD (end stage renal disease) on dialysis Current Visit: Yes Status: Chronic Current regimen is Monday in [facility]. Will Offer additional UF or HD as needed. Renal diet Renal vitamins Strict I/O Avoid nephrotoxins and renal dose all medications. (2) Anemia Current Visit: No Status: Acute Goal Hgb is 10-11. Hgb is fairly stable. Qualifiers: Anemia type: due to chronic kidney disease Chronic kidney disease stage: on chronic dialysis Qualified Code(s): N18.6 - End stage renal disease; D63.1 - Anemia in chronic kidney disease; Z99.2 - Dependence on renal dialysis (3) Acute and chronic respiratory failure with hypoxia Current Visit: Yes Status: Resolved Subjective Principal diagnosis: COPD Interval history: Patient seen. No new complaint. Objective - Vital Signs Vital signs: Vital Signs Temp Pulse Resp BP Pulse Ox 01/26/19 11:32 17 99 01/26/19 10:57 98.5 F 91 17 147/76 99 01/26/19 07:51 16 95 01/26/19 07:50 98.6 F 100 20 195/104 98 01/26/19 05:47 97.5 F L 99 16 119/97 01/26/19 04:38 16 95 01/25/19 23:13 97.4 F L 100 16 177/91 100 01/25/19 23:03 20 67 01/25/19 19:42 16 97 01/25/19 18:56 98.4 F 106 17 184/80 97 01/25/19 16:04 16 98 01/25/19 15:59 98.1 F 108 18 191/69 90 01/25/19 13:30 98.9 F 18 160/79 01/25/19 13:15 157/81 Intake and Output 01/25/19 01/26/19 01/26/19 23:59 07:59 15:59 Intake Total 100 / 1050 590 / 590 Balance 100 / -2550 590 / 590 Intake: IV Fluids 100 / 450 350 / 350 Zithromax 500 MG In Dextrose 5% 250 / 250 250 ML @ 252 mls/hr IVPB DAILY [facility] Rx#:[id number] Zosyn 3.375 GM In 0.9 % Sodium 100 / 200 100 / 100 Chloride (Mini-Bag +) 100 ML @ 25 mls/hr IVPB Q12HR [facility] Rx#: [id number] Oral 240 / 240 Other: Meal Breakfast Percent of Meal Consumed 100% Stool Size Small # Bowel Movements 1 Weight 68.4 kg Blood Glucose* 121 134 419 - General Appearance General appearance: Present: well-developed, well-nourished EENT: Present: ATNC Neck: Present: supple Cardiology: Present: regular rate Neurologic: Present: alert and oriented x3 - Lab 01/27/19 03:32 01/27/19 03:32 Most recent lab results 01/26/19 09:01 Calcium 9.0 Consult Discharge Plan - Plan Referrals: Juan J Pal, [employer] SUPERVISOR [Primary Care Provider] -
[2019-01-26] MEDS: Insulin DETEMIR 100 UNIT/ML X5UNITS SQ SCH (20:04)
[2019-01-26] MEDS: rOPINIRole 1 MG TABLET PO SCH (20:05)
[2019-01-27] MEDS: *HR* HYDROcodone/Acet 7.5/325 mg TABLET PO PRN ×2 (01:55→09:07)
[2019-01-27] MEDS: Albuterol 2.5 MG/3 ML NEBULIZER IH SCH ×6 (03:10→23:15)
[2019-01-27 03:57] LABS: Hematocrit 26.4 % (35.3-44.9); Mean Corpuscular HGB Conc 30.3 g/dL (31.6-35.5); Mean Corpuscular Hemoglobin 28.6 pg (28.0-33.3); Mean Corpuscular Volume 94.3 fL (83.0-100.0); Mean Platelet Volume 9.8 fL (9.4-12.4); Platelet Count 489 K/mcL (140-400); Red Cell Distribution Width 15.1 % (11.5-14.5); White Blood Count 17.4 K/mcL (4.3-11.1)
[2019-01-27 04:10] LABS: Calcium 8.9 mg/dL (8.6-10.3); Potassium 4.7 mEq/L (3.5-5.1)
[2019-01-27] MEDS: Acetaminophen 325 MG TABLET PO PRN (05:13)
[2019-01-27] MEDS ORDERED: Morphine Sulfate 2 MG/ML SYRINGE IVP ONE (05:44)
--- NOTE | 2019-01-27 05:59 | Event Note ---
Date of Encounter: 01/27/19 Time of Encounter: 05:34 Alerted by pts. nurse URI [place] that the pt. was reporting chest pain. Pt. described left chest pain which has been recurring and felt like rib pain. States she feels like this is fluid around her heart. Stat EKG and troponin ordered. Nurse instructed to give SL nitro. Went to see the pt. who was in bed clutching her chest. 1st dose of SL nitro given and pt. reporting minimal improvement. Stat 1V Portable CXR ordered. Pt. has hx of CHF. EKG showed sinus tachycardia with left ventricular hypertrophy and ST-T change. Stat order for 2 mg IVP morphine placed. BP 153/81. Morphine administered. 10 minutes later, pt. reported some relief in the CP. BP 167/80. HR 118. One-time order for 5 mg IVP Metoprolol placed. Troponin <0.03. Abnormal labs this a.m.: WBC 17.4, Hgb 8.0, Sodium 132, creatinine 5.26, GFR 8, Glucose 227. Awaiting CXR results.
[2019-01-27] MEDS ORDERED: *HR* Metoprolol 5 MG/5 ML VIAL IVP ONE (06:25)
[2019-01-27] MEDS: Budesonide/Formoterol 80/4.5 1 PUFF INH IH SCH ×2 (07:31→19:46)
[2019-01-27] MEDS ORDERED: Amoxicillin/Clavulanate 500 MG TABLET PO SCH (09:00)
[2019-01-27] MEDS: Aspirin Enteric Coated 81 MG Tablet PO SCH (09:08)
[2019-01-27] MEDS: Furosemide 20 MG/2 ML VIAL IVP SCH (09:08)
[2019-01-27] MEDS: Apixaban 2.5 MG TABLET PO SCH ×2 (09:08→20:53)
[2019-01-27] MEDS: FLUoxetine 20 MG CAPSULE PO SCH (09:08)
[2019-01-27] MEDS: Calcium Acetate 667 MG CAPSULE PO SCH ×3 (09:08→16:03)
[2019-01-27] MEDS: Loratadine 10 MG TABLET PO SCH (09:08)
[2019-01-27] MEDS: NIFEdipine XL (24 HR) 30 MG TAB.ER.24 PO SCH (09:08)
[2019-01-27] MEDS: Azithromycin 250 MG TABLET PO SCH (09:09)
[2019-01-27] MEDS: Insulin LISPRO 300 UNITS/3 ML VIAL SQ SCH ×5 (09:09→20:55)
[2019-01-27] MEDS: Insulin DETEMIR 100 UNIT/ML X5UNITS SQ SCH ×2 (09:16→20:55)
--- NOTE | 2019-01-27 10:03 | Nephrology Progress Note ---
Date of Encounter: 01/27/19 Time of Encounter: 10:03 - Assessment and Plan (1) ESRD (end stage renal disease) on dialysis Current Visit: Yes Status: Chronic Current regimen is Monday in [facility]. Will Offer additional UF or HD as needed. Renal diet Renal vitamins Strict I/O Avoid nephrotoxins and renal dose all medications. (2) Anemia Current Visit: No Status: Acute Goal Hgb is 10-11. Hgb is fairly stable. (3) Acute and chronic respiratory failure with hypoxia Current Visit: Yes Status: Resolved Subjective Principal diagnosis: COPD Interval history: Patient seen. No new complaint. Objective - Vital Signs Vital signs: Vital Signs Temp Pulse Resp BP Pulse Ox 01/27/19 07:39 98.4 F 103 18 170/80 99 01/27/19 07:28 16 170/80 99 01/27/19 06:24 118 167/80 01/27/19 05:39 75 153/81 01/27/19 03:51 97.3 F L 109 96 162/70 01/27/19 03:10 17 95 01/26/19 23:26 18 99 01/26/19 23:17 97.4 F L 99 20 150/61 96 01/26/19 20:19 97.4 F L 80 20 104/59 94 01/26/19 19:49 97.7 F 79 16 106/64 94 01/26/19 19:40 17 95 01/26/19 14:53 98.2 F 78 18 107/53 94 01/26/19 11:32 17 99 01/26/19 10:57 98.5 F 91 17 147/76 99 Intake and Output 01/26/19 01/27/19 01/27/19 23:59 07:59 15:59 Intake Total 120 / 1070 Balance 120 / 1070 Intake: Oral 120 / 720 Other: Blood Glucose* 286 322 - General Appearance General appearance: Present: well-developed, well-nourished EENT: Present: ATNC Neck: Present: supple Cardiology: Present: regular rate Integumentary: Present: warm and dry Neurologic: Present: alert and oriented x3 Psychiatric: Present: mood/affect appropriate - Lab 01/27/19 03:32 01/27/19 03:32 Most recent lab results 01/27/19 03:32 Calcium 8.9 Consult Discharge Plan - Plan Referrals: Juan J Pal, LAMAR [Primary Care Provider] -
[2019-01-27] MEDS: Tiotropium 18 MCG inhalation IH SCH (11:25)
[2019-01-27] MEDS: *HR* LORazepam 0.5 MG TABLET PO PRN ×2 (12:19→21:05)
[2019-01-27] MEDS: Neosporin OINT 15 GM TUBE TP SCH ×2 (12:52→20:57)
[2019-01-27] MEDS: *HR* HYDROcodone/Acet 7.5/325 mg TABLET PO SCH ×4 (12:57→23:03)
--- NOTE | 2019-01-27 12:59 | Internal Med Progress Note ---
Hospitalist Progress Note - Encounter Date of Encounter: 01/27/19 Time of Encounter: 09:00 - Subjective Interval History: Patient had left-sided chest pain this morning. Her chest pain started since admission to the hospital 5 days ago and nonradiating. [place] helped to relieve the pain for 5 hours. Her pain is increased with palpation. She denies sh ortness of breath, palpitation or dizziness. She had no abdominal pain, nausea or vomiting. - Exam Vitals: Temp Pulse Resp BP Pulse Ox 98.0 F 97 16 126/75 97 01/27/19 11:19 01/27/19 11:19 01/27/19 11:19 01/27/19 11:19 01/27/19 11:19 Exam: General: Patient is alert, mild distress, oriented x 3 ENT: Mucous membranes moist. Hearing is intact. Respiratory: Prolonged expiratory phase, diminished breath sounds at both bases. Cardiovascular: Regular rate and rhythm. s1 and s2 normal No clicks, rubs, gall ops, or murmurs. Left sided chest pain and tenderness with palpation. Abdomen: Abdomen is soft, nontender. Bowel sounds are present Musculoskeletal: Spontaneously moving all extremities , status post bl BKA Neuro: Alert oriented x 3 normal cranial nerves, no focal deficits - Assessment and Plan (1) HTN (hypertension) Current Visit: Yes Status: Chronic (2) Diabetes mellitus Current Visit: Yes Status: Chronic (3) Acute encephalopathy Current Visit: No Status: Resolved (4) Multifocal pneumonia Current Visit: Yes Status: Acute (5) Acute and chronic respiratory failure with hypoxia Current Visit: Yes Status: Resolved (6) History of DVT (deep vein thrombosis) Current Visit: No Status: Acute (7) Acute exacerbation of CHF (congestive heart failure) Current Visit: Yes Status: Acute (8) ESRD (end stage renal disease) on dialysis Current Visit: Yes Status: Acute - Summary of Assessment and Plan Summary of Assessment and Plan: Ms. Simon is a 58 year old female with a PMH of CAD, CHF, COPD on 2-3 L of home O2, CVA, previous DVT on Eliquis, DM, HLD, HTN, PAD, ESRD on HD MWF who was admitted to the hospital due to shortness of breath. Initial x-ray revealed pulmonary edema with left effusion with left base residual airspace disease. Acute on chronic hypoxic respiratory failure: - Due to fluid overload/CHF and PNA. On 4l of O2. - Patient is on hospice but remains on dialysis. Multifocal pneumonia: - No organism identified. Blood cultures have been negative. - was on Zosyn and azithromycin. CXR today with no interval changes in her pulmonary edema. - Patient is afebrile, achiness. Leukocytosis worsened today however clinically better. - Stop Augmentin and switched to Levaquin giving her multiple hospital admissions, dialysis and diabetes. We will cover for pseudomonas. - check CBC tomorrow. CHest pain: - Troponin is negative twice 2. EKG with no ischemic changes. Less likely PE as she is on Eliquis. - Suspect this is due to her pneumonia and possible costochondritis given her localized tenderness with palpation. - We will continue with Lidoderm patch and try to manage her home dose [place] frequency with inpatient frequency. End-stage renal disease on hemodialysis: -Nephrology following. Continue dialysis per nephrology recommendation.. - Continue renal diet. Chest x-ray with finding of fluid overload with no significant improvement. Acute on chronic diastolic congestive heart failure: - Continue Lasix. COPD: End-stage COPD. - Continue bronchodilators , O2 supplementation, Symbicort, Spiriva. Essential hypertension: - controlled. Continue current medications. Previous DVT: -Patient is on Eliquis. Altered mental status: -Now resolved. Await discharged to hospice when stable Diabetes mellitus type 2: - Not well controlled. - Continue current insulin regimen. We will increase long-acting insulin dose. Continue diabetic diet. DVT prophylaxis: Eliquis. - Time Spent with Patient Total time spent is greater than 50% in coordination of care (as documented) at patient's floor/unit and/or counseling patient: Internal Medicine: Result - Labs CBC & Chem 7: 01/27/19 03:32 01/27/19 03:32 Labs: Short CBC 01/27/19 Range/Units 03:32 WBC 17.4 H (4.3-11.1) K/mcL Hgb 8.0 L (11.5-15.4) g/dL Hct 26.4 L (35.3-44.9) % Plt Count 489 H (140-400) K/mcL BMP 01/27/19 03:32 Sodium 132 L Potassium 4.7 Chloride 93 L Carbon Dioxide 28 BUN 47 H Creatinine 5.26 H Glucose 227 H Calcium 8.9 Cardiac Enzymes 01/27/19 01/27/19 Range/Units 05:49 11:59 Troponin I 0.03 0.03 (< 0.04) ng/mL - ABG Interpretation ABG results: ABG ABG pH 7.42 pH Units (7.32-7.45) 01/22/19 23:04 ABG pCO2 48 mmHg (35-45) H 01/22/19 23:04 ABG pO2 61 mmHg (85-104) L 01/22/19 23:04 ABG O2 Saturation 91 % (95-98) L 01/22/19 23:04 - Impressions Impressions Chest X-Ray 01/26/19 12:20 IMPRESSION: No significant interval change in small left pleural effusion. Minimal improvement in pulmonary edema. Residual airspace disease greatest at the left base. D/ / Napoleon Galvan MD / Napoleon Galvan MD Interpreting Provider: Napoleon Galvan MD Chest X-Ray 01/27/19 05:43 IMPRESSION: No interval change in interstitial edema and small left pleural effusion with adjacent airspace opacity. D/ / Karen Ladd MD / Karen Ladd MD Interpreting Provider: Karen Ladd MD Consult Discharge Plan - Plan Referrals: Juan J Pal, [employer] TODDLER TEACHER [Primary Care Provider] - (1) HTN (hypertension) Qualifiers: Hypertension type: essential hypertension Qualified Code(s): I10 - Essential (primary) hypertension (2) Diabetes mellitus Qualifiers: Diabetes mellitus type: type 2 Diabetes mellitus long-term insulin use: with long-term use Diabetes mellitus complication status: with kidney complications Diabetes mellitus complication detail: with chronic kidney disease Chronic kidney disease stage: on chronic dialysis Qualified Code(s): E11.22 - Type 2 diabetes mellitus with diabetic chronic kidney disease; N18.6 - End stage renal disease; Z79.4 - superintendent container terminal (current) use of insulin; Z99.2 - Dependence on renal dialysis (7) Acute exacerbation of CHF (congestive heart failure) Qualifiers: Heart failure type: diastolic Qualified Code(s): I50.33 - Acute on chronic diastolic (congestive) heart failure
[2019-01-27] MEDS ORDERED: levoFLOXacin 750 MG TABLET PO SCH (13:15)
[2019-01-27] MEDS: *HR* Dextrose 50 % in Water (Syg) 50 ML SYRINGE IVP PRN (15:03)
[2019-01-27] MEDS: rOPINIRole 1 MG TABLET PO SCH (20:53)
[2019-01-27] MEDS: Ondansetron ODT 4 MG TAB.RAPDIS PO PRN (22:34)
[2019-01-27] MEDS: *HR* LORazepam 2 MG/ML VIAL IVP ONE (23:02)
[2019-01-28] MEDS: Albuterol 2.5 MG/3 ML NEBULIZER IH SCH ×6 (03:44→23:14)
[2019-01-28] MEDS: *HR* LORazepam 0.5 MG TABLET PO PRN (04:27)
[2019-01-28] MEDS: *HR* HYDROcodone/Acet 7.5/325 mg TABLET PO SCH ×3 (04:28→13:34)
[2019-01-28] MEDS: Ondansetron ODT 4 MG TAB.RAPDIS PO PRN (04:28)
[2019-01-28 05:15] LABS: Hematocrit 28.1 % (35.3-44.9); Mean Platelet Volume 9.9 fL (9.4-12.4)
[2019-01-28 05:16] LABS: Hemoglobin 8.3 g/dL (11.5-15.4); Mean Corpuscular HGB Conc 29.5 g/dL (31.6-35.5); Mean Corpuscular Hemoglobin 27.4 pg (28.0-33.3); Mean Corpuscular Volume 92.7 fL (83.0-100.0); Platelet Count 563 K/mcL (140-400); Red Blood Count 3.03 M/mcL (3.82-4.97); Red Cell Distribution Width 15.4 % (11.5-14.5)
[2019-01-28 05:21] LABS: White Blood Count 30.7 K/mcL (4.3-11.1)
[2019-01-28 05:40] LABS: Calcium 9.3 mg/dL (8.6-10.3); Potassium 5.9 mEq/L (3.5-5.1)
[2019-01-28 05:47] LABS: Red Blood Count 2.99 M/mcL (3.82-4.97)
[2019-01-28 05:49] LABS: Basophils # 0.1 K/mcL (0.0-0.2); Basophils % 0.4 %; Eosinophils # 0.9 K/mcL (0.0-0.6); Hematocrit 28.1 % (35.3-44.9); Hemoglobin 8.3 g/dL (11.5-15.4); Immature Granulocytes % 2.5 % (0-4); Lymphocytes # 1.7 K/mcL (0.6-4.6); Lymphocytes % 5.7 %; Mean Corpuscular HGB Conc 29.5 g/dL (31.6-35.5); Mean Corpuscular Hemoglobin 27.8 pg (28.0-33.3); Mean Platelet Volume 9.6 fL (9.4-12.4); Monocytes # 1.8 K/mcL (0.0-1.3); Monocytes % 5.8 %; Neutrophils # 25.2 K/mcL (1.6-8.9); Platelet Count 548 K/mcL (140-400); Red Cell Distribution Width 15.4 % (11.5-14.5); Segmented Neutrophils % 82.6 %
[2019-01-28 06:05] LABS: White Blood Count 30.5 K/mcL (4.3-11.1)
--- NOTE | 2019-01-28 06:17 | Event Note ---
Date of Encounter: 01/28/19 Time of Encounter: 05:21 Alerted by patient's nurse URI [place] that the patient was meeting sepsis criteria with no white blood count of 30.7 (previously 17.4) and heart rate greater than 90. White blood count redrawn to confirm which came back at 30.5. Lactic acid ordered which returned at 0.6. Stat strep pneumoniae, Legionella, UA with reflex micro-and culture, and repeat blood cultures ordered due to current spike in WBC. Pt. is currently on PO levaquin d/t plan to discharge. CT of the abdomen/pelvis ordered due to patient's report of abdominal pain and no BM for some time in order to assess for SBO. CT showed no evidence for small bowel obstruction or other acute abnormality in the abdomen and pelvis. Bibasilar atelectasis and/or pneumonia with left pleural effusion. Nurse instructed to continue monitoring the pt. very closely d/t currently meeting sepsis criteria and alert me immediately of any adverse changes.
[2019-01-28 06:41] LABS: Bilirubin,Urine Negative (Negative); Blood,Urine Negative (Negative); Clarity,Urine Clear (Clear); Color,Urine Yellow (Yellow); Glucose,Urine (UA) 250 mg/dL (Normal); Ketones,Urine Negative (Negative); Leukocyte Esterase,Urine Negative (Negative); Nitrite,Urine Negative (Negative); PH,Urine 7.5 pH Units (5.0-8.0); Protein,Urine >=300 mg/dL (Neg-Trace); Specific Gravity,Urine 1.017 (1.010-1.025); Urobilinogen,Urine Normal (Normal)
[2019-01-28 06:44] LABS: Bacteria,Urine None Seen per hpf (None-Few); Hyaline Casts,Urine None Seen per lpf (None-Few); RBC,Urine 0-3 per hpf (0-3); Squamous Epithelial Cell,Urine Many per lpf (None-Few); WBC,Urine 0-3 per hpf (0-3)
[2019-01-28] MEDS ORDERED: Piperacillin/Tazobactam 3.375 GM in Water for inj. (sterile) 20 ML IVP SCH (07:34)
[2019-01-28] MEDS: Budesonide/Formoterol 80/4.5 1 PUFF INH IH SCH ×2 (07:41→19:59)
[2019-01-28] MEDS: Tiotropium 18 MCG inhalation IH SCH (07:42)
[2019-01-28] MEDS ORDERED: 0.9 % Sodium Chloride 1,000 ML PRIME SCH ×2 (07:45→17:07)
[2019-01-28] MEDS ORDERED: 0.9 % Sodium Chloride 250 ML IVC PRN ×2 (07:45→17:07)
[2019-01-28] MEDS: Insulin DETEMIR 100 UNIT/ML X5UNITS SQ SCH ×2 (07:46→20:50)
[2019-01-28] MEDS ORDERED: Piperacillin/Tazobactam 3.375 GM in 0.9 % Sodium Chloride Mini Bag 100 ML IVPB SCH (07:46)
[2019-01-28] MEDS: Furosemide 20 MG/2 ML VIAL IVP SCH ×2 (07:46→20:47)
[2019-01-28] MEDS: Azithromycin 250 MG TABLET PO SCH (07:47)
[2019-01-28] MEDS: Apixaban 2.5 MG TABLET PO SCH ×2 (07:47→20:50)
[2019-01-28] MEDS: NIFEdipine XL (24 HR) 30 MG TAB.ER.24 PO SCH (07:47)
[2019-01-28] MEDS: Neosporin OINT 15 GM TUBE TP SCH ×2 (07:47→21:58)
[2019-01-28] MEDS: Loratadine 10 MG TABLET PO SCH (07:47)
[2019-01-28] MEDS: Aspirin Enteric Coated 81 MG Tablet PO SCH (07:47)
[2019-01-28] MEDS: Calcium Acetate 667 MG CAPSULE PO SCH ×2 (07:47→13:32)
[2019-01-28] MEDS: FLUoxetine 20 MG CAPSULE PO SCH (07:47)
[2019-01-28] MEDS: Insulin LISPRO 300 UNITS/3 ML VIAL SQ SCH ×3 (07:48→13:32)
[2019-01-28 07:56] LABS: Albumin 3.7 g/dL (3.5-5.7); Albumin/Globulin Ratio 1.3 (1.1-2.2); Bilirubin,Direct 0.1 mg/dL (0.0-0.2); Bilirubin,Indirect 0.2 mg/dL (0.0-1.2); Bilirubin,Total 0.3 mg/dL (0.3-1.0); Globulin 2.8 g/dL (2.4-3.5); Total Protein 6.5 g/dL (6.4-8.9)
[2019-01-28] MEDS ORDERED: Vancomycin 1 EACH in 0.9 % Sodium Chloride 250 ML IVPB SCH ×2 (08:00→17:07)
[2019-01-28] MEDS ORDERED: Sennosides 8.6 MG TABLET PO SCH (09:02)
[2019-01-28] MEDS: Acetaminophen 325 MG TABLET PO PRN (10:16)
--- NOTE | 2019-01-28 10:44 | Pulmonology Consult Note ---
<Lazaro Viera - Last Filed: 01/28/19 13:23> Date of Encounter: 01/28/19 Time of Encounter: 10:44 Assessment and Plan (1) Pleural effusion Current Visit: Yes Status: Acute L-sided pleural effusion - Pt admitted with SOB - Hx of CHF and COPD - Likely secondary to CHF exacerbation Plan: - Chest CT pending - Continue HD as needed. - Will continue to monitor respiratory status - Thoracentesis if status does not improve with Dialysis (2) Acute respiratory failure with hypoxia Current Visit: Yes Status: Acute Acute resp failure - Hx of COPD and CHF - On 2-3L O2 at baseline. - Hemodialysis MWF Plan: - Supplemental O2 as needed - Conintue Duonebs and Symbicort (3) Multifocal pneumonia Current Visit: Yes Status: Acute Mulitfocal PNA - CXR: interstitial edema with left-sided pleural effusion - WBC 13.2 on admission, 30.5 today - Procalcitonin 0.89 on admission Plan: - Continue Abx - Follow cultures - Legionella strep pneumo antigens negative (4) COPD (chronic obstructive pulmonary disease) Current Visit: No Status: Chronic Hx of COPD - As above Qualifiers: COPD type: unspecified COPD Qualified Code(s): J44.9 - Chronic obstructive pulmonary disease, unspecified History of Present Illness Consult date: 01/28/19 History of present illness: Mrs. Sharifa Simon is 58-year-old female with past medical history of CAD, CHF, COPD on 2 L of oxygen a home, CVA, previous DVT on Eliquis, diabetes, hy perlipidemia, hypertension, PAD, and ESRD on HD MWF. She presented to [facility] as a transfer from [facility] where she had presented with shortness of breath that progressively worsened for the past 3-4 weeks. She also reported having a nonproductive cough. She had missed a scheduled dialysis session, and was reporting left-sided pain associated with nausea and vomiting. In the emergency room her vitals are significant for hypertension 161/71, respiratory rate of 20, oxygen saturation 91% on 2.5 L of oxygen via nasal cannula. Her labs on admission were significant for leukocytosis at 13.2, anemia with hemoglobin of 8.7, hyponatremia with sodium of 131, hyperkalemia with potassium of 5.2, BNP at 1041, and pro-calcitonin at 0.89. S2 x-ray showed pulmonary edema with a left pleural effusion. EKG showed sinus tachycardia with left atrial enlargement. She was admitted and treated for acute on chronic respiratory failure with hypoxia, multifocal pneumonia, and acute exacerbation of congestive heart failure. Nephrology was consulted and patient's fluid overload was treated with hemodialysis. Patient developed altered mental status after admission, CT head was negative for acute process. Pulmonology was consulted because patient was requesting to be seen while she is admitted, she has an outpatient appointment scheduled for January 31. Past Med Surg Social Fam HX - Past Medical History Medical history: CHF, COPD, coronary artery disease, CVA, DVT, diabetes, dialysis, fibromyalgia, hyperlipidemia, hypertension, peripheral artery disease, renal disease Psychiatric history: anxiety, depression - Past Surgical History Surgical History: , hysterectomy Additional surgical history: shoulder surgery, torn cuff. right hand carpel tunnel. abdominal hernia with mesh implant. Bilateral below the knee amp - Social History Smoking Status: Former smoker Smokeless Tobacco Status: No Alcohol use: none Drug use: none - Family History Sister Hx Family Cardiac Disorders: Yes (Cardiac bypass) Father Family Member Ethnicity: Non- Hx Family Cancer: Yes (colon) Mother Family Member Ethnicity: Non- Hx Family Cardiac Disorders: Yes Medications and Allergies Calcium Acetate [Phos-LO] 2 cap PO ACHS 08/12/17 [History] Cetirizine HCl [24Hour Allergy] 10 mg PO DAILY 08/12/17 [History] rOPINIRole [Requip] 1 mg PO HS 08/12/17 [History] Amitriptyline [Elavil] 50 mg PO HS 11/25/18 [History] Apixaban [Eliquis] 2.5 mg PO BID 11/25/18 [History] Insulin Glargine [Lantus] 12 unit SQ Q12H 11/25/18 [History] Montelukast [Singulair] 10 mg PO DAILY 11/25/18 [History] Pantoprazole Sodium 40 mg PO DAILY 11/25/18 [History] Patiromer Calcium Sorbitex [Veltassa] 8.4 gm PO DAILY 11/25/18 [History] Aspirin [Lo-Dose Aspirin EC] 81 mg PO DAILY 12/03/18 [History] B-Complex with Vitamin C [Vitamin B-Complex with Vit C] 1 tab PO DAILY 12/18/18 [History] HYDROcodone/Acet 7.5/325 mg [Keene 7.5-325 mg] 1 tab PO Q4H PRN 12/18/18 [History] LORazepam [Ativan] 0.5 mg PO Q6H PRN 12/18/18 [History] NIFEdipine [Nifedipine ER] 90 mg PO DAILY 12/18/18 [History] Nitroglycerin [Nitrostat] 0.4 mg SL Q5MIN PRN MDD X3 DOSES CALL 911 12/18/18 [History] Tiotropium [Spiriva] 18 mcg IH DAILY 12/18/18 [History] Budesonide/Formoterol 80/4.5 [Symbicort 80/4.5] 1 puff IH BIDR #1 inhaler 12/20/18 [Rx] Insulin LISPRO [Humalog] 0 unit SQ ACHS #1 cartridge 12/20/18 [Rx] FLUoxetine HCl [Prozac] 20 mg PO DAILY 12/24/18 [History] Losartan [Cozaar] 50 mg PO DAILY #30 tablet 12/29/18 [Rx] Torsemide [Demadex] 60 mg PO BIDDIURETIC #60 tablet 12/29/18 [Rx] Carvedilol 25 mg PO BID 01/04/19 [History] Cholecalciferol (Vitamin D3) [Optimal D3] 50,000 units PO GUERRA 01/15/19 [History] Morphine Oral CONC [Roxanol] 5 mg PO Q4H PRN 01/15/19 [History] Ondansetron HCl [Zofran] 4 mg PO Q4H PRN 01/15/19 [History] Sennosides [Senna] 8.6 mg PO BID PRN 01/15/19 [History] Amoxicillin/Clavulanate [Augmentin] 500 mg PO DAILY 7 Days #7 tablet 01/17/19 [Rx] Acetaminophen [Tylenol 650mg SUPP] 650 mg RC Q4H PRN 01/22/19 [History] Albuterol Sulfate [Ventolin Hfa] 2 puff IH Q6H PRN 01/22/19 [History] Haloperidol [Haldol] 1 mg PO Q2H PRN 01/22/19 [History] Hyoscyamine SL [Levsin Sl] 0.125 mg SL Q2H PRN 01/22/19 [History] Ipratropium/Albuterol Neb [Duoneb] 3 ml IH Q6H 01/22/19 [History] Allergy/AdvReac Type Severity Reaction Status Date / Time pregabalin [From Lyrica] Allergy See Verified 01/21/19 23:50 Comments codeine AdvReac Nausea Verified 01/21/19 23:50 ivp dye Allergy See Uncoded 01/15/19 21:36 Comments All Systems: The remainder of the systems were reviewed and are negative Review of Systems: Constitutional: Denies fevers, chills, weight loss, generalized fatigue Head/Neck: Denies ARREDONDO, neck stiffness EENT: Denies vision changes/blurriness, rhinorrhea, congestion, sore throat CVS: Reprots pain in Left side. Denies palpitations, ARROYO, orthopnea, edema, PND Pulm: Denies SOB, cough, sputum, hemoptysis, wheezing GI: Denies abdominal pain, nausea, vomiting, diarrhea, constipation, melena, hematemasis : Denies dysuria, increased frequency, urgency, hematuria Heme: Denies ease of bleeding or bruising MSK: Reports Pain in Left side. Denies joint pain, limited ROM Skin: Denies rashes, ulcers, color changes Neuro: Denies ARREDONDO, paresthesias, focal deficits, ataxia Physical Examination Vital Signs: Vital Signs, Last 4 Hours Temp Pulse Resp BP Pulse Ox 01/28/19 10:30 108/74 01/28/19 10:15 135/73 01/28/19 10:00 118/79 01/28/19 09:45 117/71 01/28/19 09:30 139/84 01/28/19 09:15 100.1 F H 22 141/67 01/28/19 07:42 24 92 01/28/19 07:14 99.2 F 104 19 144/77 93 Gen: Vitals noted. Lying in bed, some distress due to pain. Eyes: anicteric sclerae, moist conjunctivae. Pupils equal, round, and reactive to light HENT: Atraumatic, normocephalic; oropharynx clear with moist mucous membranes and no mucosal ulcerations Neck: Trachea midline; supple, no thyromegaly or lymphadenopathy Cardiac: RRR, no murmurs, rubs or gallops, S1/S2 Pulmonary: Coarse breath sounds BL. No wheezes, rales or rhonchi, equal chest expansion Abdomen: soft, nontender, no rigidity or guarding. No masses or hepatosplenomegaly MSK: ROM intact, no joint swelling noted Extremities: no cyanosis or clubbing, BL lower leg amputations noted Skin: Normal temperature, turgor and texture; no rash, ulcers or subcutaneous nodules Neuro: moves all extremities, no focal deficits. Psych: Appropriate mood and behavior. A&Ox3 Results - Laboratory Findings CBC and BMP: 01/28/19 05:32 01/28/19 04:39 ABG ABG pH 7.42 pH Units (7.32-7.45) 01/22/19 23:04 ABG pCO2 48 mmHg (35-45) H 01/22/19 23:04 ABG pO2 61 mmHg (85-104) L 01/22/19 23:04 ABG O2 Saturation 91 % (95-98) L 01/22/19 23:04 Abnormal lab findings: Abnormal lab results WBC 30.5 K/mcL (4.3-11.1) H* 01/28/19 05:32 RBC 2.99 M/mcL (3.82-4.97) L 01/28/19 05:32 Hgb 8.3 g/dL (11.5-15.4) L 01/28/19 05:32 Hct 28.1 % (35.3-44.9) L 01/28/19 05:32 MCH 27.8 pg (28.0-33.3) L 01/28/19 05:32 MCHC 29.5 g/dL (31.6-35.5) L 01/28/19 05:32 RDW 15.4 % (11.5-14.5) H 01/28/19 05:32 Plt Count 548 K/mcL (140-400) H 01/28/19 05:32 Neutrophils # 25.2 K/mcL (1.6-8.9) H 01/28/19 05:32 Monocytes # 1.8 K/mcL (0.0-1.3) H 01/28/19 05:32 Eosinophils # 0.9 K/mcL (0.0-0.6) H 01/28/19 05:32 Platelet Estimate Slight increase (Normal) H 01/28/19 05:32 ABG pH 7.48 pH Units (7.32-7.45) H 01/22/19 18:15 ABG pCO2 48 mmHg (35-45) H 01/22/19 23:04 ABG pO2 61 mmHg (85-104) L 01/22/19 23:04 ABG HCO3 31 mEq/L (21-27) H 01/22/19 23:04 ABG Total CO2 33 mEq/L (20-26) H 01/22/19 23:04 ABG O2 Saturation 91 % (95-98) L 01/22/19 23:04 ABG Base Excess 6 mEq/L (-2 to 3) H 01/22/19 23:04 Sodium 127 mEq/L (136-145) L 01/28/19 04:39 Potassium 5.9 mEq/L (3.5-5.1) H 01/28/19 04:39 Chloride 92 mEq/L (98-107) L 01/28/19 04:39 Carbon Dioxide 31 mEq/L (23-29) H 01/26/19 09:01 BUN 60 mg/dL (8-23) H 01/28/19 04:39 Creatinine 6.49 mg/dL (0.60-1.20) H 01/28/19 04:39 Est GFR ( Amer) 8 (> 60) L 01/28/19 04:39 Est GFR (Non-Af Amer) 7 (> 60) L 01/28/19 04:39 Glucose 167 mg/dL (70-105) H 01/28/19 04:39 POC Glucose 244 mg/dL (70-99) H 01/27/19 22:19 Lactic Acid 0.2 mmol/L (0.5-2.2) L 01/22/19 02:50 Calcium 8.5 mg/dL (8.6-10.3) L 01/23/19 03:50 ALT 74 Units/L (7-52) H 01/28/19 04:39 Alkaline Phosphatase 266 Units/L (34-104) H 01/28/19 04:39 Troponin I 0.05 ng/mL (< 0.04) H* 01/22/19 20:33 B-Natriuretic Peptide 1041 pg/mL (Less than 100) H 01/22/19 02:57 Procalcitonin 0.89 ng/mL (0.00-0.15) H 01/22/19 03:28 Urine Protein >=300 mg/dL (Neg-Trace) H 01/28/19 06:26 Urine Glucose (UA) 250 mg/dL (Normal) H 01/28/19 06:26 Ur Squamous Epith Cells Many per lpf (None-Few) H 01/28/19 06:26 Hep Bs Antibody < 3.10 mIU/mL (10.00-) L 01/22/19 07:40 - Microbiology Findings Microbiology Findings: Microbiology, Last 48 Hours 01/28/19 06:26 Legionella Antigen - Final Urine,Catheterized (Straight) 01/28/19 06:26 Streptococcus pneumoniae Antigen (M - Final Urine,Catheterized (Straight) 01/28/19 06:41 Blood Culture - Preliminary Peripheral Venipuncture Culture is incubating and being continuously monitored for growth. Final report to follow. 01/28/19 06:41 Blood Culture - Preliminary Peripheral Venipuncture Culture is incubating and being continuously monitored for growth. Final report to follow. 01/22/19 02:50 Blood Culture - Final Peripheral Venipuncture No growth. Final report. 01/22/19 02:57 Blood Culture - Final Peripheral Venipuncture No growth. Final report. - Clinical Findings Intake & Output: Intake & Output 01/27/19 01/28/19 01/28/19 23:59 07:59 15:59 Intake Total 700 / 1300 118 / 958 840 / 958 Output Total 100 / 100 150 / 150 Balance 600 / 1200 -32 / 808 840 / 808 Consult Discharge Plan - Plan Referrals: Juan J Pal, [employer] [Primary Care Provider] - <Dillan Hart - Last Filed: 01/28/19 16:13> Date of Encounter: 01/28/19 All Systems: The remainder of the systems were reviewed and are negative Physical Examination Vital Signs: Vital Signs, Last 4 Hours Temp Pulse Resp BP Pulse Ox 01/28/19 15:24 98.8 F 112 20 101/65 90 01/28/19 13:04 99 F 18 139/75 01/28/19 12:45 128/82 01/28/19 12:30 108/76 01/28/19 12:15 113/79 Results - Laboratory Findings CBC and BMP: 01/28/19 05:32 01/28/19 04:39 ABG ABG pH 7.48 pH Units (7.32-7.45) H 01/28/19 15:36 ABG pCO2 43 mmHg (35-45) 01/28/19 15:36 ABG pO2 53 mmHg (85-104) L 01/28/19 15:36 ABG O2 Saturation 89 % (95-98) L 01/28/19 15:36 Abnormal lab findings: Abnormal lab results WBC 30.5 K/mcL (4.3-11.1) H* 01/28/19 05:32 RBC 2.99 M/mcL (3.82-4.97) L 01/28/19 05:32 Hgb 8.3 g/dL (11.5-15.4) L 01/28/19 05:32 Hct 28.1 % (35.3-44.9) L 01/28/19 05:32 MCH 27.8 pg (28.0-33.3) L 01/28/19 05:32 MCHC 29.5 g/dL (31.6-35.5) L 01/28/19 05:32 RDW 15.4 % (11.5-14.5) H 01/28/19 05:32 Plt Count 548 K/mcL (140-400) H 01/28/19 05:32 Neutrophils # 25.2 K/mcL (1.6-8.9) H 01/28/19 05:32 Monocytes # 1.8 K/mcL (0.0-1.3) H 01/28/19 05:32 Eosinophils # 0.9 K/mcL (0.0-0.6) H 01/28/19 05:32 Platelet Estimate Slight increase (Normal) H 01/28/19 05:32 ABG pH 7.48 pH Units (7.32-7.45) H 01/28/19 15:36 ABG pCO2 48 mmHg (35-45) H 01/22/19 23:04 ABG pO2 53 mmHg (85-104) L 01/28/19 15:36 ABG HCO3 32 mEq/L (21-27) H 01/28/19 15:36 ABG Total CO2 33 mEq/L (20-26) H 01/28/19 15:36 ABG O2 Saturation 89 % (95-98) L 01/28/19 15:36 ABG Base Excess 7 mEq/L (-2 to 3) H 01/28/19 15:36 Sodium 127 mEq/L (136-145) L 01/28/19 04:39 Potassium 5.9 mEq/L (3.5-5.1) H 01/28/19 04:39 Chloride 92 mEq/L (98-107) L 01/28/19 04:39 Carbon Dioxide 31 mEq/L (23-29) H 01/26/19 09:01 BUN 60 mg/dL (8-23) H 01/28/19 04:39 Creatinine 6.49 mg/dL (0.60-1.20) H 01/28/19 04:39 Est GFR ( Amer) 8 (> 60) L 01/28/19 04:39 Est GFR (Non-Af Amer) 7 (> 60) L 01/28/19 04:39 Glucose 167 mg/dL (70-105) H 01/28/19 04:39 POC Glucose 65 mg/dL (70-99) L 01/28/19 12:07 Lactic Acid 0.2 mmol/L (0.5-2.2) L 01/22/19 02:50 Calcium 8.5 mg/dL (8.6-10.3) L 01/23/19 03:50 ALT 74 Units/L (7-52) H 01/28/19 04:39 Alkaline Phosphatase 266 Units/L (34-104) H 01/28/19 04:39 Troponin I 0.05 ng/mL (< 0.04) H* 01/22/19 20:33 B-Natriuretic Peptide 1041 pg/mL (Less than 100) H 01/22/19 02:57 Procalcitonin 0.89 ng/mL (0.00-0.15) H 01/22/19 03:28 Urine Protein >=300 mg/dL (Neg-Trace) H 01/28/19 06:26 Urine Glucose (UA) 250 mg/dL (Normal) H 01/28/19 06:26 Ur Squamous Epith Cells Many per lpf (None-Few) H 01/28/19 06:26 Hep Bs Antibody < 3.10 mIU/mL (10.00-) L 01/22/19 07:40 - Microbiology Findings Microbiology Findings: Microbiology, Last 48 Hours 01/28/19 06:26 Legionella Antigen - Final Urine,Catheterized (Straight) 01/28/19 06:26 Streptococcus pneumoniae Antigen (M - Final Urine,Catheterized (Straight) 01/28/19 06:41 Blood Culture - Preliminary Peripheral Venipuncture Culture is incubating and being continuously monitored for growth. Final report to follow. 01/28/19 06:41 Blood Culture - Preliminary Peripheral Venipuncture Culture is incubating and being continuously monitor ed for growth. Final report to follow. 01/22/19 02:50 Blood Culture - Final Peripheral Venipuncture No growth. Final report. 01/22/19 02:57 Blood Culture - Final Peripheral Venipuncture No growth. Final report. - Clinical Findings Intake & Output: Intake & Output 01/28/19 01/28/19 01/28/19 07:59 15:59 23:59 Intake Total 118 / 958 840 / 958 Output Total 150 / 3750 3600 / 3750 Balance -32 / -2792 -7210 / -2792
--- NOTE | 2019-01-28 10:52 | Nephrology Progress Note ---
Date of Encounter: 01/28/19 Time of Encounter: 10:50 - Assessment and Plan (1) ESRD (end stage renal disease) on dialysis Current Visit: Yes Status: Chronic Current regimen is Monday in [facility]. Will Offer additional UF or HD as needed. Renal diet Renal vitamins Strict I/O Avoid nephrotoxins and renal dose all medications. HD in progress for today. (2) Anemia Current Visit: No Status: Acute Goal Hgb is 10-11. Hgb is fairly stable at 8.3. (3) Acute and chronic respiratory failure with hypoxia Current Visit: Yes Status: Resolved Continue supplemental oxygen. Per primary. Subjective Principal diagnosis: COPD Interval history: Patient seen and examined during HD, tolerating well. Denies any chest pain or shortness of breath. Denies nausea, vomiting or diarrhea. Objective - Vital Signs Vital signs: Vital Signs Temp Pulse Resp BP Pulse Ox 01/28/19 10:30 108/74 01/28/19 10:15 135/73 01/28/19 10:00 118/79 01/28/19 09:45 117/71 01/28/19 09:30 139/84 01/28/19 09:15 100.1 F H 22 141/67 01/28/19 07:42 24 92 01/28/19 07:14 99.2 F 104 19 144/77 93 01/28/19 05:39 97.7 F 120 20 117/87 90 01/28/19 04:03 99.9 F H 122 20 167/77 90 01/28/19 03:48 20 87 01/27/19 23:46 98.2 F 109 20 156/67 90 01/27/19 23:17 20 90 01/27/19 22:22 98.9 F 104 20 144/82 91 01/27/19 21:09 93 01/27/19 20:23 16 93 01/27/19 19:24 98.6 F 92 20 125/66 90 01/27/19 15:19 97.9 F 80 18 119/68 92 01/27/19 15:01 16 119/68 93 01/27/19 11:19 98.0 F 97 16 126/75 97 Intake and Output 01/27/19 01/28/19 01/28/19 23:59 07:59 15:59 Intake Total 700 / 1300 118 / 958 840 / 958 Output Total 100 / 100 150 / 150 Balance 600 / 1200 -32 / 808 840 / 808 Intake: Oral 700 / 1300 118 / 358 240 / 358 Intake, Rinseback and Flushes 600 / 600 Output: Urine 100 / 100 0 / 0 Straight Cath 150 / 150 Other: Meal Dinner Breakfast Percent of Meal Consumed 100% 20% # Voids 1 Blood Glucose* 244 212 Hemodialysis Net Fluid Removed 1026 (mL) - General Appearance General appearance: Present: chronically ill, frail EENT: Present: ATNC, hearing intact, vision intact Neck: Present: supple Respiratory: Present: clear Cardiology: Present: no edema, normal S1, normal S2 Dialysis Vascular Access: Arteriovenous Fistula thrill: Yes bruit: Yes Gastrointestinal: Present: normoactive bowel sounds, no tenderness, no guarding Integumentary: Present: no rash, warm and dry Neurologic: Present: alert and oriented x3 Musculoskeletal: Present: no deformities, no erythema Psychiatric: Present: mood/affect appropriate, cooperative - Lab 01/28/19 05:32 01/28/19 04:39 Most recent lab results 01/28/19 04:39 Calcium 9.3 Consult Discharge Plan - Plan Referrals: Juan J Pal, [employer] [Primary Care Provider] -
[2019-01-28] MEDS ORDERED: Insulin LISPRO 300 UNITS/3 ML VIAL SQ SCH ×3 (12:00→21:00)
[2019-01-28] MEDS: *HR* Dextrose 50 % in Water (Syg) 50 ML SYRINGE IVP PRN (13:45)
[2019-01-28 15:39] LABS: ABG Base Excess 7 mEq/L (-2 to 3); ABG HCO3 32 mEq/L (21-27); ABG Oxygen Saturation 89 % (95-98); ABG PCO2 43 mmHg (35-45); ABG PH 7.48 pH Units (7.32-7.45); ABG PO2 53 mmHg (85-104); ABG TCO2 33 mEq/L (20-26)
--- NOTE | 2019-01-28 15:45 | Internal Med Progress Note ---
Hospitalist Progress Note - Encounter Date of Encounter: 01/28/19 Time of Encounter: 11:00 - Subjective Interval History: Overnight even though it was noted, patient was tachycardic and febrile overnight. She looked in moderate distress this morning. She is short of breath and using accessory muscles. She complained about back pain which is chronic for her. She declined CT scan of the chest as she is not able to lay flat. - Exam Vitals: Temp Pulse Resp BP Pulse Ox 98.8 F 112 20 101/65 90 01/28/19 15:24 01/28/19 15:24 01/28/19 15:24 01/28/19 15:24 01/28/19 15:24 Exam: General: Patient is alert, mild distress, oriented x 3 ENT: Mucous membranes moist. Hearing is intact. Respiratory: Prolonged expiratory phase, diminished breath sounds at both bases. Cardiovascular: Regular rate and rhythm. s1 and s2 normal No clicks, rubs, gallops, or murmurs. Left sided chest pain and tenderness with palpation. Abdomen: Abdomen is soft, nontender. Bowel sounds are present Musculoskeletal: Spontaneously moving all extremities , status post bl BKA Neuro: Alert oriented x 3 normal cranial nerves, no focal deficits - Assessment and Plan (1) HTN (hypertension) Current Visit: Yes Status: Chronic (2) Diabetes mellitus Current Visit: Yes Status: Chronic (3) Acute encephalopathy Current Visit: No Status: Resolved (4) Multifocal pneumonia Current Visit: Yes Status: Acute (5) Acute and chronic respiratory failure with hypoxia Current Visit: Yes Status: Resolved (6) History of DVT (deep vein thrombosis) Current Visit: No Status: Acute (7) Acute exacerbation of CHF (congestive heart failure) Current Visit: Yes Status: Acute (8) ESRD (end stage renal disease) on dialysis Current Visit: Yes Status: Acute - Summary of Assessment and Plan Summary of Assessment and Plan: Ms. Simon is a 58 year old female with a PMH of CAD, CHF, COPD on 2-3 L of home O2, CVA, previous DVT on Eliquis, DM, HLD, HTN, PAD, ESRD on HD MWF who was admitted to the hospital due to shortness of breath. Initial x-ray revealed pulmonary edema with left effusion with left base residual airspace disease. Sepsis: - Meets SIRS criteria, source likely lung. UA is negative BCx drawn at presentation were negative, new set sent today. Less likely fistula abscess. - She refused CT scan of the chest since she is not able to lay flat, repeat chest x-ray revealed worsening pleural effusion and pulmonary edema which may obscure worsening pneumonia. - Lactic acid was normal, she was febrile and tachycardic overnight. - We will start her back on Vanc/Zosyn and continue azithromycin. Levaquin DC. - ID ISn't available today inhouse. - Transferred to the ICU as she may need BiPAP and intubation. Discussed this with biomass power plant manager and patient daughter. Acute on chronic hypoxic respiratory failure: - Due to fluid overload/CHF and PNA. Possible ARDS (ABG 7.48/43/32) Was on 10 L of oxygen overnight, now on 5. This likely PE as she is on Eliquis - Will increase her lasix to 40mg BID IV given her worsening pulmonary edema. i/o -8L - Patient is on hospice but remains on dialysis. - Will obtain limited echo to assess her systolic and diastolic dysfunction. CHest pain: resloved - Troponin is negative twice 2. EKG with no ischemic changes. Less likely PE as she is on Eliquis. - Suspect this is due to her pneumonia and possible costochondritis given her localized tenderness with palpation. - We will continue with Lidocaine patch and try to manage her home dose [place] frequency with inpatient frequency. End-stage renal disease on hemodialysis: MWF -Nephrology following. Continue dialysis per nephrology recommendation. Dialyzed today. -ontinue renal diet. Chest x-ray with finding of fluid overload with no significant improvement. Acute on chronic diastolic congestive heart failure: - Continue Lasix. COPD: End-stage COPD. - Continue bronchodilators , O2 supplementation, Symbicort, Spiriva. Essential hypertension: - controlled. Continue current medications. Previous DVT: -Patient is on Eliquis. Diabetes mellitus type 2: - well controlled. - Continue current insulin regimen. We decrease her premeal to 5 unites given her low bgm this afternoon. Continue diabetic diet. DVT prophylaxis: Eliquis. I reviewed independently all laboratory workup, pertinent images including x- rays and CT scans. I also reviewed independently and EKGs and my findings are in the body of my assessment and plan. I ordered the laboratory workup and images myself. I discussed finding with patient's, their families, RN's and consultants involved in the care of the patient. - Time Spent with Patient Total time spent is greater than 50% in coordination of care (as documented) at patient's floor/unit and/or counseling patient: Internal Medicine: Result - Labs CBC & Chem 7: 01/28/19 05:32 01/28/19 04:39 Labs: Short CBC 01/28/19 01/28/19 Range/Units 04:39 05:32 WBC 30.7 H* D 30.5 H* (4.3-11.1) K/mcL Hgb 8.3 L 8.3 L (11.5-15.4) g/dL Hct 28.1 L 28.1 L (35.3-44.9) % Plt Count 563 H 548 H (140-400) K/mcL Neutrophils # 25.2 H (1.6-8.9) K/mcL BMP 01/28/19 04:39 Sodium 127 L Potassium 5.9 H Chloride 92 L Carbon Dioxide 24 BUN 60 H Creatinine 6.49 H Glucose 167 H Calcium 9.3 Liver Function 01/28/19 Range/Units 04:39 Total Bilirubin 0.3 (0.3-1.0) mg/dL Direct Bilirubin 0.1 (0.0-0.2) mg/dL AST 16 (13-39) Units/L ALT 74 H (7-52) Units/L Alkaline Phosphatase 266 H (34-104) Units/L Albumin 3.7 (3.5-5.7) g/dL Urine 01/28/19 Range/Units 06:26 Urine Color Yellow (Yellow) Urine Clarity Clear (Clear) Urine pH 7.5 (5.0-8.0) pH Units Ur Specific [place] 1.017 (1.010-1.025) Urine Protein >=300 H (Neg-Trace) mg/dL Urine Glucose (UA) 250 H (Normal) mg/dL - ABG Interpretation ABG results: ABG ABG pH 7.48 pH Units (7.32-7.45) H 01/28/19 15:36 ABG pCO2 43 mmHg (35-45) 01/28/19 15:36 ABG pO2 53 mmHg (85-104) L 01/28/19 15:36 ABG O2 Saturation 89 % (95-98) L 01/28/19 15:36 - Impressions Impressions Abdomen/Pelvis CT 01/28/19 01:45 IMPRESSION: 1. No evidence for small bowel obstruction or other acute abnormality in the abdomen and pelvis. 2. Bibasilar atelectasis and/or pneumonia with left pleural effusion. D/ / Devon Barrett MD / Devon Barrett MD Interpreting Provider: Devon Barrett MD Chest X-Ray 01/28/19 14:06 IMPRESSION: 1. Pulmonary edema with bibasilar atelectasis and bilateral effusions. 2. Low lung volumes. D/ / 01/28/2019 14:41:44 Jayleen Fontanez MD / ming Interpreting Provider: Jayleen Fontanez MD Consult Discharge Plan - Plan Referrals: Juan J Pal, UNDERGROUND UTILITY LOCATOR [Primary Care Provider] - (1) HTN (hypertension) Qualifiers: Hypertension type: essential hypertension Qualified Code(s): I10 - Essential (primary) hypertension (2) Diabetes mellitus Qualifiers: Diabetes mellitus type: type 2 Diabetes mellitus lobsterman insulin use: with lobsterman use Diabetes mellitus complication status: with kidney complications Diabetes mellitus complication detail: with chronic kidney disease Chronic kidney disease stage: on chronic dialysis Qualified Code(s): E11.22 - Type 2 diabetes mellitus with diabetic chronic kidney disease; N18.6 - End stage renal disease; Z79.4 - correction (current) use of insulin; Z99.2 - Dependence on renal dialysis (7) Acute exacerbation of CHF (congestive heart failure) Qualifiers: Heart failure type: diastolic Qualified Code(s): I50.33 - Acute on chronic diastolic (congestive) heart failure
[2019-01-28 17:00] LABS: Hematocrit 25.1 % (35.3-44.9); Hemoglobin 7.6 g/dL (11.5-15.4); Mean Corpuscular HGB Conc 30.3 g/dL (31.6-35.5); Mean Corpuscular Hemoglobin 28.1 pg (28.0-33.3); Mean Platelet Volume 9.8 fL (9.4-12.4); Platelet Count 506 K/mcL (140-400); Red Cell Distribution Width 15.3 % (11.5-14.5)
[2019-01-28] MEDS ORDERED: Furosemide 40 MG/4 ML VIAL IVP SCH (17:00)
[2019-01-28] MEDS ORDERED: Amoxicillin/Clavulanate 500 MG TABLET PO SCH (17:00)
[2019-01-28 17:07] LABS: White Blood Count 30.4 K/mcL (4.3-11.1)
[2019-01-28] MEDS ORDERED: Preparation H Ointment 30 GM TUBE RC PRN (17:07)
[2019-01-28] MEDS ORDERED: Nitroglycerin 0.4 MG TAB.SUBL SL PRN (17:07)
[2019-01-28] MEDS ORDERED: D5% in Water 1,000 ML IVC PRN (17:07)
[2019-01-28] MEDS ORDERED: *HR* Dextrose 50 % in Water (Syg) 50 ML SYRINGE IVP PRN (17:07)
[2019-01-28] MEDS ORDERED: Naloxone 0.4 MG/ML INJ IVP PRN (17:07)
[2019-01-28] MEDS ORDERED: Dextrose Gel 15 GM/37.5 ML TUBE PO PRN ×2 (17:07)
[2019-01-28] MEDS ORDERED: Ondansetron ODT 4 MG TAB.RAPDIS PO PRN (17:07)
[2019-01-28 17:16] LABS: Calcium 9.2 mg/dL (8.6-10.3); Potassium 4.7 mEq/L (3.5-5.1)
[2019-01-28] MEDS: Piperacillin/Tazobactam 3.375 GM in 0.9 % Sodium Chloride Mini Bag 100 ML IVPB SCH (19:10)
[2019-01-28] MEDS ORDERED: *HR* HYDROcodone/Acet 7.5/325 mg TABLET PO SCH (20:00)
[2019-01-28] MEDS: *HR* HYDROcodone/Acet 7.5/325 mg TABLET PO PRN (20:13)
[2019-01-28] MEDS: Sennosides 8.6 MG TABLET PO SCH (20:50)
[2019-01-28] MEDS: rOPINIRole 1 MG TABLET PO SCH (20:50)
[2019-01-29] MEDS: *HR* LORazepam 0.5 MG TABLET PO PRN (02:45)
[2019-01-29] MEDS: *HR* HYDROcodone/Acet 7.5/325 mg TABLET PO PRN ×2 (02:49→13:25)
[2019-01-29] MEDS: Albuterol 2.5 MG/3 ML NEBULIZER IH SCH ×5 (03:58→20:05)
[2019-01-29] MEDS ORDERED: Aminoglycoside Consult 1 EACH MC ONE (04:52)
[2019-01-29] MEDS: Piperacillin/Tazobactam 3.375 GM in 0.9 % Sodium Chloride Mini Bag 100 ML IVPB SCH ×2 (05:18→17:04)
[2019-01-29 06:10] LABS: Hematocrit 25.7 % (35.3-44.9); Hemoglobin 7.8 g/dL (11.5-15.4); Mean Corpuscular HGB Conc 30.4 g/dL (31.6-35.5); Mean Corpuscular Hemoglobin 28.5 pg (28.0-33.3); Mean Corpuscular Volume 93.8 fL (83.0-100.0); Mean Platelet Volume 9.4 fL (9.4-12.4); Platelet Count 486 K/mcL (140-400); Red Blood Count 2.74 M/mcL (3.82-4.97); Red Cell Distribution Width 15.6 % (11.5-14.5); White Blood Count 21.7 K/mcL (4.3-11.1)
[2019-01-29 06:15] LABS: Calcium 9.6 mg/dL (8.6-10.3); Potassium 5.5 mEq/L (3.5-5.1)
[2019-01-29] MEDS ORDERED: Insulin LISPRO 300 UNITS/3 ML VIAL SQ SCH ×2 (07:30→08:00)
[2019-01-29] MEDS: Budesonide/Formoterol 80/4.5 1 PUFF INH IH SCH ×2 (07:52→20:05)
[2019-01-29] MEDS: Tiotropium 18 MCG inhalation IH SCH (07:53)
[2019-01-29] MEDS: Insulin LISPRO 300 UNITS/3 ML VIAL SQ SCH ×7 (08:04→23:47)
[2019-01-29] MEDS: *HR* HYDROcodone/Acet 7.5/325 mg TABLET PO SCH (08:09)
[2019-01-29] MEDS: Calcium Acetate 667 MG CAPSULE PO SCH ×4 (08:10→16:54)
[2019-01-29 08:29] LABS: mecA Methicillin-Resist Gene DETECTED (Not Detect)
[2019-01-29 08:30] LABS: Acinetobacter baumannii by PCR Not Detected (Not Detect); Candida albicans by PCR Not Detected (Not Detect); Candida glabrata by PCR Not Detected (Not Detect); Candida krusei by PCR Not Detected (Not Detect); Candida parapsilosis by PCR Not Detected (Not Detect); Candida tropicalis by PCR Not Detected (Not Detect); Enterobacter cloacae Cmplx PCR Not Detected (Not Detect); Enterobacteriaceae by PCR Not Detected (Not Detect); Enterococcus by PCR Not Detected (Not Detect); Escherichia coli by PCR Not Detected (Not Detect); Klebsiella oxytoca by PCR Not Detected (Not Detect); Klebsiella pneumoniae by PCR Not Detected (Not Detect); Proteus by PCR Not Detected (Not Detect); Pseudomonas aeruginosa by PCR Not Detected (Not Detect); Serratia marcescens by PCR Not Detected (Not Detect); Staphylococcus aureus by PCR Not Detected (Not Detect); Staphylococcus by PCR DETECTED (Not Detect); Streptococcus agalactiae(B)PCR Not Detected (Not Detect); Streptococcus by PCR Not Detected (Not Detect); Streptococcus pneumoniae PCR Not Detected (Not Detect); Streptococcus pyogenes (A) PCR Not Detected (Not Detect)
[2019-01-29] MEDS: FLUoxetine 20 MG CAPSULE PO SCH (09:25)
[2019-01-29] MEDS: Apixaban 2.5 MG TABLET PO SCH (09:25)
[2019-01-29] MEDS: NIFEdipine XL (24 HR) 30 MG TAB.ER.24 PO SCH (09:25)
[2019-01-29] MEDS: Loratadine 10 MG TABLET PO SCH (09:25)
[2019-01-29] MEDS: Sennosides 8.6 MG TABLET PO SCH ×2 (09:26→19:45)
[2019-01-29] MEDS: Aspirin Enteric Coated 81 MG Tablet PO SCH (09:26)
[2019-01-29] MEDS: Neosporin OINT 15 GM TUBE TP SCH ×2 (09:28→19:53)
[2019-01-29] MEDS: Furosemide 20 MG/2 ML VIAL IVP SCH (09:30)
[2019-01-29] MEDS: Insulin DETEMIR 100 UNIT/ML X5UNITS SQ SCH (09:32)
--- NOTE | 2019-01-29 12:50 | Nephrology Progress Note ---
Date of Encounter: 01/29/19 Time of Encounter: 12:50 - Assessment and Plan (1) ESRD (end stage renal disease) on dialysis Current Visit: Yes Status: Chronic Current regimen is Monday in [facility]. Will Offer additional UF or HD as needed. Renal diet Renal vitamins Strict I/O Avoid nephrotoxins and renal dose all medications. HD on hold today. (2) Anemia Current Visit: No Status: Acute Goal Hgb is 10-11. Hgb is fairly stable Qualifiers: Anemia type: due to chronic kidney disease Chronic kidney disease stage: on chronic dialysis Qualified Code(s): N18.6 - End stage renal disease; D63.1 - Anemia in chronic kidney disease; Z99.2 - Dependence on renal dialysis (3) Acute and chronic respiratory failure with hypoxia Current Visit: Yes Status: Resolved Continue supplemental oxygen. Per primary. Subjective Principal diagnosis: COPD Interval history: Patient seen. No new complaint. She was on bipap. Objective - Vital Signs Vital signs: Vital Signs Temp Pulse Resp BP Pulse Ox 01/29/19 12:18 32 94 01/29/19 12:08 30 93 01/29/19 12:00 100.5 F H 84 34 99/60 92 01/29/19 11:00 91 28 123/63 94 01/29/19 10:00 108 28 102/68 95 01/29/19 09:00 105 28 155/74 91 01/29/19 08:00 104 27 152/71 90 01/29/19 07:53 16 91 01/29/19 07:49 98.1 F 01/29/19 07:00 94 23 122/60 97 01/29/19 04:18 99.8 F H 01/29/19 03:58 24 97 01/29/19 00:23 98.5 F 01/28/19 23:15 28 109/60 99 01/28/19 21:58 95 24 121/99 98 01/28/19 21:19 100 01/28/19 20:57 99.2 F 101 19 109/79 91 01/28/19 19:59 22 109/79 95 01/28/19 19:45 95 20 109/79 93 01/28/19 19:25 92 24 125/67 96 01/28/19 18:00 93 26 106/63 92 01/28/19 17:45 26 98 01/28/19 17:00 98.7 F 90 22 120/78 93 01/28/19 15:52 22 94 01/28/19 15:24 98.8 F 112 20 101/65 90 01/28/19 13:04 99 F 18 139/75 Intake and Output 01/28/19 01/29/19 01/29/19 23:59 07:59 15:59 Intake Total 340 / 1298 450 / 450 Output Total 0 / 0 Balance 340 / -2452 0 / 450 450 / 450 Intake: IV Fluids 100 / 100 450 / 450 Zosyn 3.375 GM In 0.9 % Sodium 100 / 100 200 / 200 Chloride (Mini-Bag +) 100 ML @ 25 mls/hr IVPB Q12HR [facility] Rx#: [id number] Vancocin 1,250 MG In 0.9 % 250 / 250 Sodium Chloride 250 ML @ 166.67 mls/hr IVPB ONCE ONE Rx#: [id number] Oral 240 / 598 Output: Urine 0 / 0 Other: Weight 65 kg Blood Glucose* 198 140 211 Patient Weight 01/29/19 23:59 Weight 65 kg - General Appearance General appearance: Present: well-developed, well-nourished EENT: Present: ATNC Neck: Present: supple Cardiology: Present: edema, regular rate Dialysis Vascular Access: Venous Catheter Gastrointestinal: Present: obese Integumentary: Present: warm and dry Neurologic: Present: alert and oriented x3 Musculoskeletal: Present: no cyanosis Psychiatric: Present: mood/affect appropriate - Lab 01/29/19 05:40 01/29/19 05:40 Most recent lab results 01/29/19 05:40 Calcium 9.6 Consult Discharge Plan - Plan Referrals: Juan J Pal, STORM CHASER [Primary Care Provider] -
[2019-01-29] MEDS ORDERED: Dexmedetomidine HCl 400 MCG/100 ML MLS IVC ONE (13:53)
[2019-01-29] MEDS: Dexmedetomidine HCl 400 MCG/100 ML MLS IVC SCH (14:01)
--- NOTE | 2019-01-29 14:24 | Pulmonology Progress Note ---
Date of Encounter: 01/29/19 Time of Encounter: 14:21 Assessment and Plan (1) Acute respiratory failure with hypoxia Current Visit: Yes Status: Acute Multifactorial in etiology. Poor underlying pulmonary reserve related to overall debility and underlying COPD. Acute worsening likely related to atelectasis from pleural effusions and possible pulmonary infection. She intermittently requires noninvasive ventilation for work of breathing, otherwise on low-flow oxygen via nasal cannula. She is at risk for requiring intubation. (2) Pleural effusion Current Visit: Yes Status: Acute I reviewed her prior chest imaging, and she has had pleural effusions on the left and right. Currently, pleural effusion is larger on the left. There is associated atelectasis versus infiltrate. She is febrile and parapneumonic effusion/empyema is of concern. Evaluated for left-sided thoracentesis, but bedside ultrasound revealed a complicated pleural space with loculations. I discussed the case with Dr. Montana of interventional radiology, and requested a 14-Tajik chest tube placement. Dr. Montana requested that we hold Eliquis for 24 hours. (3) Encephalopathy Current Visit: Yes Status: Acute The patient intermittently answers questions and appears rather lethargic. Recommend minimizing sedating medications, such as opioids, as able. She does appear to be at risk for aspiration, which fits with her bibasilar infiltrates. (4) ESRD (end stage renal disease) on dialysis Current Visit: Yes Status: Acute Ongoing dialysis needs per nephrology service. (5) COPD (chronic obstructive pulmonary disease) Current Visit: No Status: Chronic She does not appear to be in an acute exacerbation. Continue as needed bronchod ilators. Comment: Chronically ill patient with poor underlying pulmonary reserve. Prognosis guarded. Qualifiers: COPD type: unspecified COPD Qualified Code(s): J44.9 - Chronic obstructive pulmonary disease, unspecified Subjective Principal diagnosis: COPD Interval history: Patient continues to have intermittent increased work of breathing requiring noninvasive ventilation. She cannot tolerate lying flat. Objective PUL Vital signs: Last Vital Signs Temp 100.5 F H 01/29/19 12:00 Pulse 83 01/29/19 14:00 Resp 19 01/29/19 14:00 BP 113/49 01/29/19 14:00 Pulse Ox 93 01/29/19 14:00 General appearance: appears uncomfortable, other (Moderately labored breathing) Eyes: nonicteric ENT: oropharynx dry Effort: mildly labored Auscultation: bilateral: rhonchi Cardiovascular: regular rate and rhythm Gastrointestinal: normoactive bowel sounds, soft, non-tender Integumentary: normal Extremities: no cyanosis non-focal exam other (Intermittently confused) Results - Laboratory Findings CBC and BMP: 01/29/19 05:40 01/29/19 05:40 ABG ABG pH 7.48 pH Units (7.32-7.45) H 01/28/19 15:36 ABG pCO2 43 mmHg (35-45) 01/28/19 15:36 ABG pO2 53 mmHg (85-104) L 01/28/19 15:36 ABG O2 Saturation 89 % (95-98) L 01/28/19 15:36 Abnormal lab findings: Abnormal lab results WBC 21.7 K/mcL (4.3-11.1) H 01/29/19 05:40 RBC 2.74 M/mcL (3.82-4.97) L 01/29/19 05:40 Hgb 7.8 g/dL (11.5-15.4) L 01/29/19 05:40 Hct 25.7 % (35.3-44.9) L 01/29/19 05:40 MCH 27.8 pg (28.0-33.3) L 01/28/19 05:32 MCHC 30.4 g/dL (31.6-35.5) L 01/29/19 05:40 RDW 15.6 % (11.5-14.5) H 01/29/19 05:40 Plt Count 486 K/mcL (140-400) H 01/29/19 05:40 Neutrophils # 25.2 K/mcL (1.6-8.9) H 01/28/19 05:32 Monocytes # 1.8 K/mcL (0.0-1.3) H 01/28/19 05:32 Eosinophils # 0.9 K/mcL (0.0-0.6) H 01/28/19 05:32 Platelet Estimate Slight increase (Normal) H 01/28/19 05:32 ABG pH 7.48 pH Units (7.32-7.45) H 01/28/19 15:36 ABG pCO2 48 mmHg (35-45) H 01/22/19 23:04 ABG pO2 53 mmHg (85-104) L 01/28/19 15:36 ABG HCO3 32 mEq/L (21-27) H 01/28/19 15:36 ABG Total CO2 33 mEq/L (20-26) H 01/28/19 15:36 ABG O2 Saturation 89 % (95-98) L 01/28/19 15:36 ABG Base Excess 7 mEq/L (-2 to 3) H 01/28/19 15:36 Sodium 132 mEq/L (136-145) L 01/29/19 05:40 Potassium 5.5 mEq/L (3.5-5.1) H 01/29/19 05:40 Chloride 92 mEq/L (98-107) L 01/29/19 05:40 Carbon Dioxide 31 mEq/L (23-29) H 01/29/19 05:40 BUN 31 mg/dL (8-23) H 01/29/19 05:40 Creatinine 4.10 mg/dL (0.60-1.20) H 01/29/19 05:40 Est GFR ( Amer) 13 (> 60) L 01/29/19 05:40 Est GFR (Non-Af Amer) 11 (> 60) L 01/29/19 05:40 Glucose 141 mg/dL (70-105) H 01/29/19 05:40 POC Glucose 211 mg/dL (70-99) H 01/29/19 12:10 Lactic Acid 0.2 mmol/L (0.5-2.2) L 01/22/19 02:50 Calcium 8.5 mg/dL (8.6-10.3) L 01/23/19 03:50 ALT 74 Units/L (7-52) H 01/28/19 04:39 Alkaline Phosphatase 266 Units/L (34-104) H 01/28/19 04:39 Troponin I 0.05 ng/mL (< 0.04) H* 01/22/19 20:33 B-Natriuretic Peptide 1041 pg/mL (Less than 100) H 01/22/19 02:57 Procalcitonin 0.89 ng/mL (0.00-0.15) H 01/22/19 03:28 Urine Protein >=300 mg/dL (Neg-Trace) H 01/28/19 06:26 Urine Glucose (UA) 250 mg/dL (Normal) H 01/28/19 06:26 Ur Squamous Epith Cells Many per lpf (None-Few) H 01/28/19 06:26 Vancomycin Trough 17 mcg/mL (5-10) H 01/29/19 05:40 Hep Bs Antibody < 3.10 mIU/mL (10.00-) L 01/22/19 07:40 Staphylococcus sp PCR DETECTED (Not Detect) A 01/28/19 06:41 mecA-Methicil Res Gene DETECTED (Not Detect) A 01/28/19 06:41 - Microbiology Findings Microbiology Findings: Microbiology, Last 48 Hours 01/28/19 06:41 Blood Culture - Preliminary Peripheral Venipuncture Gram Positive Cocci 01/28/19 06:26 Legionella Antigen - Final Urine,Catheterized (Straight) 01/28/19 06:26 Streptococcus pneumoniae Antigen (M - Final Urine,Catheterized (Straight) 01/28/19 06:41 Blood Culture - Preliminary Peripheral Venipuncture Culture is incubating and being continuously monitored for growth. Final report to follow. - Clinical Findings Intake & Output: Intake & Output 01/28/19 01/29/19 01/29/19 23:59 07:59 15:59 Intake Total 340 / 1298 450 / 450 Output Total 0 / 0 Balance 340 / -2452 0 / 450 450 / 450 Weight 65 kg Consult Discharge Plan - Plan Referrals: Juan J Pal, DERRICK CAR OPERATOR [Primary Care Provider] -
[2019-01-29] MEDS: rOPINIRole 1 MG TABLET PO SCH (19:45)
[2019-01-29] MEDS: Acetaminophen 325 MG TABLET PO PRN (19:48)
[2019-01-30] MEDS: Albuterol 2.5 MG/3 ML NEBULIZER IH SCH ×6 (00:33→19:50)
[2019-01-30 03:47] LABS: Hematocrit 21.5 % (35.3-44.9); Hemoglobin 6.4 g/dL (11.5-15.4); Mean Corpuscular HGB Conc 29.8 g/dL (31.6-35.5); Mean Corpuscular Hemoglobin 27.6 pg (28.0-33.3); Mean Corpuscular Volume 92.7 fL (83.0-100.0); Mean Platelet Volume 9.6 fL (9.4-12.4); Platelet Count 425 K/mcL (140-400); Red Blood Count 2.32 M/mcL (3.82-4.97); Red Cell Distribution Width 15.7 % (11.5-14.5)
[2019-01-30 03:57] LABS: BUN/Creatinine Ratio 8 (6-26); Blood Urea Nitrogen 44 mg/dL (8-23); Calcium 8.9 mg/dL (8.6-10.3); Carbon Dioxide 27 mEq/L (23-29); Chloride 94 mEq/L (98-107); Glucose 94 mg/dL (70-105); Osmolality,Calculated 285 (280-300); Potassium 5.8 mEq/L (3.5-5.1); Sodium 132 mEq/L (136-145); eGFR For African Americans 10 (> 60); eGFR For Non-African Americans 8 (> 60)
[2019-01-30 03:59] LABS: INR 1.4; Prothrombin Time 15.4 Seconds (9.4-12.1)
[2019-01-30 05:55] LABS: Hematocrit 22.6 % (35.3-44.9); Hemoglobin 6.7 g/dL (11.5-15.4)
[2019-01-30] MEDS ORDERED: 0.9 % Sodium Chloride 250 ML ONE (06:14)
[2019-01-30] MEDS: Acetaminophen 325 MG TABLET PO PRN ×2 (06:15→20:33)
[2019-01-30] MEDS: Piperacillin/Tazobactam 3.375 GM in 0.9 % Sodium Chloride Mini Bag 100 ML IVPB SCH ×2 (06:18→17:00)
[2019-01-30] MEDS: Dexmedetomidine HCl 400 MCG/100 ML MLS IVC SCH (06:25)
[2019-01-30] MEDS: Insulin LISPRO 300 UNITS/3 ML VIAL SQ SCH ×4 (06:33→23:47)
[2019-01-30] MEDS ORDERED: 0.9 % Sodium Chloride 250 ML IVC PRN (07:34)
[2019-01-30] MEDS: Budesonide/Formoterol 80/4.5 1 PUFF INH IH SCH ×2 (07:45→19:50)
[2019-01-30] MEDS: Tiotropium 18 MCG inhalation IH SCH (07:52)
[2019-01-30] MEDS: Calcium Acetate 667 MG CAPSULE PO SCH ×3 (07:54→16:59)
[2019-01-30] MEDS: Loratadine 10 MG TABLET PO SCH (07:55)
[2019-01-30] MEDS: FLUoxetine 20 MG CAPSULE PO SCH (07:55)
[2019-01-30] MEDS: *HR* LORazepam 0.5 MG TABLET PO PRN ×2 (07:55→20:33)
[2019-01-30] MEDS: Sennosides 8.6 MG TABLET PO SCH ×2 (07:55→20:33)
[2019-01-30] MEDS: NIFEdipine XL (24 HR) 30 MG TAB.ER.24 PO SCH (07:56)
--- NOTE | 2019-01-30 08:37 | Pulmonology Progress Note ---
Date of Encounter: 01/30/19 Time of Encounter: 08:32 Assessment and Plan (1) Pleural effusion Current Visit: Yes Status: Acute Bilateral pleural effusion worse on the left side Complaining of severe shortness of breath currently BiPAP dependent Likely secondary to ESRD and pneumonia Additionally has mildly enlarged mediastinal lymph nodes with paratracheal lymph node measuring 1.2 cm Echo shows EF of 55% Plan for chest tube placement by IR Continue to hold eliquis and aspirin will restart after chest tube placement today Pleural studies ordered (2) Acute and chronic respiratory failure with hypoxia Current Visit: Yes Status: Resolved Had acute hypoxic respiratory failure likely multifactorial from pleural effusion and pneumonia Was on 4 L of nasal cannula Continues to require BiPAP Continue intermittent BiPAP with breaks for meals Dialysis and chest tube will improve respiratory status Continue to treat pneumonia for total 14 days (3) Encephalopathy Current Visit: Yes Status: Resolved Has intermittent confusion on 01/28/19 likely secondary to hypoxia Was started on BiPAP 01/28/19 confusion has resolved Decrease sedating medications (4) ESRD (end stage renal disease) on dialysis Current Visit: No Status: Chronic History of ESRD on intermittent dialysis Creatinine this morning 5.50 with GFR of 8 May require dialysis today given hyperkalemia Nephrology consulted Continue titrate medication renally Renal diet (5) COPD (chronic obstructive pulmonary disease) Current Visit: No Status: Chronic History of COPD does not appear to be in acute exacerbation we will continue bronchodilator and Symbicort Qualifiers: COPD type: unspecified COPD Qualified Code(s): J44.9 - Chronic obstructive pulmonary disease, unspecified (6) Pneumonia Current Visit: Yes Status: Acute CT chest on 01/28/19 shows bilateral consolidation worse on the left with moderate lower pleural effusion White count at presentation was 13.2 jumped up to 30.7 on 01/28/19 this morning white count is 22.0 Continue Zosyn day 7 of 14 for complicated pneumonia Ongoing requirement for BiPAP may have decreased requirement after chest tube placement Qualifiers: Pneumonia type: due to unspecified organism Laterality: bilateral Lung location: lower lobe of lung Qualified Code(s): J18.1 - Lobar pneumonia, unspecified organism (7) Thrush, oral Current Visit: Yes Status: Acute Complaining of pain with swallowing Tongue appears to have white appearance -Nystatin swish and swallow ordered (8) PVD (peripheral vascular disease) Current Visit: No Status: Chronic History of peripheral vascular disease with bilateral BKA. On aspirin and eliquis at home Currently on hold with plans for chest tube with interventional radiology (9) DVT prophylaxis Current Visit: No Status: Chronic On eliquis at home currently on hold for intervention with radiology her chest tube Subjective Principal diagnosis: COPD Interval history: Ms. Simon was seen at bedside this morning, she was awake and alert answering questions. She continued to complain of shortness of breath. She denied any fever, chills, nausea or emesis. Objective PUL Vital signs: Last Vital Signs Temp 99.0 F 01/30/19 08:08 Pulse 84 01/30/19 08:08 Resp 24 01/30/19 08:08 BP 105/67 01/30/19 08:08 Pulse Ox 98 01/30/19 08:08 General appearance: no acute distress, alert Eyes: nonicteric ENT: oropharynx dry, other (appears to have thrush) Effort: mildly labored Auscultation: bilateral: diminished breath sounds (Bilateral lower lobes) Cardiovascular: regular rate and rhythm Gastrointestinal: hypoactive bowel sounds, soft, non-tender Integumentary: normal Extremities: no cyanosis, no edema, other (Has bilateral BKA) Musculoskeletal: other (Bilateral BKA) non-focal exam, pupils equal and round, other mood appropriate, affect normal Results - Laboratory Findings CBC and BMP: 01/30/19 05:33 01/30/19 03:25 ABG ABG pH 7.48 pH Units (7.32-7.45) H 01/28/19 15:36 ABG pCO2 43 mmHg (35-45) 01/28/19 15:36 ABG pO2 53 mmHg (85-104) L 01/28/19 15:36 ABG O2 Saturation 89 % (95-98) L 01/28/19 15:36 PT/INR, D-dimer PT 15.4 Seconds (9.4-12.1) H 01/30/19 03:25 Abnormal lab findings: Abnormal lab results WBC 22.0 K/mcL (4.3-11.1) H 01/30/19 03:25 RBC 2.32 M/mcL (3.82-4.97) L 01/30/19 03:25 Hgb 6.7 g/dL (11.5-15.4) L 01/30/19 05:33 Hct 22.6 % (35.3-44.9) L 01/30/19 05:33 MCH 27.6 pg (28.0-33.3) L 01/30/19 03:25 MCHC 29.8 g/dL (31.6-35.5) L 01/30/19 03:25 RDW 15.7 % (11.5-14.5) H 01/30/19 03:25 Plt Count 425 K/mcL (140-400) H 01/30/19 03:25 Neutrophils # 25.2 K/mcL (1.6-8.9) H 01/28/19 05:32 Monocytes # 1.8 K/mcL (0.0-1.3) H 01/28/19 05:32 Eosinophils # 0.9 K/mcL (0.0-0.6) H 01/28/19 05:32 Platelet Estimate Slight increase (Normal) H 01/28/19 05:32 PT 15.4 Seconds (9.4-12.1) H 01/30/19 03:25 ABG pH 7.48 pH Units (7.32-7.45) H 01/28/19 15:36 ABG pCO2 48 mmHg (35-45) H 01/22/19 23:04 ABG pO2 53 mmHg (85-104) L 01/28/19 15:36 ABG HCO3 32 mEq/L (21-27) H 01/28/19 15:36 ABG Total CO2 33 mEq/L (20-26) H 01/28/19 15:36 ABG O2 Saturation 89 % (95-98) L 01/28/19 15:36 ABG Base Excess 7 mEq/L (-2 to 3) H 01/28/19 15:36 Sodium 132 mEq/L (136-145) L 01/30/19 03:25 Potassium 5.8 mEq/L (3.5-5.1) H 01/30/19 03:25 Chloride 94 mEq/L (98-107) L 01/30/19 03:25 Carbon Dioxide 31 mEq/L (23-29) H 01/29/19 05:40 BUN 44 mg/dL (8-23) H 01/30/19 03:25 Creatinine 5.50 mg/dL (0.60-1.20) H 01/30/19 03:25 Est GFR ( Amer) 10 (> 60) L 01/30/19 03:25 Est GFR (Non-Af Amer) 8 (> 60) L 01/30/19 03:25 Glucose 141 mg/dL (70-105) H 01/29/19 05:40 POC Glucose 115 mg/dL (70-99) H 01/29/19 23:42 Lactic Acid 0.2 mmol/L (0.5-2.2) L 01/22/19 02:50 Calcium 8.5 mg/dL (8.6-10.3) L 01/23/19 03:50 ALT 74 Units/L (7-52) H 01/28/19 04:39 Alkaline Phosphatase 266 Units/L (34-104) H 01/28/19 04:39 Troponin I 0.05 ng/mL (< 0.04) H* 01/22/19 20:33 B-Natriuretic Peptide 1041 pg/mL (Less than 100) H 01/22/19 02:57 Procalcitonin 0.89 ng/mL (0.00-0.15) H 01/22/19 03:28 Urine Protein >=300 mg/dL (Neg-Trace) H 01/28/19 06:26 Urine Glucose (UA) 250 mg/dL (Normal) H 01/28/19 06:26 Ur Squamous Epith Cells Many per lpf (None-Few) H 01/28/19 06:26 Vancomycin Trough 17 mcg/mL (5-10) H 01/29/19 05:40 Hep Bs Antibody < 3.10 mIU/mL (10.00-) L 01/22/19 07:40 Staphylococcus sp PCR DETECTED (Not Detect) A 01/28/19 06:41 mecA-Methicil Res Gene DETECTED (Not Detect) A 01/28/19 06:41 Crossmatch See Detail 01/30/19 05:45 - Microbiology Findings Microbiology Findings: Microbiology, Last 48 Hours 01/28/19 06:41 Blood Culture - Preliminary Peripheral Venipuncture Gram Positive Cocci 01/28/19 06:26 Legionella Antigen - Final Urine,Catheterized (Straight) 01/28/19 06:26 Streptococcus pneumoniae Antigen (M - Final Urine,Catheterized (Straight) 01/28/19 06:41 Blood Culture - Preliminary Peripheral Venipuncture Culture is incubating and being continuously monitored for growth. Final report to follow. - Clinical Findings Intake & Output: Intake & Output 01/29/19 01/30/19 01/30/19 23:59 07:59 15:59 Intake Total 100 / 550 100 / 160 60 / 160 Output Total 0 / 0 0 / 0 Balance 100 / 550 100 / 160 60 / 160 Weight 68.2 kg Consult Discharge Plan - Plan Referrals: Juan J Pal, JET OPERATOR [Primary Care Provider] -
[2019-01-30] MEDS: *HR* HYDROcodone/Acet 7.5/325 mg TABLET PO PRN ×3 (12:52→23:45)
[2019-01-30] MEDS: Neosporin OINT 15 GM TUBE TP SCH ×2 (13:06→20:35)
--- NOTE | 2019-01-30 14:31 | IR Procedure Note ---
Date of procedure: 01/30/19 Consent Obtained: Verbal consent, Written consent Timeout: Correct patient and procedure verified, Correct site verified, Time out performed, Skin prep completed Local anesthetic: Lidocaine 1% Was there an dietetic assistant present: Yes [employer] Driver: Ian Gallego Estimated blood loss (cc): 1 Complications: None; Tolerated procedure well Indications: Complex pleural effusion Procedure Performed: Moderate left pleural effusion Site/Technique: Complex left pleural effusion. 12 Fr chest tube placed. Results/Findings (any specimens removed): 12 Macedonian chest tube placed into complex left pleural effusion Post Procedure Treatment Plan: Continue ICU care Specimen: 20 cc pleural fluid aspirated and sent for lab analysis
[2019-01-30] MEDS: Nystatin SUSP 5 ML UD.LIQ PO SCH ×3 (15:16→20:33)
[2019-01-30 15:17] LABS: Total Protein,Pleural Fluid 4.6 g/dL
[2019-01-30 16:37] LABS: Lactate Dehydrogenase 122 Units/L (140-271); Total Protein 5.6 g/dL (6.4-8.9)
[2019-01-30 17:52] LABS: Hematocrit 30.1 % (35.3-44.9)
[2019-01-30 17:53] LABS: Hemoglobin 9.4 g/dL (11.5-15.4)
--- NOTE | 2019-01-30 19:34 | Nephrology Progress Note ---
Date of Encounter: 01/30/19 Time of Encounter: 19:34 - Assessment and Plan (1) ESRD (end stage renal disease) on dialysis Current Visit: Yes Status: Chronic Current regimen is Monday in [facility]. Will Offer additional UF or HD as needed. Renal diet Renal vitamins Strict I/O Avoid nephrotoxins and renal dose all medications. Patient seen on dialysis. (2) Anemia Current Visit: No Status: Acute Qualifiers: Anemia type: due to chronic kidney disease Chronic kidney disease stage: on chronic dialysis Qualified Code(s): N18.6 - End stage renal disease; D63.1 - Anemia in chronic kidney disease; Z99.2 - Dependence on renal dialysis (3) Acute and chronic respiratory failure with hypoxia Current Visit: Yes Status: Acute Subjective Principal diagnosis: COPD Interval history: Patient seen. No new complaint. She was on bipap. Objective - Vital Signs Vital signs: Vital Signs Temp Pulse Resp BP Pulse Ox 01/30/19 18:00 109 27 150/82 95 01/30/19 17:00 107 23 138/68 97 01/30/19 16:00 109 15 122/76 97 01/30/19 15:37 18 98 01/30/19 15:35 98.4 F 01/30/19 15:00 103 16 91/69 01/30/19 14:00 101 21 117/71 99 01/30/19 13:38 97.3 F L 18 009/73 01/30/19 13:05 177/90 01/30/19 13:00 100 27 135/91 99 01/30/19 12:50 154/82 01/30/19 12:35 135/91 01/30/19 12:20 129/62 01/30/19 12:05 97.8 F 96 18 160/129 01/30/19 12:00 97 27 125/62 98 01/30/19 11:50 135/111 01/30/19 11:35 152/91 01/30/19 11:30 22 95 01/30/19 11:21 97.9 F 90 22 160/82 99 01/30/19 11:20 97.9 F 167/62 01/30/19 11:06 98.3 F 90 22 130/96 98 01/30/19 11:05 152/75 01/30/19 11:00 98.3 F 90 21 130/96 100 01/30/19 10:52 98.3 F 87 24 118/70 99 01/30/19 10:50 126/101 01/30/19 10:35 142/69 01/30/19 10:20 135/65 01/30/19 10:05 153/69 01/30/19 10:00 81 25 155/75 97 01/30/19 09:50 134/67 01/30/19 09:35 98.4 F 18 129/57 01/30/19 09:00 84 24 114/70 97 01/30/19 08:08 99.0 F 84 24 105/67 98 01/30/19 08:00 84 24 105/67 98 01/30/19 07:53 99.0 F 80 27 99/60 96 01/30/19 07:49 14 99/60 98 01/30/19 07:40 99.0 F 01/30/19 07:00 99.0 F 84 21 99/60 96 01/30/19 06:00 89 31 136/63 89 01/30/19 05:00 78 26 125/65 96 01/30/19 04:49 98.2 F 01/30/19 04:00 76 29 110/58 100 01/30/19 03:31 24 108/68 100 01/30/19 03:00 70 28 108/68 100 01/30/19 02:00 73 24 107/51 100 01/30/19 01:00 70 25 108/49 100 01/30/19 00:34 27 100 01/30/19 00:13 98 F 01/30/19 00:00 69 24 104/49 100 01/29/19 23:00 68 17 97/51 100 01/29/19 22:00 73 29 97/53 97 01/29/19 21:00 77 29 91/53 97 01/29/19 20:06 26 90 01/29/19 20:00 76 31 115/67 89 Intake and Output 01/30/19 01/30/19 01/30/19 07:59 15:59 23:59 Intake Total 100 / 1560 1460 / 1560 Output Total 0 / 3003 2970 / 3003 33 / 3003 Balance 100 / -1443 -1510 / -1443 -33 / -1443 Intake: IV Fluids 100 / 200 100 / 200 Precedex Premix 400 mcg In 100 100 / 100 ml @ 0.2 MCG/KG/HR 3.25 mls/hr IVC .Q24H [facility] Rx#:[id number] Zosyn 3.375 GM In 0.9 % Sodium 100 / 100 Chloride (Mini-Bag +) 100 ML @ 25 mls/hr IVPB Q12HR [facility] Rx#: [id number] Oral 0 / 60 60 / 60 Blood Product 0 / 700 700 / 700 Rbcs Leuko Poor As-1 Unit 350 / 350 [id number] Rbcs Leuko Poor As-1 Unit 0 / 350 350 / 350 [id number] Intake, Rinseback and Flushes 600 / 600 Output: Urine 0 / 0 0 / 0 Total Dialysis (HD) Output 2950 / 2950 Chest Tube Drainage Left Posterior Chest Other: Weight 68.2 kg Blood Glucose* 98 103 289 Hemodialysis Net Fluid Removed 2000 (mL) Patient Weight 01/30/19 23:59 Weight 68.2 kg - General Appearance General appearance: Present: well-developed, well-nourished EENT: Present: ATNC Neck: Present: supple Cardiology: Present: regular rate Integumentary: Present: warm and dry Psychiatric: Present: mood/affect appropriate - Lab 01/31/19 03:35 01/31/19 03:35 Most recent lab results 01/30/19 03:25 Calcium 8.9 Consult Discharge Plan - Plan Referrals: Juan J Pal, [employer] [Primary Care Provider] -
[2019-01-30] MEDS: rOPINIRole 1 MG TABLET PO SCH (20:33)
[2019-01-31] MEDS: Albuterol 2.5 MG/3 ML NEBULIZER IH SCH ×7 (00:02→23:44)
[2019-01-31 03:53] LABS: Hematocrit 27.7 % (35.3-44.9); Hemoglobin 8.8 g/dL (11.5-15.4); Mean Corpuscular HGB Conc 31.8 g/dL (31.6-35.5); Mean Corpuscular Hemoglobin 28.6 pg (28.0-33.3); Mean Corpuscular Volume 89.9 fL (83.0-100.0); Mean Platelet Volume 9.6 fL (9.4-12.4); Platelet Count 424 K/mcL (140-400); Red Blood Count 3.08 M/mcL (3.82-4.97); White Blood Count 20.4 K/mcL (4.3-11.1)
[2019-01-31 04:13] LABS: Calcium 8.8 mg/dL (8.6-10.3); Potassium 4.4 mEq/L (3.5-5.1)
[2019-01-31] MEDS: *HR* HYDROcodone/Acet 7.5/325 mg TABLET PO PRN ×3 (06:32→18:04)
[2019-01-31] MEDS: Piperacillin/Tazobactam 3.375 GM in 0.9 % Sodium Chloride Mini Bag 100 ML IVPB SCH (06:32)
[2019-01-31] MEDS: Tiotropium 18 MCG inhalation IH SCH (07:14)
[2019-01-31] MEDS: Budesonide/Formoterol 80/4.5 1 PUFF INH IH SCH ×2 (07:14→19:59)
[2019-01-31] MEDS: NIFEdipine XL (24 HR) 30 MG TAB.ER.24 PO SCH (07:20)
[2019-01-31] MEDS: Nystatin SUSP 5 ML UD.LIQ PO SCH ×4 (07:20→20:40)
[2019-01-31] MEDS: Loratadine 10 MG TABLET PO SCH (07:21)
[2019-01-31] MEDS: Calcium Acetate 667 MG CAPSULE PO SCH ×3 (07:21→16:19)
[2019-01-31] MEDS: FLUoxetine 20 MG CAPSULE PO SCH (07:21)
[2019-01-31] MEDS: Sennosides 8.6 MG TABLET PO SCH ×2 (07:21→20:40)
[2019-01-31] MEDS: Insulin LISPRO 300 UNITS/3 ML VIAL SQ SCH ×4 (07:22→16:12)
--- NOTE | 2019-01-31 07:31 | Pulmonology Progress Note ---
Date of Encounter: 01/31/19 Time of Encounter: 07:25 Assessment and Plan (1) Pleural effusion Current Visit: Yes Status: Acute Bilateral pleural effusion worse on the left side Complaining of severe shortness of breath currently BiPAP dependent Likely secondary to ESRD and pneumonia Additionally has mildly enlarged mediastinal lymph nodes with paratracheal lymph node measuring 1.2 cm Echo shows EF of 55% Has a 14-Mohawk chest tube placed by interventional radiology Plan to use fibronolytics for complex pleural effusion Pleural fluid analysis pending Daily chest x-rays (2) Acute and chronic respiratory failure with hypoxia Current Visit: Yes Status: Acute Had acute hypoxic respiratory failure likely multifactorial from pleural effusion and pneumonia Continues to have high demand for supplemental oxygen Dialysis and chest tube should improve respiratory status Continue to use low flow oxygen to keep oxygen saturation above 88% Continue to treat pneumonia for total 14 days (3) Encephalopathy Current Visit: Yes Status: Resolved Has intermittent confusion on 01/28/19 likely secondary to hypoxia Was started on BiPAP 01/28/19 confusion has resolved Decrease sedating medications (4) ESRD (end stage renal disease) on dialysis Current Visit: No Status: Chronic History of ESRD on intermittent dialysis Creatinine this morning 3.91 with GFR of 12 Underwent hemodialysis yesterday Nephrology consulted Continue to titrate medication renally Renal diet (5) COPD (chronic obstructive pulmonary disease) Current Visit: No Status: Chronic History of COPD does not appear to be in acute exacerbation we will continue bronchodilator and Symbicort Qualifiers: COPD type: unspecified COPD Qualified Code(s): J44.9 - Chronic obstructive pulmonary disease, unspecified (6) Pneumonia Current Visit: Yes Status: Acute CT chest on 01/28/19 shows bilateral consolidation worse on the left with moderate lower pleural effusion White count at presentation was 13.2 jumped up to 30.7 on 01/28/19 this morning white count is 20.4 Continue Zosyn day 8 of 14 for complicated pneumonia Ongoing requirement for BiPAP may have decreased requirement after chest tube p lacement Qualifiers: Pneumonia type: due to unspecified organism Laterality: bilateral Lung location: lower lobe of lung Qualified Code(s): J18.1 - Lobar pneumonia, unspecified organism (7) Thrush, oral Current Visit: Yes Status: Acute Complaining of pain with swallowing Tongue appears to have white appearance -Nystatin swish and swallow ordered (8) PVD (peripheral vascular disease) Current Visit: No Status: Chronic History of peripheral vascular disease with bilateral BKA. On aspirin and eliquis at home Currently on hold for 24 hours s/p chest tube placement (9) DVT prophylaxis Current Visit: No Status: Chronic On eliquis at home currently on hold for intervention with radiology her chest tube Subjective Principal diagnosis: COPD Interval history: Ms. Simon was seen at bedside this morning, she was awake and alert answering questions. She reports shortness of breath has somewhat improved but not resolved. She denied any fever, chills, nausea or emesis. Objective PUL Vital signs: Last Vital Signs Temp 98.7 F 01/31/19 00:03 Pulse 97 01/31/19 06:00 Resp 20 01/31/19 07:17 BP 162/69 01/31/19 06:00 Pulse Ox 95 01/31/19 07:17 General appearance: no acute distress, alert Eyes: nonicteric ENT: oropharynx moist Effort: mildly labored Auscultation: bilateral: diminished breath sounds (lower left lung lobe) Cardiovascular: regular rate and rhythm Gastrointestinal: soft, non-tender, non-distended Integumentary: normal Extremities: no cyanosis, no edema, other (Bilateral BK) non-focal exam, pupils equal and round mood appropriate, affect normal Results - Laboratory Findings CBC and BMP: 01/31/19 03:35 01/31/19 03:35 ABG ABG pH 7.48 pH Units (7.32-7.45) H 01/28/19 15:36 ABG pCO2 43 mmHg (35-45) 01/28/19 15:36 ABG pO2 53 mmHg (85-104) L 01/28/19 15:36 ABG O2 Saturation 89 % (95-98) L 01/28/19 15:36 PT/INR, D-dimer PT 15.4 Seconds (9.4-12.1) H 01/30/19 03:25 Abnormal lab findings: Abnormal lab results WBC 20.4 K/mcL (4.3-11.1) H 01/31/19 03:35 RBC 3.08 M/mcL (3.82-4.97) L 01/31/19 03:35 Hgb 8.8 g/dL (11.5-15.4) L 01/31/19 03:35 Hct 27.7 % (35.3-44.9) L 01/31/19 03:35 MCH 27.6 pg (28.0-33.3) L 01/30/19 03:25 MCHC 29.8 g/dL (31.6-35.5) L 01/30/19 03:25 RDW 15.0 % (11.5-14.5) H 01/31/19 03:35 Plt Count 424 K/mcL (140-400) H 01/31/19 03:35 Neutrophils # 25.2 K/mcL (1.6-8.9) H 01/28/19 05:32 Monocytes # 1.8 K/mcL (0.0-1.3) H 01/28/19 05:32 Eosinophils # 0.9 K/mcL (0.0-0.6) H 01/28/19 05:32 Platelet Estimate Slight increase (Normal) H 01/28/19 05:32 PT 15.4 Seconds (9.4-12.1) H 01/30/19 03:25 ABG pH 7.48 pH Units (7.32-7.45) H 01/28/19 15:36 ABG pCO2 48 mmHg (35-45) H 01/22/19 23:04 ABG pO2 53 mmHg (85-104) L 01/28/19 15:36 ABG HCO3 32 mEq/L (21-27) H 01/28/19 15:36 ABG Total CO2 33 mEq/L (20-26) H 01/28/19 15:36 ABG O2 Saturation 89 % (95-98) L 01/28/19 15:36 ABG Base Excess 7 mEq/L (-2 to 3) H 01/28/19 15:36 Sodium 130 mEq/L (136-145) L 01/31/19 03:35 Potassium 5.8 mEq/L (3.5-5.1) H 01/30/19 03:25 Chloride 94 mEq/L (98-107) L 01/31/19 03:35 Carbon Dioxide 31 mEq/L (23-29) H 01/29/19 05:40 BUN 28 mg/dL (8-23) H 01/31/19 03:35 Creatinine 3.91 mg/dL (0.60-1.20) H 01/31/19 03:35 Est GFR ( Amer) 14 (> 60) L 01/31/19 03:35 Est GFR (Non-Af Amer) 12 (> 60) L 01/31/19 03:35 Glucose 249 mg/dL (70-105) H 01/31/19 03:35 POC Glucose 203 mg/dL (70-99) H 01/31/19 07:14 Lactic Acid 0.2 mmol/L (0.5-2.2) L 01/22/19 02:50 Calcium 8.5 mg/dL (8.6-10.3) L 01/23/19 03:50 ALT 74 Units/L (7-52) H 01/28/19 04:39 Alkaline Phosphatase 266 Units/L (34-104) H 01/28/19 04:39 Lactate Dehydrogenase 122 Units/L (140-271) L 01/30/19 03:25 Troponin I 0.05 ng/mL (< 0.04) H* 01/22/19 20:33 B-Natriuretic Peptide 1041 pg/mL (Less than 100) H 01/22/19 02:57 Serum Total Protein 5.6 g/dL (6.4-8.9) L 01/30/19 03:25 Procalcitonin 0.89 ng/mL (0.00-0.15) H 01/22/19 03:28 Urine Protein >=300 mg/dL (Neg-Trace) H 01/28/19 06:26 Urine Glucose (UA) 250 mg/dL (Normal) H 01/28/19 06:26 Ur Squamous Epith Cells Many per lpf (None-Few) H 01/28/19 06:26 Vancomycin Trough 17 mcg/mL (5-10) H 01/29/19 05:40 Hep Bs Antibody < 3.10 mIU/mL (10.00-) L 01/22/19 07:40 Staphylococcus sp PCR DETECTED (Not Detect) A 01/28/19 06:41 mecA-Methicil Res Gene DETECTED (Not Detect) A 01/28/19 06:41 Crossmatch See Detail 01/30/19 05:45 - Microbiology Findings Microbiology Findings: Microbiology, Last 48 Hours 01/30/19 14:16 Body Fluid Culture - Preliminary Pleural Fluid 08/05/19 06:41 Blood Culture - Preliminary Peripheral Venipuncture Gram Positive Cocci - Clinical Findings Intake & Output: Intake & Output 01/30/19 01/30/19 01/31/19 15:59 23:59 07:59 Intake Total 1460 / 1660 100 / 1660 0 / 0 Output Total 2970 / 3015 45 / 3015 49 / 49 Balance -1510 / -1355 55 / -1355 -49 / -49 Weight 69.3 kg Consult Discharge Plan - Plan Referrals: Juan J Pal, [employer] [Primary Care Provider] -
[2019-01-31] MEDS ORDERED: Alteplase (Cathflo) 10 MG in 0.9 % Sodium Chloride 30 ML IX ONE ×2 (08:00→16:08)
[2019-01-31] MEDS: Aspirin Enteric Coated 81 MG Tablet PO SCH (09:13)
[2019-01-31] MEDS: Neosporin OINT 15 GM TUBE TP SCH ×2 (09:13→20:50)
[2019-01-31] MEDS ORDERED: *HR* LORazepam 2 MG/ML VIAL IVP ONE (09:33)
[2019-01-31] MEDS ORDERED: *HR* LORazepam 2 MG/ML VIAL ONE (09:34)
[2019-01-31] MEDS: *HR* LORazepam 2 MG/ML VIAL IVP ONE (09:51)
[2019-01-31] MEDS ORDERED: Dexmedetomidine HCl 400 MCG/100 ML MLS IVC ONE (10:09)
[2019-01-31] MEDS: Dexmedetomidine HCl 400 MCG/100 ML MLS IVC SCH ×3 (10:40→22:18)
--- NOTE | 2019-01-31 10:41 | Nephrology Progress Note ---
Date of Encounter: 01/31/19 Time of Encounter: 10:39 - Assessment and Plan (1) ESRD (end stage renal disease) on dialysis Current Visit: Yes Status: Chronic Current regimen is Monday in [facility]. Will Offer additional UF or HD as needed. Renal diet Renal vitamins Strict I/O Avoid nephrotoxins and renal dose all medications. hold on dialysis today. (2) Anemia Current Visit: No Status: Acute Goal Hgb is 10-11. Hgb is fairly stable Patient is on erythropoietin. We will increase today from 4000 q dialysis to 6000units q dialysis. Check iron stores. (3) Acute and chronic respiratory failure with hypoxia Current Visit: Yes Status: Acute Per the critical care team. Patient remains on BiPAP. She has a chest tube in place. Subjective Principal diagnosis: COPD Interval history: Patient seen. No new complaint. She remains on bipap. Objective - Vital Signs Vital signs: Vital Signs Temp Pulse Resp BP Pulse Ox 01/31/19 10:00 76 22 102/76 93 01/31/19 09:00 78 24 143/114 90 01/31/19 08:00 100 24 153/76 98 01/31/19 07:44 92 01/31/19 07:17 20 95 01/31/19 07:10 99.3 F 01/31/19 06:00 97 24 162/69 96 01/31/19 05:00 90 26 154/71 97 01/31/19 04:00 91 25 152/80 98 01/31/19 03:59 28 152/80 98 01/31/19 03:30 93 01/31/19 03:00 93 23 161/82 98 01/31/19 02:00 92 26 140/94 97 01/31/19 01:00 99 25 114/79 96 01/31/19 00:11 32 92 01/31/19 00:03 98.7 F 22 121/108 96 01/31/19 00:00 103 25 121/108 95 01/30/19 23:00 105 23 121/103 95 01/30/19 22:00 108 23 140/78 96 01/30/19 21:00 109 23 110/85 95 01/30/19 20:00 109 23 121/103 96 01/30/19 19:51 26 130/66 95 01/30/19 19:42 98.9 F 08/07/19 19:00 111 27 102/77 95 01/30/19 18:00 109 27 150/82 95 01/30/19 17:00 107 23 138/68 97 01/30/19 16:00 109 15 122/76 97 01/30/19 15:37 18 98 01/30/19 15:35 98.4 F 01/30/19 15:00 103 16 91/69 01/30/19 14:00 101 21 117/71 99 01/30/19 13:38 97.3 F L 18 009/73 01/30/19 13:05 177/90 01/30/19 13:00 100 27 135/91 99 01/30/19 12:50 154/82 01/30/19 12:35 135/91 01/30/19 12:20 129/62 01/30/19 12:05 97.8 F 96 18 160/129 01/30/19 12:00 97 27 125/62 98 01/30/19 11:50 135/111 01/30/19 11:35 152/91 01/30/19 11:30 22 95 01/30/19 11:21 97.9 F 90 22 160/82 99 01/30/19 11:20 97.9 F 167/62 01/30/19 11:06 98.3 F 90 22 130/96 98 01/30/19 11:05 152/75 01/30/19 11:00 98.3 F 90 21 130/96 100 01/30/19 10:52 98.3 F 87 24 118/70 99 01/30/19 10:50 126/101 Intake and Output 01/30/19 01/31/19 01/31/19 23:59 07:59 15:59 Intake Total 100 / 1660 0 / 270 270 / 270 Output Total 45 / 3015 49 / 49 Balance 55 / -1355 -49 / 221 270 / 221 Intake: IV Fluids 100 / 300 0 / 30 30 / 30 Precedex Premix 400 mcg In 100 0 / 0 ml @ 0.2 MCG/KG/HR 3.25 mls/hr IVC .Q24H [facility] Rx#:[id number] Zosyn 3.375 GM In 0.9 % Sodium 100 / 200 Chloride (Mini-Bag +) 100 ML @ 25 mls/hr IVPB Q12HR [facility] Rx#: [id number] Cathflo Activase 10 MG In 0.9 % 30 / 30 Sodium Chloride PF in Syringe 30 ML @ 900 mls/hr IX ONCE ONE Rx#:[id number] Oral 240 / 240 Output: Chest Tube Drainage 49 Left Posterior Chest 49 Other: Meal Breakfast Percent of Meal Consumed 100% Stool Size Large Stool Consistency soft formed Stool Color Brown # Bowel Movements 1 Weight 69.3 kg Blood Glucose* 217 203 Patient Weight 01/31/19 23:59 Weight 69.3 kg - General Appearance General appearance: Present: well-developed, well-nourished EENT: Present: ATNC Neck: Present: supple Cardiology: Present: regular rate Integumentary: Present: warm and dry - Lab 01/31/19 03:35 01/31/19 03:35 Most recent lab results 01/31/19 03:35 Calcium 8.8 Consult Discharge Plan - Plan Referrals: Juan J Pal, CATT[employer] DEALER [Primary Care Provider] -
[2019-01-31] MEDS ORDERED: Ampicillin/Sulbactam 3,000 MG in 0.9 % Sodium Chloride Mini Bag 100 ML IVPB SCH (16:00)
[2019-01-31] MEDS: rOPINIRole 1 MG TABLET PO SCH (20:40)
[2019-01-31] MEDS ORDERED: Insulin DETEMIR 100 UNIT/ML X5UNITS SQ SCH (21:00)
[2019-01-31] MEDS ORDERED: Insulin LISPRO 300 UNITS/3 ML VIAL SQ SCH (21:00)
[2019-02-01] MEDS ORDERED: *HR* FentaNYL (PF) 100 MCG/2 ML VIAL IVP ONE ×2 (02:25→05:20)
[2019-02-01] MEDS: Albuterol 2.5 MG/3 ML NEBULIZER IH SCH ×3 (03:30→11:02)
[2019-02-01 04:09] LABS: Hematocrit 29.6 % (35.3-44.9); Hemoglobin 9.3 g/dL (11.5-15.4); Mean Corpuscular HGB Conc 31.4 g/dL (31.6-35.5); Mean Corpuscular Hemoglobin 28.8 pg (28.0-33.3); Mean Corpuscular Volume 91.6 fL (83.0-100.0); Mean Platelet Volume 9.2 fL (9.4-12.4); Platelet Count 486 K/mcL (140-400); Red Blood Count 3.23 M/mcL (3.82-4.97); Red Cell Distribution Width 15.1 % (11.5-14.5); White Blood Count 17.5 K/mcL (4.3-11.1)
[2019-02-01 04:31] LABS: Calcium 9.1 mg/dL (8.6-10.3); Potassium 4.9 mEq/L (3.5-5.1)
[2019-02-01] MEDS: Dexmedetomidine HCl 400 MCG/100 ML MLS IVC SCH ×2 (04:41→12:35)
[2019-02-01 04:52] LABS: Ferritin 1282 ng/mL (10-120); Iron < 10 mcg/dL (50-170); Transferrin 122 mg/dL (203-362)
[2019-02-01 04:57] LABS: Folate > 22.3 ng/mL (3.0-16.0); Vitamin B12 > 1500 pg/mL (250-1100)
--- NOTE | 2019-02-01 07:09 | Pulmonology Progress Note ---
Date of Encounter: 02/01/19 Time of Encounter: 07:07 Assessment and Plan (1) Pleural effusion Current Visit: Yes Status: Acute Bilateral pleural effusion worse on the left side Ongoing severe shortness of breath Likely secondary to ESRD and pneumonia Additionally has mildly enlarged mediastinal lymph nodes with paratracheal lymph node measuring 1.2 cm Echo shows EF of 55% Has a 14-Turkish chest tube placed by interventional radiology Intrapleural alteplase was used on 01/31/19 to assist with breaking down the loculation Pleural fluid study shows pleural LDH to serum LDH greater than 0.6 consistent with exudative (2) Acute and chronic respiratory failure with hypoxia Current Visit: Yes Status: Acute Had acute hypoxic respiratory failure likely multifactorial from pleural effu megan and pneumonia Has underlying severe pulmonary hypertension which is contributory Continues to have high demand for supplemental oxygen Diagnosis and chest tube have not improved her respiratory status Requiring ongoing BiPAP, high risk for intubation today Continue to treat pneumonia for total 14 days (3) ESRD (end stage renal disease) on dialysis Current Visit: No Status: Chronic History of ESRD on intermittent dialysis Creatinine this morning 5.36 with GFR of 8 Underwent hemodialysis on 01/30/19 Nephrology consulted Continue to titrate medication renally Renal diet (4) Pneumonia Current Visit: Yes Status: Acute CT chest on 01/28/19 shows bilateral consolidation worse on the left with moderate lower pleural effusion White count at presentation was 13.2 jumped up to 30.7 on 01/28/19 this morning white count is 17.5 Continue Zosyn day 9 of 14 for complicated pneumonia Ongoing requirement for BiPAP may have decreased requirement after chest tube pl acement Qualifiers: Pneumonia type: due to unspecified organism Laterality: bilateral Lung location: lower lobe of lung Qualified Code(s): J18.1 - Lobar pneumonia, unspecified organism (5) COPD (chronic obstructive pulmonary disease) Current Visit: No Status: Chronic History of COPD does not appear to be in acute exacerbation we will continue bronchodilator and Symbicort Qualifiers: COPD type: unspecified COPD Qualified Code(s): J44.9 - Chronic obstructive pulmonary disease, unspecified (6) Pulmonary hypertension Current Visit: Yes Status: Acute Severe pulmonary hypertension noted on echo on 12/03/18 Contributing to worsening respiratory failure (7) Thrush, oral Current Visit: Yes Status: Acute Complaining of pain with swallowing Tongue appears to have white appearance Nystatin swish and swallow ordered (8) PVD (peripheral vascular disease) Current Visit: No Status: Chronic History of peripheral vascular disease with bilateral BKA. On aspirin and eliquis at home Currently on hold s/p chest tube placement Plan to restart her aspirin and eliquis today (9) DVT prophylaxis Current Visit: No Status: Chronic On eliquis at home currently on hold for intervention with radiology her chest tube Subjective Principal diagnosis: COPD Interval history: Ms. Simon was seen at bedside this morning, she was awake and alert answering questions. She is complaining of worsening shortness of breath. She denies fever, chills, chest pain, nausea or vomiting. Objective PUL Vital signs: Last Vital Signs Temp 99.8 F H 02/01/19 04:04 Pulse 99 02/01/19 06:00 Resp 46 02/01/19 06:00 BP 135/77 02/01/19 06:00 Pulse Ox 95 02/01/19 06:00 General appearance: no acute distress Eyes: nonicteric ENT: oropharynx moist Neck: supple Effort: normal Auscultation: bilateral: diminished breath sounds Gastrointestinal: soft, non-tender, non-distended Extremities: no cyanosis, no edema Musculoskeletal: other (Bilateral BK) non-focal exam, motor strength normal and symmetric mood appropriate, affect normal Results - Laboratory Findings CBC and BMP: 02/01/19 03:55 02/01/19 03:55 ABG ABG pH 7.48 pH Units (7.32-7.45) H 01/28/19 15:36 ABG pCO2 43 mmHg (35-45) 01/28/19 15:36 ABG pO2 53 mmHg (85-104) L 01/28/19 15:36 ABG O2 Saturation 89 % (95-98) L 01/28/19 15:36 PT/INR, D-dimer PT 15.4 Seconds (9.4-12.1) H 01/30/19 03:25 Abnormal lab findings: Abnormal lab results WBC 17.5 K/mcL (4.3-11.1) H 02/01/19 03:55 RBC 3.23 M/mcL (3.82-4.97) L 02/01/19 03:55 Hgb 9.3 g/dL (11.5-15.4) L 02/01/19 03:55 Hct 29.6 % (35.3-44.9) L 02/01/19 03:55 MCH 27.6 pg (28.0-33.3) L 01/30/19 03:25 MCHC 31.4 g/dL (31.6-35.5) L 02/01/19 03:55 RDW 15.1 % (11.5-14.5) H 02/01/19 03:55 Plt Count 486 K/mcL (140-400) H 02/01/19 03:55 MPV 9.2 fL (9.4-12.4) L 02/01/19 03:55 Neutrophils # 25.2 K/mcL (1.6-8.9) H 01/28/19 05:32 Monocytes # 1.8 K/mcL (0.0-1.3) H 01/28/19 05:32 Eosinophils # 0.9 K/mcL (0.0-0.6) H 01/28/19 05:32 Platelet Estimate Slight increase (Normal) H 01/28/19 05:32 PT 15.4 Seconds (9.4-12.1) H 01/30/19 03:25 ABG pH 7.48 pH Units (7.32-7.45) H 01/28/19 15:36 ABG pCO2 48 mmHg (35-45) H 01/22/19 23:04 ABG pO2 53 mmHg (85-104) L 01/28/19 15:36 ABG HCO3 32 mEq/L (21-27) H 01/28/19 15:36 ABG Total CO2 33 mEq/L (20-26) H 01/28/19 15:36 ABG O2 Saturation 89 % (95-98) L 01/28/19 15:36 ABG Base Excess 7 mEq/L (-2 to 3) H 01/28/19 15:36 Sodium 134 mEq/L (136-145) L 02/01/19 03:55 Potassium 5.8 mEq/L (3.5-5.1) H 01/30/19 03:25 Chloride 96 mEq/L (98-107) L 02/01/19 03:55 Carbon Dioxide 31 mEq/L (23-29) H 01/29/19 05:40 BUN 41 mg/dL (8-23) H 02/01/19 03:55 Creatinine 5.36 mg/dL (0.60-1.20) H 02/01/19 03:55 Est GFR ( Amer) 10 (> 60) L 02/01/19 03:55 Est GFR (Non-Af Amer) 8 (> 60) L 02/01/19 03:55 Glucose 249 mg/dL (70-105) H 01/31/19 03:35 POC Glucose 176 mg/dL (70-99) H 01/31/19 19:18 Lactic Acid 0.2 mmol/L (0.5-2.2) L 01/22/19 02:50 Calcium 8.5 mg/dL (8.6-10.3) L 01/23/19 03:50 Iron < 10 mcg/dL (50-170) L 02/01/19 03:55 Transferrin 122 mg/dL (203-362) L 02/01/19 03:55 Ferritin 1282 ng/mL (10-120) H 02/01/19 03:55 ALT 74 Units/L (7-52) H 01/28/19 04:39 Alkaline Phosphatase 266 Units/L (34-104) H 01/28/19 04:39 Lactate Dehydrogenase 122 Units/L (140-271) L 01/30/19 03:25 Troponin I 0.05 ng/mL (< 0.04) H* 01/22/19 20:33 B-Natriuretic Peptide 1041 pg/mL (Less than 100) H 01/22/19 02:57 Serum Total Protein 5.6 g/dL (6.4-8.9) L 01/30/19 03:25 Vitamin B12 > 1500 pg/mL (250-1100) H 02/01/19 03:55 Folate > 22.3 ng/mL (3.0-16.0) H 02/01/19 03:55 Procalcitonin 0.89 ng/mL (0.00-0.15) H 01/22/19 03:28 Urine Protein >=300 mg/dL (Neg-Trace) H 01/28/19 06:26 Urine Glucose (UA) 250 mg/dL (Normal) H 01/28/19 06:26 Ur Squamous Epith Cells Many per lpf (None-Few) H 01/28/19 06:26 Vancomycin Trough 17 mcg/mL (5-10) H 01/29/19 05:40 Hep Bs Antibody < 3.10 mIU/mL (10.00-) L 01/22/19 07:40 Staphylococcus sp PCR DETECTED (Not Detect) A 01/28/19 06:41 mecA-Methicil Res Gene DETECTED (Not Detect) A 01/28/19 06:41 Crossmatch See Detail 01/30/19 05:45 - Microbiology Findings Microbiology Findings: Microbiology, Last 48 Hours 01/30/19 14:16 Body Fluid Culture - Preliminary Pleural Fluid 01/28/19 06:41 Blood Culture - Final Peripheral Venipuncture Staphyloco hominis ssp hominis - Clinical Findings Intake & Output: Intake & Output 01/31/19 01/31/19 02/01/19 15:59 23:59 07:59 Intake Total 428 / 700 272 / 700 100 / 100 Output Total 515 / 764 200 / 764 220 / 220 Balance -87 / -64 72 / -64 -120 / -120 Weight 68.9 kg Consult Discharge Plan - Plan Referrals: Juan J Pal, BOARDMARKER [Primary Care Provider] -
[2019-02-01] MEDS: Tiotropium 18 MCG inhalation IH SCH (07:22)
[2019-02-01] MEDS: Budesonide/Formoterol 80/4.5 1 PUFF INH IH SCH (07:22)
[2019-02-01] MEDS ORDERED: Alteplase (Cathflo) 10 MG in 0.9 % Sodium Chloride 30 ML IX ONE ×2 (08:00→16:00)
[2019-02-01] MEDS ORDERED: 0.9 % Sodium Chloride 250 ML IVC PRN (08:01)
[2019-02-01] MEDS ORDERED: 0.9 % Sodium Chloride 1,000 ML PRIME SCH (08:15)
--- NOTE | 2019-02-01 08:15 | Nephrology Progress Note ---
Date of Encounter: 02/01/19 Time of Encounter: 08:14 - Assessment and Plan (1) ESRD on dialysis Current Visit: Yes Status: Chronic This is 58-year-old female who initially presented complaining of shortness of breath and worsening respiratory status. Patient has past medical history significant for CHF, CAD, diabetes mellitus, end-stage renal disease. Per daughter, patient has had worsening shortness of breath for months, and patient has had a total of 6 inpatient admissions since the month of July. - Of note, patient follows with Charisse zheng in [facility]. She has been on hemodialysis for the past 3 years. She does make a small amount of urine. She has a fistula in her right upper arm that was stented 3 years ago and re-grafted one year ago. Per daughter, patient has been going to hemodialysis regularly. - Nephrology was consulted to manage patient's inpatient hemodialysis. - Of note, today patient continues to have worsening respiratory distress even on BiPAP. - BUN/Cr = 41/5.36 - No urine output recorded - Urinalysis did not show any signs of infection PLAN: Ms. Simon presents initially due to shortness of breath. Found to have bilateral pleural effusions. Also noted to have end-stage renal disease, and traditionally had hemodialysis on Monday and Monday. Dialysis has continued outpatient mentation. However she has not made any urine output. We do plan to continue hemodialysis. Plan for session today. May plan for ultrafiltration session tomorrow. - Currently Hemodialysis regimen is MWF - Additional hemodialysis or ultrafiltration as needed; May consider additional ultrafiltration session tomorrow - Strict Is and Os - Daily weights - Avoid Nephrotoxins - Renally dose medications - Monitor UO - Daily BMP; Assess kidney function (2) Anemia Current Visit: No Status: Acute Chronic Anemia - Hb/Hct = 9.3/29.6 PLAN: - Cont with EPO during HD - Target Hb 10-11 - Monitor vitals; monitor for signs of bleed - Iron supplementation as needed Qualifiers: Anemia type: due to chronic kidney disease Chronic kidney disease stage: on chronic dialysis Qualified Code(s): N18.6 - End stage renal disease; D63.1 - Anemia in chronic kidney disease; Z99.2 - Dependence on renal dialysis (3) Acute and chronic respiratory failure Current Visit: No Status: Resolved Management per primary team Qualifiers: Respiratory failure complication: hypoxia Qualified Code(s): J96.21 - Acute and chronic respiratory failure with hypoxia Subjective Principal diagnosis: COPD Interval history: Patient seen and examined at bedside this morning. Vitals remained stable. However, patient with increasing respiratory distress. Currently maintained on BiPAP with oxygen saturation appropriate. BUNs/Cr = 41/5.36 as of this morning. Plan for hemodialysis later today. Given worsening respiratory status, primary ICU team discussed possible end dictation. However after discussion with family, family opts to not pursue intubation. Further discussion regarding goals of care to be done today. Objective - Vital Signs Vital signs: Vital Signs Temp Pulse Resp BP Pulse Ox 02/01/19 07:25 46 95 02/01/19 06:00 99 46 135/77 95 02/01/19 05:00 87 34 120/65 94 02/01/19 04:04 99.8 F H 02/01/19 04:00 91 31 130/81 91 02/01/19 03:30 35 90 02/01/19 03:00 87 26 135/73 93 02/01/19 02:00 87 29 124/80 94 02/01/19 01:00 96 38 115/97 92 02/01/19 00:00 97 28 143/107 91 01/31/19 23:44 27 141/97 93 01/31/19 23:14 97.6 F 01/31/19 23:00 84 32 138/90 95 01/31/19 22:00 76 32 129/73 93 01/31/19 21:00 68 30 124/79 95 01/31/19 20:11 97.1 F L 01/31/19 20:00 60 35 104/69 96 01/31/19 19:00 58 36 105/71 96 01/31/19 17:00 70 30 121/72 89 01/31/19 16:15 36 88 01/31/19 16:00 68 26 116/67 91 01/31/19 15:53 97.5 F L 01/31/19 15:00 64 01/31/19 14:00 65 20 107/70 95 01/31/19 13:00 68 20 104/66 94 01/31/19 12:00 68 18 125/75 94 01/31/19 11:22 30 95 01/31/19 11:10 99.0 F 01/31/19 11:00 76 24 120/80 96 01/31/19 10:00 76 22 102/76 93 01/31/19 09:00 78 24 143/114 90 Intake and Output 01/31/19 02/01/19 02/01/19 23:59 07:59 15:59 Intake Total 272 / 700 100 / 100 Output Total 200 / 764 220 / 220 Balance 72 / -64 -120 / -120 Intake: IV Fluids 272 / 460 100 / 100 Precedex Premix 400 mcg In 100 142 / 200 100 / 100 ml @ 0.2 MCG/KG/HR 3.465 mls/hr IVC .Q24H [facility] Rx#:[id number] Unasyn 3,000 MG In 0.9 % Sodium 100 / 100 Chloride (Mini-Bag +) 100 ML @ 200 mls/hr IVPB Q24H [facility] Rx#: [id number] Cathflo Activase 10 MG In 0.9 % 30 / 30 Sodium Chloride PF in Syringe 30 ML @ 900 mls/hr IX ONCE ONE Rx#:[id number] Output: Chest Tube Drainage 200 / 764 220 / 220 Left Posterior Chest 200 / 764 220 / 220 Other: Weight 68.9 kg Blood Glucose* 176 Patient Weight 02/01/19 23:59 Weight 68.9 kg - General Appearance General appearance: Present: moderate distress, chronically ill Exam: Chronically ill 58-year-old female who is sitting at bedside. Currently maintained on BiPAP. Accompanied by daughter. EENT: Present: ATNC, PERRL, mucous membranes dry Neck: Present: no JVD, supple Respiratory: Present: course breath sounds Cardiology: Present: no murmurs, no rub, no gallops, regular rate, regular rhythm, normal S1, normal S2 Dialysis Vascular Access: Arteriovenous Fistula, Arteriovenous Graft Additional Comments: AV fistula and AV graft and right upper extremity Gastrointestinal: Present: normoactive bowel sounds, no tenderness, no guarding, no organomegaly, no masses Integumentary: Present: rash, warm and dry Neurologic: Present: no focal deficit, confused, disoriented Additional Comments: Bilateral below-knee amputation - Lab 02/01/19 03:55 02/01/19 03:55 Most recent lab results 02/01/19 03:55 Calcium 9.1 Consult Discharge Plan - Plan Referrals: Juan J Pal, DIRECTOR OF TRAINING [Primary Care Provider] -
[2019-02-01] MEDS ORDERED: Morphine Sulfate 2 MG/ML SYRINGE IVP PRN (08:29)
[2019-02-01] MEDS: Insulin LISPRO 300 UNITS/3 ML VIAL SQ SCH ×2 (08:34→13:53)
[2019-02-01] MEDS: Sennosides 8.6 MG TABLET PO SCH (08:36)
[2019-02-01] MEDS: Nystatin SUSP 5 ML UD.LIQ PO SCH ×2 (08:36→13:53)
[2019-02-01] MEDS: Calcium Acetate 667 MG CAPSULE PO SCH ×2 (08:36→13:12)
[2019-02-01] MEDS: Aspirin Enteric Coated 81 MG Tablet PO SCH (08:36)
[2019-02-01] MEDS: NIFEdipine XL (24 HR) 30 MG TAB.ER.24 PO SCH (08:36)
[2019-02-01] MEDS: Loratadine 10 MG TABLET PO SCH (08:36)
[2019-02-01] MEDS: FLUoxetine 20 MG CAPSULE PO SCH (08:36)
[2019-02-01] MEDS ORDERED: Apixaban 5 MG TABLET PO SCH (09:00)
[2019-02-01] MEDS: Neosporin OINT 15 GM TUBE TP SCH (09:23)
[2019-02-01] MEDS ORDERED: Insulin DETEMIR 100 UNIT/ML X5UNITS SQ SCH (10:34)
[2019-02-01] MEDS: *HR* HYDROcodone/Acet 7.5/325 mg TABLET PO PRN (11:12)
--- NOTE | 2019-02-01 13:46 | Event Note ---
Date of Encounter: 02/01/19 Time of Encounter: 13:44 Discussed goals of care with the patient's power of collar sewer/daughter. 2 of the patient's sisters were also present as well as the palliative care service. Despite aggressive care, the patient has continued to decline and is now on BiPAP. Discussed with them that if the patient were to be intubated, I feel that she would likely require tracheostomy tube placement. They were not interested and ongoing aggressive care and requested a transition to comfort measures only. Plan is to change CODE STATUS to DNR CC. Appreciate palliative care's assistance in assisting with transitioning her care.
[2019-02-01] MEDS ORDERED: *HR* LORazepam Oral Conc 2 MG/ML SL PRN (14:01)
[2019-02-01] MEDS ORDERED: *HR* FentaNYL (PF) 100 MCG/2 ML VIAL IVP PRN (14:05)
--- NOTE | 2019-02-01 15:48 | Palliative - Consult Note ---
Date of Encounter: 02/01/19 Time of Encounter: 15:20 - Assessment and Plan (1) Back pain Current Visit: Yes Status: Acute Assessment and plan: Transition from Roxanol to SL Oxycodone, as dialysis will be discontinued and Roxanol may cause unpleasant side effects/myoclonic jerking. Daughter also stated that the Roxanol was not controlling her pain at home. Will provide 10mg and titrate as needed. Qualifiers: Sciatica laterality: sciatica laterality unspecified Qualified Code(s): M54.40 - Lumbago with sciatica, unspecified side (2) Dyspnea Current Visit: Yes Status: Acute Assessment and plan: Bipap has been discontinued. Will provide Oxygen per NC for comfort and treat air hunger with SL Oxycodone or Fentanyl IV if Oxycodone not effective. Monitor. Qualifiers: Dyspnea type: unspecified Qualified Code(s): R06.00 - Dyspnea, unspecified (3) Anxiety Current Visit: Yes Status: Acute Assessment and plan: Transition PO Lorazepam to SL concentrate and titrate as needed. (4) Palliative care encounter Current Visit: Yes Status: Acute Assessment and plan: Documenting goals of care discussion - as [employer] would not let me select this to add to A/P. Family meeting held with Dr. Hart/ICU employee development director, primary nurse Goran, myself, patient daughter and 2 sisters. Updated on clinical status and patient continued decline despite aggressive pulmonary care and drainage of pleural effusion/empyema via chest tube. Family all in agreement that patient has suffered many medical problems and has been through enough, they desire to make her comfortable. Discussed with transition to comfort care, some medications/ treatments/bipap/monitors would be discontinued, and we would adjust comfort medications as needed. Code status has been transitioned to DNR-Comfort care, daughter Octavia signed state form and copies provided to her as well as placed on medical record. Patient had [facility] prior to admission, however, daughter states they were not pleased with their services and if patient survives to leave hospital, they will likely utilized another agency. Patient will be transferred to palliative bed under hospitalist care. Palliative will return Monday and evaluate patient status, and have further discussions with family regarding transitioning back to hospice. Total time with patient/family 75 minutes - 60 face to face with patient/family in discussion of care and counseling, 15 min communicating with providers, staff, chart review and documentation. (5) Altered mental status Current Visit: No Status: Acute Qualifiers: Altered mental status type: unspecified Qualified Code(s): R41.82 - Altered mental status, unspecified (6) HCAP (healthcare-associated pneumonia) Current Visit: No Status: Acute (7) Acute respiratory failure with hypoxia Current Visit: Yes Status: Acute (8) ESRD on dialysis Current Visit: No Status: Chronic Assessment and plan: Dialysis will be discontinued. Nephrology has been notified (9) COPD (chronic obstructive pulmonary disease) Current Visit: No Status: Chronic Qualifiers: COPD type: unspecified COPD Qualified Code(s): J44.9 - Chronic obstructive pulmonary disease, unspecified (10) Pleural effusion Current Visit: Yes Status: Acute Assessment and plan: Chest tube remains in place. (11) Pneumonia Current Visit: Yes Status: Acute Qualifiers: Pneumonia type: due to unspecified organism Laterality: bilateral Lung location: lower lobe of lung Qualified Code(s): J18.1 - Lobar pneumonia, unspecified organism Palliative-CN HPI - Data of Consult Requesting Physician: Tyler Blair Primary Care Provider: Juan J Pal CNP - Consult Narrative History of present illness: Ms. Simon is a 58 year old female who has had a prolonged hospital stay after being transferred to [facility] from [facility] with c/o 3-4 week history of shortness of breath. She was found to have bilateral pleural effusions, leukocytosis, and was treated for pneumonia and volume overload. Left pleural effusion did not improve, and patient had chest tube inserted on 01/28 with the hope of improving her respiratory status. However, patient continued to decline, requiring around the clock bipap, likely approaching intubation, which with her pulmonary history, could likely be usp resulting in need for tracheostomy. Palliative was consulted to assist with goals of care discussion and possible transition to comfort care. Patient has history of CAD, CHF, COPD on 2 L of home O2, CVA, previous DVT on Eliquis, DM, HLD, HTN, PAD, ESRD, and chronic back pain. Her 90y/o mother is primary male impersonator, and she also had [facility] services at home. Upon my visit, she is on bipap, and anxious. There are multiple family members at bedside, including patient twin sister, daughter, and multiple children. CC: Tyler Blair - Time Spent with Patient Time: Total time spent is greater than 50% in coordination of care (as documented) at patient's floor/unit and/or counseling patient: Past Med Surg Social Fam HX - Past Medical History Medical history: CHF, COPD, coronary artery disease, CVA, DVT, diabetes, dialysis, fibromyalgia, hyperlipidemia, hypertension, peripheral artery disease, renal disease Psychiatric history: anxiety, depression - Past Surgical History Surgical History: , hysterectomy Additional surgical history: shoulder surgery, torn cuff. right hand carpel tunnel. abdominal hernia with mesh implant. Bilateral below the knee amp - Social History Smoking Status: Former smoker Smokeless Tobacco Status: No Alcohol use: none Drug use: none - Family History Sister Hx Family Cardiac Disorders: Yes (Cardiac bypass) Father Family Member Ethnicity: Non- Hx Family Cancer: Yes (colon) Mother Family Member Ethnicity: Non- Hx Family Cardiac Disorders: Yes Medications and Allergies Calcium Acetate [Phos-LO] 2 cap PO ACHS 08/12/17 [History] Cetirizine HCl [24Hour Allergy] 10 mg PO DAILY 08/12/17 [History] rOPINIRole [Requip] 1 mg PO HS 08/12/17 [History] Amitriptyline [Elavil] 50 mg PO HS 11/25/18 [History] Apixaban [Eliquis] 2.5 mg PO BID 11/25/18 [History] Insulin Glargine [Lantus] 12 unit SQ Q12H 11/25/18 [History] Montelukast [Singulair] 10 mg PO DAILY 11/25/18 [History] Pantoprazole Sodium 40 mg PO DAILY 11/25/18 [History] Patiromer Calcium Sorbitex [Veltassa] 8.4 gm PO DAILY 11/25/18 [History] Aspirin [Lo-Dose Aspirin EC] 81 mg PO DAILY 12/03/18 [History] B-Complex with Vitamin C [Vitamin B-Complex with Vit C] 1 tab PO DAILY 12/18/18 [History] HYDROcodone/Acet 7.5/325 mg [[place] 7.5-325 mg] 1 tab PO Q4H PRN 12/18/18 [History] LORazepam [Ativan] 0.5 mg PO Q6H PRN 12/18/18 [History] NIFEdipine [Nifedipine ER] 90 mg PO DAILY 12/18/18 [History] Nitroglycerin [Nitrostat] 0.4 mg SL Q5MIN PRN MDD X3 DOSES CALL 911 12/18/18 [History] Tiotropium [Spiriva] 18 mcg IH DAILY 12/18/18 [History] Budesonide/Formoterol 80/4.5 [Symbicort 80/4.5] 1 puff IH BIDR #1 inhaler 12/20/18 [Rx] Insulin LISPRO [Humalog] 0 unit SQ ACHS #1 cartridge 12/20/18 [Rx] FLUoxetine HCl [Prozac] 20 mg PO DAILY 12/24/18 [History] Losartan [Cozaar] 50 mg PO DAILY #30 tablet 12/29/18 [Rx] Torsemide [Demadex] 60 mg PO BIDDIURETIC #60 tablet 12/29/18 [Rx] Carvedilol 25 mg PO BID 01/04/19 [History] Cholecalciferol (Vitamin D3) [Optimal D3] 50,000 units PO GUERRA 01/15/19 [History] Morphine Oral CONC [Roxanol] 5 mg PO Q4H PRN 01/15/19 [History] Ondansetron HCl [Zofran] 4 mg PO Q4H PRN 01/15/19 [History] Sennosides [Senna] 8.6 mg PO BID PRN 01/15/19 [History] Amoxicillin/Clavulanate [Augmentin] 500 mg PO DAILY 7 Days #7 tablet 01/17/19 [Rx] Acetaminophen [Tylenol 650mg SUPP] 650 mg RC Q4H PRN 01/22/19 [History] Albuterol Sulfate [Ventolin Hfa] 2 puff IH Q6H PRN 01/22/19 [History] Haloperidol [Haldol] 1 mg PO Q2H PRN 01/22/19 [History] Hyoscyamine SL [Levsin Sl] 0.125 mg SL Q2H PRN 01/22/19 [History] Ipratropium/Albuterol Neb [Duoneb] 3 ml IH Q6H 01/22/19 [History] 3 Allergy/AdvReac Type Severity Reaction Status Date / Time pregabalin [From Lyrica] Allergy See Verified 01/21/19 23:50 Comments codeine AdvReac Nausea Verified 01/21/19 23:50 ivp dye Allergy See Uncoded 01/15/19 21:36 Comments ROS unobtainable: due to mental status Palliative Care-Exam - Constitutional Vitals: Temp Pulse Resp BP Pulse Ox 98.0 F 84 25 131/73 99 02/01/19 11:46 02/01/19 14:00 02/01/19 14:00 02/01/19 14:00 02/01/19 14:00 General appearance: Present: mild distress - Head Head Exam: Present: normal inspection, normocephalic - Eye Eye exam: Present: normal appearance, PERRL - Respiratory Respiratory exam: Present: decreased breath sounds, wheezes Additional comments: Bipap on presently - Cardiovascular Cardiovascular exam: Present: irregular rhythm - GI/Abdominal Exam GI/Abdominal exam: Present: normal bowel sounds, soft - Extremities Exam Additional comments: Bilateral amputee - Neurological Exam Neurological exam: Present: alert, strengths equal and symetr throughout Additional comments: Oriented to name and place. Disoriented to time and situation - Skin Skin exam: Present: dry, pallor, warm Internal Medicine - CN: Reslt - Labs CBC & Chem 7: 02/01/19 03:55 02/01/19 03:55 Labs: Short CBC 02/01/19 Range/Units 03:55 WBC 17.5 H (4.3-11.1) K/mcL Hgb 9.3 L (11.5-15.4) g/dL Hct 29.6 L (35.3-44.9) % Plt Count 486 H (140-400) K/mcL BMP 02/01/19 03:55 Sodium 134 L Potassium 4.9 Chloride 96 L Carbon Dioxide 26 BUN 41 H Creatinine 5.36 H Glucose 81 Calcium 9.1 - ABG Interpretation ABG results: ABG ABG pH 7.48 pH Units (7.32-7.45) H 01/28/19 15:36 ABG pCO2 43 mmHg (35-45) 01/28/19 15:36 ABG pO2 53 mmHg (85-104) L 01/28/19 15:36 ABG O2 Saturation 89 % (95-98) L 01/28/19 15:36 PT/INR, D-dimer PT 15.4 Seconds (9.4-12.1) H 01/30/19 03:25 - Impressions Impressions Chest X-Ray 02/01/19 04:00 IMPRESSION: Stable position of left chest tube with diminished left effusion but residual atelectatic changes and pleural thickening. Redemonstration of cardiomegaly and congestion. D/ / 02/01/2019 07:46:15 Tanna Montana MD / yvette Interpreting Provider: Tanna Montana MD Consult Discharge Plan - Plan Referrals: Juan J Pal, OSTOMY CARE NURSE [Primary Care Provider] - Palliative Quality Palliative Quality: Screen for Code Status: Yes, Screen for Goals of Care: Yes, Screen for Pain: Yes, If Pain Regimen Started, Initiate Bowel Regimen: Yes, Screen for Nausea/Vomitting: Yes Code Status: 01/22/19 02:44 Resuscitation Status: Active [RES] Routine Comment: Resuscitation Status: Full Code 02/01/19 13:46 DNR [Resuscitation Status: Active] [RES] Routine Comment: Resuscitation Status: DNR-Comfort Care
[2019-02-01] MEDS: *HR* FentaNYL (PF) 100 MCG/2 ML VIAL IVP PRN ×2 (16:19→22:04)
[2019-02-01] MEDS: Apixaban 5 MG TABLET PO SCH (20:45)
[2019-02-01] MEDS: *HR* LORazepam Oral Conc 2 MG/ML SL PRN (20:52)
[2019-02-02] MEDS: *HR* FentaNYL (PF) 100 MCG/2 ML VIAL IVP PRN ×4 (00:53→09:10)
[2019-02-02] MEDS: *HR* LORazepam Oral Conc 2 MG/ML SL PRN ×10 (04:03→22:37)
[2019-02-02] MEDS: Apixaban 5 MG TABLET PO SCH ×2 (09:11→20:15)
--- NOTE | 2019-02-02 10:37 | Palliative Progress Note ---
Date of Encounter: 02/02/19 Time of Encounter: 10:29 - Assessment and plan (1) Dyspnea Current Visit: Yes Status: Acute Assessment and plan: Patient remains tachypneic, receiving all prn doses of oxycodone, ativan and fantanyl IV. off BiPAP, on 15L nc. plan: 1. Start phentanyl drip 50 mcg/hr with a max of 200mcg/hr 2. Ativan frequency to q1hr 3. Keep oxycodone for breakthrough pain q1hr. Instructed nurse to reduce oxygen flow as pt becomes more comfortable. (2) Back pain Current Visit: Yes Status: Acute Assessment and plan: Pain management as above (3) Anxiety Current Visit: Yes Status: Acute Assessment and plan: Ativan prn as above (4) Goals of care, counseling/discussion Current Visit: Yes Status: Acute Assessment and plan: Discussed with family present at the bedside, goal remain to assure pt's comfort. Discussed the initiation of Fentanyl drip, explained the side effects of sedation and possible respiratory depression. Family agreeable and states "just make sure she is not suffering". Pt will remain under hospitalist care over the week-end, if she survives, will consider admitting to hospice GIP on Monday. Plan discussed with hospitalist Dr. Blair, I remain available for any needs. (5) ESRD (end stage renal disease) on dialysis Current Visit: No Status: Chronic Assessment and plan: HD was discontinued. Comfort measures only. (6) Palliative care encounter Current Visit: Yes Status: Acute (7) Acute and chronic respiratory failure with hypoxia Current Visit: Yes Status: Acute (8) COPD (chronic obstructive pulmonary disease) Current Visit: No Status: Chronic Qualifiers: COPD type: unspecified COPD Qualified Code(s): J44.9 - Chronic obstructive pulmonary disease, unspecified (9) Multifocal pneumonia Current Visit: Yes Status: Acute (10) Pleural effusion Current Visit: Yes Status: Acute - Time Spent With Patient Total time spent is greater than 50% in coordination of care (as documented) at patient's floor/unit and/or counseling patient: - Subjective Interval history: Patient drowsy, she appears in moderate distress due to SOB and tachypnea. Numerous family members present at the bedside, refusing for pt to be aroused. Per family pt slept well until about 4am, and then she became anxious and tachypneic, complaining of pain everytime she is awake. She received fentanyl 50 mcg about every 2 hours since 4 am, also received all doses of roxanol and Ativan. - Constitutional Vitals: Abnormal lab results WBC 17.5 K/mcL (4.3-11.1) H 02/01/19 03:55 RBC 3.23 M/mcL (3.82-4.97) L 02/01/19 03:55 Hgb 9.3 g/dL (11.5-15.4) L 02/01/19 03:55 Hct 29.6 % (35.3-44.9) L 02/01/19 03:55 MCH 27.6 pg (28.0-33.3) L 01/30/19 03:25 MCHC 31.4 g/dL (31.6-35.5) L 02/01/19 03:55 RDW 15.1 % (11.5-14.5) H 02/01/19 03:55 Plt Count 486 K/mcL (140-400) H 02/01/19 03:55 MPV 9.2 fL (9.4-12.4) L 02/01/19 03:55 Neutrophils # 25.2 K/mcL (1.6-8.9) H 01/28/19 05:32 Monocytes # 1.8 K/mcL (0.0-1.3) H 01/28/19 05:32 Eosinophils # 0.9 K/mcL (0.0-0.6) H 01/28/19 05:32 Platelet Estimate Slight increase (Normal) H 01/28/19 05:32 PT 15.4 Seconds (9.4-12.1) H 01/30/19 03:25 ABG pH 7.48 pH Units (7.32-7.45) H 01/28/19 15:36 ABG pCO2 48 mmHg (35-45) H 01/22/19 23:04 ABG pO2 53 mmHg (85-104) L 01/28/19 15:36 ABG HCO3 32 mEq/L (21-27) H 01/28/19 15:36 ABG Total CO2 33 mEq/L (20-26) H 01/28/19 15:36 ABG O2 Saturation 89 % (95-98) L 01/28/19 15:36 ABG Base Excess 7 mEq/L (-2 to 3) H 01/28/19 15:36 Sodium 134 mEq/L (136-145) L 02/01/19 03:55 Potassium 5.8 mEq/L (3.5-5.1) H 01/30/19 03:25 Chloride 96 mEq/L (98-107) L 02/01/19 03:55 Carbon Dioxide 31 mEq/L (23-29) H 01/29/19 05:40 BUN 41 mg/dL (8-23) H 02/01/19 03:55 Creatinine 5.36 mg/dL (0.60-1.20) H 02/01/19 03:55 Est GFR ( Amer) 10 (> 60) L 02/01/19 03:55 Est GFR (Non-Af Amer) 8 (> 60) L 02/01/19 03:55 Glucose 249 mg/dL (70-105) H 01/31/19 03:35 POC Glucose 127 mg/dL (70-99) H 02/01/19 13:35 Lactic Acid 0.2 mmol/L (0.5-2.2) L 01/22/19 02:50 Calcium 8.5 mg/dL (8.6-10.3) L 01/23/19 03:50 Iron < 10 mcg/dL (50-170) L 02/01/19 03:55 Transferrin 122 mg/dL (203-362) L 02/01/19 03:55 Ferritin 1282 ng/mL (10-120) H 02/01/19 03:55 ALT 74 Units/L (7-52) H 01/28/19 04:39 Alkaline Phosphatase 266 Units/L (34-104) H 01/28/19 04:39 Lactate Dehydrogenase 122 Units/L (140-271) L 01/30/19 03:25 Troponin I 0.05 ng/mL (< 0.04) H* 01/22/19 20:33 B-Natriuretic Peptide 1041 pg/mL (Less than 100) H 01/22/19 02:57 Serum Total Protein 5.6 g/dL (6.4-8.9) L 01/30/19 03:25 Vitamin B12 > 1500 pg/mL (250-1100) H 02/01/19 03:55 Folate > 22.3 ng/mL (3.0-16.0) H 02/01/19 03:55 Procalcitonin 0.89 ng/mL (0.00-0.15) H 01/22/19 03:28 Urine Protein >=300 mg/dL (Neg-Trace) H 01/28/19 06:26 Urine Glucose (UA) 250 mg/dL (Normal) H 01/28/19 06:26 Ur Squamous Epith Cells Many per lpf (None-Few) H 01/28/19 06:26 Vancomycin Trough 17 mcg/mL (5-10) H 01/29/19 05:40 Hep Bs Antibody < 3.10 mIU/mL (10.00-) L 01/22/19 07:40 Staphylococcus sp PCR DETECTED (Not Detect) A 01/28/19 06:41 mecA-Methicil Res Gene DETECTED (Not Detect) A 01/28/19 06:41 Crossmatch See Detail 01/30/19 05:45 - Head Head exam: Present: atraumatic - ENT ENT exam: Present: mucous membranes dry - Respiratory Respiratory exam: Present: accessory muscle use, decreased breath sounds, tachypnea - Cardiovascular Cardiovascular exam: Present: irregular rhythm - GI/Abdominal GI/Abdominal exam: Present: normal bowel sounds, soft - Neurological Exam Additional comments: drowsy, sedated. Palliative Quality Palliative Quality: Screen for Code Status: Yes, Screen for Goals of Care: Yes, Screen for Pain: Yes, If Pain Regimen Started, Initiate Bowel Regimen: Yes, Screen for Nausea/Vomitting: Yes Code Status: 01/22/19 02:44 Resuscitation Status: Active [RES] Routine Comment: Resuscitation Status: Full Code 02/01/19 13:46 DNR [Resuscitation Status: Active] [RES] Routine Comment: Resuscitation Status: DNR-Comfort Care - Labs CBC & Chem 7: 02/01/19 03:55 02/01/19 03:55 Labs: Laboratory Results - last 24 hr 02/01/19 13:35 POC Glucose 127 H - ABG Interpretation ABG results: ABG ABG pH 7.48 pH Units (7.32-7.45) H 01/28/19 15:36 ABG pCO2 43 mmHg (35-45) 01/28/19 15:36 ABG pO2 53 mmHg (85-104) L 01/28/19 15:36 ABG O2 Saturation 89 % (95-98) L 01/28/19 15:36 PT/INR, D-dimer PT 15.4 Seconds (9.4-12.1) H 01/30/19 03:25 Palliative Scale - Palliative Performance Scale How ambulatory is this patient?: Totally bed bound What is patient's level of activity and evidence of disease?: Unable to do most activity, Extensive disease How much self-care assistance does patient require?: Total care How much oral intake does the patient have?: Minimal to sips What is this patient's level of consciousness?: Full or drowsy with or without confusion Palliative Performance Score: 20 % Consult Discharge Plan - Plan Referrals: Juan J Pal ACCOUNTANT CONTROLLER [Primary Care Provider] -
[2019-02-02] MEDS: FentaNYL (PF) 1,000 MCG in 0.9 % Sodium Chloride 80 ML IVC SCH ×2 (11:02→20:12)
--- NOTE | 2019-02-02 11:42 | Internal Med Progress Note ---
Hospitalist Progress Note - Encounter Date of Encounter: 02/02/19 Time of Encounter: 10:00 - Subjective Interval History: Patient was seen this morning with the rest of her family. She looked agitated and tachypneic. - Exam Vitals: Temp Pulse Resp BP Pulse Ox 99.5 F 104 20 99/64 96 02/02/19 08:04 02/02/19 08:04 02/02/19 08:04 02/02/19 08:04 02/02/19 08:04 Exam: General: Patient is somnolent, in moderate distress. ENT: Mucous membranes moist. Respiratory: Left-sided chest to draining bloody fluid, bilateral crackles tachypneic and using accessory muscles. Cardiovascular: Regular rate and rhythm. Abdomen: Abdomen is soft, Bowel sounds are present Musculoskeletal: status post bl BKA Neuro: Not Alert or oriented - Assessment and Plan (1) HTN (hypertension) Current Visit: Yes Status: Chronic (2) Diabetes mellitus Current Visit: Yes Status: Chronic (3) Acute encephalopathy Current Visit: No Status: Resolved (4) Multifocal pneumonia Current Visit: Yes Status: Acute (5) Acute and chronic respiratory failure with hypoxia Current Visit: Yes Status: Acute (6) History of DVT (deep vein thrombosis) Current Visit: No Status: Acute (7) Acute exacerbation of CHF (congestive heart failure) Current Visit: Yes Status: Acute (8) ESRD (end stage renal disease) on dialysis Current Visit: Yes Status: Acute (9) Goals of care, counseling/discussion Current Visit: Yes Status: Acute - Summary of Assessment and Plan Summary of Assessment and Plan: Ms. Simon is a 58 year old female with a PMH of CAD, CHF, COPD on 2-3 L of home O2, CVA, previous DVT on Eliquis, DM, HLD, HTN, PAD, ESRD on HD MWF who was admitted to the hospital due to shortness of breath. Initial x-ray revealed p ulmonary edema with left effusion with left base residual airspace disease. Her course was complicated with respiratory distress required ICU admission and left-sided chest tube placement for refractory left-sided pleural effusion. Palliative team was consulted by the ICU team and the meeting was held with the family who decided to transition her care into comfort care. Patient was sent to the floor pending admission to inpatient hospice. Goals of care: - Patient is BAND SAW OPERATOR, on fentanyl drip as per palliative team. Acute on chronic hypoxic respiratory failure: - Due to fluid overload/CHF and PNA. End-stage renal disease on hemodialysis: -HD DC as the patient is comfort care COPD: End-stage COPD. -On fentanyl drip after discussion with dietitian. - Time Spent with Patient Total time spent is greater than 50% in coordination of care (as documented) at patient's floor/unit and/or counseling patient: Internal Medicine: Result - Labs CBC & Chem 7: 02/01/19 03:55 02/01/19 03:55 - ABG Interpretation ABG results: ABG ABG pH 7.48 pH Units (7.32-7.45) H 01/28/19 15:36 ABG pCO2 43 mmHg (35-45) 01/28/19 15:36 ABG pO2 53 mmHg (85-104) L 01/28/19 15:36 ABG O2 Saturation 89 % (95-98) L 01/28/19 15:36 PT/INR, D-dimer PT 15.4 Seconds (9.4-12.1) H 01/30/19 03:25 Consult Discharge Plan - Plan Referrals: Juan J Pal, [employer] [Primary Care Provider] - (1) HTN (hypertension) Qualifiers: Hypertension type: essential hypertension Qualified Code(s): I10 - Essential (primary) hypertension (2) Diabetes mellitus Qualifiers: Diabetes mellitus type: type 2 Diabetes mellitus usp insulin use: with usp use Diabetes mellitus complication status: with kidney complications Diabetes mellitus complication detail: with chronic kidney disease Chronic kidney disease stage: on chronic dialysis Qualified Code(s): E11.22 - Type 2 diabetes mellitus with diabetic chronic kidney disease; N18.6 - End stage renal disease; Z79.4 - long term care administrator (current) use of insulin; Z99.2 - Dependence on renal dialysis (7) Acute exacerbation of CHF (congestive heart failure) Qualifiers: Heart failure type: diastolic Qualified Code(s): I50.33 - Acute on chronic diastolic (congestive) heart failure
[2019-02-02] MEDS ORDERED: Atropine Sulfate 1% 40 DROP/2 ML BOTTLE SL PRN (17:36)
[2019-02-02] MEDS ORDERED: Scopolamine Patch 1.5 MG PATCH.TD72 TD SCH (17:45)
[2019-02-03 00:12] VITALS: BP 107/70
[2019-02-03] MEDS: *HR* LORazepam Oral Conc 2 MG/ML SL PRN (01:50)
[2019-02-03] MEDS: FentaNYL (PF) 1,000 MCG in 0.9 % Sodium Chloride 80 ML IVC SCH (02:15)
--- NOTE | 2019-02-03 05:52 | Death Note ---
Pronouncement Note - Date and Time of Date of : 02/03/19 Time of : 04:53 - Additional Data Confirmation of : no pulse, no respirations, no heart sounds, pupils fixed and dilated Family: at bedside Attending physician: Tyler Blair
--- NOTE | 2019-02-03 09:45 | Death Note ---
Discharge Sum: Summary - Date and Time Date of admission: 01/23/19 14:50 Date of : 02/03/19 Time of : 04:35 - Summary Details: Ms. Simon is a 58 year old female with a PMH of CAD, CHF, COPD on 2-3 L of home O2, CVA, previous DVT on Eliquis, DM, HLD, HTN, PAD, ESRD on HD MWF who was admitted to the hospital due to shortness of breath. Initial x-ray revealed pulmonary edema with left effusion with left base residual airspace disease. Her course was complicated with respiratory distress required ICU admission and left-sided chest tube placement for refractory left-sided pleural effusion. Palliative team was consulted by the ICU team and the meeting was held with the family who decided to transition her care into comfort care. Patient in peace and comfort on 04:35 this morning. - Additional Data Confirmation of as documented by pronouncing clinician: no pulse, no respirations, no heart sounds Family: at bedside Attending physician: Tyler Blair Discharge Sum: Diag - PCOD Probable Cause of : Cardiac arrest Discharge Sum: Prov - Provider Primary care physician: Juan J Pal CNP Consults: 02/01/19 08:56 Consult to Palliative Care [CONS] Routine Comment: Consulting Provider: Palliative Care Maria E Reason for Consult: ESRD with multiple other co-morbidities. Now with BiPAP dependent respiratory failure. At risk for intubation & trach. Please assist with GOC. Call Completed: No
== END 2019-02-03 04:53 | disposition expired | DRG 291 ==
LOC: 2ANU → SUATTDRO 01-23 14:50 → ICNU 01-28 17:15 → 2ANU 02-01 16:02
PROVIDERS: ADMIT Family Medicine; ATTEND Internal Medicine